=== PATIENT | female | born 1985 | race American Indian/Alaskan Native ===

== ENCOUNTER 2016-08-25 15:35 | Emergency (ER) | payer MEDICARE ==
[2016-08-25 16:01] VITALS: BP 107/72
[2016-08-25] MEDS ORDERED: D5NS 0.2% 1,000 ML IV ONE (16:07)
--- NOTE | 2016-08-25 16:12 | Emergency Department Report ---
Chief Complaint: Sickle Cell Crisis Stated Complaint: SICKLE CELL CRISIS/PAIN/NAUSEA - HPI History of Present Illness: Patient c/o sickle cell crisis x 4-5 days. States having pain all over her body, vomiting, and low grade fever. States port-a-cath in left chest. LMP end of 07/2016. - Exam Vital Signs: Vital Signs 08/25/16 15:59 Temperature 98.8 F Pulse Rate 66 Respiratory 12 Rate Blood Pressure 107/72 [Right] Physical Exam: General: NAD. MSE screening note: Focused history and physical exam performed. Due to findings the following was ordered: ED Disposition for MSE Condition: Stable
--- NOTE | 2016-08-26 12:14 | ED Elopement Review ---
ED Pt Elopement review - Call Back decision Pt Call Back Decision: No action required
== END 2016-08-25 21:00 | disposition left against medical advice (07) ==
LOC: ED 15:35
DX: D57.00 Hb-SS disease with crisis, unspecified (principal); R11.2 Nausea with vomiting, unspecified; R50.9 Fever, unspecified; Z53.21 Procedure and treatment not carried out due to patient leaving prior to being seen by health care provider

== ENCOUNTER 2016-10-26 10:32 | Emergency (ER) | payer MEDICARE ==
[2016-10-26] MEDS ORDERED: D5NS 0.2% 1,000 ML IV SCH (11:00)
[2016-10-26] MEDS ORDERED: REGLAN IV ONE (14:00)
[2016-10-26] MEDS ORDERED: DILAUDID IV ONE ×2 (14:00→15:36)
[2016-10-26] MEDS ORDERED: BENADRYL IV ONE ×2 (14:00→15:36)
[2016-10-26 14:28] LABS: Basophils % (Auto) 0.6 % (0.0-1.8); Eosinophils % (Auto) 1.9 % (0.0-4.3); Hematocrit 27.6 % (30.3-42.9); Hemoglobin 8.9 gm/dl (10.1-14.3); Mean Corpuscular HGB Conc 32 % (30-34); Platelet Count 163 K/mm3 (140-440); Red Blood Count 4.81 M/mm3 (3.65-5.03); White Blood Count 13.3 K/mm3 (4.5-11.0)
[2016-10-26 14:30] LABS: Mean Corpuscular Hemoglobin 19 pg (28-32); Mean Corpuscular Volume 57 fl (79-97); Red Cell Distribution Width 24.9 % (13.2-15.2)
--- NOTE | 2016-10-26 14:42 | Emergency Department Report ---
HPI - General Chief Complaint: Sickle Cell Crisis Time Seen by Provider: 10/26/16 13:37 - HPI HPI: Chief complaint: Sickle cell crisis HPI: Patient is a 31-year-old female with a history of SC disease who states she has not been able to see her refuse laborer in a while. Patient is out of her hydroxyurea and folic acid. Patient states she's been having a sickle crisis for the last week and taking otat-duy-fianwlk pain medicines. Patient states over the last 2-3 days it's gotten worse. Patient has a slight cough with yellow sputum. Patient is a smoker. Patient states she has slight anterior chest wall discomfort with coughing only. No shortness of breath. Patient is status post tubal ligation. Patient also has a history of fibromyalgia Mode of arrival: private car Source: Patient Began: One week Duration: one week Context: see above Quality: typical sickle cell pain, Severity: out of 10 Improved with: nothing Worsened with: nothing Associated signs and symptoms: One episode of nausea and vomiting which patient states is not unusual when she has a crisis. ED Past Medical Hx - Past Medical History Previous Medical History?: Yes Hx Sickle Cell Disease: Yes (SC disease) Hx Asthma: Yes Additional medical history: fibromyalgia - Surgical History Past Surgical History?: Yes Hx Cholecystectomy: Yes Additional Surgical History: ports x 2 / tubal ligation/ t&a - Social History Smoking Status: Current Every Day Smoker Substance Use Type: Alcohol, Prescribed - Medications Home Medications: Home Medications Medication Instructions Recorded Confirmed Last Taken Type Folic Acid [Folic Acid] 1 mg PO DAILY 09/25/15 11/27/15 Unknown History Hydroxyurea [Hydroxyurea] 2,000 mg PO DAILY 09/25/15 11/27/15 Unknown History Diphenhydramine HCl [Benadryl 25 mg PO Q8HR PRN #15 tablet 11/27/15 Unknown Rx Allergy TAB] Ketorolac [Toradol] 10 mg PO Q6H PRN #20 tablet 05/25/16 Unknown Rx Metoclopramide [Reglan] 10 mg PO QID PRN #30 tablet 05/25/16 Unknown Rx oxyCODONE [Roxicodone] 5 mg PO Q6HR PRN #15 tablet 05/25/16 Unknown Rx Azithromycin [Zithromax TAB] 500 mg PO QDAY #3 tablet 10/26/16 Unknown Rx Folic Acid [Folvite] 1 mg PO QDAY #30 tablet 10/26/16 Unknown Rx Hydroxyurea [Hydrea] 2,000 mg PO QDAY #120 capsule 10/26/16 Unknown Rx Oxycodone HCl/Acetaminophen 1 each PO Q6HR PRN #14 tablet 10/26/16 Unknown Rx [Percocet 7.5/325 mg] Pregabalin [Lyrica] 75 mg PO QDAY #30 cap 10/26/16 Unknown Rx Promethazine [Phenergan TAB] 25 mg PO Q6HR PRN #10 tablet 10/26/16 Unknown Rx ED Review of Systems ROS: Stated complaint: SICKLE CELL/PAIN /VOMITTING Other details as noted in HPI ROS Constitutional: No fever ENT: No uri symptoms Cardiovascular: No chest pain Respiratory: No sob GI: No diarrhea : No dysuria frequency or urgency, Skin: No rash Neuro: No focal weakness or numbness Psych: No depression Ted/lymph: No edema Physical Exam - Physical Exam Vital Signs: Vital Signs 10/26/16 10:38 Temperature 99.2 F Pulse Rate 101 H Respiratory 20 Rate Blood Pressure 115/76 O2 Sat by Pulse 100 Oximetry Physical Exam: GENERAL: The patient is well-developed well-nourished . HEENT: Normocephalic. Atraumatic. Extraocular motions are intact. Patient has moist mucous membranes. NECK: Supple. No meningitic signs are noted. There is no adenopathy noted. CHEST/LUNGS: Clear to auscultation. There is no respiratory distress noted. Patient has a port in her left chest. HEART/CARDIOVASCULAR: Regular. There is no tachycardia. There is no gallop rub or murmur. ABDOMEN: Abdomen is soft, nontender. Patient has normal bowel sounds. There is no abdominal distention. SKIN: There is no rash. There is no edema. There is no diaphoresis. NEURO: The patient is awake, alert, and oriented. The patient is cooperative. The patient has no focal neurologic deficits. The patient has normal speech. MUSCULOSKELETAL: There is no tenderness or deformity. There is no limitation range of motion. There is no evidence of acute injury. ED Course Vital Signs 10/26/16 10:38 Temperature 99.2 F Pulse Rate 101 H Respiratory 20 Rate Blood Pressure 115/76 O2 Sat by Pulse 100 Oximetry - Reevaluation(s) Reevaluation #1: 03/14/17 14:48 Patient's port was accessed and she was given IV fluids, Dilaudid, Reglan and Benadryl 10/26/16 15:37 Patient given a second dose of Dilaudid, Benadryl and Toradol was added. ED Medical Decision Making - Lab Data Result diagrams: 10/26/16 10:41 Laboratory Tests 11/10/14 10/26/16 04:25 10:41 Percent Retic 2.33 1.30 Critical care attestation.: If time is entered above; I have spent that time in minutes in the direct care of this critically ill patient, excluding procedure time. ED Disposition Clinical Impression: Sickle cell crisis, Bronchitis Disposition: DISCHARGED TO HOME OR SELFCARE Is pt being admited?: No Does the pt Need Aspirin: No Condition: Stable Instructions: Acute Bronchitis (ED), Sickle Cell Crisis (ED) Prescriptions: Azithromycin [Zithromax TAB] 500 mg PO QDAY #3 tablet Folic Acid [Folvite] 1 mg PO QDAY #30 tablet Hydroxyurea [Hydrea] 2,000 mg PO QDAY #120 capsule Oxycodone HCl/Acetaminophen [Percocet 7.5/325 mg] 1 each PO Q6HR PRN #14 tablet PRN Reason: Pain Pregabalin [Lyrica] 75 mg PO QDAY #30 cap Promethazine [Phenergan TAB] 25 mg PO Q6HR PRN #10 tablet PRN Reason: Nausea Referrals: АЛЕКСАНДР WAGNER MD [Staff Physician] - as needed (Dr. Wagner is a refuse laborer with him he can follow-up if need be) KATY COPELAND DO [Staff Physician] - as needed [facility] [Outside] - as needed (Called [facility] and see if you can follow-up with the [facility]) Time of Disposition: 15:35
[2016-10-26 15:03] LABS: Anion Gap 20 mmol/L; Blood Urea Nitrogen 9 mg/dL (7-17); Calcium 8.1 mg/dL (8.4-10.2); Carbon Dioxide 20 mmol/L (22-30); Chloride 107.1 mmol/L (98-107); Glucose 114 mg/dL (65-100); Potassium 3.5 mmol/L (3.6-5.0); Sodium 144 mmol/L (137-145)
[2016-10-26] MEDS ORDERED: TORADOL IV ONE (15:36)
[2016-10-26] MEDS ORDERED: FLUSH HEPARIN IV ONE (16:27)
[2016-10-26 16:44] VITALS: BP 112/69
== END 2016-10-26 16:46 | disposition home or self-care (01) ==
LOC: ED 10:32
DX: D57.00 Hb-SS disease with crisis, unspecified (principal); J40 Bronchitis, not specified as acute or chronic; R11.2 Nausea with vomiting, unspecified; J45.909 Unspecified asthma, uncomplicated; F17.200 Nicotine dependence, unspecified, uncomplicated
CPT/HCPCS: 36415; 80048; 85025; 85045; 96361; 96374; 96375; 96376; 99283; J1170; J1200; J1642; J1885; J2765

== ENCOUNTER 2016-10-29 20:43 | Inpatient (IN) | payer MEDICARE ==
[2016-10-30] MEDS ORDERED: BENADRYL ONE (09:31)
[2016-10-30] MEDS ORDERED: ZOFRAN ONE (09:31)
[2016-10-30] MEDS ORDERED: DILAUDID ONE (09:31)
--- NOTE | 2016-10-30 09:31 | XRay Report ---
Chest 2 views: Compared to 05/25/16. History: Chest pain. Findings: Normal cardiomediastinal silhouette. Trachea is midline. No consolidation, pneumothorax or pleural effusion. Impression: No acute cardiopulmonary findings.
[2016-10-30] MEDS ORDERED: NACL 0.9% 1000 ML 1,000 ML ONE (09:32)
[2016-10-30] MEDS ORDERED: BENADRYL IV ONE (09:35)
[2016-10-30] MEDS ORDERED: ZOFRAN IV ONE (09:35)
[2016-10-30] MEDS ORDERED: DILAUDID IV ONE ×2 (09:35→10:56)
[2016-10-30] MEDS ORDERED: NACL 0.9% 1000 ML 1,000 ML IV ONE (09:35)
--- NOTE | 2016-10-30 09:59 | Emergency Department Report ---
HPI - General Chief Complaint: Sickle Cell Crisis Time Seen by Provider: 10/30/16 09:05 - HPI HPI: This is a 31-year-old Afro-[place] female who presents to the emergency department from home with complaint of nausea, vomiting, chest pain and generalized body aches that she believes is a sickle cell pain crisis. Patient was here a few days ago for the same and was given fluids, meds and a prescription for home. She was feeling better at that time but the symptoms returned. She denies any history of NM, CVA, PE/DVT. She does not have a primary care or b2b sales representative. No recent travel or sick contacts at home. ED Past Medical Hx - Past Medical History Hx Hypertension: No Hx Heart Attack/AMI: No Hx Congestive Heart Failure: No Hx Diabetes: No Hx Deep Vein Thrombosis: No Hx Pulmonary Embolism: No Hx Liver Disease: No Hx Renal Disease: No Hx Sickle Cell Disease: Yes (SC disease) Hx Arthritis: No Hx Seizures: No Hx Kidney Stones: No Hx Asthma: Yes Hx COPD: No Hx Tuberculosis: No Hx Dementia: No Hx HIV: No Additional medical history: fibromyalgia - Surgical History Hx Coronary Stent: No Hx Open Heart Surgery: No Hx Pacemaker: No Hx Internal Defibrillator: No Hx Cholecystectomy: Yes Hx Appendectomy: No Hx Breast Surgery: No Additional Surgical History: ports x 2 / tubal ligation/ t&a - Social History Smoking Status: Current Every Day Smoker Substance Use Type: Alcohol, Prescribed - Medications Home Medications: Home Medications Medication Instructions Recorded Confirmed Last Taken Type Folic Acid [Folic Acid] 1 mg PO DAILY 09/25/15 11/27/15 Unknown History Hydroxyurea [Hydroxyurea] 2,000 mg PO DAILY 09/25/15 11/27/15 Unknown History Diphenhydramine HCl [Benadryl 25 mg PO Q8HR PRN #15 tablet 11/27/15 Unknown Rx Allergy TAB] Ketorolac [Toradol] 10 mg PO Q6H PRN #20 tablet 05/25/16 Unknown Rx Metoclopramide [Reglan] 10 mg PO QID PRN #30 tablet 05/25/16 Unknown Rx oxyCODONE [Roxicodone] 5 mg PO Q6HR PRN #15 tablet 05/25/16 Unknown Rx Azithromycin [Zithromax TAB] 500 mg PO QDAY #3 tablet 10/26/16 Unknown Rx Folic Acid [Folvite] 1 mg PO QDAY #30 tablet 10/26/16 Unknown Rx Hydroxyurea [Hydrea] 2,000 mg PO QDAY #120 capsule 10/26/16 Unknown Rx Oxycodone HCl/Acetaminophen 1 each PO Q6HR PRN #14 tablet 10/26/16 Unknown Rx [Percocet 7.5/325 mg] Pregabalin [Lyrica] 75 mg PO QDAY #30 cap 10/26/16 Unknown Rx Promethazine [Phenergan TAB] 25 mg PO Q6HR PRN #10 tablet 10/26/16 Unknown Rx ED Review of Systems ROS: Stated complaint: SICKLE CELL CRISIS Other details as noted in HPI Comment: All other systems reviewed and negative Constitutional: denies: chills, fever Eyes: denies: eye pain, eye discharge, vision change ENT: denies: ear pain, throat pain Respiratory: shortness of breath. denies: cough Cardiovascular: chest pain. denies: palpitations, edema Gastrointestinal: denies: abdominal pain, nausea, diarrhea Genitourinary: denies: urgency, dysuria, discharge Musculoskeletal: back pain, myalgia. denies: joint swelling Skin: denies: rash, lesions Neurological: denies: headache, weakness, paresthesias Physical Exam - Physical Exam Vital Signs: Vital Signs 10/29/16 21:59 Temperature 98.9 F Pulse Rate 105 H Respiratory 22 Rate Blood Pressure 120/71 O2 Sat by Pulse 100 Oximetry Physical Exam: GENERAL: The patient is well-developed well-nourished. HEENT: Normocephalic. Atraumatic. Extraocular motions are intact. Patient has moist mucous membranes. Pupils equal reactive to light bilaterally. NECK: Supple. Trachea is midline. CHEST/LUNGS: Clear to auscultation. There is no respiratory distress noted. HEART/CARDIOVASCULAR: Regular. There is mild tachycardia. There is no gallop rub or murmur. ABDOMEN: Abdomen is soft, nontender. Patient has normal bowel sounds. There is no abdominal distention. SKIN: There is no rash. There is no edema. There is no diaphoresis. NEURO: The patient is awake, alert, and oriented. The patient is cooperative. The patient has no focal neurologic deficits. The patient has normal speech. MUSCULOSKELETAL: There is no tenderness or deformity. There is no limitation range of motion. There is no evidence of acute injury. ED Course Vital Signs 10/29/16 21:59 Temperature 98.9 F Pulse Rate 105 H Respiratory 22 Rate Blood Pressure 120/71 O2 Sat by Pulse 100 Oximetry ED Medical Decision Making - Lab Data Result diagrams: 10/30/16 09:55 10/30/16 09:55 - EKG Data -: EKG Interpreted by Me EKG shows normal: sinus rhythm, axis, intervals, QRS complexes (Q waves to the septal leads), ST-T waves Rate: normal - EKG Data When compared to previous EKG there are: previous EKG unavailable Interpretation: other (q waves to the septal leads) - Radiology Data Radiology results: image reviewed interpreted by me: Chest x-ray did not show any acute process. Heart is normal shape and size. No effusions. No pneumothorax. No signs of pneumonia seen. - Medical Decision Making 31-year-old female with sickle cell presents with nausea, vomiting, chest pain and generalized body aches. Her chest x-ray does not show any acute process. EKG shows some Q waves to the septal leads but otherwise no signs of ST elevation NM or dysrhythmia. Patient's labs show a anemia with a hemoglobin of 8.7, reticulocyte count of about 1 and so far a negative troponin. Patient's d- dimer is negative as well. Patient appears low suspicion for chest crisis. However the patient received IV fluid resuscitation and 2 different doses of high strength narcotic pain medications and still complains of significant discomfort. For this reason the patient will be admitted to hospital for further evaluation and has been accepted for admission by the hospitalist, Dr. Hernandez. - Differential Diagnosis sickle cell pain crisis, chest crisis, NM, PE, costochondritis Critical Care Time: No Critical care attestation.: If time is entered above; I have spent that time in minutes in the direct care of this critically ill patient, excluding procedure time. ED Disposition Clinical Impression: Sickle cell pain crisis Anemia Qualifiers: Anemia type: unspecified type Qualified Code(s): D64.9 - Anemia, unspecified Chest pain Qualifiers: Chest pain type: unspecified Qualified Code(s): R07.9 - Chest pain, unspecified Disposition: OP ADMITTED IP TO THIS HOSP Is pt being admited?: Yes Does the pt Need Aspirin: Yes Condition: Stable Instructions: Chest Pain (ED) Referrals: PRIMARY CARE, [Primary Care Provider] - 3-5 Days Time of Disposition: 13:58
[2016-10-30] MEDS ORDERED: REGLAN ONE (10:00)
[2016-10-30] MEDS ORDERED: REGLAN IV ONE (10:25)
[2016-10-30 10:27] LABS: Basophils % (Auto) 0.5 % (0.0-1.8); Eosinophils % (Auto) 2.4 % (0.0-4.3); Hematocrit 26.7 % (30.3-42.9); Hemoglobin 8.7 gm/dl (10.1-14.3); Mean Corpuscular HGB Conc 33 % (30-34); Mean Corpuscular Hemoglobin 19 pg (28-32); Mean Corpuscular Volume 58 fl (79-97); Platelet Count 157 K/mm3 (140-440); Red Blood Count 4.61 M/mm3 (3.65-5.03); Red Cell Distribution Width 24.1 % (13.2-15.2); Reticulocyte % 1.26 % (0.78-2.58); White Blood Count 10.4 K/mm3 (4.5-11.0)
[2016-10-30 11:17] LABS: Anion Gap 14 mmol/L; Blood Urea Nitrogen 7 mg/dL (7-17); Calcium 8.3 mg/dL (8.4-10.2); Carbon Dioxide 26 mmol/L (22-30); Glucose 98 mg/dL (65-100); Potassium 3.9 mmol/L (3.6-5.0); Sodium 141 mmol/L (137-145)
[2016-10-30] MEDS ORDERED: TORADOL PO PRN (13:15)
[2016-10-30] MEDS ORDERED: DILAUDID IV PRN ×4 (13:17→16:20)
[2016-10-30] MEDS ORDERED: NORCO 10/325 PO PRN (13:17)
[2016-10-30] MEDS ORDERED: ATIVAN PO PRN (13:17)
[2016-10-30] MEDS ORDERED: MILK OF MAGNESIA PO PRN (13:17)
[2016-10-30] MEDS ORDERED: DULCOLAX PR PRN (13:17)
[2016-10-30] MEDS ORDERED: SODIUM CHLORIDE FLUSH SYRINGE 10 ML IV PRN (13:17)
--- NOTE | 2016-10-30 13:26 | History and Physical Report ---
History of Present Illness Date of admission: 10/30/2016 Chief complaint: Back pain flank pain History of present illness: He should 31-year-old female that presents with typical sickle cell crisis with back pain and thigh pain flank pain. Overall for approximately 3-4 days. Patient denies any fever chills nausea vomiting. Denies any triggering episodes. Patient states pain medications at home was not working and presented to the ED. Patient was given multiple regimes of pain control here in the ED and which did not control her pain and therefore was admitted. At present patient states her pain is not controlled. Past History Past Medical History: denies: acute ID, atrial fib, arthritis, CAD, cancer, DVT , ESRD, hypertension, hypothyroidism, migraines, seizures Past Surgical History: No surgical history, appendectomy, tonsillectomy, Other ( laminectomy) Social history: single. denies: alcohol abuse, prescription drug abuse, IV drug use Family history: other (sickle cell disease) Medications and Allergies Allergies Allergy/AdvReac Type Severity Reaction Status Date / Time cefotetan disodium Allergy Hives Verified 05/25/16 17:25 [From Cefotan] morphine Allergy Vomiting Verified 07/13/16 20:40 Home Medications Medication Instructions Recorded Confirmed Last Taken Type Folic Acid [Folic Acid] 1 mg PO DAILY 09/25/15 11/27/15 Unknown History Hydroxyurea [Hydroxyurea] 2,000 mg PO DAILY 09/25/15 11/27/15 Unknown History Diphenhydramine HCl [Benadryl 25 mg PO Q8HR PRN #15 tablet 11/27/15 Unknown Rx Allergy TAB] Ketorolac [Toradol] 10 mg PO Q6H PRN #20 tablet 05/25/16 Unknown Rx Metoclopramide [Reglan] 10 mg PO QID PRN #30 tablet 05/25/16 Unknown Rx oxyCODONE [Roxicodone] 5 mg PO Q6HR PRN #15 tablet 05/25/16 Unknown Rx Azithromycin [Zithromax TAB] 500 mg PO QDAY #3 tablet 10/26/16 Unknown Rx Folic Acid [Folvite] 1 mg PO QDAY #30 tablet 10/26/16 Unknown Rx Hydroxyurea [Hydrea] 2,000 mg PO QDAY #120 capsule 10/26/16 Unknown Rx Oxycodone HCl/Acetaminophen 1 each PO Q6HR PRN #14 tablet 10/26/16 Unknown Rx [Percocet 7.5/325 mg] Pregabalin [Lyrica] 75 mg PO QDAY #30 cap 10/26/16 Unknown Rx Promethazine [Phenergan TAB] 25 mg PO Q6HR PRN #10 tablet 10/26/16 Unknown Rx Review of Systems Constitutional: chronic pain, no weight loss, no sweats, no anorexia, no fatigue , no weakness, no malaise, no poor appetite, no daytime sleepiness Ears, nose, mouth and throat: no deferred, no ear discharge, no nasal congestion , no dental pain, no dysphagia, no sore throat, no swelling in mouth, no post- nasal drip, no headache, no pain front of neck Cardiovascular: chest pain, shortness of breath, dyspnea on exertion, no orthopnea, no palpitations, no rapid/irregular heart beat, no edema, no syncope , no lightheadedness, no paroxysmal nocturnal dyspnea, no claudication, no phlebitis, no high blood pressure Respiratory: cough, no cough with sputum, no excessive sputum, no hemoptysis, no shortness of breath, no congestion, no wheezing, no pleurisy, no sleep apnea , no respiratory infections Gastrointestinal: no abdominal pain, no vomiting, no change in bowel habits, no melena, no hematochezia, no loss of appetite, no early satiety, no excessive gas , no jaundice, no early satiety Genitourinary Female: pelvic pain, no dyspareunia, no dysuria, no urinary frequency, no urgency, no post void dribbling, no urge incontinence, no nocturia , no vaginal discharge, no vaginal odor, no abnormal vaginal bleeding, no vaginal dryness, no hot flashes, no Rectal: no incontinence Musculoskeletal: low back pain, shooting leg pain, muscle weakness, muscle cramps, no neck stiffness, no neck pain, no shooting arm pain, no leg numbness/ tingling, no redness of joints, no hot joints, no morning stiffness, no myalgias , no limitation of motion, no gait dysfunction, no frequent falls, no loss of height, no prior amputations Integumentary: no rash, no redness, no wounds, no jaundice, no bullae, no lesions, no depigmentation, no acne Neurological: no transient paralysis, no paralysis, no parathesias, no tingling , no tremors, no convulsions, no change in speech, no confusion, no sensory deficit, no loss of vision, no hearing difficulties Psychiatric: no memory loss, no sleep disturbances, no change in appetite, no suicidal ideation, no anhedonia, no sadness/tearfullness Endocrine: no heat intolerance, no nocturia, no excessive sweating, no thyroid mass, no palpatations, no low blood sugars Hematologic/Lymphatic: no lymphadenopathy, no lymphedema, no thrombophilia, no other Allergic/Immunologic: no allergic rhinitis Exam - Constitutional Vitals: Temp Pulse Resp BP Pulse Ox 98.9 F 105 H 18 120/71 100 10/29/16 21:59 10/29/16 21:59 10/30/16 11:10 10/29/16 21:59 10/29/16 21:59 General appearance: Present: no acute distress, well-nourished, other (moderate distress) - Neck Neck: Present: other - Respiratory Respiratory effort: normal Respiratory: bilateral: CTA - Cardiovascular Heart rate: 105 - Extremities Extremities: pulses symmetrical, No edema - Abdominal General gastrointestinal: Present: soft, non-tender, non-distended, normal bowel sounds - Integumentary Integumentary: Present: clear, warm, dry - Musculoskeletal Musculoskeletal: generalized weakness - Psychiatric Psychiatric: appropriate mood/affect, intact judgment & insight - Neurologic Neurologic: CNII-XII intact, moves all extremities Results - Labs CBC & Chem 7: 10/30/16 09:55 10/30/16 09:55 Labs: Laboratory Last Values WBC 10.4 K/mm3 (4.5-11.0) 10/30/16 09:55 RBC 4.61 M/mm3 (3.65-5.03) 10/30/16 09:55 Hgb 8.7 gm/dl (10.1-14.3) L 10/30/16 09:55 Hct 26.7 % (30.3-42.9) L 10/30/16 09:55 MCV 58 fl (79-97) L 10/30/16 09:55 MCH 19 pg (28-32) L 10/30/16 09:55 MCHC 33 % (30-34) 10/30/16 09:55 RDW 24.1 % (13.2-15.2) H 10/30/16 09:55 Plt Count 157 K/mm3 (140-440) 10/30/16 09:55 Lymph % (Auto) 32.4 % (13.4-35.0) 10/30/16 09:55 Love % (Auto) 7.2 % (0.0-7.3) 10/30/16 09:55 Eos % (Auto) 2.4 % (0.0-4.3) 10/30/16 09:55 Baso % (Auto) 0.5 % (0.0-1.8) 10/30/16 09:55 Lymph # 3.4 K/mm3 (1.2-5.4) 10/30/16 09:55 Love # 0.7 K/mm3 (0.0-0.8) 10/30/16 09:55 Eos # 0.2 K/mm3 (0.0-0.4) 10/30/16 09:55 Baso # 0.1 K/mm3 (0.0-0.1) 10/30/16 09:55 Seg Neutrophils % 57.5 % (40.0-70.0) 10/30/16 09:55 Seg Neutrophils # 6.0 K/mm3 (1.8-7.7) 10/30/16 09:55 Percent Retic 1.26 % (0.78-2.58) 10/30/16 09:55 D-Dimer 215.72 ng/mlDDU (0-234) 10/30/16 09:55 Sodium 141 mmol/L (137-145) 10/30/16 09:55 Potassium 3.9 mmol/L (3.6-5.0) 10/30/16 09:55 Chloride 105.0 mmol/L (98-107) 10/30/16 09:55 Carbon Dioxide 26 mmol/L (22-30) 10/30/16 09:55 Anion Gap 14 mmol/L 10/30/16 09:55 BUN 7 mg/dL (7-17) 10/30/16 09:55 Creatinine 0.4 mg/dL (0.7-1.2) L 10/30/16 09:55 Estimated GFR > 60 ml/min 10/30/16 09:55 BUN/Creatinine Ratio 17.50 % 10/30/16 09:55 Glucose 98 mg/dL (65-100) 10/30/16 09:55 Calcium 8.3 mg/dL (8.4-10.2) L 10/30/16 09:55 Total Creatine Kinase 49 units/L (30-135) 10/30/16 09:55 Troponin T < 0.010 ng/mL (0.00-0.029) 10/30/16 09:55 HCG, Qual Negative (Negative) 10/30/16 09:55 - Imaging and Cardiology Chest x-ray: image reviewed Assessment and Plan Advance Directives: Yes VTE prophylaxis?: Chemical Plan of care discussed with patient/family: Yes - Patient Problems (1) Chest pain Current Visit: Yes Status: Acute Qualifiers: Chest pain type: unspecified Qualified Code(s): R07.9 - Chest pain, unspecified Plan to address problem: Patient's chest pain is resolved. (2) Sickle cell pain crisis Current Visit: Yes Status: Acute Plan to address problem: Since with typical sickle cell pain crisis. Patient develop tolerance usually takes 4 mg Dilaudid. We'll start patient back increased at 3 every 3 since she' s not control with current pain regime aggressive IV volume replacement. No evidence of infection no fever no acute chest pain crisis.
[2016-10-30] MEDS ORDERED: D5/0.45NS 1,000 ML IV SCH (14:00)
[2016-10-30] MEDS: BENADRYL PO PRN ×2 (14:43→22:15)
[2016-10-30] MEDS: DILAUDID IV PRN ×2 (18:23→22:16)
[2016-10-30] MEDS: THERAGRAN Tab PO SCH (18:23)
[2016-10-30] MEDS: REGLAN PO PRN (18:24)
[2016-10-30] MEDS: PHENERGAN PO PRN (22:15)
[2016-10-30] MEDS: SENOKOT PO SCH (22:15)
[2016-10-31] MEDS: REGLAN PO PRN (01:55)
[2016-10-31] MEDS: DILAUDID IV PRN ×7 (01:56→22:25)
[2016-10-31] MEDS: PHENERGAN PO PRN ×3 (05:46→18:42)
[2016-10-31] MEDS: ZOFRAN IV PRN ×2 (08:24→22:33)
[2016-10-31] MEDS: FOLVITE PO SCH (09:44)
[2016-10-31] MEDS: LOVENOX SUB-Q SCH (09:44)
[2016-10-31] MEDS: THERAGRAN Tab PO SCH (09:45)
[2016-10-31] MEDS: LYRICA PO SCH (09:45)
[2016-10-31] MEDS: HYDREA PO SCH (09:45)
[2016-10-31] MEDS ORDERED: FLUARIX QUAD 2016-2017(36 MOS+) IM ONE (12:00)
[2016-10-31] MEDS: BENADRYL PO PRN ×2 (12:30→18:41)
--- NOTE | 2016-10-31 18:46 | Progress Note ---
Assessment and Plan Assessment and plan: --Sickle cell disease with painful crisis Patient's reticulocyte count is within normal limits Mild anemia with hemoglobin of 8.5 Continue current management, oxygen, IV fluids, pain medications --DVT prophylaxis with Lovenox --Ongoing tobacco use Okaying cessation counseling done patient strongly advised to quit tobacco use Advised nicotine patch as needed Past closely monitor the patient Possible discharge home tomorrow if stable Plan of care discussed with the patient as well as the nurse History Interval history: Patient seen and evaluated in in her room this morning medical records reviewed No new events reported by the nursing staff, patient was admitted with the sickle cell crisis Complaints of persisting pain, denies nausea vomiting, denies shortness of breath or chest pain Alert awake oriented 3 not in acute distress Vital signs reviewed stable Hospitalist Physical - Constitutional Vitals: Temp Pulse Resp BP Pulse Ox 97.8 F 86 18 100/60 97 10/31/16 15:36 10/31/16 15:36 10/31/16 18:42 10/31/16 15:36 10/31/16 08:00 General appearance: Present: no acute distress, well-nourished - EENT Eyes: Present: PERRL, EOM intact - Neck Neck: Present: supple, normal ROM - Respiratory Respiratory effort: normal Respiratory: negative: rales, rhonchi, wheezing - Cardiovascular Rhythm: regular Heart Sounds: Present: S1 & S2 - Extremities Extremities: no ischemia, pulses intact, pulses symmetrical, No edema Peripheral Pulses: within normal limits - Abdominal General gastrointestinal: soft, non-tender, non-distended, normal bowel sounds - Integumentary Integumentary: Present: clear, warm - Psychiatric Psychiatric: appropriate mood/affect, cooperative - Neurologic Neurologic: CNII-XII intact, moves all extremities Results - Labs CBC & Chem 7: 10/30/16 09:55 10/30/16 09:55 Labs: Laboratory Last Values WBC 10.4 K/mm3 (4.5-11.0) 10/30/16 09:55 RBC 4.61 M/mm3 (3.65-5.03) 10/30/16 09:55 Hgb 8.7 gm/dl (10.1-14.3) L 10/30/16 09:55 Hct 26.7 % (30.3-42.9) L 10/30/16 09:55 MCV 58 fl (79-97) L 10/30/16 09:55 MCH 19 pg (28-32) L 10/30/16 09:55 MCHC 33 % (30-34) 10/30/16 09:55 RDW 24.1 % (13.2-15.2) H 10/30/16 09:55 Plt Count 157 K/mm3 (140-440) 10/30/16 09:55 Lymph % (Auto) 32.4 % (13.4-35.0) 10/30/16 09:55 [place] % (Auto) 7.2 % (0.0-7.3) 10/30/16 09:55 Eos % (Auto) 2.4 % (0.0-4.3) 10/30/16 09:55 Baso % (Auto) 0.5 % (0.0-1.8) 10/30/16 09:55 Lymph # 3.4 K/mm3 (1.2-5.4) 10/30/16 09:55 [place] # 0.7 K/mm3 (0.0-0.8) 10/30/16 09:55 Eos # 0.2 K/mm3 (0.0-0.4) 10/30/16 09:55 Baso # 0.1 K/mm3 (0.0-0.1) 10/30/16 09:55 Seg Neutrophils % 57.5 % (40.0-70.0) 10/30/16 09:55 Seg Neutrophils # 6.0 K/mm3 (1.8-7.7) 10/30/16 09:55 Percent Retic 1.26 % (0.78-2.58) 10/30/16 09:55 D-Dimer 215.72 ng/mlDDU (0-234) 10/30/16 09:55 Sodium 141 mmol/L (137-145) 10/30/16 09:55 Potassium 3.9 mmol/L (3.6-5.0) 10/30/16 09:55 Chloride 105.0 mmol/L (98-107) 10/30/16 09:55 Carbon Dioxide 26 mmol/L (22-30) 10/30/16 09:55 Anion Gap 14 mmol/L 10/30/16 09:55 BUN 7 mg/dL (7-17) 10/30/16 09:55 Creatinine 0.4 mg/dL (0.7-1.2) L 10/30/16 09:55 Estimated GFR > 60 ml/min 10/30/16 09:55 BUN/Creatinine Ratio 17.50 % 10/30/16 09:55 Glucose 98 mg/dL (65-100) 10/30/16 09:55 Calcium 8.3 mg/dL (8.4-10.2) L 10/30/16 09:55 Total Creatine Kinase 49 units/L (30-135) 10/30/16 09:55 Troponin T < 0.010 ng/mL (0.00-0.029) 10/30/16 09:55 HCG, Qual Negative (Negative) 10/30/16 09:55
[2016-10-31] MEDS: SENOKOT PO SCH (22:23)
[2016-11-01] MEDS: PHENERGAN PO PRN ×2 (04:04→11:23)
[2016-11-01] MEDS: DILAUDID IV PRN ×5 (04:04→21:51)
--- NOTE | 2016-11-01 07:30 | Admit Criteria Form ---
Admission Criteria Documentation: SICKLE CELL DISEASE Clinical Indications for Admission to Inpatient Care (Place 'X' for any and all applicable criteria): Admission is indicated for ANY ONE of the following(1)(2)(3)(4)(5): [X]I. Inpatient admission required rather than observation care because of ANY ONE of the following: [ ]a) Altered mental status [ ]b) High fever or infection requiring inpatient admission as indicated by ANY ONE of the following: [ ]A. Appropriate outpatient observation care antimicrobial treatment unavailable, not effective, or not appropriate for infection [ ]B. Documented bacteremia [ ]C. Temp >104.9F (40.5C) (oral) [ ]D. Temp >103.1F (oral) or <96.8F(rectal) that does not respond to all emergency treatment measures [ ]c) Supplemental O2 or respiratory therapy for over 24 h that are performable only in acute inpatient setting [X]d) Continuous parenteral narcoticsother major pain intervention for >24 h performable only in acute inpatient setting. [ ]e) Exchange transfusion [ ]f) Other condition, treatment or monitoring requiring inpatient admission [ ]II. Acute chest syndrome indicated by ALL of the following (10): [ ]a) New alveolar infiltrate involving at least one lung segment [ ]b) Associated pulmonary symptoms or findings as indicated by ANY ONE of the following: [ ]i) Chest pain [ ]ii) Hypoxemia [ ]iii) Tachypnea/dyspnea [ ]iv) Wheezing [ ]v) Cough [ ]vi) Sputum production [ ]III. Significant hypoxemia or acidosis (more severe than baseline) [ ]IV. Emergent surgery needed (eg, acute cholecystitis) [ ]V. -related complication(11) [ ]. Splenic or hepatic sequestration(12) [ ]VII. Aplastic crisis [ ]VIII. Priapism or other vascular complication(13) [ ]IX. Traumatic hyphema [A](14) [ ]X. Underlying condition requiring hospitalization (eg, osteomyelitis) [ ]XI. Signs or symptoms of central nervous system injury indicated by ANY ONE of the following: [ ]a) Stroke(9) [ ]b) Seizure [ ]c) Other significant central nervous system symptom or event [ ]XII. Acute renal failure Extended stay beyond goal length of stay may be needed for: [ ]a) Inadequate pain control [ ]b) Acute chest syndrome [ ]c) Sequestration or aplastic crisis (12) [ ]d) Pneumonia and asthma exacerbation [ ]e) Neurologic or vascular complications (25) [ ]f) Infection (eg, osteomyelitis) that requires ongoing treatment) The original [facility] [employer] content created by [facility] has been revised. The portions of the content which have been revised are identified through the use of italic text or in bold, and [facility] has neither reviewed nor approved the modified material. All other unmodified content is copyright [facility]. Please see references footnoted in the original [facility] edition 2016 Admission Criteria Met: Yes
[2016-11-01] MEDS: ZOFRAN IV PRN (08:12)
[2016-11-01] MEDS: REGLAN PO PRN (08:13)
[2016-11-01] MEDS ORDERED: ZOFRAN IV PRN (10:41)
[2016-11-01] MEDS: FOLVITE PO SCH (10:48)
[2016-11-01] MEDS: HYDREA PO SCH (10:48)
[2016-11-01] MEDS ORDERED: NACL 0.9% 1000 ML 1,000 ML IV SCH (11:00)
[2016-11-01] MEDS: LYRICA PO SCH (11:23)
[2016-11-01] MEDS: LOVENOX SUB-Q SCH (11:23)
--- NOTE | 2016-11-01 13:16 | Progress Note ---
Assessment and Plan Assessment and plan: --Intractable nausea vomiting Mild improvement, continue antiemetics IV fluids and pain medications Consider CT abdomen and pelvis if no improvement --Sickle cell disease with painful crisis Patient's reticulocyte count is within normal limits Mild anemia with hemoglobin of 8.5 Continue current management, oxygen, IV fluids, pain medications --DVT prophylaxis with Lovenox --Ongoing tobacco use Smoking cessation counseling done patient strongly advised to quit tobacco use Advised nicotine patch as needed Closely monitor the patient had just the management as needed Possible discharge home tomorrow if stable Plan of care discussed with the patient as well as the nurse History Interval history: Patient seen and evaluated medical records reviewed Complaints of nausea vomiting, denies any headache dizziness Complains of generalized body pains and requests more pain medications, Alert awake oriented 3, vital signs reviewed Hospitalist Physical - Constitutional Vitals: Temp Pulse Resp BP Pulse Ox 99.4 F 105 H 20 120/59 98 11/01/16 08:23 11/01/16 08:23 11/01/16 08:23 11/01/16 08:23 11/01/16 08:23 General appearance: Present: no acute distress, well-nourished - EENT Eyes: Present: PERRL, EOM intact - Neck Neck: Present: supple, normal ROM - Respiratory Respiratory effort: normal Respiratory: negative: rales, rhonchi, wheezing - Cardiovascular Rhythm: regular Heart Sounds: Present: S1 & S2 - Extremities Extremities: no ischemia, pulses intact, pulses symmetrical Peripheral Pulses: within normal limits - Abdominal General gastrointestinal: soft, non-tender, non-distended, normal bowel sounds - Integumentary Integumentary: Present: clear, warm - Psychiatric Psychiatric: appropriate mood/affect, cooperative - Neurologic Neurologic: CNII-XII intact, moves all extremities Results - Labs CBC & Chem 7: 10/30/16 09:55 10/30/16 09:55 Labs: Laboratory Last Values WBC 10.4 K/mm3 (4.5-11.0) 10/30/16 09:55 RBC 4.61 M/mm3 (3.65-5.03) 10/30/16 09:55 Hgb 8.7 gm/dl (10.1-14.3) L 10/30/16 09:55 Hct 26.7 % (30.3-42.9) L 10/30/16 09:55 MCV 58 fl (79-97) L 10/30/16 09:55 MCH 19 pg (28-32) L 10/30/16 09:55 MCHC 33 % (30-34) 10/30/16 09:55 RDW 24.1 % (13.2-15.2) H 10/30/16 09:55 Plt Count 157 K/mm3 (140-440) 10/30/16 09:55 Lymph % (Auto) 32.4 % (13.4-35.0) 10/30/16 09:55 [place] % (Auto) 7.2 % (0.0-7.3) 10/30/16 09:55 Eos % (Auto) 2.4 % (0.0-4.3) 10/30/16 09:55 Baso % (Auto) 0.5 % (0.0-1.8) 10/30/16 09:55 Lymph # 3.4 K/mm3 (1.2-5.4) 10/30/16 09:55 [place] # 0.7 K/mm3 (0.0-0.8) 10/30/16 09:55 Eos # 0.2 K/mm3 (0.0-0.4) 10/30/16 09:55 Baso # 0.1 K/mm3 (0.0-0.1) 10/30/16 09:55 Seg Neutrophils % 57.5 % (40.0-70.0) 10/30/16 09:55 Seg Neutrophils # 6.0 K/mm3 (1.8-7.7) 10/30/16 09:55 Percent Retic 1.26 % (0.78-2.58) 10/30/16 09:55 D-Dimer 215.72 ng/mlDDU (0-234) 10/30/16 09:55 Sodium 141 mmol/L (137-145) 10/30/16 09:55 Potassium 3.9 mmol/L (3.6-5.0) 10/30/16 09:55 Chloride 105.0 mmol/L (98-107) 10/30/16 09:55 Carbon Dioxide 26 mmol/L (22-30) 10/30/16 09:55 Anion Gap 14 mmol/L 10/30/16 09:55 BUN 7 mg/dL (7-17) 10/30/16 09:55 Creatinine 0.4 mg/dL (0.7-1.2) L 10/30/16 09:55 Estimated GFR > 60 ml/min 10/30/16 09:55 BUN/Creatinine Ratio 17.50 % 10/30/16 09:55 Glucose 98 mg/dL (65-100) 10/30/16 09:55 Calcium 8.3 mg/dL (8.4-10.2) L 10/30/16 09:55 Total Creatine Kinase 49 units/L (30-135) 10/30/16 09:55 Troponin T < 0.010 ng/mL (0.00-0.029) 10/30/16 09:55 HCG, Qual Negative (Negative) 10/30/16 09:55
[2016-11-01] MEDS ORDERED: REGLAN PO PRN (15:16)
[2016-11-01 15:36] LABS: Amylase 531 units/L (27-131); Lipase 15 units/L (13-60)
[2016-11-01] MEDS ORDERED: NACL ONE (16:49)
--- NOTE | 2016-11-01 18:02 | Cat Scan Report ---
FINAL REPORT EXAM: CT ABDOMEN PELVIS W CON HISTORY: intractable nausea vomiting TECHNIQUE: CT abdomen and pelvis with intravenous contrast PRIORS: None. FINDINGS: No acute abnormality identified in the lung bases. There is some mild scarring noted within both lower lobes No focal abnormality identified within the liver parenchyma. The spleen demonstrates normal size and attenuation. No pancreatic abnormalities seen. The kidneys demonstrate symmetric contrast enhancement. No evidence of hydronephrosis. The adrenal glands are unremarkable Abdominal aorta is normal in caliber. No pathologically enlarged lymph nodes are identified. No signs of free fluid or free air No evidence of small bowel dilatation. Colon is nondistended. No pericolonic inflammatory change. Urinary bladder is unremarkable. IMPRESSION: Negative. No acute abnormalities seen
[2016-11-01] MEDS ORDERED: FLUSH HEPARIN IV ONE (20:13)
[2016-11-02] MEDS: DILAUDID IV PRN (03:32)
--- NOTE | 2016-11-02 08:28 | Discharge Summary ---
Providers - Providers Date of Admission: 10/30/16 14:54 Date of discharge: 11/02/16 Attending physician: ALEM HUDSON Primary care physician: NAN BRANTLEY MD Hospitalization Condition: Stable Exam - Constitutional Vitals: Temp Pulse Resp BP Pulse Ox 98.5 F 102 H 18 118/58 98 11/01/16 23:00 11/01/16 23:00 11/01/16 23:00 11/01/16 23:00 11/01/16 23:00 Plan Follow up with: PRIMARY CAREMD [Primary Care Provider] - 3-5 Days Prescriptions: Ondansetron [Zofran TAB] 4 mg PO Q8HR PRN #15 tablet PRN Reason: Nausea Oxycodone HCl/Acetaminophen [Percocet 7.5/325 mg] 1 each PO Q6HR PRN #14 tablet PRN Reason: Pain
[2016-11-02] MEDS: HYDREA PO SCH (09:46)
[2016-11-02] MEDS ORDERED: TRIPLE ANTIBIOTIC TP ONE (09:48)
[2016-11-02] MEDS ORDERED: FLUSH HEPARIN IV ONE (09:48)
[2016-11-02] MEDS ORDERED: PROTONIX IV SCH (10:00)
[2016-11-02 10:09] VITALS: BP 122/70
== END 2016-11-02 10:30 | disposition home or self-care (01) | DRG 812 ==
LOC: ED 20:43 → 3A 10-30 14:54 → OBSVTOIN 11-02 09:45
PROVIDERS: ADMIT Internal Medicine; ATTEND Internal Medicine
DX: D57.01 Hb-SS disease with acute chest syndrome (principal); R11.2 Nausea with vomiting, unspecified; M79.7 Fibromyalgia; D64.9 Anemia, unspecified; F17.210 Nicotine dependence, cigarettes, uncomplicated; J45.909 Unspecified asthma, uncomplicated; Z88.5 Allergy status to narcotic agent; Z88.8 Allergy status to other drugs, medicaments and biological substances; Z90.49 Acquired absence of other specified parts of digestive tract; Z98.51 Tubal ligation status; Z79.899 Other long term (current) drug therapy
CPT/HCPCS: 36415; 71020; 74177; 80048; 82150; 82550; 83690; 84484; 84703; 85025; 85045; 85379; 90686; 93005; 93010; 96361; 96374; 96375; 96376; A6250; C9113; G0378; J1170; J1200; J1642; J1650; J2405; J2765; J7030; Q0169; Q9967

== ENCOUNTER 2016-12-21 04:52 | Emergency (ER) | payer MEDICARE ==
[2016-12-21] MEDS ORDERED: D5NS 0.2% 1,000 ML IV SCH (06:00)
[2016-12-21 10:33] LABS: Basophils % (Auto) 0.7 % (0.0-1.8); Hematocrit 25.4 % (30.3-42.9); Hemoglobin 8.2 gm/dl (10.1-14.3); Mean Corpuscular HGB Conc 32 % (30-34); Mean Corpuscular Hemoglobin 18 pg (28-32); Mean Corpuscular Volume 57 fl (79-97); Platelet Count 191 K/mm3 (140-440); Red Blood Count 4.47 M/mm3 (3.65-5.03); Red Cell Distribution Width 23.6 % (13.2-15.2); Reticulocyte % 2.01 % (0.78-2.58); White Blood Count 12.6 K/mm3 (4.5-11.0)
[2016-12-21] MEDS ORDERED: DILAUDID IV ONE ×3 (11:00→13:12)
[2016-12-21] MEDS ORDERED: ZOFRAN IV ONE (11:00)
[2016-12-21] MEDS ORDERED: TORADOL IV ONE (11:01)
--- NOTE | 2016-12-21 11:06 | Emergency Department Report ---
HPI - General Chief Complaint: Sickle Cell Crisis Time Seen by Provider: 12/21/16 10:40 - HPI HPI: Room 19 The patient is a 31-year-old female presenting with a chief complaint of sickle cell pain crisis. The patient states her symptoms began 2-3 weeks ago with pain "all over." The patient states it feels like a crisis. 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 The patient currently gives her pain a score of 10/10 Location: "All over" Duration: 2-3 weeks Quality: Pain crisis Severity: 10/10 Modifying factors: [see above] Context: [see above] Mode of transportation: [not driving] ED Past Medical Hx - Past Medical History Previous Medical History?: Yes Hx Sickle Cell Disease: Yes Hx Seizures: Yes (10 + years ago) Hx Asthma: Yes Additional medical history: fibromyalgia - Surgical History Past Surgical History?: Yes Hx Cholecystectomy: Yes Additional Surgical History: ports x 2 / tubal ligation/ t&a , splenectomy - Family History Family history: no significant - Social History Smoking Status: Current Every Day Smoker Substance Use Type: None (denies illicit drug use), Alcohol (occasional) - Medications Home Medications: Home Medications Medication Instructions Recorded Confirmed Last Taken Type oxyCODONE /ACETAMINOPHEN [Percocet 1 - 2 tab PO Q6HR PRN #14 tablet 12/21/16 Unknown Rx 5/325] ED Review of Systems ROS: Stated complaint: SICKLE CELL PAIN/NAUSEA/VOMITING Other details as noted in HPI Comment: All other systems reviewed and negative Constitutional: denies: chills, fever Eyes: denies: eye pain, eye discharge, vision change ENT: denies: ear pain, throat pain Respiratory: denies: cough, shortness of breath, wheezing Cardiovascular: denies: chest pain, palpitations Endocrine: no symptoms reported Gastrointestinal: nausea, vomiting. denies: abdominal pain, diarrhea Genitourinary: denies: urgency, dysuria, discharge Musculoskeletal: myalgia Skin: denies: rash, lesions Neurological: denies: headache, weakness, paresthesias Psychiatric: denies: anxiety, depression Hematological/Lymphatic: other (sickle cell pain crisis) Physical Exam - Physical Exam Vital Signs: Vital Signs 12/21/16 05:03 Temperature 99.2 F Pulse Rate 94 H Respiratory 20 Rate Blood Pressure 112/74 O2 Sat by Pulse 98 Oximetry Physical Exam: GENERAL: The patient is well-developed well-nourished female lying on stretcher not appear to be in acute distress. [] HEENT: Normocephalic. Atraumatic. Extraocular motions are intact. Patient has moist mucous membranes. NECK: Supple. Trachea midline CHEST/LUNGS: Clear to auscultation. There is no respiratory distress noted. HEART/CARDIOVASCULAR: Regular. There is no tachycardia. There is no gallop rub or murmur. ABDOMEN: Abdomen is soft, nontender. Patient has normal bowel sounds. There is no abdominal distention. SKIN: There is no rash. There is no edema. There is no diaphoresis. NEURO: The patient is awake, alert, and oriented. The patient is cooperative. The patient has normal speech MUSCULOSKELETAL: There is no evidence of acute injury. ED Course Vital Signs 12/21/16 05:03 Temperature 99.2 F Pulse Rate 94 H Respiratory 20 Rate Blood Pressure 112/74 O2 Sat by Pulse 98 Oximetry - Reevaluation(s) Reevaluation #1: 12/21/16 13:13 Patient improved ED Medical Decision Making - Lab Data Result diagrams: 12/21/16 10:15 Laboratory Tests 12/21/16 10:15 WBC 12.6 H RBC 4.47 Hgb 8.2 L Hct 25.4 L MCV 57 L MCH 18 L MCHC 32 RDW 23.6 H Plt Count 191 Lymph % (Auto) 24.7 [place] % (Auto) 7.3 Eos % (Auto) 2.0 Baso % (Auto) 0.7 Lymph # 3.1 [place] # 0.9 H Eos # 0.2 Baso # 0.1 Seg Neutrophils % 65.3 Seg Neutrophils # 8.2 H Percent Retic 2.01 - Differential Diagnosis sickle cell pain crisis Critical care attestation.: If time is entered above; I have spent that time in minutes in the direct care of this critically ill patient, excluding procedure time. ED Disposition Clinical Impression: Sickle cell pain crisis Disposition: DISCHARGED TO HOME OR SELFCARE Is pt being admited?: No Does the pt Need Aspirin: No Condition: Stable Instructions: Sickle Cell Crisis (ED) Additional Instructions: Return to the emergency department immediately should you develop worsening symptoms, fever, inability to tolerate food or liquid or any other concerns. Prescriptions: oxyCODONE /ACETAMINOPHEN [Percocet 5/325] 1 - 2 tab PO Q6HR PRN #14 tablet PRN Reason: Pain Referrals: PRIMARY CARE, [Primary Care Provider] - 3-5 Days АЛЕКСАНДР WAGNER MD [Staff Physician] - 3-5 Days (Dr Wagner is a warehouse inventory clerk. Please follow up with him for further evaluation) Time of Disposition: 13:15
[2016-12-21] MEDS ORDERED: BENADRYL IV ONE (11:25)
[2016-12-21] MEDS ORDERED: REGLAN IV ONE (11:25)
[2016-12-21] MEDS ORDERED: ATARAX PO ONE (13:12)
[2016-12-21 13:15] LABS: Bilirubin,Urine NEG (Negative); Blood,Urine NEG (Negative); Ketones,Urine NEG (Negative); Leukocyte Esterase,Urine TR (Negative); Mucus,Urine FEW /HPF; Nitrite,Urine NEG (Negative); Protein,Urine <15 mg/dL mg/dL (Negative); Urobilinogen,Urine < 2.0 mg/dL (<2.0)
[2016-12-21] MEDS ORDERED: FLUSH HEPARIN IV ONE ×2 (13:34→13:47)
[2016-12-21 14:04] VITALS: BP 117/49
== END 2016-12-21 14:03 | disposition home or self-care (01) ==
LOC: ED 04:52
DX: D57.00 Hb-SS disease with crisis, unspecified (principal); J45.909 Unspecified asthma, uncomplicated; M79.7 Fibromyalgia; R56.9 Unspecified convulsions; F17.200 Nicotine dependence, unspecified, uncomplicated
CPT/HCPCS: 36415; 81001; 85025; 85045; 96361; 96374; 96375; 96376; 99283; J1170; J1200; J1642; J1885; J2765; J2405

== ENCOUNTER 2017-04-12 17:50 | Emergency (ER) | payer MEDICARE ==
[2017-04-12 18:05] VITALS: BP 145/65
[2017-04-12] MEDS ORDERED: DUONEB *Not for PRN Use IH ONE (21:24)
[2017-04-12 21:48] LABS: Hematocrit 28.6 % (30.3-42.9); Hemoglobin 8.9 gm/dl (10.1-14.3); Mean Corpuscular HGB Conc 31 % (30-34); Reticulocyte % 2.24 % (0.78-2.58); White Blood Count 11.6 K/mm3 (4.5-11.0)
[2017-04-12 21:51] LABS: Mean Corpuscular Hemoglobin 17 pg (28-32); Mean Corpuscular Volume 54 fl (79-97); Platelet Count 219 K/mm3 (140-440); Red Cell Distribution Width 24.5 % (13.2-15.2)
[2017-04-12 22:06] LABS: Anion Gap 21 mmol/L; Blood Urea Nitrogen 7 mg/dL (7-17); Calcium 8.5 mg/dL (8.4-10.2); Carbon Dioxide 20 mmol/L (22-30); Chloride 101.6 mmol/L (98-107); Glucose 88 mg/dL (65-100); Potassium 3.6 mmol/L (3.6-5.0); Sodium 139 mmol/L (137-145)
[2017-04-12 22:27] LABS: Basophils % (Manual) 0 % (0.0-1.8); Blastocytes % (Manual) 0 %; Large Platelets Few; Platelet Estimate Consistent w Auto
[2017-04-12 22:29] LABS: Anisocytosis 1+; Microcytosis 2+
[2017-04-12 22:30] LABS: Hypochromasia 2+; Target Cells 2+
[2017-04-12 22:31] LABS: Diff Status Complete; Sickle Cells Few
--- NOTE | 2017-04-13 07:35 | XRay Report ---
CHEST 2 VIEWS INDICATION: Chest pain. History of sickle cell. COMPARISON: 10/29/2016 FINDINGS: PA and lateral chest radiographs demonstrate normal cardiomediastinal silhouette. Clear lungs. Stable left chest port tip about the cavoatrial junction. Unremarkable bones. Stable cholecystectomy clips. CONCLUSION: No acute disease, stable. Thank you for the opportunity to participate in this patient's care.
== END 2017-04-12 23:55 | disposition left against medical advice (07) ==
LOC: ED 17:50
DX: R07.9 Chest pain, unspecified (principal); D57.00 Hb-SS disease with crisis, unspecified; Z53.21 Procedure and treatment not carried out due to patient leaving prior to being seen by health care provider
CPT/HCPCS: 36415; 71020; 80048; 84484; 85007; 85025; 85045; 93005; 93010

== ENCOUNTER 2017-07-27 10:45 | Emergency (ER) | payer MEDICARE ==
[2017-07-27] MEDS ORDERED: TORADOL IV ONE (13:06)
[2017-07-27] MEDS ORDERED: BENADRYL IV ONE (13:06)
[2017-07-27] MEDS ORDERED: DILAUDID IV ONE ×2 (13:06→14:30)
[2017-07-27] MEDS ORDERED: REGLAN IV ONE (13:07)
--- NOTE | 2017-07-27 13:09 | Emergency Department Report ---
Chief Complaint: Pain General Stated Complaint: SICKEL CELL/ NAUSEA Time Seen by Provider: 07/27/17 13:01 - HPI History of Present Illness: Patient is a 32-year-old [place] female with history of sickle cell SC who is presenting with an acute sickle cell crisis. Patient states she thinks the weather dropping and temperature is a factor in her crisis this time. Patient states she is hurting all over 78 out of 10 pain aching. Patient denies nausea vomiting fevers chills abdominal pain cough at this time. Patient will be seen in fast track area will be given fluids will check reticulocyte count and CBC to ensure she is not more anemic than her baseline. - ROS Review of Systems: ROS negative except for those elements seen in HPI - Exam Vital Signs: Vital Signs 07/27/17 10:54 Temperature 98 F Pulse Rate 91 H Respiratory 16 Rate Blood Pressure 111/66 O2 Sat by Pulse 97 Oximetry Physical Exam: General patient is in mild distress secondary to pain however her heart lung abdomen extremity exam are all within normal limits MSE screening note: Focused history and physical exam performed. Due to findings the following was ordered: ED Disposition for MSE Condition: Stable Referrals: PRIMARY CARE [Primary Care Provider] - 3-5 Days
[2017-07-27] MEDS ORDERED: D5NS 0.2% 1,000 ML IV SCH (14:00)
--- NOTE | 2017-07-27 15:30 | Emergency Department Report ---
HPI - General Chief Complaint: Pain General Time Seen by Provider: 07/27/17 13:01 - HPI HPI: 32-year-old female with a history of sickle cell presented with pain. Patient was seen by Dr. Pandey and myself the providers continuing the care of the patient. Refer to MSE note for the remainder of HPI. ED Past Medical Hx - Past Medical History Hx Hypertension: No Hx Heart Attack/AMI: No Hx Congestive Heart Failure: No Hx Diabetes: No Hx Deep Vein Thrombosis: No Hx Pulmonary Embolism: No Hx Liver Disease: No Hx Renal Disease: No Hx Sickle Cell Disease: Yes Hx Arthritis: No Hx Seizures: Yes (10 + years ago) Hx Kidney Stones: No Hx Asthma: Yes Hx COPD: No Hx Tuberculosis: No Hx Dementia: No Hx HIV: No Additional medical history: fibromyalgia - Surgical History Hx Coronary Stent: No Hx Open Heart Surgery: No Hx Pacemaker: No Hx Internal Defibrillator: No Hx Cholecystectomy: Yes Hx Appendectomy: No Hx Breast Surgery: No Additional Surgical History: ports x 2 / tubal ligation/ t&a , splenectomy - Social History Smoking Status: Never Smoker Substance Use Type: None - Medications Home Medications: Home Medications Medication Instructions Recorded Confirmed Last Taken Type oxyCODONE /ACETAMINOPHEN [Percocet 1 - 2 tab PO Q6HR PRN #14 tablet 07/27/17 Unknown Rx 5/325 mg] ED Review of Systems ROS: Stated complaint: SICKEL CELL/ NAUSEA Other details as noted in HPI Constitutional: denies: chills, fever Eyes: denies: eye pain, eye discharge, vision change ENT: denies: ear pain, throat pain Respiratory: denies: cough, shortness of breath, wheezing Cardiovascular: denies: chest pain, palpitations Endocrine: no symptoms reported Gastrointestinal: denies: abdominal pain, nausea, diarrhea Genitourinary: denies: urgency, dysuria, discharge Musculoskeletal: myalgia. denies: back pain, joint swelling, arthralgia Skin: denies: rash, lesions Neurological: denies: headache, weakness, numbness, paresthesias, confusion Psychiatric: denies: anxiety, depression Hematological/Lymphatic: denies: easy bleeding, easy bruising Physical Exam - Physical Exam Vital Signs: Vital Signs 07/27/17 10:54 Temperature 98 F Pulse Rate 91 H Respiratory 16 Rate Blood Pressure 111/66 O2 Sat by Pulse 97 Oximetry Physical Exam: GENERAL: Alert and oriented x3, no apparent distress, Normal Gait, atraumatic. HEAD: Head is normocephalic and a-traumatic. EYES: Extra ocular muscles are intact. Pupils are equal, round, and reactive to light and accommodation. NECK: Supple. Non edematous, No lymphadenopathy or thyromegaly. No C-spine tenderness LUNGS: Symetrical with respiration, No wheezing, no rales or crackles, CTAB. HEART: S1, S2 present, regular rate and rhythm without murmur, no rubs, no gallops. Non tender to palpation ABDOMEN: No organomegaly was noted,Positive bowel sounds, soft, and non- distended. Nontender to palpation on all Quadrants, NO CVA tenderness. BACK: Full range of motion, no spinal tenderness, nontender to palpation.. SKIN: Warm and dry, No lesions, No ulceration or induration present. ED Course Vital Signs 07/27/17 10:54 Temperature 98 F Pulse Rate 91 H Respiratory 16 Rate Blood Pressure 111/66 O2 Sat by Pulse 97 Oximetry ED Medical Decision Making - Medical Decision Making 32-year-old female presents with Sickle cell pain ED course: Labs drawn, patient received 1 L of fluid, 3 mg of Dilaudid for pain and Reglan Patient reports feeling much better prior to discharge Vital signs are normal, patient is in no acute distress I discussed the patient that will be going home on pain medication and to follow -up with her primary care physician. Critical care attestation.: If time is entered above; I have spent that time in minutes in the direct care of this critically ill patient, excluding procedure time. ED Disposition Clinical Impression: Sickle cell anemia Qualifiers: Sickle-cell associated disorders: without crisis Qualified Code(s): D57.1 - Sickle-cell disease without crisis Disposition: DC-01 TO HOME OR SELFCARE Is pt being admited?: No Does the pt Need Aspirin: No Condition: Stable Instructions: Sickle Cell Crisis (ED) Additional Instructions: Make sure to follow up with the primary care physician as discussed. Take all your medications as you've been prescribed. If you have any worsening symptoms or develop new symptoms please return to ED immediately. Prescriptions: oxyCODONE /ACETAMINOPHEN [Percocet 5/325 mg] 1 - 2 tab PO Q6HR PRN #14 tablet PRN Reason: Pain Referrals: PRIMARY CARE,MD [Primary Care Provider] - 3-5 Days [facility] [Outside] - 3-5 Days [facility] [Outside] - 3-5 Days Forms: Accompanied Note, Work/School Release Form(ED) Time of Disposition: 15:33
[2017-07-27 15:46] LABS: Hematocrit 27.2 % (30.3-42.9); Hemoglobin 8.8 gm/dl (10.1-14.3); Mean Corpuscular HGB Conc 33 % (30-34); Platelet Count 290 K/mm3 (140-440); Red Blood Count 4.71 M/mm3 (3.65-5.03); White Blood Count 15.2 K/mm3 (4.5-11.0)
[2017-07-27] MEDS ORDERED: FLUSH HEPARIN IV ONE ×2 (15:47→15:57)
[2017-07-27 15:55] LABS: Mean Corpuscular Hemoglobin 19 pg (28-32); Mean Corpuscular Volume 58 fl (79-97); Red Cell Distribution Width 25.2 % (13.2-15.2)
[2017-07-27 15:57] VITALS: BP 106/65
[2017-07-27 17:09] LABS: Anisocytosis 2+; Basophils % (Manual) 0 % (0.0-1.8); Blastocytes % (Manual) 0 %; Hypochromasia 2+; Microcytosis 2+
[2017-07-27 17:10] LABS: Schistocytes Few; Target Cells 2+
[2017-07-27 17:11] LABS: Diff Status Complete
== END 2017-07-27 15:59 | disposition home or self-care (01) ==
LOC: ED 10:45
DX: D57.1 Sickle-cell disease without crisis (principal); J45.909 Unspecified asthma, uncomplicated
CPT/HCPCS: 36415; 85007; 85025; 85045; 96361; 96374; 96375; 96376; 99283; J1170; J1200; J1642; J1885; J2765

== ENCOUNTER 2017-08-03 20:01 | Emergency (ER) | payer MEDICARE ==
[2017-08-03] MEDS ORDERED: DUONEB *Not for PRN Use IH ONE ×2 (20:40→20:47)
[2017-08-03] MEDS ORDERED: D5NS 0.2% 1,000 ML IV SCH (22:00)
[2017-08-03] MEDS ORDERED: PROVENTIL IH ONE ×2 (23:41→23:45)
[2017-08-03] MEDS ORDERED: ATROVENT IH ONE ×2 (23:41→23:45)
[2017-08-04 05:31] VITALS: BP 111/72
--- NOTE | 2017-08-04 05:37 | XRay Report ---
FINAL REPORT EXAM: XR CHEST ROUTINE 2V HISTORY: sob, cp, wheezing TECHNIQUE: PA and lateral views of the chest were submitted. FINDINGS: Heart size and mediastinum appear normal. The lungs are clear. Pleural fluid is not seen. There is a Port-A-Cath catheter placed with the tip in the superior vena cava. The skeletal structures appear well maintained. IMPRESSION: No active chest disease.
[2017-08-04] MEDS ORDERED: DILAUDID IV ONE ×2 (06:53→08:33)
[2017-08-04] MEDS ORDERED: ZOFRAN IV ONE (06:53)
--- NOTE | 2017-08-04 06:58 | Emergency Department Report ---
HPI - General Chief Complaint: Sickle Cell Crisis Time Seen by Provider: 08/04/17 06:45 - HPI HPI: Room 7 The patient is a 32-year-old female presenting with chief complaint of pain all over. The patient states she has pain "all over" consistent with her sickle cell pain crises. Patient states even her fingers are throbbing. The patient states she's had a constant left parietal headache for the past 2 weeks. Patient denies any preceding trauma or fever. Patient is to nausea but denies vomiting. Patient states she did not see her primary physician over the past 2 weeks because she could not "get in." The patient was reportedly wheezing upon arrival was given nebulizers to treat her asthma. The patient currently only complains of pain Location: Head, all over Duration: 2 weeks Quality: Pain/throbbing Severity: 8/10 Modifying factors: [see above] Context: [see above] Mode of transportation: [not driving] ED Past Medical Hx - Past Medical History Previous Medical History?: Yes Hx Sickle Cell Disease: Yes (SS SC) Hx Seizures: Yes (10 + years ago) Hx Asthma: Yes Additional medical history: fibromyalgia - Surgical History Past Surgical History?: Yes Hx Cholecystectomy: Yes Additional Surgical History: ports x 2 / tubal ligation/ t&a , splenectomy - Family History Family history: no significant - Social History Smoking Status: Current Some Day Smoker Substance Use Type: None (denies illicit drug use), Alcohol (occasional) - Medications Home Medications: Home Medications Medication Instructions Recorded Confirmed Last Taken Type oxyCODONE /ACETAMINOPHEN [Percocet 1 - 2 tab PO Q6HR PRN #14 tablet 07/27/17 Unknown Rx 5/325 mg] ALBUTEROL Inhaler [Proair] 2 puff IH QID PRN #1 inhalation 08/04/17 Unknown Rx HYDROcodone/APAP 5-325 [[place] 1 - 2 each PO Q6HR PRN #14 tablet 08/04/17 Unknown Rx 5/325] predniSONE [Deltasone] 40 mg PO QDAY #6 tab 08/04/17 Unknown Rx ED Review of Systems ROS: Stated complaint: SICKLE CELL CRISIS Other details as noted in HPI Constitutional: denies: fever Respiratory: wheezing Gastrointestinal: nausea. denies: vomiting Musculoskeletal: myalgia Hematological/Lymphatic: other (sickle cell pain crisis) Physical Exam - Physical Exam Vital Signs: Vital Signs 08/03/17 08/03/17 08/04/17 20:59 23:45 00:12 Temperature 98.7 F Pulse Rate 68 Pulse Rate [ 75 81 Posterior Bilateral Throughout] Respiratory 24 Rate Respiratory 20 20 Rate [Posterior Bilateral Throughout] Blood Pressure 115/77 O2 Sat by Pulse 99 Oximetry 08/04/17 08/04/17 08/04/17 04:01 04:05 04:15 Temperature 99.0 F Pulse Rate Pulse Rate [ Posterior Bilateral Throughout] Respiratory Rate Respiratory Rate [Posterior Bilateral Throughout] Blood Pressure 111/72 O2 Sat by Pulse 100 99 Oximetry Physical Exam: GENERAL: The patient is well-developed well-nourished female lying on stretcher not appearing to be in acute distress. [] HEENT: Normocephalic. Atraumatic. Extraocular motions are intact. Patient has moist mucous membranes. NECK: Supple. No meningitic signs are noted. Trachea midline CHEST/LUNGS: Clear to auscultation. There is no respiratory distress noted. HEART/CARDIOVASCULAR: Regular. There is no tachycardia. There is no gallop rub or murmur. ABDOMEN: Abdomen is soft, nontender. Patient has normal bowel sounds. There is no abdominal distention. SKIN: There is no rash. There is no edema. There is no diaphoresis. NEURO: The patient is awake, alert, and oriented. The patient is cooperative. The patient has no focal neurologic deficits. The patient has normal speech. Cranial nerves II through XII grossly intact, no drift MUSCULOSKELETAL: There is no evidence of acute injury. ED Course Vital Signs 08/03/17 08/03/17 08/04/17 20:59 23:45 00:12 Temperature 98.7 F Pulse Rate 68 Pulse Rate [ 75 81 Posterior Bilateral Throughout] Respiratory 24 Rate Respiratory 20 20 Rate [Posterior Bilateral Throughout] Blood Pressure 115/77 O2 Sat by Pulse 99 Oximetry 08/04/17 08/04/17 08/04/17 04:01 04:05 04:15 Temperature 99.0 F Pulse Rate Pulse Rate [ Posterior Bilateral Throughout] Respiratory Rate Respiratory Rate [Posterior Bilateral Throughout] Blood Pressure 111/72 O2 Sat by Pulse 100 99 Oximetry ED Medical Decision Making - Lab Data Result diagrams: 08/04/17 07:04 08/04/17 07:04 Laboratory Tests 08/04/17 08/04/17 08/04/17 07:04 07:04 07:04 WBC 13.2 H RBC 5.08 H Hgb 9.0 L Hct 28.5 L MCV 56 L MCH 18 L MCHC 32 RDW 25.4 H Plt Count 166 Add Manual Diff Complete Total Counted 100 Seg Neuts % (Manual) 76.0 H Band Neutrophils % 0 Lymphocytes % (Manual) 19.0 Reactive Lymphs % (Man) 0 Monocytes % (Manual) 4.0 Eosinophils % (Manual) 1.0 Basophils % (Manual) 0 Metamyelocytes % 0 Myelocytes % 0 Promyelocytes % 0 Blast Cells % 0 Nucleated RBC % Not Reportable Seg Neutrophils # Man 10.0 H Band Neutrophils # 0.0 Lymphocytes # (Manual) 2.5 Abs React Lymphs (Man) 0.0 Monocytes # (Manual) 0.5 Eosinophils # (Manual) 0.1 Basophils # (Manual) 0.0 Metamyelocytes # 0.0 Myelocytes # 0.0 Promyelocytes # 0.0 Blast Cells # 0.0 WBC Morphology Not Reportable Hypersegmented Neuts Not Reportable Hyposegmented Neuts Not Reportable Hypogranular Neuts Not Reportable Smudge Cells Not Reportable Toxic Granulation Not Reportable Toxic Vacuolation Not Reportable Dohle Bodies Not Reportable Pelger-Huet Anomaly Not Reportable Delmi Rods Not Reportable Platelet Estimate Appears normal Clumped Platelets Not Reportable Plt Clumps, EDTA Not Reportable Large Platelets Not Reportable Giant Platelets Not Reportable Platelet Satelliting Not Reportable Plt Morphology Comment Not Reportable RBC Morphology Not Reportable Dimorphic RBCs Not Reportable Polychromasia Not Reportable Hypochromasia 3+ Poikilocytosis 2+ Anisocytosis 2+ Microcytosis 2+ Macrocytosis Not Reportable Spherocytes Not Reportable Pappenheimer Bodies Not Reportable Sickle Cells Not Reportable Target Cells 2+ Tear Drop Cells Few Ovalocytes 1+ Helmet Cells Not Reportable Bernard-Ona Bodies Not Reportable [place] Rings Not Reportable [place] Cells Not Reportable Bite Cells Not Reportable Crenated Cell Not Reportable Elliptocytes Rare Acanthocytes (Spur) Not Reportable Rouleaux Not Reportable Hemoglobin C Crystals Not Reportable Schistocytes Rare Malaria parasites Not Reportable Percent Retic 2.21 Jaziel Bodies Not Reportable Hem Pathologist Commnt No Sodium 141 Potassium 3.7 Chloride 105.0 Carbon Dioxide 23 Anion Gap 17 BUN 8 Creatinine 0.4 L Estimated GFR > 60 BUN/Creatinine Ratio 20 Glucose 91 Calcium 8.6 HCG, Qual Negative - EKG Data -: EKG Interpreted by Me EKG shows normal: sinus rhythm Rate: normal - EKG Data When compared to previous EKG there are: no significant change Interpretation: unchanged when compared t (04/12/2017) - Radiology Data Radiology results: report reviewed (chest x-ray), image reviewed (chest x-ray, CT head) interpreted by me: Chest x-ray-no focal infiltrates, no pneumothorax FINAL REPORT EXAM: XR CHEST ROUTINE 2V HISTORY: sob, cp, wheezing TECHNIQUE: PA and lateral views of the chest were submitted. FINDINGS: Heart size and mediastinum appear normal. The lungs are clear. Pleural fluid is not seen. There is a Port-A-Cath catheter placed with the tip in the superior vena cava. The skeletal structures appear well maintained. IMPRESSION: No active chest disease. Transcribed By: RB Dictated By: JABARI SAWYER MD Electronically Authenticated By: JABARI SAWYER MD Signed Date/Time: 08/04/17132 DD/ 2 TD/TT: 08/04/17132 CT HEAD WITHOUT CONTRAST: HISTORY: Headache. TECHNIQUE: Sequential CT images without contrast. FINDINGS: No comparison exam at this facility. The brain parenchyma attenuation and is luther-white interface are within normal limits. There is no evidence for hemorrhage, mass, large area of acute ischemia or chronic infarct. Ventricular size is within normal limits. The posterior fossa and contents are unremarkable. 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 This is best demonstrated on image 26, series 2. There is no mass effect or abnormal density of the surrounding brain parenchyma. The calvarium, visualized paranasal sinuses and mastoid air cells are unremarkable. IMPRESSION: No acute intracranial process. 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 Transcribed By: TTR Dictated By: RAJEEV GRAF JR, MD Electronically Authenticated By: RAJEEV GRAF JR, MD Signed Date/Time: 08/04/17800 DD/ 075 TD/TT: 08/04/17800 - Differential Diagnosis sickle cell pain crisis, asthma exacerbation, malingering Critical care attestation.: If time is entered above; I have spent that time in minutes in the direct care of this critically ill patient, excluding procedure time. ED Disposition Clinical Impression: Sickle cell pain crisis, Asthma exacerbation, Headache Disposition: TO HOME OR SELFCARE Is pt being admited?: No Does the pt Need Aspirin: No Condition: Stable Instructions: Asthma (ED) Additional Instructions: Return to the emergency department immediately should you develop worsening symptoms, fever, inability to tolerate food or liquid or any other concerns. Prescriptions: ALBUTEROL Inhaler [Proair] 2 puff IH QID PRN #1 inhalation PRN Reason: Shortness Of Breath HYDROcodone/APAP 5-325 [[place]izella 5/325] 1 - 2 each PO Q6HR PRN #14 tablet PRN Reason: Pain predniSONE [Deltasone] 40 mg PO QDAY #6 tab Referrals: CLAY DE MD [Primary Care Provider] - 3-5 Days JAELYN RAMIREZ MD [Staff Physician] - 3-5 Days (Dr. Ramirez is a electric locomotive crane operator ) LEIDY RUBY MD [Staff Physician] - 3-5 Days (Dr. Ruby is a neurologist. Please follow up with him for further evaluation) Time of Disposition: 08:30
[2017-08-04 07:20] LABS: Hematocrit 28.5 % (30.3-42.9); Mean Corpuscular HGB Conc 32 % (30-34); Platelet Count 166 K/mm3 (140-440); Red Blood Count 5.08 M/mm3 (3.65-5.03); Reticulocyte % 2.21 % (0.78-2.58); White Blood Count 13.2 K/mm3 (4.5-11.0)
[2017-08-04 07:22] LABS: Mean Corpuscular Hemoglobin 18 pg (28-32); Mean Corpuscular Volume 56 fl (79-97); Red Cell Distribution Width 25.4 % (13.2-15.2)
[2017-08-04 07:40] LABS: Anion Gap 17 mmol/L; BUN/Creatinine Ratio 20; Blood Urea Nitrogen 8 mg/dL (7-17); Calcium 8.6 mg/dL (8.4-10.2); Carbon Dioxide 23 mmol/L (22-30); Glucose 91 mg/dL (65-100); Potassium 3.7 mmol/L (3.6-5.0); Sodium 141 mmol/L (137-145)
[2017-08-04 07:57] LABS: Anisocytosis 2+; Basophils % (Manual) 0 % (0.0-1.8); Blastocytes % (Manual) 0 %; Elliptocytes Rare; Microcytosis 2+; Ovalocytes 1+; Poikilocytosis 2+; Schistocytes Rare; Target Cells 2+; Tear Drop Cells Few
[2017-08-04 07:58] LABS: Diff Status Complete; Hypochromasia 3+
--- NOTE | 2017-08-04 08:06 | Cat Scan Report ---
CT HEAD WITHOUT CONTRAST: HISTORY: Headache. TECHNIQUE: Sequential CT images without contrast. FINDINGS: No comparison exam at this facility. The brain parenchyma attenuation and is luther-white interface are within normal limits. There is no evidence for hemorrhage, mass, large area of acute ischemia or chronic infarct. Ventricular size is within normal limits. The posterior fossa and contents are unremarkable. 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 This is best demonstrated on image 26, series 2. There is no mass effect or abnormal density of the surrounding brain parenchyma. The calvarium, visualized paranasal sinuses and mastoid air cells are unremarkable. IMPRESSION: No acute intracranial process. 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
[2017-08-04] MEDS ORDERED: BENADRYL IV ONE (08:33)
[2017-08-04] MEDS ORDERED: FLUSH HEPARIN IV ONE ×2 (08:56→09:19)
== END 2017-08-04 09:32 | disposition home or self-care (01) ==
LOC: ED 20:01
DX: D57.00 Hb-SS disease with crisis, unspecified (principal); J45.901 Unspecified asthma with (acute) exacerbation; R51 Headache
CPT/HCPCS: 36415; 70450; 71020; 80048; 84703; 85007; 85025; 85045; 93005; 93010; 94640; 96374; 96375; 96376; 99285; J1170; J1200; J1642; J2405

== ENCOUNTER 2017-08-31 17:00 | Emergency (ER) | payer MEDICARE | END 2017-08-31 19:00 | disposition left against medical advice (07) | LOC: ED 17:00 | DX: R07.9 Chest pain, unspecified (principal); Z53.21 Procedure and treatment not carried out due to patient leaving prior to being seen by health care provider ==

== ENCOUNTER 2017-09-01 12:29 | Emergency (ER) | payer MEDICARE | END 2017-09-01 16:05 | disposition left against medical advice (07) | LOC: ED 12:29 | DX: Z53.21 Procedure and treatment not carried out due to patient leaving prior to being seen by health care provider (principal) ==

== ENCOUNTER 2017-09-22 04:58 | Emergency (ER) | payer MEDICARE ==
[2017-09-22 05:31] VITALS: BP 108/61
== END 2017-09-22 11:15 | disposition left against medical advice (07) ==
LOC: ED 04:58
DX: D57.1 Sickle-cell disease without crisis (principal); Z53.21 Procedure and treatment not carried out due to patient leaving prior to being seen by health care provider

== ENCOUNTER 2017-09-24 09:00 | Observation (INO) | payer MEDICARE ==
[2017-09-24] MEDS ORDERED: D5NS 0.2% 1,000 ML IV SCH (10:00)
--- NOTE | 2017-09-24 17:52 | Emergency Department Report ---
ED General Adult HPI - General Chief complaint: Sickle Cell Crisis Stated complaint: SICKLE CELL CRISIS Time Seen by Provider: 09/24/17 17:33 Source: patient Mode of arrival: Ambulatory Limitations: No Limitations - History of Present Illness Initial comments: Sickle cell patient who says that she is having a flare up and has vomiting for 24hrs, severe headaches, Was hospitalized in July. Admits to shortness of breath, no chest pain, but has pain generalized all over and "even into finger tips." She has had a cough over the past few days. Her 11 year old child diagnosed with flu type B. She was not given any prophylaxis. Location: head, back, abdomen, left, right, upper extremity, lower extremity Radiation: back Severity scale (0 -10): 10 Quality: constant Consistency: constant Improves with: none Worsens with: none Associated Symptoms: cough (productive), fever/chills, shortness of breath, weakness Treatments Prior to Arrival: none - Related Data Previous Rx's Medication Instructions Recorded Last Taken Type oxyCODONE /ACETAMINOPHEN [Percocet 1 - 2 tab PO Q6HR PRN #14 tablet 07/27/17 Unknown Rx 5/325 mg] ALBUTEROL Inhaler [Proair] 2 puff IH QID PRN #1 inhalation 08/04/17 Unknown Rx HYDROcodone/APAP 5-325 [[place] 1 - 2 each PO Q6HR PRN #14 tablet 08/04/17 Unknown Rx 5/325] predniSONE [Deltasone] 40 mg PO QDAY #6 tab 08/04/17 Unknown Rx Allergies Allergy/AdvReac Type Severity Reaction Status Date / Time cefotetan disodium Allergy Hives Verified 05/25/16 17:25 [From Cefotan] morphine Allergy Vomiting Verified 07/13/16 20:40 ED Review of Systems ROS: Stated complaint: SICKLE CELL CRISIS Other details as noted in HPI Comment: All other systems reviewed and negative Constitutional: see HPI Eyes: as per HPI ENT: as per HPI Respiratory: see HPI Cardiovascular: as per HPI Endocrine: see HPI Gastrointestinal: as per HPI Genitourinary: as per HPI Musculoskeletal: as per HPI Skin: as per HPI Neurological: as per HPI Psychiatric: as per HPI Hematological/Lymphatic: as per HPI ED Past Medical Hx - Past Medical History Previous Medical History?: Yes Hx Hypertension: No Hx Heart Attack/AMI: No Hx Congestive Heart Failure: No Hx Diabetes: No Hx Deep Vein Thrombosis: No Hx Pulmonary Embolism: No Hx Liver Disease: No Hx Renal Disease: No Hx Sickle Cell Disease: Yes (SS SC) Hx Arthritis: No Hx Seizures: Yes (10 + years ago) Hx Kidney Stones: No Hx Asthma: Yes Hx COPD: No Hx Tuberculosis: No Hx Dementia: No Hx HIV: No Additional medical history: fibromyalgia - Surgical History Past Surgical History?: Yes Hx Coronary Stent: No Hx Open Heart Surgery: No Hx Pacemaker: No Hx Internal Defibrillator: No Hx Cholecystectomy: Yes Hx Appendectomy: No Hx Breast Surgery: No Additional Surgical History: ports x 2 / tubal ligation/ t&a , splenectomy - Social History Smoking Status: Current Every Day Smoker Substance Use Type: Alcohol - Medications Home Medications: Home Medications Medication Instructions Recorded Confirmed Last Taken Type oxyCODONE /ACETAMINOPHEN [Percocet 1 - 2 tab PO Q6HR PRN #14 tablet 07/27/17 Unknown Rx 5/325 mg] ALBUTEROL Inhaler [Proair] 2 puff IH QID PRN #1 inhalation 08/04/17 Unknown Rx HYDROcodone/APAP 5-325 [[place] 1 - 2 each PO Q6HR PRN #14 tablet 08/04/17 Unknown Rx 5/325] predniSONE [Deltasone] 40 mg PO QDAY #6 tab 08/04/17 Unknown Rx ED Physical Exam - General Limitations: No Limitations General appearance: alert, anxious, in distress - Head Head exam: Present: atraumatic, normocephalic - Eye Eye exam: Present: normal appearance, PERRL - ENT ENT exam: Present: normal exam, normal orophraynx - Neck Neck exam: Present: normal inspection - Respiratory Respiratory exam: Present: normal lung sounds bilaterally. Absent: respiratory distress, wheezes, rales, rhonchi - Cardiovascular Cardiovascular Exam: Present: normal rhythm, tachycardia, normal heart sounds - GI/Abdominal GI/Abdominal exam: Present: soft, normal bowel sounds. Absent: distended, tenderness, guarding, rebound, rigid - Rectal Rectal exam: Present: deferred - Extremities Exam Extremities exam: Present: normal inspection, full ROM, tenderness (throughout) - Back Exam Back exam: Present: normal inspection, tenderness (generalized) - Neurological Exam Neurological exam: Present: alert, oriented X3 - Psychiatric Psychiatric exam: Present: normal affect, normal mood - Skin Skin exam: Present: warm, dry, intact, normal color ED Course Vital Signs 09/24/17 09/24/17 09/24/17 09:07 18:48 19:15 Temperature 97.7 F 98.1 F Pulse Rate 95 H 78 81 Respiratory 18 18 19 Rate Blood Pressure 106/68 Blood Pressure 102/71 116/56 [Left] O2 Sat by Pulse 99 99 97 Oximetry - Reevaluation(s) Reevaluation #1: Sickle cell crisis, will get labs, give fluids, pain management, likely will need to admit. Check for flu as well. 09/24/17 21:44 Discussed with hospitalist, we will admit for sickle cell pain crisis. ED Medical Decision Making - Lab Data Result diagrams: 09/24/17 18:09 09/24/17 18:09 Critical care attestation.: If time is entered above; I have spent that time in minutes in the direct care of this critically ill patient, excluding procedure time. ED Disposition Clinical Impression: Sickle cell crisis Disposition: - OP ADMIT IP TO THIS HOSP Is pt being admited?: Yes Does the pt Need Aspirin: No Condition: Stable Referrals: PRIMARY CARE, [Primary Care Provider] - 3-5 Days
[2017-09-24] MEDS ORDERED: NACL 0.9% 1000 ML 1,000 ML IV ONE ×2 (18:00→20:18)
[2017-09-24] MEDS ORDERED: DILAUDID IV ONE ×2 (18:00→20:13)
[2017-09-24] MEDS ORDERED: TORADOL IV ONE (18:00)
[2017-09-24] MEDS ORDERED: REGLAN IV ONE (18:00)
[2017-09-24] MEDS ORDERED: BENADRYL ONE (18:20)
[2017-09-24 18:30] LABS: Basophils % (Auto) 0.4 % (0.0-1.8); Eosinophils # (Auto) 0.2 K/mm3 (0.0-0.4); Eosinophils % (Auto) 1.6 % (0.0-4.3); Hematocrit 26.5 % (30.3-42.9); Hemoglobin 8.5 gm/dl (10.1-14.3); Lymphocytes # (Auto) 2.4 K/mm3 (1.2-5.4); Lymphocytes % (Auto) 20.4 % (13.4-35.0); Mean Corpuscular HGB Conc 32 % (30-34); Monocytes # (Auto) 1.1 K/mm3 (0.0-0.8); Platelet Count 275 K/mm3 (140-440); Red Blood Count 4.71 M/mm3 (3.65-5.03)
[2017-09-24] MEDS ORDERED: BENADRYL IV ONE (18:41)
[2017-09-24 18:52] LABS: Alanine Aminotransferase 8 units/L (7-56); Albumin 3.7 g/dL (3.9-5); BUN/Creatinine Ratio 28; Blood Urea Nitrogen 11 mg/dL (7-17); Hemolysis Index 0; Lipase 29 units/L (13-60)
[2017-09-24 19:02] LABS: Mean Corpuscular Hemoglobin 18 pg (28-32); Mean Corpuscular Volume 56 fl (79-97); Red Cell Distribution Width 23.1 % (13.2-15.2)
[2017-09-24] MEDS ORDERED: ZOFRAN IV ONE (19:21)
[2017-09-24] MEDS ORDERED: THORAZINE 25 MG in NACL 0.9% 50 ML IV ONE (21:00)
[2017-09-24] MEDS ORDERED: D50W (25GM) Syringe IV ONE (21:29)
--- NOTE | 2017-09-24 21:57 | XRay Report ---
FINAL REPORT PROCEDURE: Abdomen. TECHNIQUE: Supine and upright views. HISTORY: Abdominal pain. COMPARISON: No prior studies are available for comparison. FINDINGS: The bowel gas pattern is normal. There are no signs of obstruction. There is no evidence of pneumoperitoneum. Cholecystectomy clips are present. The soft tissues are unremarkable. The regional skeleton appears intact. IMPRESSION: No evidence of acute abdominal disease.
[2017-09-24] MEDS ORDERED: REGLAN IV PRN (22:14)
[2017-09-24] MEDS ORDERED: DULCOLAX PR PRN (22:14)
[2017-09-24] MEDS ORDERED: MILK OF MAGNESIA PO PRN (22:14)
--- NOTE | 2017-09-24 22:20 | History and Physical Report ---
History of Present Illness Date of examination: 09/24/17 History of present illness: 32-year-old woman with a history of sickle cell, asthma, fibromyalgia comes to the emergency room with complaints of pain all over her body for 2 weeks. She stated feels very sore., She stated her symptoms feel like her sickle cell symptoms but exacerbated. She stated that her 2 kids had the flu Review Of Systems: Constitutional: no weight loss Ears, eyes, nose, mouth and throat: no nasal congestion, no nasal discharge, no sinus pressure, blurry vision, diplopia Neck: No neck pain or rigidity. Cardiovascular: No chest pain, palpitations Respiratory: No shortness of breath, cough Gastrointestinal: No abdominal pain, hematochezia Genitourinary : no dysuria, frequency , hematuria Musculoskeletal: no muscle ache Integumentary: no rash, no pruritis Neurological: no parathesias, focal weakness Endocrine: no cold or heat intolerance, no polyuria or polydipsia Hematologic/Lymphatic: no easy bruising, no easy bleeding, no gland swelling Allergic/Immunologic: no urticaria, no angioedema. PAST MEDICAL HISTORY:sickle cell, asthma, fibromyalgia PAST SURGICAL HISTORY: Cholecystectomy, port placement, tubal ligation, splenectomy FAMILY HISTORY: Sickle cell SOCIAL HISTORY: Admits to alcohol and tobacco use, no drugs Medications and Allergies Allergies Allergy/AdvReac Type Severity Reaction Status Date / Time cefotetan disodium Allergy Hives Verified 05/25/16 17:25 [From Cefotan] morphine Allergy Vomiting Verified 07/13/16 20:40 Home Medications Medication Instructions Recorded Confirmed Last Taken Type No Known Home Medications [No 09/24/17 09/24/17 Unknown History Reported Home Medications] Exam - Physical Exam Narrative exam: Gen. appearance: Patient lying in bed in no acute distress HEENT: Normocephalic/atraumatic, pupils equal round reactive to light, extra occular movement intact, no scleral icterus, no JVD or thyromegaly or nodule, neck is supple, mucous membrane moist, no erythema or exudate Heart: S1-S2, regular rate and rhythm Lungs: Clear to auscultation bilateral breathing comfortable Abdomen: Positive bowel sounds, nontender, nondistended, no organomegaly Extremities: No edema, cyanosis, clubbing Neuro:: Oriented 3 , cranial nerves II-12 intact, speech, motor intact Skin: No rash, nodules, warm dry - Constitutional Vitals: Temp Pulse Resp BP Pulse Ox 98.1 F 81 19 116/56 97 09/24/17 19:15 09/24/17 19:15 09/24/17 19:15 09/24/17 19:15 09/24/17 19:15 Results - Labs CBC & Chem 7: 09/24/17 18:09 09/24/17 18:09 Labs: Abnormal lab results 09/24/17 09/24/17 Range/Units 18:09 18:09 WBC 11.8 H (4.5-11.0) K/mm3 Hgb 8.5 L (10.1-14.3) gm/dl Hct 26.5 L (30.3-42.9) % MCV 56 L (79-97) fl MCH 18 L (28-32) pg RDW 23.1 H (13.2-15.2) % [place] % (Auto) 9.0 H (0.0-7.3) % [place] # 1.1 H (0.0-0.8) K/mm3 Seg Neutrophils # 8.1 H (1.8-7.7) K/mm3 Creatinine 0.4 L (0.7-1.2) mg/dL Calcium 8.0 L (8.4-10.2) mg/dL Albumin 3.7 L (3.9-5) g/dL - Imaging and Cardiology Abdominal x-ray: report reviewed Assessment and Plan Assessment Sickle cell crisis Fibromyalgia Asthma, stable Plan Admit to medicine Start IV fluids, IV narcotocs, benadryl Start emperic tamiflu pending cultures DVT prophalaxis
[2017-09-24 22:41] LABS: Bilirubin,Urine NEG (Negative); Blood,Urine NEG (Negative); Color,Urine Yellow (Yellow); Mucus,Urine FEW /HPF; Nitrite,Urine NEG (Negative); Protein,Urine <15 mg/dL mg/dL (Negative); Urobilinogen,Urine < 2.0 mg/dL (<2.0)
[2017-09-24] MEDS ORDERED: D5/0.45NS 1,000 ML IV SCH (23:00)
[2017-09-24] MEDS ORDERED: D5/0.45NS 1,000 ML IV ONE (23:08)
[2017-09-24] MEDS ORDERED: DILAUDID ONE (23:37)
[2017-09-24] MEDS: DILAUDID IV PRN (23:43)
[2017-09-25] MEDS: DILAUDID IV PRN ×7 (02:03→21:09)
[2017-09-25] MEDS: BENADRYL IV PRN ×4 (02:04→23:14)
[2017-09-25] MEDS: TAMIFLU PO SCH ×3 (02:04→21:54)
[2017-09-25] MEDS: OxyCONTIN PO SCH ×3 (06:39→23:13)
[2017-09-25] MEDS: THERAGRAN Tab PO SCH (10:34)
[2017-09-25] MEDS: FOLVITE PO SCH (10:34)
[2017-09-25] MEDS: LOVENOX SUB-Q SCH (10:34)
--- NOTE | 2017-09-25 14:35 | Progress Note ---
Assessment and Plan Assessment and plan: Assessment and Plan Assessment Sickle cell Pain crisis--- -will increase Dilaudid to 4mg IV Q4h as patient states now getting 2mg IV Q2H and not helping Fibromyalgia Asthma, stable DVT prophalaxis History Interval history: Pain not controlled and states having to ask for the Dilaudid 2mg every 2 hours. Hospitalist Physical - Constitutional Vitals: Temp Pulse Resp BP Pulse Ox 99.1 F 82 2 L 115/78 99 09/25/17 08:26 09/25/17 08:26 09/25/17 13:38 09/25/17 08:26 09/25/17 08:26 General appearance: Present: mild distress - EENT Eyes: Present: PERRL - Neck Neck: Present: supple, normal ROM - Respiratory Respiratory effort: normal Respiratory: bilateral: CTA - Cardiovascular Heart Sounds: Present: S1 & S2 - Extremities Extremities: no ischemia, pulses intact Peripheral Pulses: within normal limits - Abdominal General gastrointestinal: soft, non-tender Results - Labs CBC & Chem 7: 09/24/17 18:09 09/24/17 18:09 Labs: Laboratory Last Values WBC 11.8 K/mm3 (4.5-11.0) H 09/24/17 18:09 RBC 4.71 M/mm3 (3.65-5.03) 09/24/17 18:09 Hgb 8.5 gm/dl (10.1-14.3) L 09/24/17 18:09 Hct 26.5 % (30.3-42.9) L 09/24/17 18:09 MCV 56 fl (79-97) L 09/24/17 18:09 MCH 18 pg (28-32) L 09/24/17 18:09 MCHC 32 % (30-34) 09/24/17 18:09 RDW 23.1 % (13.2-15.2) H 09/24/17 18:09 Plt Count 275 K/mm3 (140-440) 09/24/17 18:09 Lymph % (Auto) 20.4 % (13.4-35.0) 09/24/17 18:09 [place] % (Auto) 9.0 % (0.0-7.3) H 09/24/17 18:09 Eos % (Auto) 1.6 % (0.0-4.3) 09/24/17 18:09 Baso % (Auto) 0.4 % (0.0-1.8) 09/24/17 18:09 Lymph # 2.4 K/mm3 (1.2-5.4) 09/24/17 18:09 [place] # 1.1 K/mm3 (0.0-0.8) H 09/24/17 18:09 Eos # 0.2 K/mm3 (0.0-0.4) 09/24/17 18:09 Baso # 0.0 K/mm3 (0.0-0.1) 09/24/17 18:09 Seg Neutrophils % 68.6 % (40.0-70.0) 09/24/17 18:09 Seg Neutrophils # 8.1 K/mm3 (1.8-7.7) H 09/24/17 18:09 Percent Retic 2.23 % (0.78-2.58) 09/24/17 18:09 Sodium 140 mmol/L (137-145) 09/24/17 18:09 Potassium 4.0 mmol/L (3.6-5.0) 09/24/17 18:09 Chloride 104.5 mmol/L (98-107) 09/24/17 18:09 Carbon Dioxide 23 mmol/L (22-30) 09/24/17 18:09 Anion Gap 17 mmol/L 09/24/17 18:09 BUN 11 mg/dL (7-17) 09/24/17 18:09 Creatinine 0.4 mg/dL (0.7-1.2) L 09/24/17 18: Estimated GFR > 60 ml/min 09/24/17 18: BUN/Creatinine Ratio 28 % 09/24/17 18: Glucose 91 mg/dL (65-100) 09/24/17 18: Calcium 8.0 mg/dL (8.4-10.2) L 09/24/17 18:09 Total Bilirubin 0.30 mg/dL (0.1-1.2) 09/24/17 18:09 AST 24 units/L (5-40) 09/24/17 18:09 ALT 8 units/L (7-56) 09/24/17 18:09 Alkaline Phosphatase 60 units/L (35-129) 09/24/17 18:09 Total Protein 6.7 g/dL (6.3-8.2) 09/24/17 18: Albumin 3.7 g/dL (3.9-5) L 09/24/17 18: Albumin/Globulin Ratio 1.2 % 09/24/17 18: Amylase 99 units/L (27-131) 09/24/17 18: Lipase 29 units/L (13-60) 09/24/17 18: HCG, Qual Negative (Negative) 09/24/17 18: HCG, Quant < 2 mIU/mL (0-4) 09/24/17 18: Urine Color Yellow (Yellow) 09/24/17 22: Urine Turbidity Clear (Clear) 09/24/17: Urine pH 6.0 (5.0-7.0) 09/24/17 22: Ur Specific [place] 1.017 (1.003-1.030) 09/24/17 22: Urine Protein <15 mg/dl mg/dL (Negative) 09/24/17: Urine Glucose (UA) Neg mg/dL (Negative) 09/24/17 22: Urine Ketones Neg mg/dL (Negative) 09/24/17 22: Urine Blood Neg (Negative) 09/24/17 22: Urine Nitrite Neg (Negative) 09/24/17 22: Urine Bilirubin Neg (Negative) 09/24/17 22: Urine Urobilinogen < 2.0 mg/dL (<2.0) 09/24/17 22: Ur Leukocyte Esterase Neg (Negative) 09/24/17 22: Urine WBC (Auto) 1.0 /HPF (0.0-6.0) 09/24/17 22: Urine RBC (Auto) 2.0 /HPF (0.0-6.0) 09/24/17 22: U Epithel Cells (Auto) < 1.0 /HPF (0-13.0) 09/24/17 22: Urine Mucus Few /HPF 09/24/17 22:
[2017-09-25] MEDS ORDERED: DILAUDID IV PRN (14:37)
[2017-09-25] MEDS: ZOFRAN IV PRN (17:24)
[2017-09-25] MEDS ORDERED: REGLAN PO PRN (21:19)
[2017-09-25] MEDS: SENOKOT PO SCH (21:55)
[2017-09-26] MEDS: DILAUDID IV PRN ×5 (01:54→20:29)
[2017-09-26] MEDS: ZOFRAN IV PRN ×4 (01:55→20:29)
[2017-09-26] MEDS: OxyCONTIN PO SCH ×3 (06:03→22:19)
[2017-09-26] MEDS: BENADRYL IV PRN ×2 (07:04→16:10)
[2017-09-26] MEDS ORDERED: DILAUDID IV PRN (09:07)
[2017-09-26] MEDS: LOVENOX SUB-Q SCH (09:32)
[2017-09-26] MEDS: FOLVITE PO SCH (09:32)
[2017-09-26] MEDS: THERAGRAN Tab PO SCH (09:32)
[2017-09-26] MEDS: TAMIFLU PO SCH ×2 (09:32→22:19)
[2017-09-26] MEDS: PHENERGAN PO PRN ×2 (13:29→22:24)
--- NOTE | 2017-09-26 15:15 | Progress Note ---
<KIANA HILL - Last Filed: 09/26/17 15:17> Assessment and Plan Assessment and plan: 32-year-old woman with a history of sickle cell, asthma, fibromyalgia comes to the emergency room with complaints of pain all over her body for 2 weeks. She stated feels very sore. She stated her symptoms feel like her sickle cell symptoms has exacerbated. Sickle cell crisis Start IV fluids, IV narcotics Consult placed to Heavy Duty Mechanic Farm Equipment Fibromyalgia supportive care Nausea and vomiting Initiated on Phenergan Asthma, stable Nicotine dependence Patient counseled on cessation DVT prophalaxis Lovenox History Interval history: Patient seen and examined. Patient continues to complain of severe pain along with nausea and vomiting. She denies chest pain, shortness of breath. Labs and nursing notes reviewed. Hospitalist Physical - Constitutional Vitals: Temp Pulse Resp BP Pulse Ox 97.7 F 65 18 123/63 96 09/26/17 08:26 09/26/17 08:26 09/26/17 10:00 09/26/17 08:26 09/26/17 08:26 General appearance: Present: mild distress, well-nourished - EENT Eyes: Present: PERRL, EOM intact ENT: hearing intact, clear oral mucosa - Neck Neck: Present: supple, normal ROM - Respiratory Respiratory effort: normal Respiratory: bilateral: CTA - Cardiovascular Rhythm: regular Heart Sounds: Present: S1 & S2 - Extremities Extremities: no ischemia, No edema - Abdominal General gastrointestinal: soft, non-tender, non-distended - Integumentary Integumentary: Present: clear, warm, dry - Psychiatric Psychiatric: appropriate mood/affect, cooperative - Neurologic Neurologic: CNII-XII intact, moves all extremities - Allied Health Allied health notes reviewed: nursing Results - Labs CBC & Chem 7: 09/24/17 18:09 09/24/17 18:09 Labs: Laboratory Last Values WBC 11.8 K/mm3 (4.5-11.0) H 09/24/17 18:09 RBC 4.71 M/mm3 (3.65-5.03) 09/24/17 18:09 Hgb 8.5 gm/dl (10.1-14.3) L 09/24/17 18:09 Hct 26.5 % (30.3-42.9) L 09/24/17 18:09 MCV 56 fl (79-97) L 09/24/17 18:09 MCH 18 pg (28-32) L 09/24/17 18: MCHC 32 % (30-34) 09/24/17 18: RDW 23.1 % (13.2-15.2) H 09/24/17 18:09 Plt Count 275 K/mm3 (140-440) 09/24/17 18: Lymph % (Auto) 20.4 % (13.4-35.0) 09/24/17 18:09 [place] % (Auto) 9.0 % (0.0-7.3) H 09/24/17 18:09 Eos % (Auto) 1.6 % (0.0-4.3) 09/24/17 18: Baso % (Auto) 0.4 % (0.0-1.8) 09/24/17 18: Lymph # 2.4 K/mm3 (1.2-5.4) 09/24/17 18: [place] # 1.1 K/mm3 (0.0-0.8) H 09/24/17 18:09 Eos # 0.2 K/mm3 (0.0-0.4) 09/24/17 18: Baso # 0.0 K/mm3 (0.0-0.1) 09/24/17 18: Seg Neutrophils % 68.6 % (40.0-70.0) 09/24/17 18: Seg Neutrophils # 8.1 K/mm3 (1.8-7.7) H 09/24/17 18: Percent Retic 2.23 % (0.78-2.58) 09/24/17 18:09 Sodium 140 mmol/L (137-145) 09/24/17 18:09 Potassium 4.0 mmol/L (3.6-5.0) 09/24/17 18: Chloride 104.5 mmol/L (98-107) 09/24/17 18: Carbon Dioxide 23 mmol/L (22-30) 09/24/17 18:09 Anion Gap 17 mmol/L 09/24/17 18:09 BUN 11 mg/dL (7-17) 09/24/17 18:09 Creatinine 0.4 mg/dL (0.7-1.2) L 09/24/17 18:09 Estimated GFR > 60 ml/min 09/24/17 18: BUN/Creatinine Ratio 28 % 09/24/17 18: Glucose 91 mg/dL (65-100) 09/24/17 18: Calcium 8.0 mg/dL (8.4-10.2) L 09/24/17 18: Total Bilirubin 0.30 mg/dL (0.1-1.2) 09/24/17 18: AST 24 units/L (5-40) 09/24/17 18: ALT 8 units/L (7-56) 09/24/17 18: Alkaline Phosphatase 60 units/L (35-129) 09/24/17 18: Total Protein 6.7 g/dL (6.3-8.2) 09/24/17 18: Albumin 3.7 g/dL (3.9-5) L 09/24/17 18: Albumin/Globulin Ratio 1.2 % 09/24/17 18: Amylase 99 units/L (27-131) 09/24/17 18: Lipase 29 units/L (13-60) 09/24/17 18: HCG, Qual Negative (Negative) 09/24/17 18: HCG, Quant < 2 mIU/mL (0-4) 09/24/17 18: Urine Color Yellow (Yellow) 09/24/17 22: Urine Turbidity Clear (Clear) 09/24/17 22: Urine pH 6.0 (5.0-7.0) 09/24/17 22: Ur Specific [place] 1.017 (1.003-1.030) 09/24/17 22: Urine Protein <15 mg/dl mg/dL (Negative) 09/24/17 22: Urine Glucose (UA) Neg mg/dL (Negative) 09/24/17 22: Urine Ketones Neg mg/dL (Negative) 09/24/17 22: Urine Blood Neg (Negative) 09/24/17 22: Urine Nitrite Neg (Negative) 09/24/17 22: Urine Bilirubin Neg (Negative) 09/24/17 22: Urine Urobilinogen < 2.0 mg/dL (<2.0) 09/24/17 22:07 Ur Leukocyte Esterase Neg (Negative) 09/24/17 22:07 Urine WBC (Auto) 1.0 /HPF (0.0-6.0) 09/24/17 22:07 Urine RBC (Auto) 2.0 /HPF (0.0-6.0) 09/24/17 22:07 U Epithel Cells (Auto) < 1.0 /HPF (0-13.0) 09/24/17 22:07 Urine Mucus Few /HPF 09/24/17 22:07 <WILD CARLSON - Last Filed: 09/26/17 17:57> Assessment and Plan Assessment and plan: I saw and evaluated the patient. I agree with the findings and the plan of care as documented in the physician assistant tennis coach ~note, with the following corrections and additions. Extensive discussion with the patient's reviewed patient's LABOR RELATIONS REPRESENTATIVE aware of the [employer] dashboard advised the patient not to use the ER for seeking pain medication but to ensure appropriate follow-up with hematology oncologist outpatient. We'll monitor her overnight and discharge her in a.m. I believe that she needs close follow-up with her field marketing specialist I do not see any activated reticulocyte count. I advised her that the appearance of multiple physicians right tympanic medications for her is not helpful and beneficial for her. She verbalized understanding. Presumed Influenza Infection Continue Tamiflu Hospitalist Physical - Constitutional Vitals: Temp Pulse Resp BP Pulse Ox 99.5 F 97 H 20 124/76 100 09/26/17 15:45 09/26/17 15:45 09/26/17 15:45 09/26/17 15:45 09/26/17 15:45 Results - Labs CBC & Chem 7: 09/24/17 18:09 09/24/17 18:09 Labs: Laboratory Last Values WBC 11.8 K/mm3 (4.5-11.0) H 09/24/17 18:09 RBC 4.71 M/mm3 (3.65-5.03) 09/24/17 18:09 Hgb 8.5 gm/dl (10.1-14.3) L 09/24/17 18:09 Hct 26.5 % (30.3-42.9) L 09/24/17 18:09 MCV 56 fl (79-97) L 09/24/17 18:09 MCH 18 pg (28-32) L 09/24/17 18:09 MCHC 32 % (30-34) 09/24/17 18: RDW 23.1 % (13.2-15.2) H 09/24/17 18:09 Plt Count 275 K/mm3 (140-440) 09/24/17 18:09 Lymph % (Auto) 20.4 % (13.4-35.0) 09/24/17 18:09 [place] % (Auto) 9.0 % (0.0-7.3) H 09/24/17 18:09 Eos % (Auto) 1.6 % (0.0-4.3) 09/24/17 18: Baso % (Auto) 0.4 % (0.0-1.8) 09/24/17 18: Lymph # 2.4 K/mm3 (1.2-5.4) 09/24/17 18: [place] # 1.1 K/mm3 (0.0-0.8) H 09/24/17 18: Eos # 0.2 K/mm3 (0.0-0.4) 09/24/17 18: Baso # 0.0 K/mm3 (0.0-0.1) 09/24/17 18: Seg Neutrophils % 68.6 % (40.0-70.0) 09/24/17 18: Seg Neutrophils # 8.1 K/mm3 (1.8-7.7) H 09/24/17 18: Percent Retic 2.23 % (0.78-2.58) 09/24/17 18: Sodium 140 mmol/L (137-145) 09/24/17 18: Potassium 4.0 mmol/L (3.6-5.0) 09/24/17 18: Chloride 104.5 mmol/L (98-107) 09/24/17 18: Carbon Dioxide 23 mmol/L (22-30) 09/24/17 18: Anion Gap 17 mmol/L 09/24/17 18: BUN 11 mg/dL (7-17) 09/24/17 18: Creatinine 0.4 mg/dL (0.7-1.2) L 09/24/17 18: Estimated GFR > 60 ml/min 09/24/17 18: BUN/Creatinine Ratio 28 % 09/24/17 18: Glucose 91 mg/dL (65-100) 09/24/17 18: Calcium 8.0 mg/dL (8.4-10.2) L 09/24/17 18: Total Bilirubin 0.30 mg/dL (0.1-1.2) 09/24/17 18: AST 24 units/L (5-40) 09/24/17 18: ALT 8 units/L (7-56) 09/24/17 18: Alkaline Phosphatase 60 units/L (35-129) 09/24/17 18: Total Protein 6.7 g/dL (6.3-8.2) 09/24/17: Albumin 3.7 g/dL (3.9-5) L 09/24/17 18: Albumin/Globulin Ratio 1.2 % 09/24/17 18: Amylase 99 units/L (27-131) 09/24/17 18: Lipase 29 units/L (13-60) 09/24/17 18: HCG, Qual Negative (Negative) 09/24/17 18: HCG, Quant < 2 mIU/mL (0-4) 09/24/17 18: Urine Color Yellow (Yellow) 09/24/17 22: Urine Turbidity Clear (Clear) 09/24/17 22: Urine pH 6.0 (5.0-7.0) 09/24/17 22: Ur Specific [place] 1.017 (1.003-1.030) 09/24/17 22: Urine Protein <15 mg/dl mg/dL (Negative) 09/24/17 22: Urine Glucose (UA) Neg mg/dL (Negative) 09/24/17 22: Urine Ketones Neg mg/dL (Negative) 09/24/17 22: Urine Blood Neg (Negative) 09/24/17 22: Urine Nitrite Neg (Negative) 09/24/17 22: Urine Bilirubin Neg (Negative) 09/24/17 22: Urine Urobilinogen < 2.0 mg/dL (<2.0) 09/24/17 22: Ur Leukocyte Esterase Neg (Negative) 09/24/17 22:07 Urine WBC (Auto) 1.0 /HPF (0.0-6.0) 09/24/17 22:07 Urine RBC (Auto) 2.0 /HPF (0.0-6.0) 09/24/17 22:07 U Epithel Cells (Auto) < 1.0 /HPF (0-13.0) 09/24/17 22:07 Urine Mucus Few /HPF 09/24/17 22:07
--- NOTE | 2017-09-26 20:45 | Consultation ---
History of Present Illness - Reason for Consult Consult date: 09/26/17 SCD/PAIN CRISIS. Requesting physician: WILD CARLSON - History of Present Illness pATIENT SEEN/EXAMINED, RECORD REVIEWED, CASE D/W PATIENT, WHO HAD PRESENTED WITH fLU SXS, ANS PAIN CRISIS, ADMITTED FOR SXS control/management. She has not been complaint with the tamiflu as per her nurse.She is currently on pain meds/ hydration, and zofran.labs/notes reviewed, . Past History Social history: single Medications and Allergies Allergies Allergy/AdvReac Type Severity Reaction Status Date / Time cefotetan disodium Allergy Hives Verified 05/25/16 17:25 [From Cefotan] morphine Allergy Vomiting Verified 07/13/16 20:40 Home Medications Medication Instructions Recorded Confirmed Last Taken Type No Known Home Medications [No 09/24/17 09/24/17 Unknown History Reported Home Medications] Active Meds: Active Medications Bisacodyl (Dulcolax) [address] QDAY PRN PRN Reason: Constipation unrelieved by MOM Diphenhydramine HCl (Benadryl) 25 mg IV Q6H PRN PRN Reason: Itching Last Admin: 09/26/17 16:10 Dose: 25 mg Enoxaparin Sodium (Lovenox) 40 mg SUB-Q QDAY [facility] Last Admin: 09/26/17 09:32 Dose: 40 mg Folic Acid (Folvite) 1 mg PO QDAY [facility] Last Admin: 09/26/17 09:32 Dose: Not Given Hydromorphone HCl (Dilaudid) 3 mg IV Q4H PRN PRN Reason: Pain , Severe (7-10) Last Admin: 09/26/17 20:29 Dose: 3 mg Magnesium Hydroxide (Milk Of Magnesia) 30 ml PO Q4H PRN PRN Reason: Constipation Metoclopramide HCl (Reglan) 10 mg PO Q6H PRN PRN Reason: Nausea And Vomiting Last Admin: 09/25/17 21:55 Dose: 10 mg Multivitamins (Theragran Tab) 1 each PO QDAY [facility] Last Admin: 09/26/17 09:32 Dose: Not Given Ondansetron HCl (Zofran) 4 mg IV Q4H PRN PRN Reason: Nausea And Vomiting Last Admin: 09/26/17 20:29 Dose: 4 mg Oseltamivir Phosphate (Tamiflu) 75 mg PO BID [facility] Stop: 09/29/17 10:01 Last Admin: 09/26/17 09:32 Dose: Not Given Oxycodone HCl (Oxycontin) 20 mg PO Q8HR [facility] Last Admin: 09/26/17 13:36 Dose: 20 mg Promethazine HCl (Phenergan) 25 mg PO Q6H PRN PRN Reason: Nausea And Vomiting Last Admin: 09/26/17 13:29 Dose: 25 mg Senna (Senokot) 17.2 mg PO QHS [facility] Last Admin: 09/25/17 21:55 Dose: 17.2 mg Review of Systems Constitutional: chronic pain Breasts: deferred Cardiovascular: chest pain Respiratory: cough Gastrointestinal: abdominal pain, nausea, vomiting Exam - Constitutional Vitals: Temp Pulse Resp BP Pulse Ox 98.7 F 83 17 137/85 99 09/26/17 19:47 09/26/17 19:47 09/26/17 20:29 09/26/17 19:47 09/26/17 19:47 General appearance: Present: mild distress, well-nourished - EENT Eyes: Present: PERRL ENT: hearing intact, clear oral mucosa - Neck Neck: Present: supple, normal ROM - Respiratory Respiratory: bilateral: diminished - Cardiovascular Heart Sounds: Present: S1 & S2. Absent: rub, click - Extremities Extremities: pulses symmetrical, No edema Peripheral Pulses: within normal limits - Abdominal General gastrointestinal: Present: soft, non-tender, non-distended, normal bowel sounds Female genitourinary: Present: deferred - Rectal Rectal Exam: deferred - Integumentary Integumentary: Present: clear, warm, dry - Musculoskeletal Musculoskeletal: gait normal, strength equal bilaterally - Psychiatric Psychiatric: appropriate mood/affect, intact judgment & insight - Neurologic Neurologic: CNII-XII intact, moves all extremities Results - Labs CBC & Chem 7: 09/24/17 18:09 09/24/17 18:09 Assessment and Plan - Patient Problems (1) Sickle cell crisis Current Visit: Yes Status: Acute Plan to address problem: continue with current management. (2) Anemia requiring transfusions Current Visit: No Status: Acute Plan to address problem: supportive care (3) Chest pain Current Visit: No Status: Acute Qualifiers: Chest pain type: unspecified Qualified Code(s): R07.9 - Chest pain, unspecified Plan to address problem: follow cardiology.
[2017-09-26] MEDS: SENOKOT PO SCH (22:19)
[2017-09-27] MEDS: DILAUDID IV PRN ×2 (01:13→05:17)
[2017-09-27] MEDS: BENADRYL IV PRN ×2 (01:15→12:13)
[2017-09-27] MEDS: ZOFRAN IV PRN ×2 (01:26→05:18)
[2017-09-27 06:18] LABS: Basophils % (Auto) 0.4 % (0.0-1.8); Eosinophils # (Auto) 0.3 K/mm3 (0.0-0.4); Eosinophils % (Auto) 2.5 % (0.0-4.3); Hematocrit 25.3 % (30.3-42.9); Hemoglobin 8.2 gm/dl (10.1-14.3); Lymphocytes # (Auto) 2.7 K/mm3 (1.2-5.4); Lymphocytes % (Auto) 24.5 % (13.4-35.0); Mean Corpuscular HGB Conc 32 % (30-34); Monocytes # (Auto) 1.2 K/mm3 (0.0-0.8); Monocytes % (Auto) 10.6 % (0.0-7.3); Platelet Count 246 K/mm3 (140-440); Red Blood Count 4.59 M/mm3 (3.65-5.03)
[2017-09-27 06:30] LABS: Mean Corpuscular Hemoglobin 18 pg (28-32); Mean Corpuscular Volume 55 fl (79-97); Red Cell Distribution Width 23.1 % (13.2-15.2)
[2017-09-27] MEDS: OxyCONTIN PO SCH ×2 (06:44→14:16)
[2017-09-27] MEDS: PHENERGAN PO PRN ×2 (06:49→14:16)
[2017-09-27] MEDS ORDERED: DILAUDID IV PRN (08:36)
--- NOTE | 2017-09-27 09:02 | Progress Note ---
Assessment and Plan Assessment and plan: 32-year-old woman with a history of sickle cell, asthma, fibromyalgia comes to the emergency room with complaints of pain all over her body for 2 weeks. She stated feels very sore. She stated her symptoms feel like her sickle cell symptoms has exacerbated. Sickle cell crisis Start IV fluids, IV narcotics Consult placed to Primer Inspector Fibromyalgia supportive care Nausea and vomiting Initiated on Phenergan Asthma, stable Nicotine dependence Patient counseled on cessation DVT prophalaxis Lovenox Hospitalist Physical - Constitutional Vitals: Temp Pulse Resp BP Pulse Ox 98.7 F 83 18 137/85 99 09/26/17 19:47 09/26/17 19:47 09/27/17 06:44 09/26/17 19:47 09/26/17 19:47 General appearance: Present: mild distress, well-nourished Results - Labs CBC & Chem 7: 09/27/17 05:49 09/24/17 18:09 Labs: Laboratory Last Values WBC 11.2 K/mm3 (4.5-11.0) H 09/27/17 05:49 RBC 4.59 M/mm3 (3.65-5.03) 09/27/17 05:49 Hgb 8.2 gm/dl (10.1-14.3) L 09/27/17 05:49 Hct 25.3 % (30.3-42.9) L 09/27/17 05:49 MCV 55 fl (79-97) L 09/27/17 05:49 MCH 18 pg (28-32) L 09/27/17 05:49 MCHC 32 % (30-34) 09/27/17 05:49 RDW 23.1 % (13.2-15.2) H 09/27/17 05:49 Plt Count 246 K/mm3 (140-440) 09/27/17 05:49 Lymph % (Auto) 24.5 % (13.4-35.0) 09/27/17 05:49 [place] % (Auto) 10.6 % (0.0-7.3) H 09/27/17 05:49 Eos % (Auto) 2.5 % (0.0-4.3) 09/27/17 05:49 Baso % (Auto) 0.4 % (0.0-1.8) 09/27/17 05:49 Lymph # 2.7 K/mm3 (1.2-5.4) 09/27/17 05:49 [place] # 1.2 K/mm3 (0.0-0.8) H 09/27/17 05:49 Eos # 0.3 K/mm3 (0.0-0.4) 09/27/17 05:49 Baso # 0.0 K/mm3 (0.0-0.1) 09/27/17 05:49 Seg Neutrophils % 62.0 % (40.0-70.0) 09/27/17 05:49 Seg Neutrophils # 6.9 K/mm3 (1.8-7.7) 09/27/17 05:49 Percent Retic 1.97 % (0.78-2.58) 09/26/17 21:52 Sodium 140 mmol/L (137-145) 09/24/17 18:09 Potassium 4.0 mmol/L (3.6-5.0) 09/24/17 18:09 Chloride 104.5 mmol/L (98-107) 09/24/17 18:09 Carbon Dioxide 23 mmol/L (22-30) 09/24/17 18:09 Anion Gap 17 mmol/L 09/24/17 18:09 BUN 11 mg/dL (7-17) 09/24/17 18:09 Creatinine 0.4 mg/dL (0.7-1.2) L 09/24/17 18:09 Estimated GFR > 60 ml/min 09/24/17 18:09 BUN/Creatinine Ratio 28 % 09/24/17 18:09 Glucose 91 mg/dL (65-100) 09/24/17 18:09 Calcium 8.0 mg/dL (8.4-10.2) L 09/24/17 18:09 Total Bilirubin 0.30 mg/dL (0.1-1.2) 09/24/17 18:09 AST 24 units/L (5-40) 09/24/17 18:09 ALT 8 units/L (7-56) 09/24/17 18:09 Alkaline Phosphatase 60 units/L (35-129) 09/24/17 18:09 Total Protein 6.7 g/dL (6.3-8.2) 09/24/17 18:09 Albumin 3.7 g/dL (3.9-5) L 09/24/17 18: Albumin/Globulin Ratio 1.2 % 09/24/17 18:09 Amylase 99 units/L (27-131) 09/24/17 18:09 Lipase 29 units/L (13-60) 09/24/17 18:09 HCG, Qual Negative (Negative) 09/24/17 18: HCG, Quant < 2 mIU/mL (0-4) 09/24/17 18: Urine Color Yellow (Yellow) 09/24/17 22:07 Urine Turbidity Clear (Clear) 09/24/17 22: Urine pH 6.0 (5.0-7.0) 09/24/17 22: Ur Specific [place] 1.017 (1.003-1.030) 09/24/17 22: Urine Protein <15 mg/dl mg/dL (Negative) 09/24/17 22:07 Urine Glucose (UA) Neg mg/dL (Negative) 09/24/17 22: Urine Ketones Neg mg/dL (Negative) 09/24/17 22:07 Urine Blood Neg (Negative) 09/24/17 22: Urine Nitrite Neg (Negative) 09/24/17 22: Urine Bilirubin Neg (Negative) 09/24/17 22: Urine Urobilinogen < 2.0 mg/dL (<2.0) 09/24/17 22:07 Ur Leukocyte Esterase Neg (Negative) 09/24/17 22:07 Urine WBC (Auto) 1.0 /HPF (0.0-6.0) 09/24/17 22:07 Urine RBC (Auto) 2.0 /HPF (0.0-6.0) 09/24/17 22: U Epithel Cells (Auto) < 1.0 /HPF (0-13.0) 09/24/17 22:07 Urine Mucus Few /HPF 09/24/17 22:
[2017-09-27] MEDS: LOVENOX SUB-Q SCH (09:32)
[2017-09-27] MEDS: TAMIFLU PO SCH (09:32)
[2017-09-27] MEDS: THERAGRAN Tab PO SCH (09:32)
[2017-09-27] MEDS: FOLVITE PO SCH (09:32)
[2017-09-27 09:56] VITALS: BP 137/52
--- NOTE | 2017-09-27 09:58 | Discharge Summary ---
<KIANA HILL - Last Filed: 09/30/17 15:33> Providers - Providers Date of Admission: 09/24/17 22:14 Date of discharge: 09/27/17 Attending physician: WILD CARLSON MD 09/26/17 09:10 Consult to Physician [CONS] Routine Consulting Provider: KATY CORDOVA Reason For Exam: sickle cell crisis Place consult to:: dr. cordova Notified:: office Phone number called:: Was contact made?: Yes If yes, spoke with:: dutch Time called:: 09:41 Primary care physician: MANAGER CARE Hospitalization Condition: Stable Hospital course: 32-year-old woman with a history of sickle cell, asthma, fibromyalgia comes to the emergency room with complaints of pain all over her body for 2 weeks. She stated feels very sore. She stated her symptoms feel like her sickle cell symptoms has exacerbated. -Patient was treated with analgesics for sickle cell crisis and antinausea medications. - No transfusions were necessary as H&H were stable. -Patient was discharged home and advised to follow up with outdoor power equipment mechanic Dr. Cordova. Discharge diagnoses Sickle cell crisis Fibromyalgia Nausea vomiting Asthma Nicotine dependence DVT prophylaxis Disposition: DC-01 TO HOME OR SELFCARE Time spent for discharge: 32 minutes Core Measure Documentation - Palliative Care Palliative Care/ Comfort Measures: Not Applicable - Core Measures Any of the following diagnoses?: none Exam - Constitutional Vitals: Temp Pulse Resp BP Pulse Ox 98.7 F 83 18 137/85 99 09/26/17 19:47 09/26/17 19:47 09/27/17 06:44 09/26/17 19:47 09/26/17 19:47 General appearance: Present: no acute distress, well-nourished - EENT Eyes: Present: PERRL ENT: hearing intact, clear oral mucosa - Neck Neck: Present: supple, normal ROM - Respiratory Respiratory effort: normal Respiratory: bilateral: CTA - Cardiovascular Heart Sounds: Present: S1 & S2. Absent: rub, click - Extremities Extremities: pulses symmetrical, No edema Peripheral Pulses: within normal limits - Abdominal General gastrointestinal: Present: soft, non-tender, non-distended, normal bowel sounds Female genitourinary: Present: normal - Integumentary Integumentary: Present: clear, warm, dry - Musculoskeletal Musculoskeletal: gait normal, strength equal bilaterally - Psychiatric Psychiatric: appropriate mood/affect, intact judgment & insight - Neurologic Neurologic: CNII-XII intact, moves all extremities - Allied Health Allied health notes reviewed: nursing Plan Activity: no restrictions, advance as tolerated Diet: low fat, low cholesterol Follow up with: KATY CORDOVA DO [Staff Physician] - 7 Days PRIMARY CARE, [Primary Care Provider] - 3-5 Days Prescriptions: Zolpidem Tartrate [Ambien] 5 mg PO QHS PRN #10 tablet PRN Reason: Insomnia Metoclopramide [Reglan TAB] 10 mg PO Q6H PRN #30 tablet PRN Reason: Nausea And Vomiting Oseltamivir [Tamiflu] 75 mg PO BID #5 capsule oxyCODONE ER [OxyCONTIN ER TAB] 20 mg PO Q8HR #10 tablet <WILD CARLSON - Last Filed: 10/01/17 17:22> Providers - Providers Date of Admission: 09/24/17 22:14 Attending physician: WILD CARLSON MD 09/26/17 09:10 Consult to Physician [CONS] Routine Consulting Provider: KATY CORDOVA Reason For Exam: sickle cell crisis Place consult to:: dr. cordova Notified:: office Phone number called:: Was contact made?: Yes If yes, spoke with:: dutch Time called:: 09:41 09/27/17 10:35 Consult to Mental Health [CONS] Routine Reason For Exam: Outpatient mental health resources Place consult to:: Mental Health Notified:: Yes Phone number called:: [phone] Was contact made?: Yes If yes, spoke with:: Noemi Time called:: 10:40 Primary care physician: MANAGER CARE Hospitalization Reason for admission: sickel cell crisit Hospital course: I saw and evaluated the patient. I agree with the findings and the plan of care as documented in the PA's~note, with the following corrections and additions. Extensively counseling about compliance with the patient, she now understands the improtance and states it was due to lack of insurance and not due to not willing. Exam - Constitutional Vitals: Temp Pulse Resp BP Pulse Ox 97.9 F 77 20 137/52 100 09/27/17 09:17 09/27/17 09:17 02/13/18 09:17 09/27/17 09:17 09/27/17 09:17
[2017-09-27] MEDS ORDERED: TRIPLE ANTIBIOTIC TP ONE (11:18)
[2017-09-27] MEDS ORDERED: FLUSH HEPARIN IV ONE (11:35)
== END 2017-09-27 15:08 | disposition home or self-care (01) ==
LOC: ED 09:00 → 3A 22:14
PROVIDERS: ADMIT Internal Medicine; ATTEND Internal Medicine
DX: D57.00 Hb-SS disease with crisis, unspecified (principal); J45.909 Unspecified asthma, uncomplicated; M79.7 Fibromyalgia
CPT/HCPCS: 36415; 74019; 80053; 81001; 82150; 83690; 84702; 84703; 85025; 85045; 87040; 96361; 96365; 96372; 96375; 96376; G0378; J1170; J1200; J1642; J1650; J1885; J2405; J2765; J3230; J7030; A6250; Q0169

== ENCOUNTER 2017-10-31 05:59 | Inpatient (IN) | payer MEDICARE ==
[2017-10-31] MEDS ORDERED: D5NS 0.2% 1,000 ML IV SCH (07:00)
[2017-10-31] MEDS ORDERED: DILAUDID IV ONE ×2 (08:36→09:56)
[2017-10-31] MEDS ORDERED: ZOFRAN IV ONE (08:36)
--- NOTE | 2017-10-31 09:04 | Emergency Department Report ---
HPI - General Chief Complaint: Sickle Cell Crisis Time Seen by Provider: 10/31/17 08:31 - HPI HPI: 32-year-old female presents to the emergency department with complaint of a 4-5 day history of some pain in the left hip, a burning sensation down the thighs and some low back pain that she thinks is a sickle cell pain crisis. She says that this is usually where she develops this discomfort during a sickle cell pain crisis. She denies any problems with bowel or bladder, numbness or paresthesias or any neurological deficits. She does complain of a low-grade fever. She denies any chest pain, cough but does have some nausea and vomiting. She also has a past medical history asthma, seizures, fibromyalgia. No recent travel or sick contacts at home. Her PCP/ public speaking coach is a Dr. Osman. She's been taking her oxycodone, folic acid and hydroxyurea at home for her symptoms without any relief. ED Past Medical Hx - Past Medical History Hx Hypertension: No Hx Heart Attack/AMI: No Hx Congestive Heart Failure: No Hx Diabetes: No Hx Deep Vein Thrombosis: No Hx Pulmonary Embolism: No Hx Liver Disease: No Hx Renal Disease: No Hx Sickle Cell Disease: Yes (SS [place]) Hx Arthritis: No Hx Seizures: Yes (10 + years ago) Hx Kidney Stones: No Hx Asthma: Yes Hx COPD: No Hx Tuberculosis: No Hx Dementia: No Hx HIV: No Additional medical history: fibromyalgia - Surgical History Hx Coronary Stent: No Hx Open Heart Surgery: No Hx Pacemaker: No Hx Internal Defibrillator: No Hx Cholecystectomy: Yes Hx Appendectomy: No Hx Breast Surgery: No Additional Surgical History: ports x 2 / tubal ligation/ t&a , splenectomy - Social History Smoking Status: Never Smoker Substance Use Type: None - Medications Home Medications: Home Medications Medication Instructions Recorded Confirmed Last Taken Type Zolpidem Tartrate [Ambien] 5 mg PO QHS PRN #10 tablet 09/27/17 10/31/17 Rx Folic Acid [Folvite] 1 mg PO QDAY 10/31/17 10/31/17 10/30/17 History Hydroxyurea [Hydrea] 500 mg PO BID 10/31/17 10/31/17 10/30/17 History Oxycodone HCl/Acetaminophen 1 each PO Q6HR PRN 10/31/17 10/31/1718 History [Percocet 10/325 mg] ED Review of Systems ROS: Stated complaint: SICKLE CELL Other details as noted in HPI Comment: All other systems reviewed and negative Constitutional: fever. denies: weakness Eyes: denies: eye pain, eye discharge, vision change ENT: denies: ear pain, throat pain Respiratory: denies: cough, wheezing Cardiovascular: denies: chest pain, palpitations Gastrointestinal: denies: abdominal pain, nausea, diarrhea Genitourinary: denies: urgency, dysuria, discharge Musculoskeletal: back pain, arthralgia, myalgia. denies: joint swelling Skin: denies: rash, lesions Neurological: denies: headache, weakness, paresthesias Physical Exam - Physical Exam Vital Signs: Vital Signs 10/31/17 05:59 Temperature 99.9 F H Pulse Rate 86 Respiratory 18 Rate Blood Pressure 118/62 O2 Sat by Pulse 99 Oximetry Physical Exam: GENERAL: The patient is well-developed well-nourished. HENT: Normocephalic. Atraumatic. Patient has moist mucous membranes. EYES: Extraocular motions are intact. Pupils equal reactive to light bilaterally. NECK: Supple. Trachea is midline. CHEST/LUNGS: Clear to auscultation. There is no respiratory distress noted. HEART/CARDIOVASCULAR: Regular. There is no tachycardia. There is no murmur. ABDOMEN: Abdomen is soft, nontender. Patient has normal bowel sounds. There is no abdominal distention. SKIN: Skin is warm and dry. NEURO: The patient is awake, alert, and oriented. The patient is cooperative. The patient has no focal neurologic deficits. The patient has normal speech. MUSCULOSKELETAL: There is some reproducible tenderness palpation to the left hip and no obvious deformity.. There is no limitation range of motion. There is no evidence of acute injury. Muscle strength 5 out of 5 in upper and lower extremities bilaterally. BACK: There is some reproducible midline and bilateral paraspinal lumbar tenderness to palpation. No step-off or deformity. ED Course Vital Signs 10/31/17 05:59 Temperature 99.9 F H Pulse Rate 86 Respiratory 18 Rate Blood Pressure 118/62 O2 Sat by Pulse 99 Oximetry ED Medical Decision Making - Lab Data Result diagrams: 10/31/17 09:16 10/31/17 09:16 - Radiology Data Radiology results: report reviewed, image reviewed interpreted by me: Chest x-ray does not show any acute process. There are no pleural effusions, obvious pneumonia and there is no pneumothorax. X-ray of the left hip does not show any fracture, dislocated or any acute process. - Medical Decision Making 32-year-old female presents with what appears to be a sickle cell pain crisis. Despite her complaint of a low-grade fever she does not appear to have any chest crisis. Chest x-ray does not show any signs of pneumonia, pleural effusions or any other acute process. She had a temperature of 99.9 upon arrival that went down without any antipyretics. Labs are mostly unremarkable. However the patient continues to have pain despite multiple rounds of IV narcotic pain medication. I am unable to give her much more at this time as she has a systolic blood pressure in the low 90s. She will be admitted to the hospital for an acute exacerbation of sickle cell pain crisis. She was accepted for admission by the hospitalist, Dr Hill. - Differential Diagnosis Sickle cell pain crisis, chest crisis, fibromyalgia Critical Care Time: No Critical care attestation.: If time is entered above; I have spent that time in minutes in the direct care of this critically ill patient, excluding procedure time. ED Disposition Clinical Impression: Sickle cell crisis, Sickle cell pain crisis Anemia Qualifiers: Anemia type: unspecified type Qualified Code(s): D64.9 - Anemia, unspecified Disposition: 09 OP ADMIT IP TO THIS HOSP Is pt being admited?: Yes Condition: Stable Time of Disposition: 14:31
[2017-10-31] MEDS ORDERED: BENADRYL IV ONE (09:18)
[2017-10-31] MEDS ORDERED: BENADRYL ONE (09:19)
[2017-10-31 09:48] LABS: BUN/Creatinine Ratio 25; Blood Urea Nitrogen 10 mg/dL (7-17); Calcium 8.2 mg/dL (8.4-10.2); Hemolysis Index 4
[2017-10-31] MEDS ORDERED: TORADOL IV ONE (09:56)
[2017-10-31 10:05] LABS: Basophils # (Auto) 0.1 K/mm3 (0.0-0.1); Basophils % (Auto) 0.5 % (0.0-1.8); Eosinophils # (Auto) 0.2 K/mm3 (0.0-0.4); Eosinophils % (Auto) 1.9 % (0.0-4.3); Hematocrit 26.5 % (30.3-42.9); Lymphocytes # (Auto) 3.5 K/mm3 (1.2-5.4); Lymphocytes % (Auto) 31.3 % (13.4-35.0); Mean Corpuscular HGB Conc 30 % (30-34); Monocytes # (Auto) 0.9 K/mm3 (0.0-0.8); Monocytes % (Auto) 7.8 % (0.0-7.3); Platelet Count 183 K/mm3 (140-440); Red Blood Count 4.85 M/mm3 (3.65-5.03)
[2017-10-31 10:07] LABS: Mean Corpuscular Hemoglobin 17 pg (28-32); Mean Corpuscular Volume 55 fl (79-97); Red Cell Distribution Width 24.1 % (13.2-15.2)
--- NOTE | 2017-10-31 10:50 | XRay Report ---
ROUTINE CHEST, TWO VIEWS: HISTORY: Cough. The trachea, heart, mediastinal contour, lung real and bony thorax are unremarkable. Left [id number] terminates near the cavoatrial junction. IMPRESSION: Unremarkable chest x-ray. No change since 08/04/17.
[2017-10-31] MEDS ORDERED: NACL 0.9% 1000 ML 1,000 ML IV ONE (11:04)
--- NOTE | 2017-10-31 11:38 | XRay Report ---
LEFT HIP, 2 views: History: Left hip pain. The bony architecture is intact without evidence of fracture or dislocation. No significant soft tissue abnormality is seen. IMPRESSION: Normal left hip.
--- NOTE | 2017-10-31 11:42 | History and Physical Report ---
History of Present Illness Date of examination: 10/31/17 Chief complaint: Generalized body pain History of present illness: 32-year-old -[place] female with past medical history significant for sickle cell anemia, asthma, fibromyalgia presented to the emergency department complaining pain all over her body. Pain is 10 out of 10 in intensity, throbbing in quality except in the legs which is burning, associated with nausea and vomiting. Aggravating or alleviating factors identified. Patient is also complaining chest pain, pleuritic, dry cough, low grade fever. In the emergency department hemoglobin is 8, chest x-ray was negative. REVIEW OF SYSTEMS: GENERAL: no weight change HEAD: no head ache EYES: no blurry vision, no acute visual loss EARS: no hearing loss, no discharge, no earache NOSE: no stuffiness, no sneezing, no discharge MOUTH, THROAT AND NECK: no bleeding gums, no sore throat, no swollen neck CARDIAC: no palpitations, no dyspnea on exertion, no orthopnea, no PND, no edema RESPIRATORY: no shortness of breath, no wheeze, no cough, no sputum, no hemoptysis GI: no decreased appetite, no dysphagia, no diarrhea, no constipation, no abdominal pain URINARY: no change in frequency, no urgency, no polyuria, no hematuria, no incontinence MUSCULOSKELETAL: no muscle weakness, no pain, no joint stiffness NEUROLOGIC: no loss of sensation/numbness, no tingling, no tremors, no weakness/ paralysis HEMATOLOGIC: no easy bruising SKIN: no rashes ENDOCRINE: no heat/cold intolerance, no polyuria, no polydipsia, no thyroid problems, no diabetes PSYCHIATRIC: no anxiety, no depression, no suicidal ideations Past History Past Medical History: other (sickle cell, asthma, fibromyalgia) Past Surgical History: cholecystectomy, tonsillectomy, Other (splenectomy, tubal ligation) Social history: no significant social history Medications and Allergies Allergies Allergy/AdvReac Type Severity Reaction Status Date / Time cefotetan disodium Allergy Hives Verified 05/25/16 17:25 [From Cefotan] morphine Allergy Vomiting Verified 07/13/16 20:40 Home Medications Medication Instructions Recorded Confirmed Last Taken Type Zolpidem Tartrate [Ambien] 5 mg PO QHS PRN #10 tablet 09/27/17 10/31/17 Rx Folic Acid [Folvite] 1 mg PO QDAY 10/31/17 10/31/17 10/30/17 History Hydroxyurea [Hydrea] 500 mg PO BID 10/31/17 10/31/17 10/30/17 History Oxycodone HCl/Acetaminophen 1 each PO Q6HR PRN 10/31/17 10/31/17 10/30/17 History [Percocet 10/325 mg] Active Meds: Active Medications Heparin Sodium (Porcine) (Heparin) 5,000 unit SUB-Q Q8HR JUSTUS Sodium Chloride (Nacl 0.9% 1000 Ml) 1,000 mls @ 999 mls/hr IV BOLUS ONE Stop: 10/31/17 12:04 Last Admin: 10/31/17 11:10 Dose: 999 mls/hr Exam - Physical Exam Narrative exam: Not in cardiopulmonary distress. The patient appeared well nourished and normally developed. Vital signs as documented. Head exam is unremarkable. No scleral icterus . Neck is without jugular venous distension, thyromegaly, or carotid bruits. Lungs are clear to auscultation. Cardiac exam reveals regular rate and Rhythm. First and second heart sounds normal. No murmurs, rubs or gallops. Abdominal exam reveals normal bowel sounds, no masses, no organomegaly and no aortic enlargement. Extremities are nonedematous and both femoral and pedal pulses are normal. MANAGER WINTER: Alert and oriented 3. No focal weakness. - Constitutional Vitals: Temp Pulse Resp BP Pulse Ox 98 F 67 16 97/37 97 10/31/17 10:28 10/31/17 10:28 10/31/17 10:28 10/31/17 10:28 10/31/17 10:28 Results - Labs CBC & Chem 7: 10/31/17 09:16 10/31/17 09:16 Labs: Laboratory Last Values WBC 11.1 K/mm3 (4.5-11.0) H 10/31/17 09:16 RBC 4.85 M/mm3 (3.65-5.03) 10/31/17 09:16 Hgb 8.0 gm/dl (10.1-14.3) L 10/31/17 09:16 Hct 26.5 % (30.3-42.9) L 10/31/17 09:16 MCV 55 fl (79-97) L 10/31/17 09:16 MCH 17 pg (28-32) L 10/31/17 09:16 MCHC 30 % (30-34) 10/31/17 09:16 RDW 24.1 % (13.2-15.2) H 10/31/17 09:16 Plt Count 183 K/mm3 (140-440) 10/31/17 09:16 Lymph % (Auto) 31.3 % (13.4-35.0) 10/31/17 09:16 [place] % (Auto) 7.8 % (0.0-7.3) H 10/31/17 09:16 Eos % (Auto) 1.9 % (0.0-4.3) 10/31/17 09:16 Baso % (Auto) 0.5 % (0.0-1.8) 10/31/17 09:16 Lymph # 3.5 K/mm3 (1.2-5.4) 10/31/17 09:16 [place] # 0.9 K/mm3 (0.0-0.8) H 10/31/17 09:16 Eos # 0.2 K/mm3 (0.0-0.4) 10/31/17 09:16 Baso # 0.1 K/mm3 (0.0-0.1) 10/31/17 09:16 Seg Neutrophils % 58.5 % (40.0-70.0) 10/31/17 09:16 Seg Neutrophils # 6.5 K/mm3 (1.8-7.7) 10/31/17 09:16 Percent Retic 2.12 % (0.78-2.58) 10/31/17 09:16 Sodium 141 mmol/L (137-145) 10/31/17 09:16 Potassium 3.9 mmol/L (3.6-5.0) 10/31/17 09:16 Chloride 105.2 mmol/L (98-107) 10/31/17 09:16 Carbon Dioxide 25 mmol/L (22-30) 10/31/17 09:16 Anion Gap 15 mmol/L 10/31/17 09:16 BUN 10 mg/dL (7-17) 10/31/17 09:16 Creatinine 0.4 mg/dL (0.7-1.2) L 10/31/17 09:16 Estimated GFR > 60 ml/min 10/31/17 09:16 BUN/Creatinine Ratio 25 % 10/31/17 09:16 Glucose 100 mg/dL (65-100) 10/31/17 09:16 Calcium 8.2 mg/dL (8.4-10.2) L 10/31/17 09:16 Troponin T < 0.010 ng/mL (0.00-0.029) 10/31/17 09:16 HCG, Qual Negative (Negative) 10/31/17 09:16 - Imaging and Cardiology Chest x-ray: report reviewed Assessment and Plan Assessment and plan: Sickle cell pain crisis - Pain control - Continue medications - Hematology oncology consult SIRS - Empiric antibiotic coverage Sickle cell anemia - Transfuse as needed DVT prophylaxis - Lovenox Disposition - Admit to [facility] Advance Directives: Yes VTE prophylaxis?: Chemical Plan of care discussed with patient/family: Yes
[2017-10-31] MEDS ORDERED: DILAUDID IV PRN (11:49)
[2017-10-31] MEDS ORDERED: MILK OF MAGNESIA PO PRN (11:49)
[2017-10-31] MEDS ORDERED: DULCOLAX PR PRN (11:49)
[2017-10-31] MEDS ORDERED: AMBIEN PO PRN (11:53)
[2017-10-31] MEDS: LEVAQUIN 750MG/150ML 750 MG/150 ML BAG IV SCH (12:57)
[2017-10-31] MEDS: DILAUDID IV PRN ×3 (12:57→19:54)
[2017-10-31] MEDS: HEPARIN SUB-Q SCH ×2 (13:03→21:26)
[2017-10-31] MEDS: FOLVITE PO SCH (13:03)
[2017-10-31] MEDS: OxyCONTIN PO SCH ×2 (13:04→21:24)
[2017-10-31] MEDS: THERAGRAN Tab PO SCH (13:04)
[2017-10-31] MEDS: HYDREA PO SCH ×2 (16:11→21:25)
[2017-10-31] MEDS: BENADRYL IV PRN (16:12)
[2017-10-31] MEDS: REGLAN IV PRN (19:54)
[2017-10-31] MEDS: SENOKOT PO SCH (21:24)
[2017-11-01] MEDS: BENADRYL IV PRN ×4 (00:08→21:47)
[2017-11-01] MEDS: DILAUDID IV PRN ×7 (00:08→21:48)
[2017-11-01] MEDS: REGLAN IV PRN ×3 (03:41→18:28)
[2017-11-01 05:32] LABS: Basophils % (Auto) 0.4 % (0.0-1.8); Eosinophils # (Auto) 0.3 K/mm3 (0.0-0.4); Eosinophils % (Auto) 2.8 % (0.0-4.3); Hematocrit 25.4 % (30.3-42.9); Hemoglobin 7.9 gm/dl (10.1-14.3); Lymphocytes # (Auto) 2.9 K/mm3 (1.2-5.4); Mean Corpuscular HGB Conc 31 % (30-34); Monocytes # (Auto) 0.9 K/mm3 (0.0-0.8); Monocytes % (Auto) 8.3 % (0.0-7.3); Platelet Count 157 K/mm3 (140-440); Red Blood Count 4.73 M/mm3 (3.65-5.03)
[2017-11-01 05:34] LABS: Mean Corpuscular Hemoglobin 17 pg (28-32); Mean Corpuscular Volume 54 fl (79-97); Red Cell Distribution Width 23.9 % (13.2-15.2)
[2017-11-01] MEDS: HEPARIN SUB-Q SCH ×3 (05:40→21:49)
[2017-11-01] MEDS: OxyCONTIN PO SCH ×3 (05:40→21:48)
[2017-11-01 05:54] LABS: BUN/Creatinine Ratio 15; Blood Urea Nitrogen 9 mg/dL (7-17); Calcium 8.5 mg/dL (8.4-10.2); Hemolysis Index 2
[2017-11-01] MEDS: LEVAQUIN 750MG/150ML 750 MG/150 ML BAG IV SCH (09:55)
[2017-11-01] MEDS: HYDREA PO SCH ×2 (09:55→21:48)
[2017-11-01] MEDS: FOLVITE PO SCH (09:55)
[2017-11-01] MEDS: THERAGRAN Tab PO SCH (09:55)
[2017-11-01] MEDS ORDERED: DILAUDID IV PRN (13:08)
--- NOTE | 2017-11-01 16:24 | Progress Note ---
Assessment and Plan Assessment and plan: 32-year-old -[place] female with past medical history significant for sickle cell anemia, asthma, fibromyalgia presented to the emergency department complaining pain all over her body. Pain is 10 out of 10 in intensity, throbbing in quality except in the legs which is burning, associated with nausea and vomiting. Aggravating or alleviating factors identified. Patient is also complaining chest pain, pleuritic, dry cough, low grade fever. Sickle cell pain crisis - Pain control - Continue medications - Hematology oncology consult SIRS - Empiric antibiotic coverage Sickle cell anemia - Transfuse as needed Chronic pain syndrome -Continue pain management. During previous admission I did advise the patient to follow up with pain clinic for her pain control issues unable to obtain this from her hematology oncologist. DVT prophylaxis - Lovenox Disposition -Anticipate discharge in a.m. History Interval history: Patient seen and examined, in no acute distress although reports generalized body pain. she states that Dr mcmillan was in today to see her and wants to continue her pain medication at current dose. She has a left sided port. Hospitalist Physical - Physical exam Narrative exam: VITAL SIGNS: Reviewed. GENERAL: The patient appeared well nourished and normally developed. Vital signs as documented. HEAD: No signs of head trauma. EYES: Pupils are equal. Extraocular motions intact. EARS: Hearing grossly intact. MOUTH: Oropharynx is normal. NECK: No adenopathy, no JVD. CHEST: Chest with clear breath sounds bilaterally. No wheezes, rales, or rhonchi. Left chest wall port no induration noted. CARDIAC: Regular rate and rhythm. S1 and S2, without murmurs, gallops, or rubs. VASCULAR: No Edema. Peripheral pulses normal and equal in all extremities. ABDOMEN: Soft, without detectable tenderness. No sign of distention. No rebound or guarding, and no masses palpated. Bowel Sounds normal. MUSCULOSKELETAL: Good range of motion of all major joints. Extremities without clubbing, cyanosis or edema. NEUROLOGIC EXAM: Alert and oriented x 3. No focal sensory or strength deficits. Speech normal. Follows commands. PSYCHIATRIC: Mood normal. SKIN: No rash or lesions. - Constitutional Vitals: Temp Pulse Resp BP Pulse Ox 98.6 F 89 20 114/73 97 11/01/17 07:34 11/01/17 07:34 11/01/17 15:00 11/01/17 07:34 11/01/17 07:34 Results - Labs CBC & Chem 7: 11/01/17 05:18 11/01/17 05:18 Labs: Laboratory Last Values WBC 11.4 K/mm3 (4.5-11.0) H 11/01/17 05:18 RBC 4.73 M/mm3 (3.65-5.03) 11/01/17 05:18 Hgb 7.9 gm/dl (10.1-14.3) L 11/01/17 05:18 Hct 25.4 % (30.3-42.9) L 11/01/17 05:18 MCV 54 fl (79-97) L 11/01/17 05:18 MCH 17 pg (28-32) L 11/01/17 05:18 MCHC 31 % (30-34) 11/01/17 05:18 RDW 23.9 % (13.2-15.2) H 11/01/17 05:18 Plt Count 157 K/mm3 (140-440) 11/01/17 05:18 Lymph % (Auto) 25.0 % (13.4-35.0) 11/01/17 05:18 [place] % (Auto) 8.3 % (0.0-7.3) H 11/01/17 05:18 Eos % (Auto) 2.8 % (0.0-4.3) 11/01/17 05:18 Baso % (Auto) 0.4 % (0.0-1.8) 11/01/17 05:18 Lymph # 2.9 K/mm3 (1.2-5.4) 11/01/17 05:18 [place] # 0.9 K/mm3 (0.0-0.8) H 11/01/17 05:18 Eos # 0.3 K/mm3 (0.0-0.4) 11/01/17 05:18 Baso # 0.0 K/mm3 (0.0-0.1) 11/01/17 05:18 Seg Neutrophils % 63.5 % (40.0-70.0) 11/01/17 05:18 Seg Neutrophils # 7.2 K/mm3 (1.8-7.7) 11/01/17 05:18 Percent Retic 2.12 % (0.78-2.58) 10/31/17 09:16 Sodium 141 mmol/L (137-145) 11/01/17 05:18 Potassium 4.0 mmol/L (3.6-5.0) 11/01/17 05:18 Chloride 102.9 mmol/L (98-107) 11/01/17 05:18 Carbon Dioxide 27 mmol/L (22-30) 11/01/17 05:18 Anion Gap 15 mmol/L 11/01/17 05:18 BUN 9 mg/dL (7-17) 11/01/17 05:18 Creatinine 0.6 mg/dL (0.7-1.2) L 11/01/17 05:18 Estimated GFR > 60 ml/min 11/01/17 05:18 BUN/Creatinine Ratio 15 % 11/01/17 05:18 Glucose 99 mg/dL (65-100) 11/01/17 05:18 Calcium 8.5 mg/dL (8.4-10.2) 11/01/17 05:18 Troponin T < 0.010 ng/mL (0.00-0.029) 10/31/17 09:16 HCG, Qual Negative (Negative) 10/31/17 09:16 - Imaging and Cardiology Chest x-ray: image reviewed (unremarkable) Imaging and Cardiology: Left hip x-ray unremarkable
--- NOTE | 2017-11-01 16:25 | Progress Note ---
Hospitalist Physical - Constitutional Vitals: Temp Pulse Resp BP Pulse Ox 98.6 F 89 20 114/73 97 11/01/17 07:34 11/01/17 07:34 11/01/17 15:00 11/01/17 07:34 11/01/17 07:34 Results - Labs CBC & Chem 7: 11/01/17 05:18 11/01/17 05:18 Labs: Laboratory Last Values WBC 11.4 K/mm3 (4.5-11.0) H 11/01/17 05:18 RBC 4.73 M/mm3 (3.65-5.03) 11/01/17 05:18 Hgb 7.9 gm/dl (10.1-14.3) L 11/01/17 05:18 Hct 25.4 % (30.3-42.9) L 11/01/17 05:18 MCV 54 fl (79-97) L 11/01/17 05:18 MCH 17 pg (28-32) L 11/01/17 05:18 MCHC 31 % (30-34) 11/01/17 05:18 RDW 23.9 % (13.2-15.2) H 11/01/17 05:18 Plt Count 157 K/mm3 (140-440) 11/01/17 05:18 Lymph % (Auto) 25.0 % (13.4-35.0) 11/01/17 05:18 [place] % (Auto) 8.3 % (0.0-7.3) H 11/01/17 05:18 Eos % (Auto) 2.8 % (0.0-4.3) 11/01/17 05:18 Baso % (Auto) 0.4 % (0.0-1.8) 11/01/17 05:18 Lymph # 2.9 K/mm3 (1.2-5.4) 11/01/17 05:18 [place] # 0.9 K/mm3 (0.0-0.8) H 11/01/17 05:18 Eos # 0.3 K/mm3 (0.0-0.4) 11/01/17 05:18 Baso # 0.0 K/mm3 (0.0-0.1) 11/01/17 05:18 Seg Neutrophils % 63.5 % (40.0-70.0) 11/01/17 05:18 Seg Neutrophils # 7.2 K/mm3 (1.8-7.7) 11/01/17 05:18 Percent Retic 2.12 % (0.78-2.58) 10/31/17 09:16 Sodium 141 mmol/L (137-145) 11/01/17 05:18 Potassium 4.0 mmol/L (3.6-5.0) 11/01/17 05:18 Chloride 102.9 mmol/L (98-107) 11/01/17 05:18 Carbon Dioxide 27 mmol/L (22-30) 11/01/17 05:18 Anion Gap 15 mmol/L 11/01/17 05:18 BUN 9 mg/dL (7-17) 11/01/17 05:18 Creatinine 0.6 mg/dL (0.7-1.2) L 11/01/17 05:18 Estimated GFR > 60 ml/min 11/01/17 05:18 BUN/Creatinine Ratio 15 % 11/01/17 05:18 Glucose 99 mg/dL (65-100) 11/01/17 05:18 Calcium 8.5 mg/dL (8.4-10.2) 11/01/17 05:18 Troponin T < 0.010 ng/mL (0.00-0.029) 10/31/17 09:16 HCG, Qual Negative (Negative) 10/31/17 09:16
[2017-11-01] MEDS: SENOKOT PO SCH (21:47)
[2017-11-02] MEDS: DILAUDID IV PRN ×5 (00:51→14:15)
[2017-11-02] MEDS: REGLAN IV PRN ×2 (00:51→10:56)
[2017-11-02] MEDS: BENADRYL IV PRN ×2 (03:56→10:56)
[2017-11-02] MEDS: HEPARIN SUB-Q SCH ×2 (05:43→15:00)
[2017-11-02] MEDS: OxyCONTIN PO SCH ×2 (05:43→15:01)
[2017-11-02] MEDS ORDERED: LEVAQUIN PO SCH (10:00)
[2017-11-02] MEDS: HYDREA PO SCH (10:57)
[2017-11-02] MEDS: THERAGRAN Tab PO SCH (10:58)
[2017-11-02] MEDS: FOLVITE PO SCH (10:58)
--- NOTE | 2017-11-02 11:35 | Discharge Summary ---
Providers - Providers Date of Admission: 10/31/17 11:11 Attending physician: WILD CARLSON MD 10/31/17 11:29 Consult to Physician [CONS] Routine Comment: Consulting Provider: KIM SUTHERLAND Physician Instructions: Reason For Exam: sickle cell pain crisis Primary care physician: [employer] Hospitalization Condition: Stable Disposition: DC-01 TO HOME OR SELFCARE Time spent for discharge: 35 mins Exam - Constitutional Vitals: Temp Pulse Resp BP Pulse Ox 98.7 F 71 20 111/69 100 11/02/17 07:33 11/02/17 07:33 11/02/17 07:33 11/02/17 07:33 11/02/17 07:33 Plan Activity: advance as tolerated, fall precautions Diet: low fat Special Instructions: record daily weights, record daily BP diary Follow up with: NAN RBANTLEY MD [Primary Care Provider] - 3-5 Days KIM SUTHERLAND MD [Staff Physician] - 7 Days
[2017-11-02] MEDS ORDERED: NACL 0.9% 500 ML 500 ML IV ONE (14:00)
[2017-11-02 16:26] VITALS: BP 118/60
[2017-11-02] MEDS ORDERED: TRIPLE ANTIBIOTIC TP ONE (17:49)
[2017-11-02] MEDS ORDERED: FLUSH HEPARIN IV ONE (17:50)
== END 2017-11-02 18:53 | disposition home or self-care (01) | DRG 812 ==
LOC: ED 05:59 → 3A 11:11
PROVIDERS: ADMIT Internal Medicine; ATTEND Internal Medicine
PROC: 30233N1 Transfusion of Nonautologous Red Blood Cells into Peripheral Vein, Percutaneous Approach (ICD-10-PCS; principal; 2017-11-02)
DX: D57.00 Hb-SS disease with crisis, unspecified (principal); R65.10 Systemic inflammatory response syndrome (SIRS) of non-infectious origin without acute organ dysfunction; M79.7 Fibromyalgia; G89.4 Chronic pain syndrome; J45.909 Unspecified asthma, uncomplicated; Z90.81 Acquired absence of spleen; Z98.51 Tubal ligation status; Z88.5 Allergy status to narcotic agent; Z88.8 Allergy status to other drugs, medicaments and biological substances; Z90.89 Acquired absence of other organs; Z90.49 Acquired absence of other specified parts of digestive tract; Z79.899 Other long term (current) drug therapy
CPT/HCPCS: 36415; 71046; 80048; 84484; 84703; 85025; 85045; 86850; 86900; 86901; 86920; 96361; 96374; 96375; 96376; 99406; A6250; J1170; J1200; J1642; J1644; J1885; J1956; J2405; J2765; J7030; J7040; P9016

== ENCOUNTER 2017-11-22 22:47 | Emergency (ER) | payer MEDICARE ==
[2017-11-22] MEDS ORDERED: D5NS 0.2% 1,000 ML IV SCH (23:00)
[2017-11-23] MEDS ORDERED: SUBLIMAZE IV ONE (01:17)
[2017-11-23] MEDS ORDERED: ATIVAN IV ONE (01:17)
[2017-11-23] MEDS ORDERED: BENADRYL IV ONE (01:17)
[2017-11-23] MEDS ORDERED: NACL 0.9% 500 ML 500 ML IV ONE (01:18)
[2017-11-23 01:46] LABS: Hematocrit 30.5 % (30.3-42.9); Hemoglobin 9.4 gm/dl (10.1-14.3); Mean Corpuscular HGB Conc 31 % (30-34); Platelet Count 190 K/mm3 (140-440); Red Blood Count 5.29 M/mm3 (3.65-5.03)
[2017-11-23 01:48] LABS: Mean Corpuscular Volume 58 fl (79-97)
[2017-11-23 01:49] LABS: Mean Corpuscular Hemoglobin 18 pg (28-32); Red Cell Distribution Width 28.4 % (13.2-15.2)
[2017-11-23] MEDS ORDERED: DILAUDID ONE (02:27)
[2017-11-23] MEDS ORDERED: DILAUDID IV ONE (02:30)
[2017-11-23 02:36] LABS: Basophils % (Manual) 0 % (0.0-1.8); Eosinophils % (Manual) 0 % (0.0-4.3); Total Cells Counted 100
--- NOTE | 2017-11-23 02:36 | Emergency Department Report ---
HPI - General Chief Complaint: Sickle Cell Crisis Time Seen by Provider: 11/23/17 00:52 - HPI HPI: The patient is a 32-year-old female well-known to this emergency department, who presents for evaluation of back pain and generalized myalgias. The patient has history of sickle cell anemia. The patient states that her car systems are consistent with previous episodes of sickle cell pain attacks. The patient complains of constant bilateral back and leg pain for the past 2 days, crampy in quality, exacerbated with movement. The patient denies blunt trauma to the back, fall, fever, chills, night sweats, saddle anesthesia, paresthesias, numbness or tingling in the legs, leg weakness, urine or bowel incontinence or retention, difficulty ambulating, or other focal neurological deficits. The patient also denies redness or swelling to the back, IV drug use, history of cancer. ED Past Medical Hx - Past Medical History Previous Medical History?: Yes Hx Hypertension: No Hx Heart Attack/AMI: No Hx Congestive Heart Failure: No Hx Diabetes: No Hx Deep Vein Thrombosis: No Hx Pulmonary Embolism: No Hx Liver Disease: No Hx Renal Disease: No Hx Sickle Cell Disease: Yes (SS SC) Hx Arthritis: No Hx Seizures: Yes (10 + years ago) Hx Kidney Stones: No Hx Asthma: Yes Hx COPD: No Hx Tuberculosis: No Hx Dementia: No Hx HIV: No Additional medical history: fibromyalgia - Surgical History Past Surgical History?: Yes Hx Coronary Stent: No Hx Open Heart Surgery: No Hx Pacemaker: No Hx Internal Defibrillator: No Hx Cholecystectomy: Yes Hx Appendectomy: No Hx Breast Surgery: No Additional Surgical History: ports x 2 / tubal ligation/ t&a , splenectomy ? - Social History Smoking Status: Current Every Day Smoker Substance Use Type: Alcohol - Medications Home Medications: Home Medications Medication Instructions Recorded Confirmed Last Taken Type Zolpidem Tartrate [Ambien] 5 mg PO QHS PRN #10 tablet 09/27/17 10/31/17 Rx Folic Acid [Folvite] 1 mg PO QDAY 10/31/17 10/31/17 10/30/17 History Hydroxyurea [Hydrea] 500 mg PO BID 10/31/17 10/31/17 10/30/17 History Oxycodone HCl/Acetaminophen 1 each PO Q6HR PRN 10/31/17 10/31/17 10/30/17 History [Percocet 10/325 mg] ED Review of Systems ROS: Stated complaint: SICKLE CELL PAIN Other details as noted in HPI Constitutional: denies: fever ENT: denies: throat or neck pain Respiratory: denies: cough, shortness of breath Cardiovascular: denies: chest pain Endocrine: denies unexplained weight loss or gain Gastrointestinal: denies: abdominal pain, nausea Genitourinary: denies: dysuria Musculoskeletal: reports back pain denies: leg swelling Skin: denies: rash Neurological: denies: headache Hematological/Lymphatic: denies: easy bleeding or easy bruising Psych: denies sadness or hopelessness Physical Exam - Physical Exam Vital Signs: Vital Signs 11/22/17 11/23/17 11/23/17 22:54 00:30 00:35 Temperature 98.8 F 98.9 F Pulse Rate 98 H 81 Respiratory 18 15 12 Rate Blood Pressure 125/82 Blood Pressure 113/71 [Left] O2 Sat by Pulse 100 100 100 Oximetry 11/23/17 11/23/17 11/23/17 00:46 01:00 01:16 Temperature Pulse Rate 73 74 76 Respiratory 22 17 18 Rate Blood Pressure 113/71 113/71 110/68 Blood Pressure [Left] O2 Sat by Pulse 97 100 100 Oximetry 11/23/17 11/23/17 11/23/17 01:30 01:46 01:47 Temperature Pulse Rate 71 86 Respiratory 18 16 14 Rate Blood Pressure 106/65 106/65 Blood Pressure [Left] O2 Sat by Pulse 100 99 Oximetry 11/23/17 11/23/17 02:00 02:17 Temperature Pulse Rate 80 Respiratory 15 12 Rate Blood Pressure 104/60 Blood Pressure [Left] O2 Sat by Pulse 98 Oximetry Physical Exam: General: well-nourished, well-developed, no acute distress Head: Normocephalic, atraumatic Eyes: normal sclera ENT: Mucous membranes are pale and dry Neck: trachea midline, neck supple, No neck stiffness, no cervical adenopathy Respiratory: Breath sounds equal bilaterally, no wheezing, rales, or rhonchi Cardio: S1 and S2 present, no murmurs, rubs, gallops, capillary refill is delayed Abdomen: Normoactive bowel sounds, soft abdomen, no rigidity, no guarding or rebound tenderness Chest WALL/Back: No tenderness to palpation of the chest wall, no CVA tenderness with percussion Musc: Tenderness to palpation present to bilateral lumbar paraspinal musculature , and anterior quadriceps bilaterally, pain is elicited with flexion at the hip , no tenderness to palpation at the hip joints, normal active range of motion at the hip intact, no spinous step-off or obvious deformity, ipsi-lateral and contralateral straight leg raise tests are negative. On extremity testing, compartments are soft and pliable, no obvious gross motor strength deficit, 5+ motor strength, including extension of the great toe bilaterally, no muscular atrophy, spasticity, fasciculations, or clonus, no obvious gross sensation deficit including web space between 1st and 2nd toes, reflexes 2+ & symmetric on DTR testing at the knee and ankle joints, distal pulses intact. Skin: No rash Neuro: no facial drooping, normal speech Psych: Normal affect ED Course Vital Signs 11/22/17 11/23/17 11/23/17 22:54 00:30 00:35 Temperature 98.8 F 98.9 F Pulse Rate 98 H 81 Respiratory 18 15 12 Rate Blood Pressure 125/82 Blood Pressure 113/71 [Left] O2 Sat by Pulse 100 100 100 Oximetry 11/23/17 11/23/17 11/23/17 00:46 01:00 01:16 Temperature Pulse Rate 73 74 76 Respiratory 22 17 18 Rate Blood Pressure 113/71 113/71 110/68 Blood Pressure [Left] O2 Sat by Pulse 97 100 100 Oximetry 11/23/17 11/23/17 11/23/17 01:30 01:46 01:47 Temperature Pulse Rate 71 86 Respiratory 18 16 14 Rate Blood Pressure 106/65 106/65 Blood Pressure [Left] O2 Sat by Pulse 100 99 Oximetry 11/23/17 11/23/17 02:00 02:17 Temperature Pulse Rate 80 Respiratory 15 12 Rate Blood Pressure 104/60 Blood Pressure [Left] O2 Sat by Pulse 98 Oximetry ED Medical Decision Making - Lab Data Result diagrams: 11/23/17 01:31 - Medical Decision Making The patient was seen and examined by myself. The patient is placed on a panel monitor and continuous pulse ox. On initial evaluation, the patient was found to be in no distress. No findings on exam concerning for cauda equina syndrome, spinal stenosis, epidural abscess, or other emergent etiology of back pain. As the patient has no midline tenderness on exam, no neuro deficits, and no findings concerning for emergent etiology of their back pain, imaging will not be obtained at this time. IV access is established and the patient is given fluid resuscitation, Zofran, and multiple doses of IV analgesic for their pain. Lab results reveal elevated reticulocyte count, and a stable hemoglobin level at patient baseline. Lab results otherwise are not concerning. The patient was reevaluated and reported that their pain was significantly improved. The patient is stable for discharge with outpatient follow-up. The patient is given follow-up and return instructions. The patient expressed understanding and agreed with the plan. The patient is discharged in stable condition. Critical care attestation.: If time is entered above; I have spent that time in minutes in the direct care of this critically ill patient, excluding procedure time. ED Disposition Clinical Impression: Sickle cell anemia with pain, Acute bilateral low back pain without sciatica, Myalgia, Dehydration Disposition: - TO HOME OR SELFCARE Is pt being admited?: No Does the pt Need Aspirin: No Condition: Stable Instructions: Sickle Cell Crisis (ED), Dehydration (ED) Referrals: CLAY DE MD [Primary Care Provider] - 3-5 Days Time of Disposition: 04:01
[2017-11-23 02:37] LABS: Anisocytosis 3+; Hypochromasia 3+
[2017-11-23 02:38] LABS: Platelet Estimate Consistent w Auto; Target Cells 3+
[2017-11-23 04:05] VITALS: BP 104/56
[2017-11-23] MEDS ORDERED: FLUSH HEPARIN IV ONE (04:12)
== END 2017-11-23 04:25 | disposition home or self-care (01) ==
LOC: ED 22:47
DX: D57.1 Sickle-cell disease without crisis (principal); M54.5 Low back pain; E86.0 Dehydration; F17.200 Nicotine dependence, unspecified, uncomplicated
CPT/HCPCS: 36415; 84703; 85007; 85025; 85045; 96374; 96375; 99285; J1170; J1200; J1642; J2060; J3010; J7040

== ENCOUNTER 2018-02-07 18:31 | Inpatient (IN) | payer MEDICARE ==
[2018-02-08] MEDS: D5NS 0.2% 1,000 ML IV SCH ×2 (08:16→21:32)
[2018-02-08] MEDS ORDERED: ZOFRAN IV ONE ×2 (08:37→19:44)
[2018-02-08] MEDS ORDERED: SUBLIMAZE IV ONE (08:37)
[2018-02-08] MEDS ORDERED: DILAUDID IV ONE ×3 (09:47→11:37)
[2018-02-08] MEDS ORDERED: BENADRYL IV ONE (09:47)
--- NOTE | 2018-02-08 09:55 | Emergency Department Report ---
HPI - General Chief Complaint: Sickle Cell Crisis Time Seen by Provider: 02/08/18 09:41 - HPI HPI: Room 4 The patient is a 32-year-old female presented with a chief complaint of sickle cell pain crisis. The patient states for the past 2 weeks she's been hurting "all over" in a manner consistent with her sickle cell pain crises. The patient states for 1 week she has also had intermittent chest tightness. The patient admits to nausea and vomiting for 2 days. The patient gives her pain score of 9/10. Location: All over, see above Duration: [See above] Quality: Consistent with sickle cell pain crisis Severity: 9/10 Modifying factors: [see above] Context: [see above] Mode of transportation: Unknown ED Past Medical Hx - Past Medical History Hx Sickle Cell Disease: Yes (SS SC) Hx Seizures: Yes (10 + years ago) Hx Asthma: Yes Additional medical history: fibromyalgia - Surgical History Hx Cholecystectomy: Yes Additional Surgical History: ports x 2 / tubal ligation/ t&a , splenectomy ? - Family History Family history: no significant - Social History Smoking Status: Current Some Day Smoker ("[employer]") Substance Use Type: None (denies illicit drug use), Alcohol (occasional) - Medications Home Medications: Home Medications Medication Instructions Recorded Confirmed Last Taken Type Zolpidem Tartrate [Ambien] 5 mg PO QHS PRN #10 tablet 09/27/17 10/31/17 Rx Folic Acid [Folvite] 1 mg PO QDAY 10/31/17 10/31/17 10/30/17 History Hydroxyurea [Hydrea] 500 mg PO BID 10/31/17 10/31/17 10/30/17 History Oxycodone HCl/Acetaminophen 1 each PO Q6HR PRN 10/31/17 10/31/17 10/30/17 History [Percocet 10/325 mg] ED Review of Systems ROS: Stated complaint: SICKLE CELL CRISIS/NAUSEA Other details as noted in HPI Constitutional: no symptoms reported Cardiovascular: chest pain Hematological/Lymphatic: other (pain all over from sickle cell pain crisis) Physical Exam - Physical Exam Vital Signs: Vital Signs 02/07/18 02/08/18 02/08/18 18:39 03:53 04:00 Temperature 98.7 F 99.2 F Pulse Rate 89 79 Respiratory 16 Rate Blood Pressure 100/70 115/59 103/61 Blood Pressure 115/59 [Left] O2 Sat by Pulse 99 99 99 Oximetry 02/08/18 02/08/18 02/08/18 04:15 04:30 04:45 Temperature Pulse Rate Respiratory Rate Blood Pressure 115/59 118/73 118/73 Blood Pressure [Left] O2 Sat by Pulse 100 98 98 Oximetry 02/08/18 02/08/18 02/08/18 05:00 05:15 05:30 Temperature Pulse Rate Respiratory Rate Blood Pressure 98/50 98/50 108/77 Blood Pressure [Left] O2 Sat by Pulse 98 98 100 Oximetry 02/08/18 02/08/18 02/08/18 05:45 06:00 06:15 Temperature Pulse Rate Respiratory Rate Blood Pressure 108/77 110/69 110/69 Blood Pressure [Left] O2 Sat by Pulse 100 100 99 Oximetry 02/08/18 02/08/18 02/08/18 06:30 06:45 07:00 Temperature 99.2 F Pulse Rate 80 Respiratory 18 Rate Blood Pressure 109/66 109/66 115/65 Blood Pressure 115/65 [Left] O2 Sat by Pulse 96 98 100 Oximetry 02/08/18 02/08/18 02/08/18 07:15 07:30 08:50 Temperature Pulse Rate Respiratory 17 Rate Blood Pressure 115/65 111/65 Blood Pressure [Left] O2 Sat by Pulse 99 97 Oximetry Physical Exam: GENERAL: The patient is well-developed well-nourished female sitting on stretcher appearing to be in mild discomfort. [] HEENT: Normocephalic. Atraumatic. Extraocular motions are intact. Patient has moist mucous membranes. NECK: Supple. Trachea midline CHEST/LUNGS: Clear to auscultation. There is no respiratory distress noted. HEART/CARDIOVASCULAR: Regular. There is no tachycardia. There is no gallop rub or murmur. ABDOMEN: Abdomen is soft, nontender. Patient has normal bowel sounds. There is no abdominal distention. SKIN: There is no rash. There is no edema. There is no diaphoresis. NEURO: The patient is awake, alert, and oriented. The patient is cooperative. The patient has normal speech MUSCULOSKELETAL: There is no evidence of acute injury. ED Course Vital Signs 02/07/18 02/08/18 02/08/18 18:39 03:53 04:00 Temperature 98.7 F 99.2 F Pulse Rate 89 79 Respiratory 16 Rate Blood Pressure 100/70 115/59 103/61 Blood Pressure 115/59 [Left] O2 Sat by Pulse 99 99 99 Oximetry 02/08/18 02/08/18 02/08/18 04:15 04:30 04:45 Temperature Pulse Rate Respiratory Rate Blood Pressure 115/59 118/73 118/73 Blood Pressure [Left] O2 Sat by Pulse 100 98 98 Oximetry 02/08/18 02/08/18 02/08/18 05:00 05:15 05:30 Temperature Pulse Rate Respiratory Rate Blood Pressure 98/50 98/50 108/77 Blood Pressure [Left] O2 Sat by Pulse 98 98 100 Oximetry 02/08/18 02/08/18 02/08/18 05:45 06:00 06:15 Temperature Pulse Rate Respiratory Rate Blood Pressure 108/77 110/69 110/69 Blood Pressure [Left] O2 Sat by Pulse 100 100 99 Oximetry 02/08/18 02/08/18 02/08/18 06:30 06:45 07:00 Temperature 99.2 F Pulse Rate 80 Respiratory 18 Rate Blood Pressure 109/66 109/66 115/65 Blood Pressure 115/65 [Left] O2 Sat by Pulse 96 98 100 Oximetry 02/08/18 02/08/18 02/08/18 07:15 07:30 08:50 Temperature Pulse Rate Respiratory 17 Rate Blood Pressure 115/65 111/65 Blood Pressure [Left] O2 Sat by Pulse 99 97 Oximetry - Reevaluation(s) Reevaluation #1: 02/08/18 14:26 Patient still states she has significant pain despite multiple rounds of pain medication rate her pain at 8/10. Will admit the patient to the hospital ED Medical Decision Making - Lab Data Result diagrams: 02/08/18 10:19 02/08/18 10:18 Laboratory Tests 02/08/18 02/08/18 10:18 10:19 WBC 15.4 H RBC 4.83 Hgb 9.1 L Hct 27.9 L MCV 58 L MCH 19 L MCHC 33 RDW 24.5 H Plt Count 156 Lymph # Grades 6 Through 8 Teacher Add Manual Diff Complete Total Counted 100 Seg Neuts % (Manual) 61.0 Band Neutrophils % 0 Lymphocytes % (Manual) 31.0 Reactive Lymphs % (Man) 0 Monocytes % (Manual) 6.0 Eosinophils % (Manual) 2.0 Basophils % (Manual) 0 Metamyelocytes % 0 Myelocytes % 0 Promyelocytes % 0 Blast Cells % 0 Nucleated RBC % Not Reportable Seg Neutrophils # Man 9.4 H Band Neutrophils # 0.0 Lymphocytes # (Manual) 4.8 Abs React Lymphs (Man) 0.0 Monocytes # (Manual) 0.9 H Eosinophils # (Manual) 0.3 Basophils # (Manual) 0.0 Metamyelocytes # 0.0 Myelocytes # 0.0 Promyelocytes # 0.0 Blast Cells # 0.0 WBC Morphology Not Reportable Hypersegmented Neuts Not Reportable Hyposegmented Neuts Not Reportable Hypogranular Neuts Not Reportable Smudge Cells Not Reportable Toxic Granulation Not Reportable Toxic Vacuolation Not Reportable Dohle Bodies Not Reportable Pelger-Huet Anomaly Not Reportable Delmi Rods Not Reportable Platelet Estimate Consistent w auto Clumped Platelets Not Reportable Plt Clumps, EDTA Not Reportable Large Platelets Not Reportable Giant Platelets Not Reportable Platelet Satelliting Not Reportable Plt Morphology Comment Not Reportable RBC Morphology Not Reportable Dimorphic RBCs Not Reportable Polychromasia Not Reportable Hypochromasia 2+ Poikilocytosis Not Reportable Anisocytosis 2+ Microcytosis 2+ Macrocytosis Not Reportable Spherocytes Not Reportable Pappenheimer Bodies Not Reportable Sickle Cells Not Reportable Target Cells 2+ Tear Drop Cells Not Reportable Ovalocytes Not Reportable Helmet Cells Not Reportable Bernard-[place] Bodies Not Reportable Ozone Rings Not Reportable Jackson Cells Not Reportable Bite Cells Not Reportable Crenated Cell Not Reportable Elliptocytes Not Reportable Acanthocytes (Spur) Not Reportable Rouleaux Not Reportable Hemoglobin C Crystals Not Reportable Schistocytes Not Reportable Malaria parasites Not Reportable Percent Retic 1.84 Jaziel Bodies Not Reportable Hem Pathologist Commnt No Sodium 136 L Potassium 3.5 L Chloride 102.9 Carbon Dioxide 24 Anion Gap 13 BUN 9 Creatinine 0.4 L Estimated GFR > 60 BUN/Creatinine Ratio 23 Glucose 120 H Calcium 8.7 Total Creatine Kinase 30 CK-MB (CK-2) < 1.0 CK-MB (CK-2) Rel Index 3.3 Troponin T < 0.010 - EKG Data -: EKG Interpreted by Al EKG shows normal: sinus rhythm Rate: normal - EKG Data When compared to previous EKG there are: changes noted Interpretation: nonspecific ST-T wave irina (New T-wave inversion in lead V2 when compared to previous EKG dated 08/03/2017.) - Radiology Data Radiology results: report reviewed (VQ scan), image reviewed (chest x-ray, VQ scan) interpreted by me: Chest x-ray-no focal infiltrates, no pneumothorax [facility] [address] [place] [address] Nuclear Medicine Report Signed Patient: LYNN COLEMAN MR#: [id number] : 1985 Acct:[id number] Age/Sex: 32 / F ADM Date: 02/07/18 Loc: ED Attending Dr: Ordering Physician: TOLU CARLSON MD Date of Service: 02/08/18 Procedure(s): NM lung scan perf/vent Accession Number(s): [id number] cc: TOLU CARLSON MD LUNG SCAN, VENTILATION AND PERFUSION: History: Chest tightness. Technique: 5mci of Tc99m MAA was infused for the perfusion images. 15mci XE 133 gas was inhaled for the ventilatory images. Correlation is made with a chest x-ray dated 02/08/18. Findings: Inhalation of Xenon gas demonstrates a normal distribution of the activity throughout both lungs. The wash out phases show no focal retention of activity. After injection of Technetium 99m macroaggregated albumin gamma camera imaging of the lungs in multiple projections demonstrates normal pulmonary contours with a homogeneous distribution of activity. No focal areas of perfusion deficiency are identified. IMPRESSION: Low probability for pulmonary embolus. Transcribed By: TTR Dictated By: RAJEEV GRAF JR, MD Electronically Authenticated By: RAJEEV GRAF JR, MD Signed Date/Time: 02/08/18 135 DD/ 135 TD/TT: 02/08/18 135 - Differential Diagnosis sickle cell pain crisis, acute chest syndrome, ACS, GERD, pericarditis Critical care attestation.: If time is entered above; I have spent that time in minutes in the direct care of this critically ill patient, excluding procedure time. ED Disposition Clinical Impression: Sickle cell pain crisis, Chest pain Disposition: DC-[id number] OP ADMIT IP TO THIS HOSP Is pt being admited?: Yes Does the pt Need Aspirin: Yes Condition: Fair Instructions: Chest Pain (ED) Referrals: PRIMARY CARE,MD [Primary Care Provider] - 3-5 Days Time of Disposition: 14:27 (hospitalist notified (Dr Morrison))
--- NOTE | 2018-02-08 10:19 | XRay Report ---
AP CHEST: HISTORY: Chest tightness AP view of the chest demonstrates a normal mediastinal and cardiac contour with clear lungs and normal bony and soft tissue structures. Left Apreih-g-Emgx is unchanged since 10/31/17. IMPRESSION: Unremarkable AP chest.
[2018-02-08 11:08] LABS: Hematocrit 27.9 % (30.3-42.9); Hemoglobin 9.1 gm/dl (10.1-14.3); Mean Corpuscular HGB Conc 33 % (30-34); Red Blood Count 4.83 M/mm3 (3.65-5.03)
[2018-02-08 11:10] LABS: BUN/Creatinine Ratio 23; Blood Urea Nitrogen 9 mg/dL (7-17); Calcium 8.7 mg/dL (8.4-10.2); Creatine Kinase MB < 1.0 ng/mL (0.0-4.0); Hemolysis Index 1
[2018-02-08 11:12] LABS: Mean Corpuscular Hemoglobin 19 pg (28-32); Mean Corpuscular Volume 58 fl (79-97); Platelet Count 156 K/mm3 (140-440); Red Cell Distribution Width 24.5 % (13.2-15.2)
[2018-02-08] MEDS ORDERED: DILAUDID ONE (11:51)
[2018-02-08 12:47] LABS: Anisocytosis 2+; Basophils % (Manual) 0 % (0.0-1.8); Hypochromasia 2+; Target Cells 2+; Total Cells Counted 100
[2018-02-08 12:48] LABS: Platelet Estimate Consistent w Auto
[2018-02-08] MEDS ORDERED: XYLOCAINE IV ONE (13:38)
[2018-02-08] MEDS ORDERED: DRIP IV ONE (13:38)
[2018-02-08] MEDS ORDERED: D5W IV ONE (13:38)
--- NOTE | 2018-02-08 14:08 | Nuclear Medicine Report ---
LUNG SCAN, VENTILATION AND PERFUSION: History: Chest tightness. Technique: 5mci of Tc99m MAA was infused for the perfusion images. 15mci XE 133 gas was inhaled for the ventilatory images. Correlation is made with a chest x-ray dated 02/08/18. Findings: Inhalation of Xenon gas demonstrates a normal distribution of the activity throughout both lungs. The wash out phases show no focal retention of activity. After injection of Technetium 99m macroaggregated albumin gamma camera imaging of the lungs in multiple projections demonstrates normal pulmonary contours with a homogeneous distribution of activity. No focal areas of perfusion deficiency are identified. IMPRESSION: Low probability for pulmonary embolus.
[2018-02-08] MEDS ORDERED: NON-FORMULARY (Oxycodone Hcl/Acetaminophen [Percocet 10/325 Mg] 1 EACH) PO PRN (14:44)
--- NOTE | 2018-02-08 14:44 | History and Physical Report ---
History of Present Illness Chief complaint: I have pain all over my body History of present illness: 32 YO Female with SCD, Obesity, FM, Asthma presents to ED for evaluation. Pt states that she has experienced pain all over her body for the past 3 days with worsening symptoms over the same time frame. Pt states that she ran out of her pain medication. Pain is currently 10 out of 10 in intensity, generalized, throbbing. Pt seen and evaluated in ED. Pt denies fever, chills, CP, Palpitations, Syncope, NVD, Productive cough, BRBPR, unilateral leg swelling, calf pain, indivdual/family history of DVT/PE. PT found to have SCD Crisis as well as SIRS. Pt admitted to medical floor. Past History Past Medical History: seizures, other (Fibromyalgia, SCD, Asthma) Past Surgical History: cholecystectomy, tonsillectomy, Other (splenectomy, Prot placement .) Social history: single. denies: smoking, alcohol abuse, prescription drug abuse Family history: no significant family history Medications and Allergies Allergies Allergy/AdvReac Type Severity Reaction Status Date / Time cefotetan disodium Allergy Hives Verified 05/25/16 17:25 [From Cefotan] morphine Allergy Vomiting Verified 07/13/16 20:40 Home Medications Medication Instructions Recorded Confirmed Last Taken Type Zolpidem Tartrate [Ambien] 5 mg PO QHS PRN #10 tablet 09/27/17 02/08/18 Rx Folic Acid [Folvite] 1 mg PO QDAY 10/31/17 02/08/18 02/07/18 History Hydroxyurea [Hydrea] 500 mg PO BID 10/31/17 02/08/18 02/07/18 History Oxycodone HCl/Acetaminophen 1 each PO Q6HR PRN 10/31/17 02/08/18 10/30/17 History [Percocet 10/325 mg] Pregabalin [Lyrica] 75 mg PO QDAY 02/08/18 02/08/18 Unknown History Promethazine [Phenergan TAB] 25 mg PO Q6HR PRN 02/08/18 02/08/18 Unknown History Active Meds: Active Medications Dextrose/Sodium Chloride (D5ns 0.2%) 1,000 mls @ 250 mls/hr IV DIRECT JUSTUS Last Admin: 02/08/18 08:16 Dose: 250 mls/hr Review of Systems Constitutional: chronic pain, no weight loss, no weight gain, no fever, no chills Ears, nose, mouth and throat: no ear pain, no ear discharge, no tinnitis, no decreased hearing, no nose pain Breasts: no change in shape, no swelling, no mass Cardiovascular: no chest pain, no orthopnea, no palpitations, no rapid/ irregular heart beat, no edema Respiratory: no cough with sputum, no excessive sputum, no hemoptysis Gastrointestinal: no vomiting, no diarrhea, no constipation Genitourinary Female: no pelvic pain, no flank pain, no menorrhagia, no dysuria , no urinary frequency, no urgency Rectal: no incontinence, no bleeding Musculoskeletal: no neck stiffness, no neck pain, no low back pain Integumentary: no rash, no pruritis, no redness, no sores, no wounds Neurological: no transient paralysis, no paralysis, no weakness, no parathesias , no numbness, no tingling, no seizures, no syncope Psychiatric: no anxiety, no memory loss, no change in sleep habits, no sleep disturbances, no insomnia, no hypersomnia, no change in appetite Endocrine: no cold intolerance, no heat intolerance, no polyphagia, no excessive thirst, no polydipsia, no polyuria Hematologic/Lymphatic: no easy bruising, no easy bleeding, no lymphadenopathy, no lymphedema Allergic/Immunologic: no urticaria, no allergic rhinitis, no wheezing Exam - Constitutional Vitals: Temp Pulse Resp BP Pulse Ox 99.2 F 80 16 112/66 78 L 02/08/18 07:00 02/08/18 07:00 02/08/18 11:57 02/08/18 14:00 02/08/18 14:00 General appearance: Present: mild distress - EENT Eyes: Present: PERRL ENT: hearing intact, clear oral mucosa - Neck Neck: Present: supple, normal ROM - Respiratory Respiratory effort: normal Respiratory: bilateral: CTA - Cardiovascular Heart Sounds: Present: S1 & S2. Absent: rub, click - Extremities Extremities: pulses symmetrical, No edema Peripheral Pulses: within normal limits - Abdominal General gastrointestinal: Present: soft, non-tender, non-distended, normal bowel sounds Female genitourinary: Present: normal - Integumentary Integumentary: Present: clear, warm, dry - Musculoskeletal Musculoskeletal: gait normal, strength equal bilaterally - Psychiatric Psychiatric: appropriate mood/affect, intact judgment & insight - Neurologic Neurologic: CNII-XII intact, moves all extremities Results - Labs CBC & Chem 7: 02/08/18 10:19 02/08/18 10:18 Labs: Abnormal lab results 02/08/18 02/08/18 Range/Units 10:18 10:19 WBC 15.4 H (4.5-11.0) K/mm3 Hgb 9.1 L (10.1-14.3) gm/dl Hct 27.9 L (30.3-42.9) % MCV 58 L (79-97) fl MCH 19 L (28-32) pg RDW 24.5 H (13.2-15.2) % Seg Neutrophils # Man 9.4 H (1.8-7.7) K/mm3 Monocytes # (Manual) 0.9 H (0.0-0.8) K/mm3 Sodium 136 L (137-145) mmol/L Potassium 3.5 L (3.6-5.0) mmol/L Creatinine 0.4 L (0.7-1.2) mg/dL Glucose 120 H (65-100) mg/dL Assessment and Plan - Patient Problems (1) Sickle cell pain crisis Current Visit: Yes Status: Acute Plan to address problem: IVF resuscitation, monitor uop q shift, pain control, hydroxyurea, folic acid, (2) Systemic inflammatory response syndrome Current Visit: No Status: Acute Plan to address problem: Empiric Antibiotic therapy, CBC, Chest x ray, urinalysis, (3) Fibromyalgia Current Visit: No Status: Chronic Plan to address problem: pain control, supportive care. resume prehospital medication. (4) DVT prophylaxis Current Visit: No Status: Acute Plan to address problem: scd to ble while in bed.
[2018-02-08] MEDS ORDERED: TYLENOL PO PRN (14:45)
[2018-02-08] MEDS ORDERED: PROVENTIL IH PRN (14:45)
[2018-02-08] MEDS ORDERED: ZOFRAN IV PRN (14:45)
[2018-02-08] MEDS ORDERED: SODIUM CHLORIDE FLUSH SYRINGE 10 ML IV PRN (14:45)
[2018-02-08] MEDS ORDERED: NACL 0.45% 2,000 ML IV SCH (15:00)
[2018-02-08] MEDS ORDERED: NACL 0.45% 1000 ML 2,000 ML IV SCH (15:00)
[2018-02-08] MEDS: LEVAQUIN 500MG/100ML 500 MG/100 ML BAG IV SCH (15:29)
[2018-02-08] MEDS: PERCOCET 5/325 PO PRN ×2 (17:05→21:31)
[2018-02-08] MEDS ORDERED: NACL 0.9% 1000 ML 1,000 ML ONE (18:08)
[2018-02-08] MEDS: HYDREA PO SCH (21:31)
[2018-02-08] MEDS: AMBIEN PO PRN (21:31)
[2018-02-09] MEDS: D5NS 0.2% 1,000 ML IV SCH ×6 (02:10→21:51)
[2018-02-09] MEDS: SODIUM CHLORIDE FLUSH SYRINGE 10 ML IV SCH ×3 (02:54→23:42)
[2018-02-09] MEDS: PERCOCET 5/325 PO PRN ×2 (05:00→10:49)
[2018-02-09] MEDS: HYDREA PO SCH ×2 (10:50→21:51)
[2018-02-09] MEDS: LEVAQUIN 500MG/100ML 500 MG/100 ML BAG IV SCH (10:50)
[2018-02-09] MEDS: FOLVITE PO SCH (10:51)
[2018-02-09 11:07] LABS: Bilirubin,Urine NEG (Negative); Blood,Urine NEG (Negative); Color,Urine Straw (Yellow); Protein,Urine <15 mg/dL mg/dL (Negative); Urobilinogen,Urine < 2.0 mg/dL (<2.0)
--- NOTE | 2018-02-09 11:54 | Progress Note ---
Assessment and Plan Assessment and plan: Ms. Luna is a 32 yo man with a history of ss anemia, asthma who presents with generalized pains (1) Sickle cell pain crisis Current Visit: Yes Status: Acute Plan to address problem: IVF resuscitation, monitor uop q shift, pain control, hydroxyurea, folic acid, consulted heme/onc (2) Systemic inflammatory response syndrome Current Visit: No Status: Acute Plan to address problem: Empiric Antibiotic therapy, CBC, Chest x ray, urinalysis, (3) Fibromyalgia Current Visit: No Status: Chronic Plan to address problem: pain control, supportive care. resume prehospital medication. (4) DVT prophylaxis Current Visit: No Status: Acute Plan to address problem: scd to ble while in bed. History Interval history: Patient was seen and examined. Follow-up on current diagnosis. Overnight uneventful. Patient denies any chest pain, shortness breath, nausea/vomiting or severe headaches. Imaging, nursing note, chart, labs and old chart reviewed. Discussed with patient. Hospitalist Physical - Physical exam Narrative exam: GEN: WDWN, NAD, Awake, Alert, Orientated x 3 HEENT: NCAT, EOMI, PERRL, OP Clear NECK: supple, no adenopathy, no thyromegaly, no JVD CVS/HEART: RRR, normal S1S2, pulses present bilaterally CHEST/LUNGS: CTA B, Symmetrical chest expansion, good air entry bilaterally GI/Abdomen: soft, NTND, good bowel sounds, no guarding or rebound /Bladder: no suprapubic tenderness, no CVA or paraspinal tenderness EXT/Skin: no c/c/e, no obvious rash MSK: FROM x 4 Neuro: CN 2-12 grossly intact, no new focal deficits Psych: calm - Constitutional Vitals: Temp Pulse Resp BP Pulse Ox 98.4 F 73 16 106/70 99 02/09/18 06:56 02/09/18 06:56 02/09/18 06:56 02/09/18 06:56 02/09/18 06:56 General appearance: Absent: mild distress Results - Labs CBC & Chem 7: 02/08/18 10:19 02/08/18 10:18 Labs: Laboratory Last Values WBC 15.4 K/mm3 (4.5-11.0) H 02/08/18 10:19 RBC 4.83 M/mm3 (3.65-5.03) 02/08/18 10:19 Hgb 9.1 gm/dl (10.1-14.3) L 02/08/18 10:19 Hct 27.9 % (30.3-42.9) L 02/08/18 10:19 MCV 58 fl (79-97) L 02/08/18 10:19 MCH 19 pg (28-32) L 02/08/18 10:19 MCHC 33 % (30-34) 02/08/18 10:19 RDW 24.5 % (13.2-15.2) H 02/08/18 10:19 Plt Count 156 K/mm3 (140-440) 02/08/18 10:19 Lymph # Barber Stylist 02/08/18 10:19 Add Manual Diff Complete 02/08/18 10:19 Total Counted 100 02/08/18 10:19 Seg Neuts % (Manual) 61.0 % (40.0-70.0) 02/08/18 10:19 Band Neutrophils % 0 % 02/08/18 10:19 Lymphocytes % (Manual) 31.0 % (13.4-35.0) 02/08/18 10:19 Reactive Lymphs % (Man) 0 % 02/08/18 10:19 Monocytes % (Manual) 6.0 % (0.0-7.3) 02/08/18 10:19 Eosinophils % (Manual) 2.0 % (0.0-4.3) 02/08/18 10:19 Basophils % (Manual) 0 % (0.0-1.8) 02/08/18 10:19 Metamyelocytes % 0 % 02/08/18 10:19 Myelocytes % 0 % 02/08/18 10:19 Promyelocytes % 0 % 02/08/18 10:19 Blast Cells % 0 % 02/08/18 10:19 Nucleated RBC % Not Reportable 02/08/18 10:19 Seg Neutrophils # Man 9.4 K/mm3 (1.8-7.7) H 02/08/18 10:19 Band Neutrophils # 0.0 K/mm3 02/08/18 10:19 Lymphocytes # (Manual) 4.8 K/mm3 (1.2-5.4) 02/08/18 10:19 Abs React Lymphs (Man) 0.0 K/mm3 02/08/18 10:19 Monocytes # (Manual) 0.9 K/mm3 (0.0-0.8) H 02/08/18 10:19 Eosinophils # (Manual) 0.3 K/mm3 (0.0-0.4) 02/08/18 10:19 Basophils # (Manual) 0.0 K/mm3 (0.0-0.1) 02/08/18 10:19 Metamyelocytes # 0.0 K/mm3 02/08/18 10:19 Myelocytes # 0.0 K/mm3 02/08/18 10:19 Promyelocytes # 0.0 K/mm3 02/08/18 10:19 Blast Cells # 0.0 K/mm3 02/08/18 10:19 WBC Morphology Not Reportable 02/08/18 10:19 Hypersegmented Neuts Not Reportable 02/08/18 10:19 Hyposegmented Neuts Not Reportable 02/08/18 10:19 Hypogranular Neuts Not Reportable 02/08/18 10:19 Smudge Cells Not Reportable 02/08/18 10:19 Toxic Granulation Not Reportable 02/08/18 10:19 Toxic Vacuolation Not Reportable 02/08/18 10:19 Dohle Bodies Not Reportable 02/08/18 10:19 Pelger-Huet Anomaly Not Reportable 02/08/18 10:19 Delmi Rods Not Reportable 02/08/18 10:19 Platelet Estimate Consistent w auto 02/08/18 10:19 Clumped Platelets Not Reportable 02/08/18 10:19 Plt Clumps, EDTA Not Reportable 02/08/18 10:19 Large Platelets Not Reportable 02/08/18 10:19 Giant Platelets Not Reportable 02/08/18 10:19 Platelet Satelliting Not Reportable 02/08/18 10:19 Plt Morphology Comment Not Reportable 02/08/18 10:19 RBC Morphology Not Reportable 02/08/18 10:19 Dimorphic RBCs Not Reportable 02/08/18 10:19 Polychromasia Not Reportable 02/08/18 10:19 Hypochromasia 2+ 02/08/18 10:19 Poikilocytosis Not Reportable 02/08/18 10:19 Anisocytosis 2+ 02/08/18 10:19 Microcytosis 2+ 02/08/18 10:19 Macrocytosis Not Reportable 02/08/18 10:19 Spherocytes Not Reportable 02/08/18 10:19 Pappenheimer Bodies Not Reportable 02/08/18 10:19 Sickle Cells Not Reportable 02/08/18 10:19 Target Cells 2+ 02/08/18 10:19 Tear Drop Cells Not Reportable 02/08/18 10:19 Ovalocytes Not Reportable 02/08/18 10:19 Helmet Cells Not Reportable 02/08/18 10:19 [place] Bodies Not Reportable 02/08/18 10:19 [place] Rings Not Reportable 02/08/18 10:19 [place] Cells Not Reportable 02/08/18 10:19 Bite Cells Not Reportable 02/08/18 10:19 Crenated Cell Not Reportable 02/08/18 10:19 Elliptocytes Not Reportable 02/08/18 10:19 Acanthocytes (Spur) Not Reportable 02/08/18 10:19 Rouleaux Not Reportable 02/08/18 10:19 Hemoglobin C Crystals Not Reportable 02/08/18 10:19 Schistocytes Not Reportable 02/08/18 10:19 Malaria parasites Not Reportable 02/08/18 10:19 Percent Retic 1.84 % (0.78-2.58) 02/08/18 10:19 Jaziel Bodies Not Reportable 02/08/18 10:19 Hem Pathologist Commnt No 02/08/18 10:19 Sodium 136 mmol/L (137-145) L 02/08/18 10:18 Potassium 3.5 mmol/L (3.6-5.0) L 02/08/18 10:18 Chloride 102.9 mmol/L (98-107) 02/08/18 10:18 Carbon Dioxide 24 mmol/L (22-30) 02/08/18 10:18 Anion Gap 13 mmol/L 02/08/18 10:18 BUN 9 mg/dL (7-17) 02/08/18 10:18 Creatinine 0.4 mg/dL (0.7-1.2) L 02/08/18 10:18 Estimated GFR > 60 ml/min 02/08/18 10:18 BUN/Creatinine Ratio 23 % 02/08/18 10:18 Glucose 120 mg/dL (65-100) H 02/08/18 10:18 Calcium 8.7 mg/dL (8.4-10.2) 02/08/18 10:18 Total Creatine Kinase 30 units/L (30-135) 02/08/18 10:18 CK-MB (CK-2) < 1.0 ng/mL (0.0-4.0) 02/08/18 10:18 CK-MB (CK-2) Rel Index 3.3 (0-4) 02/08/18 10:18 Troponin T < 0.010 ng/mL (0.00-0.029) 02/08/18 10:18 Urine Color Straw (Yellow) 02/09/18 Unknown Urine Turbidity Clear (Clear) 02/09/18 Unknown Urine pH 6.0 (5.0-7.0) 02/09/18 Unknown Ur Specific [place] 1.004 (1.003-1.030) 02/09/18 Unknown Urine Protein <15 mg/dl mg/dL (Negative) 02/09/18 Unknown Urine Glucose (UA) Neg mg/dL (Negative) 02/09/18 Unknown Urine Ketones Neg mg/dL (Negative) 02/09/18 Unknown Urine Blood Neg (Negative) 02/09/18 Unknown Urine Nitrite Neg (Negative) 02/09/18 Unknown Urine Bilirubin Neg (Negative) 02/09/18 Unknown Urine Urobilinogen < 2.0 mg/dL (<2.0) 02/09/18 Unknown Ur Leukocyte Esterase Mod (Negative) 02/09/18 Unknown Urine WBC (Auto) 7.0 /HPF (0.0-6.0) H 02/09/18 Unknown Urine RBC (Auto) 3.0 /HPF (0.0-6.0) 02/09/18 Unknown U Epithel Cells (Auto) 3.0 /HPF (0-13.0) 02/09/18 Unknown
--- NOTE | 2018-02-09 12:24 | Hem/Onc Progress Note ---
Assessment and Plan cbc and retic stable cont current pain regimen agree with hydrea/folic acid and hydration Subjective Date of service: 02/09/18 Interval history: pt known to dr mcmillan- raj sc ds admitted with pain all over c/o abd pain Objective - Constitutional Vitals: Last Vital Signs Temp 98.4 F 02/09/18 06:56 Pulse 73 02/09/18 06:56 Resp 16 02/09/18 06:56 BP 106/70 02/09/18 06:56 Pulse Ox 99 02/09/18 06:56 General appearance: mild distress Performance status: 2- selfcare, ambulatory - Neck Neck: supple - Respiratory Respiratory effort: Positive: normal Respiratory: bilateral: diminished - Cardiovascular Rhythm: regular Extremities: No edema - Gastrointestinal General gastrointestinal: Present: soft - Labs Lab Results: Laboratory Results - last 24 hr 02/08/18 02/09/18 10:19 Unknown Add Manual Diff Complete Total Counted 100 Seg Neuts % (Manual) 61.0 Band Neutrophils % 0 Lymphocytes % (Manual) 31.0 Reactive Lymphs % (Man) 0 Monocytes % (Manual) 6.0 Eosinophils % (Manual) 2.0 Basophils % (Manual) 0 Metamyelocytes % 0 Myelocytes % 0 Promyelocytes % 0 Blast Cells % 0 Nucleated RBC % Not Reportable Seg Neutrophils # Man 9.4 H Band Neutrophils # 0.0 Lymphocytes # (Manual) 4.8 Abs React Lymphs (Man) 0.0 Monocytes # (Manual) 0.9 H Eosinophils # (Manual) 0.3 Basophils # (Manual) 0.0 Metamyelocytes # 0.0 Myelocytes # 0.0 Promyelocytes # 0.0 Blast Cells # 0.0 WBC Morphology Not Reportable Hypersegmented Neuts Not Reportable Hyposegmented Neuts Not Reportable Hypogranular Neuts Not Reportable Smudge Cells Not Reportable Toxic Granulation Not Reportable Toxic Vacuolation Not Reportable Dohle Bodies Not Reportable Pelger-Huet Anomaly Not Reportable Delmi Rods Not Reportable Platelet Estimate Consistent w auto Clumped Platelets Not Reportable Plt Clumps, EDTA Not Reportable Large Platelets Not Reportable Giant Platelets Not Reportable Platelet Satelliting Not Reportable Plt Morphology Comment Not Reportable RBC Morphology Not Reportable Dimorphic RBCs Not Reportable Polychromasia Not Reportable Hypochromasia 2+ Poikilocytosis Not Reportable Anisocytosis 2+ Microcytosis 2+ Macrocytosis Not Reportable Spherocytes Not Reportable Pappenheimer Bodies Not Reportable Sickle Cells Not Reportable Target Cells 2+ Tear Drop Cells Not Reportable Ovalocytes Not Reportable Helmet Cells Not Reportable [place] Bodies Not Reportable [place] Rings Not Reportable [place] Cells Not Reportable Bite Cells Not Reportable Crenated Cell Not Reportable Elliptocytes Not Reportable Acanthocytes (Spur) Not Reportable Rouleaux Not Reportable Hemoglobin C Crystals Not Reportable Schistocytes Not Reportable Malaria parasites Not Reportable Jaziel Bodies Not Reportable Hem Pathologist Commnt No Urine Color Straw Urine Turbidity Clear Urine pH 6.0 Ur Specific [place] 1.004 Urine Protein <15 mg/dl Urine Glucose (UA) Neg Urine Ketones Neg Urine Blood Neg Urine Nitrite Neg Urine Bilirubin Neg Urine Urobilinogen < 2.0 Ur Leukocyte Esterase Mod Urine WBC (Auto) 7.0 H Urine RBC (Auto) 3.0 U Epithel Cells (Auto) 3.0
[2018-02-09] MEDS: DILAUDID IV PRN ×3 (12:56→23:41)
[2018-02-09] MEDS: REGLAN IV PRN ×2 (17:39→23:41)
[2018-02-10] MEDS: D5NS 0.2% 1,000 ML IV SCH ×4 (01:58→18:48)
[2018-02-10] MEDS: REGLAN IV PRN ×2 (08:13→22:11)
[2018-02-10] MEDS: DILAUDID IV PRN ×2 (08:13→22:11)
[2018-02-10] MEDS ORDERED: ZOFRAN IV PRN (08:44)
--- NOTE | 2018-02-10 08:51 | Progress Note ---
Assessment and Plan Assessment and plan: Ms. Luna is a 32 yo man with a history of ss anemia, asthma who presents with generalized pains -Sickle cell pain crisis: IVF resuscitation, monitor uop q shift, pain control, hydroxyurea, folic acid, consulted heme/onc -Systemic inflammatory response syndrome: Empiric Antibiotic therapy, CBC, Chest x ray, urinalysis, -Fibromyalgia: pain control, supportive care. resume prehospital medication. -Abdominal pains with n/v: consulted GI, downgrade diet to NPO and get abd u/s to rule out pigment gallstones -DVT prophylaxis: scd to ble while in bed. GI consult Abd ultrasound rule out pigment gallstones in sickle cell patient NPO until sees GI History Interval history: Patient was seen and examined. Follow-up on current diagnosis of body pains. Overnight uneventful. Patient denies any chest pain, shortness breath, or severe headaches. Imaging, nursing note, chart, labs and old chart reviewed. Discussed with patient. She complains of n/v and diffuse lower bilateral abd pains. Hospitalist Physical - Physical exam Narrative exam: GEN: WDWN, NAD, Awake, Alert, Orientated x 3 HEENT: NCAT, EOMI, PERRL, OP Clear NECK: supple, no adenopathy, no thyromegaly, no JVD CVS/HEART: RRR, normal S1S2, pulses present bilaterally CHEST/LUNGS: CTA B, Symmetrical chest expansion, good air entry bilaterally GI/Abdomen: soft, nd, diffuse tenderness bilateral lower quadrants, good bowel sounds, no guarding or rebound /Bladder: no suprapubic tenderness, no CVA or paraspinal tenderness EXT/Skin: no c/c/e, no obvious rash MSK: FROM x 4 Neuro: CN 2-12 grossly intact, no new focal deficits Psych: calm - Constitutional Vitals: Temp Pulse Resp BP Pulse Ox 98.9 F 77 20 113/65 100 02/10/18 05:08 02/10/18 05:08 02/10/18 05:08 02/10/18 05:08 02/10/18 05:08 General appearance: Absent: mild distress Results - Labs CBC & Chem 7: 02/08/18 10:19 02/08/18 10:18 Labs: Laboratory Last Values WBC 15.4 K/mm3 (4.5-11.0) H 02/08/18 10:19 RBC 4.83 M/mm3 (3.65-5.03) 02/08/18 10:19 Hgb 9.1 gm/dl (10.1-14.3) L 02/08/18 10:19 Hct 27.9 % (30.3-42.9) L 02/08/18 10:19 MCV 58 fl (79-97) L 02/08/18 10:19 MCH 19 pg (28-32) L 02/08/18 10:19 MCHC 33 % (30-34) 02/08/18 10:19 RDW 24.5 % (13.2-15.2) H 02/08/18 10:19 Plt Count 156 K/mm3 (140-440) 02/08/18 10:19 Lymph # External Relations Manager 02/08/18 10:19 Add Manual Diff Complete 02/08/18 10:19 Total Counted 100 02/08/18 10:19 Seg Neuts % (Manual) 61.0 % (40.0-70.0) 02/08/18 10:19 Band Neutrophils % 0 % 02/08/18 10:19 Lymphocytes % (Manual) 31.0 % (13.4-35.0) 02/08/18 10:19 Reactive Lymphs % (Man) 0 % 02/08/18 10:19 Monocytes % (Manual) 6.0 % (0.0-7.3) 02/08/18 10:19 Eosinophils % (Manual) 2.0 % (0.0-4.3) 02/08/18 10:19 Basophils % (Manual) 0 % (0.0-1.8) 02/08/18 10:19 Metamyelocytes % 0 % 02/08/18 10:19 Myelocytes % 0 % 02/08/18 10:19 Promyelocytes % 0 % 02/08/18 10:19 Blast Cells % 0 % 02/08/18 10:19 Nucleated RBC % Not Reportable 02/08/18 10:19 Seg Neutrophils # Man 9.4 K/mm3 (1.8-7.7) H 02/08/18 10:19 Band Neutrophils # 0.0 K/mm3 02/08/18 10:19 Lymphocytes # (Manual) 4.8 K/mm3 (1.2-5.4) 02/08/18 10:19 Abs React Lymphs (Man) 0.0 K/mm3 02/08/18 10:19 Monocytes # (Manual) 0.9 K/mm3 (0.0-0.8) H 02/08/18 10:19 Eosinophils # (Manual) 0.3 K/mm3 (0.0-0.4) 02/08/18 10:19 Basophils # (Manual) 0.0 K/mm3 (0.0-0.1) 02/08/18 10:19 Metamyelocytes # 0.0 K/mm3 02/08/18 10:19 Myelocytes # 0.0 K/mm3 02/08/18 10:19 Promyelocytes # 0.0 K/mm3 02/08/18 10:19 Blast Cells # 0.0 K/mm3 02/08/18 10:19 WBC Morphology Not Reportable 02/08/18 10:19 Hypersegmented Neuts Not Reportable 02/08/18 10:19 Hyposegmented Neuts Not Reportable 02/08/18 10:19 Hypogranular Neuts Not Reportable 02/08/18 10:19 Smudge Cells Not Reportable 02/08/18 10:19 Toxic Granulation Not Reportable 02/08/18 10:19 Toxic Vacuolation Not Reportable 02/08/18 10:19 Dohle Bodies Not Reportable 02/08/18 10:19 Pelger-Huet Anomaly Not Reportable 02/08/18 10:19 Delmi Rods Not Reportable 02/08/18 10:19 Platelet Estimate Consistent w auto 02/08/18 10:19 Clumped Platelets Not Reportable 02/08/18 10:19 Plt Clumps, EDTA Not Reportable 02/08/18 10:19 Large Platelets Not Reportable 02/08/18 10:19 Giant Platelets Not Reportable 02/08/18 10:19 Platelet Satelliting Not Reportable 02/08/18 10:19 Plt Morphology Comment Not Reportable 02/08/18 10:19 RBC Morphology Not Reportable 02/08/18 10:19 Dimorphic RBCs Not Reportable 02/08/18 10:19 Polychromasia Not Reportable 02/08/18 10:19 Hypochromasia 2+ 02/08/18 10:19 Poikilocytosis Not Reportable 02/08/18 10:19 Anisocytosis 2+ 02/08/18 10:19 Microcytosis 2+ 02/08/18 10:19 Macrocytosis Not Reportable 02/08/18 10:19 Spherocytes Not Reportable 02/08/18 10:19 Pappenheimer Bodies Not Reportable 02/08/18 10:19 Sickle Cells Not Reportable 02/08/18 10:19 Target Cells 2+ 02/08/18 10:19 Tear Drop Cells Not Reportable 02/08/18 10:19 Ovalocytes Not Reportable 02/08/18 10:19 Helmet Cells Not Reportable 02/08/18 10:19 [place] Bodies Not Reportable 02/08/18 10:19 [place] Rings Not Reportable 02/08/18 10:19 [place] Cells Not Reportable 02/08/18 10:19 Bite Cells Not Reportable 02/08/18 10:19 Crenated Cell Not Reportable 02/08/18 10:19 Elliptocytes Not Reportable 02/08/18 10:19 Acanthocytes (Spur) Not Reportable 02/08/18 10:19 Rouleaux Not Reportable 02/08/18 10:19 Hemoglobin C Crystals Not Reportable 02/08/18 10:19 Schistocytes Not Reportable 02/08/18 10:19 Malaria parasites Not Reportable 02/08/18 10:19 Percent Retic 1.84 % (0.78-2.58) 02/08/18 10:19 Jaziel Bodies Not Reportable 02/08/18 10:19 Hem Pathologist Commnt No 02/08/18 10:19 Sodium 136 mmol/L (137-145) L 02/08/18 10:18 Potassium 3.5 mmol/L (3.6-5.0) L 02/08/18 10:18 Chloride 102.9 mmol/L (98-107) 02/08/18 10:18 Carbon Dioxide 24 mmol/L (22-30) 02/08/18 10:18 Anion Gap 13 mmol/L 02/08/18 10:18 BUN 9 mg/dL (7-17) 02/08/18 10:18 Creatinine 0.4 mg/dL (0.7-1.2) L 02/08/18 10:18 Estimated GFR > 60 ml/min 02/08/18 10:18 BUN/Creatinine Ratio 23 % 02/08/18 10:18 Glucose 120 mg/dL (65-100) H 02/08/18 10:18 Calcium 8.7 mg/dL (8.4-10.2) 02/08/18 10:18 Total Creatine Kinase 30 units/L (30-135) 02/08/18 10:18 CK-MB (CK-2) < 1.0 ng/mL (0.0-4.0) 02/08/18 10:18 CK-MB (CK-2) Rel Index 3.3 (0-4) 02/08/18 10:18 Troponin T < 0.010 ng/mL (0.00-0.029) 02/08/18 10:18 Urine Color Straw (Yellow) 02/09/18 Unknown Urine Turbidity Clear (Clear) 02/09/18 Unknown Urine pH 6.0 (5.0-7.0) 02/09/18 Unknown Ur Specific [place] 1.004 (1.003-1.030) 02/09/18 Unknown Urine Protein <15 mg/dl mg/dL (Negative) 02/09/18 Unknown Urine Glucose (UA) Neg mg/dL (Negative) 02/09/18 Unknown Urine Ketones Neg mg/dL (Negative) 02/09/18 Unknown Urine Blood Neg (Negative) 02/09/18 Unknown Urine Nitrite Neg (Negative) 02/09/18 Unknown Urine Bilirubin Neg (Negative) 02/09/18 Unknown Urine Urobilinogen < 2.0 mg/dL (<2.0) 02/09/18 Unknown Ur Leukocyte Esterase Mod (Negative) 02/09/18 Unknown Urine WBC (Auto) 7.0 /HPF (0.0-6.0) H 02/09/18 Unknown Urine RBC (Auto) 3.0 /HPF (0.0-6.0) 02/09/18 Unknown U Epithel Cells (Auto) 3.0 /HPF (0-13.0) 02/09/18 Unknown
[2018-02-10 09:02] LABS: BUN/Creatinine Ratio 5; Blood Urea Nitrogen 2 mg/dL (7-17); Calcium 8.6 mg/dL (8.4-10.2); Hemolysis Index 11
--- NOTE | 2018-02-10 09:09 | Hem/Onc Progress Note ---
Assessment and Plan cbc and retic stable cont current pain regimen agree with hydrea/folic acid and hydration Subjective Date of service: 02/10/18 Interval history: pt known to dr mcmillan- raj sc ds admitted with pain all over c/o abd pain c/o nausea. zofran not working Objective - Constitutional Vitals: Last Vital Signs Temp 98.9 F 02/10/18 05:08 Pulse 77 02/10/18 05:08 Resp 20 02/10/18 05:08 BP 113/65 02/10/18 05:08 Pulse Ox 100 02/10/18 05:08 General appearance: mild distress Performance status: 2- selfcare, ambulatory - Neck Neck: supple - Respiratory Respiratory effort: Positive: normal - Cardiovascular Rhythm: regular - Gastrointestinal General gastrointestinal: Present: soft - Labs Lab Results: Laboratory Results - last 24 hr 02/09/18 02/10/18 Unknown 08:16 Sodium 137 Potassium 3.6 Chloride 102.4 Carbon Dioxide 21 L Anion Gap 17 BUN 2 L Creatinine 0.4 L Estimated GFR > 60 BUN/Creatinine Ratio 5 Glucose 111 H Calcium 8.6 Urine Color Straw Urine Turbidity Clear Urine pH 6.0 Ur Specific [place] 1.004 Urine Protein <15 mg/dl Urine Glucose (UA) Neg Urine Ketones Neg Urine Blood Neg Urine Nitrite Neg Urine Bilirubin Neg Urine Urobilinogen < 2.0 Ur Leukocyte Esterase Mod Urine WBC (Auto) 7.0 H Urine RBC (Auto) 3.0 U Epithel Cells (Auto) 3.0
--- NOTE | 2018-02-10 10:09 | Gastroenterology Consultation ---
<EDUARDO JOHNSON - Last Filed: 02/10/18 10:28> History of Present Illness - Reason for Consult Consult date: 02/10/18 abd pain, N/V Requesting physician: VICKY HARE - History of Present Illness Patient is a 32 y/o female with PMH of SCD, obesity, fibromyalgia, and asthma who presented to ED with c/o pain all over her body x 3 days after running out of her pain medication at home and was admitted for sickle cell pain crisis. Heme following. GI has been consulted for abd pain and N/V. This morning patient was resting in bed in mild distress from overall pain. She reports generalized abd pain that is intermittent described as intense cramping with pain mainly across lower abdomen. She also c/o N/V for the past several days with the inability to tolerate PO intake. Still has nausea this am but no episodes of vomiting as of yet. Admits to having similar symptoms with prior sickle cell crisis but states her symptoms this time seem to be worse. She also has chronic postprandial diarrhea with BMs x 2 per day that started years ago s/ p cholecystectomy. Takes NSAIDs BID at home. Denies fever, wt loss, signs of bleeding, or constipation. No hx of PUD. Last EGD several years ago. Past History Past Medical History: seizures, other (Fibromyalgia, SCD, Asthma) Past Surgical History: cholecystectomy, tonsillectomy, Other (splenectomy, Prot placement .) Social history: single. denies: smoking, alcohol abuse, prescription drug abuse Family history: no significant family history Medications and Allergies Allergies Allergy/AdvReac Type Severity Reaction Status Date / Time cefotetan disodium Allergy Hives Verified 05/25/16 17:25 [From Cefotan] morphine Allergy Vomiting Verified 07/13/16 20:40 Home Medications Medication Instructions Recorded Confirmed Last Taken Type Zolpidem Tartrate [Ambien] 5 mg PO QHS PRN #10 tablet 09/27/17 02/08/18 Rx Folic Acid [Folvite] 1 mg PO QDAY 10/31/17 02/08/18 02/07/18 History Hydroxyurea [Hydrea] 500 mg PO BID 10/31/17 02/08/18 02/07/18 History Oxycodone HCl/Acetaminophen 1 each PO Q6HR PRN 10/31/17 02/08/18 10/30/17 History [Percocet 10/325 mg] Pregabalin [Lyrica] 75 mg PO QDAY 02/08/18 02/08/18 Unknown History Promethazine [Phenergan TAB] 25 mg PO Q6HR PRN 02/08/18 02/08/18 Unknown History Active Meds: Active Medications Acetaminophen (Tylenol) 650 mg PO Q4H PRN PRN Reason: Pain MILD(1-3)/Fever >100.5/TALAMANTES Albuterol (Proventil) 2.5 mg IH Q4HRT PRN PRN Reason: Shortness Of Breath Folic Acid (Folvite) 1 mg PO QDAY [facility] Last Admin: 02/09/18 10:51 Dose: 1 mg Hydromorphone HCl (Dilaudid) 0.5 mg IV Q4H PRN PRN Reason: Pain , Severe (7-10) Last Admin: 02/10/18 08:13 Dose: 0.5 mg Hydroxyurea (Hydrea) 500 mg PO BID [facility] Last Admin: 02/09/18 21:51 Dose: 500 mg Dextrose/Sodium Chloride (D5ns 0.2%) 1,000 mls @ 250 mls/hr IV DIRECT [facility] Last Admin: 02/10/18 06:45 Dose: 250 mls/hr Sodium Chloride (Nacl 0.45% 1000 Ml) 2,000 mls @ 500 mls/hr IV DIRECT [facility] Levofloxacin (Levaquin) 500 mg PO Q24HR [facility] Metoclopramide HCl (Reglan) 10 mg IV Q6H PRN PRN Reason: Nausea And Vomiting Last Admin: 02/10/18 08:13 Dose: 10 mg Ondansetron HCl (Zofran) 4 mg IV Q4H PRN PRN Reason: Nausea And Vomiting Oxycodone/Acetaminophen (Percocet 5/325) 2 tab PO Q6H PRN PRN Reason: Pain, Moderate (4-6) Last Admin: 02/09/18 10:49 Dose: 2 tab Sodium Chloride (Sodium Chloride Flush Syringe 10 Ml) 10 ml IV BID [facility] Last Admin: 02/09/18 23:42 Dose: 10 ml Sodium Chloride (Sodium Chloride Flush Syringe 10 Ml) 10 ml IV PRN PRN PRN Reason: LINE FLUSH Zolpidem Tartrate (Ambien) 5 mg PO QHS PRN PRN Reason: Insomnia Last Admin: 02/08/18 21:31 Dose: 5 mg Review of Systems - Review of Systems All systems: negative Constitutional: other (genneralized body pain) Gastrointestinal: abdominal pain, nausea, vomiting Exam - Constitutional Vital Signs: Temp Pulse Resp BP Pulse Ox 98.9 F 77 20 113/65 100 02/10/18 05:08 02/10/18 05:08 02/10/18 05:08 02/10/18 05:08 02/10/18 05:08 General appearance: mild distress - EENT Eyes: PERRL, EOM intact ENT: hearing intact - Respiratory Respiratory: bilateral: CTA - Cardiovascular Rhythm: regular Heart Sounds: Present: S1 & S2 - Gastrointestinal General gastrointestinal: Present: soft, tender (mild generalized TTP), non- distended, normal bowel sounds - Neurologic Neurological: alert and oriented x3 - Labs CBC & Chem 7: 02/08/18 10:19 02/10/18 08:16 Lab Results: Laboratory Results - last 24 hr 02/09/18 02/10/18 Unknown 08:16 Sodium 137 Potassium 3.6 Chloride 102.4 Carbon Dioxide 21 L Anion Gap 17 BUN 2 L Creatinine 0.4 L Estimated GFR > 60 BUN/Creatinine Ratio 5 Glucose 111 H Calcium 8.6 Urine Color Straw Urine Turbidity Clear Urine pH 6.0 Ur Specific [place] 1.004 Urine Protein <15 mg/dl Urine Glucose (UA) Neg Urine Ketones Neg Urine Blood Neg Urine Nitrite Neg Urine Bilirubin Neg Urine Urobilinogen < 2.0 Ur Leukocyte Esterase Mod Urine WBC (Auto) 7.0 H Urine RBC (Auto) 3.0 U Epithel Cells (Auto) 3.0 Assessment and Plan 1.abd pain 2.N/V 3.chronic diarrhea 4.sickle cell pain crisis 5.fibromyalgia -afebrile -WBC-15.4 -abd U/S results pending -abd pain-etiology unclear-likely due to sickle cell crisis vs other. Consider CT to r/o acute process based on progress -N/V-etiology unclear-possibly due to sickle cell crisis vs PUD vs other. Start on PPI. Consider EGD based on progress. -chronic diarrhea- postprandial for past several years- most likely 2/2 s/p cholecystectomy. Start on trial of Questran. -okay for clear liquids as tolerated -continue supportive care -will follow <EDE MAST R - Last Filed: 02/10/18 13:00> Medications and Allergies Active Meds: Active Medications Acetaminophen (Tylenol) 650 mg PO Q4H PRN PRN Reason: Pain MILD(1-3)/Fever >100.5/TALAMANTES Albuterol (Proventil) 2.5 mg IH Q4HRT PRN PRN Reason: Shortness Of Breath Cholestyramine Resin (Questran) 4 gm PO QDAY [facility] Folic Acid (Folvite) 1 mg PO QDAY [facility] Last Admin: 02/09/18 10:51 Dose: 1 mg Hydromorphone HCl (Dilaudid) 0.5 mg IV Q4H PRN PRN Reason: Pain , Severe (7-10) Last Admin: 02/10/18 08:13 Dose: 0.5 mg Hydroxyurea (Hydrea) 500 mg PO BID [facility] Last Admin: 02/09/18 21:51 Dose: 500 mg Dextrose/Sodium Chloride (D5ns 0.2%) 1,000 mls @ 250 mls/hr IV [facility] Last Admin: 02/10/18 06:45 Dose: 250 mls/hr Sodium Chloride (Nacl 0.45% 1000 Ml) 2,000 mls @ 500 mls/hr IV DIRECT [facility] Levofloxacin (Levaquin) 500 mg PO Q24HR [facility] Metoclopramide HCl (Reglan) 10 mg IV Q6H PRN PRN Reason: Nausea And Vomiting Last Admin: 02/10/18 08:13 Dose: 10 mg Ondansetron HCl (Zofran) 4 mg IV Q4H PRN PRN Reason: Nausea And Vomiting Oxycodone/Acetaminophen (Percocet 5/325) 2 tab PO Q6H PRN PRN Reason: Pain, Moderate (4-6) Last Admin: 02/09/18 10:49 Dose: 2 tab Pantoprazole Sodium (Protonix) 40 mg IV BID [facility] Sodium Chloride (Sodium Chloride Flush Syringe 10 Ml) 10 ml IV BID [facility] Last Admin: 02/09/18 23:42 Dose: 10 ml Sodium Chloride (Sodium Chloride Flush Syringe 10 Ml) 10 ml IV PRN PRN PRN Reason: LINE FLUSH Zolpidem Tartrate (Ambien) 5 mg PO QHS PRN PRN Reason: Insomnia Last Admin: 02/08/18 21:31 Dose: 5 mg Exam - Constitutional Vital Signs: Temp Pulse Resp BP Pulse Ox 98.8 F 82 18 124/74 98 02/10/18 11:26 02/10/18 11:26 02/10/18 11:26 02/10/18 11:26 02/10/18 11:26 - Labs CBC & Chem 7: 02/10/18 11:06 02/10/18 08:16 Lab Results: Laboratory Results - last 24 hr 02/10/18 02/10/18 08:16 11:06 WBC 13.4 H RBC 4.77 Hgb 8.9 L Hct 27.2 L MCV 57 L MCH 19 L MCHC 33 RDW 25.0 H Plt Count 183 Sodium 137 Potassium 3.6 Chloride 102.4 Carbon Dioxide 21 L Anion Gap 17 BUN 2 L Creatinine 0.4 L Estimated GFR > 60 BUN/Creatinine Ratio 5 Glucose 111 H Calcium 8.6 Assessment and Plan Pt has had upper and lower abd pain x approx 3 wks. She states this is worse than her usual pain with crises, but she has also been off narcotics. On exam, upper abd pain is actually costochondritis. Otherwise, c/w sickle crisis. Abd exam rel benign. Check LFTs, lipase PPI If persists, check CT.
[2018-02-10] MEDS: PROTONIX IV SCH ×2 (11:15→22:11)
[2018-02-10 11:31] LABS: Hematocrit 27.2 % (30.3-42.9); Hemoglobin 8.9 gm/dl (10.1-14.3); Mean Corpuscular HGB Conc 33 % (30-34); Mean Corpuscular Hemoglobin 19 pg (28-32); Mean Corpuscular Volume 57 fl (79-97); Platelet Count 183 K/mm3 (140-440); Red Blood Count 4.77 M/mm3 (3.65-5.03)
[2018-02-10] MEDS: HYDREA PO SCH ×2 (13:14→22:11)
[2018-02-10] MEDS: LEVAQUIN PO SCH (13:15)
[2018-02-10] MEDS: FOLVITE PO SCH (13:15)
[2018-02-10] MEDS: SODIUM CHLORIDE FLUSH SYRINGE 10 ML IV SCH ×2 (13:16→22:10)
--- NOTE | 2018-02-10 13:23 | Ultrasound Report ---
Complete abdominal ultrasound: Abdominal pain. Cholecystectomy. Imaging of the liver, and pancreas are echogenically normal. The spleen is echogenically normal but is at the upper limits of size measuring 12.9 cm in length. The CBD diameter is 3.8 mm. The right kidney has a length of 11 cm and the left kidney is 12.2 cm. Both kidneys are echogenically unremarkable. The abdominal aorta has a proximal diameter of 1.8 cm. The IVC is visualized in normal position. Impressions: Borderline size spleen. No acute finding identified.
[2018-02-10 13:42] LABS: Anisocytosis 2+; Basophils % (Manual) 0 % (0.0-1.8); Hypochromasia 1+; Total Cells Counted 100
[2018-02-10 13:43] LABS: Platelet Estimate Consistent w Auto; Target Cells 1+
[2018-02-10 14:37] LABS: Albumin 3.5 g/dL (3.9-5); Lipase 15 units/L (13-60)
[2018-02-10 14:43] LABS: Alanine Aminotransferase < 5 units/L (7-56); Bilirubin,Direct < 0.2 mg/dL (0-0.2)
[2018-02-10] MEDS: AMBIEN PO PRN (22:16)
[2018-02-11] MEDS: REGLAN IV PRN ×2 (04:45→10:39)
[2018-02-11] MEDS: DILAUDID IV PRN (04:45)
[2018-02-11] MEDS: D5NS 0.2% 1,000 ML IV SCH (09:55)
[2018-02-11] MEDS ORDERED: QUESTRAN PO SCH (10:00)
--- NOTE | 2018-02-11 10:15 | Gastroenterology Progress Note ---
Assessment and Plan - Patient Problems (1) Generalized abdominal pain of unknown etiology Current Visit: Yes Status: Acute Plan to address problem: - US unremarkable, but labs and VS stable and not markedly abnormal. - Agree with CT scan today to r/o splenic infarct, mesenteric clot, etc. - If CT negative, will get EGD to make sure no PUD causing obstruction. (2) Sickle cell crisis Current Visit: No Status: Acute Subjective Date of service: 02/11/18 Principal diagnosis: Abdominal Pain Interval history: The patient's ultrasound is reviewed with her (splenomegaly but otherwise negative). She continues to be intolerant of PO, but has no severe vomiting when NPO. She has had no melena. Her abdominal pain (all over body pain) is unchanged. Objective - Constitutional Vitals: Temp Pulse Resp BP Pulse Ox 98.5 F 75 24 114/77 100 02/11/18 05:16 02/11/18 05:16 02/11/18 05:16 02/11/18 05:16 02/11/18 05:16 General appearance: mild distress - EENT Eyes: PERRL ENT: clear oral mucosa, no thrush - Respiratory Respiratory effort: normal Respiratory: bilateral: CTA - Cardiovascular Rhythm: regular Heart Sounds: Present: S1 & S2 - Gastrointestinal General gastrointestinal: Present: soft, tender (Diffuse, no guard or peritoneal signs), non-distended - Labs CBC & Chem 7: 02/10/18 11:06 02/10/18 08:16 Labs: Laboratory Results - last 24 hr 02/10/18 02/10/18 08:16 11:06 WBC 13.4 H RBC 4.77 Hgb 8.9 L Hct 27.2 L MCV 57 L MCH 19 L MCHC 33 RDW 25.0 H Plt Count 183 Add Manual Diff Complete Total Counted 100 Seg Neuts % (Manual) 79.0 H Band Neutrophils % 0 Lymphocytes % (Manual) 13.0 L Reactive Lymphs % (Man) 0 Monocytes % (Manual) 5.0 Eosinophils % (Manual) 3.0 Basophils % (Manual) 0 Metamyelocytes % 0 Myelocytes % 0 Promyelocytes % 0 Blast Cells % 0 Nucleated RBC % Not Reportable Seg Neutrophils # Man 10.6 H Band Neutrophils # 0.0 Lymphocytes # (Manual) 1.7 Abs React Lymphs (Man) 0.0 Monocytes # (Manual) 0.7 Eosinophils # (Manual) 0.4 Basophils # (Manual) 0.0 Metamyelocytes # 0.0 Myelocytes # 0.0 Promyelocytes # 0.0 Blast Cells # 0.0 WBC Morphology Not Reportable Hypersegmented Neuts Not Reportable Hyposegmented Neuts Not Reportable Hypogranular Neuts Not Reportable Smudge Cells Not Reportable Toxic Granulation Not Reportable Toxic Vacuolation Not Reportable Dohle Bodies Not Reportable Pelger-Huet Anomaly Not Reportable Delmi Rods Not Reportable Platelet Estimate Consistent w auto Clumped Platelets Not Reportable Plt Clumps, EDTA Not Reportable Large Platelets Not Reportable Giant Platelets Not Reportable Platelet Satelliting Not Reportable Plt Morphology Comment Not Reportable RBC Morphology Not Reportable Dimorphic RBCs Not Reportable Polychromasia Not Reportable Hypochromasia 1+ Poikilocytosis Not Reportable Anisocytosis 2+ Microcytosis 2+ Macrocytosis Not Reportable Spherocytes Not Reportable Pappenheimer Bodies Not Reportable Sickle Cells Not Reportable Target Cells 1+ Tear Drop Cells Not Reportable Ovalocytes Not Reportable Helmet Cells Not Reportable Bernard-[place] Bodies Not Reportable [place] Rings Not Reportable [place] Cells Not Reportable Bite Cells Not Reportable Crenated Cell Not Reportable Elliptocytes Not Reportable Acanthocytes (Spur) Not Reportable Rouleaux Not Reportable Hemoglobin C Crystals Not Reportable Schistocytes Not Reportable Malaria parasites Not Reportable Jaziel Bodies Not Reportable Hem Pathologist Commnt No Total Bilirubin 0.40 Direct Bilirubin < 0.2 Indirect Bilirubin 0.2 AST 12 ALT < 5 L Alkaline Phosphatase 73 Total Protein 6.9 Albumin 3.5 L Albumin/Globulin Ratio 1.0 Lipase 15
[2018-02-11] MEDS: SODIUM CHLORIDE FLUSH SYRINGE 10 ML IV SCH (10:40)
--- NOTE | 2018-02-11 10:44 | Cat Scan Report ---
CT ABDOMEN AND PELVIS WITH CONTRAST: 02/11/18 CLINICAL: Abdominal pain. COMPARISON: 11/01/16 TECHNIQUE: Volumetric acquisition and 1.25 millimeter scan reconstructions after the uneventful intravenous injection of 100 cc Omnipaque 300. Consent was obtained prior to the administration of contrast. Oral contrast was not given. FINDINGS: Abdomen: Clear lung bases.A few tiny hepatic cysts and otherwise normal liver. Normal bile duct status post cholecystectomy. Normal stomach, duodenum and pancreas. The spleen is enlarged and measures 15.0 cm in length. No splenic mass or cyst. The splenic vein and portal veins are relatively large with no evidence of thrombus. No portosystemic collaterals or varices identified. Normal adrenal glands and kidneys. The renal collecting systems and ureters are nondilated. Normal aorta and inferior vena cava. Small bowel is normal. The terminal ileum and appendix are normal. Moderate wall thickening of the entire colon. The right colon wall is edematous and thicker than the rest. No diverticulosis or signs of diverticulitis. No lymphadenopathy. No ascites. .No pneumoperitoneum. Pelvis: Normal urinary bladder.The uterus is normal with mild fluid in the uterine cavity. The ovaries are normal with a dominant 2.7 cm follicle the right ovary. Mild free fluid in the pelvis. The rectum is normal. Mild wall thickening of the sigmoid colon. Normal rectum and sigmoid colon.. Bone windows demonstrate no bone lesion. IMPRESSION:1. Galo colitis. 2. Splenomegaly. 3. The relative large size of the splenic and portal veins suggest possible portal hypertension. However, no signs of liver disease. 4. Status post cholecystectomy. 5. Normal pelvis with a dominant 2.7 cm follicle the right ovary and physiologic free fluid in the pelvis.
[2018-02-11 11:40] VITALS: BP 121/77
--- NOTE | 2018-02-11 11:58 | Hem/Onc Progress Note ---
Assessment and Plan cbc and retic stable cont current pain regimen agree with hydrea/folic acid and hydration If discharged, she can follow-up with Dr. Mcmillan in his office. Okay to go home heme heredia Subjective Date of service: 02/11/18 Interval history: pt known to dr mcmillan- sickle sc ds admitted with pain all over c/o abd pain c/o nausea. zofran not working wants to go home Objective - Constitutional Vitals: Last Vital Signs Temp 98.2 F 02/11/18 11:33 Pulse 80 02/11/18 11:33 Resp 20 02/11/18 11:33 BP 121/77 02/11/18 11:33 Pulse Ox 100 02/11/18 11:33 - Neck Neck: supple - Respiratory Respiratory: bilateral: CTA - Cardiovascular Rhythm: regular - Gastrointestinal General gastrointestinal: Present: soft (mildly tender) - Labs Lab Results: Laboratory Results - last 24 hr 02/10/18 02/10/18 08:16 11:06 Add Manual Diff Complete Total Counted 100 Seg Neuts % (Manual) 79.0 H Band Neutrophils % 0 Lymphocytes % (Manual) 13.0 L Reactive Lymphs % (Man) 0 Monocytes % (Manual) 5.0 Eosinophils % (Manual) 3.0 Basophils % (Manual) 0 Metamyelocytes % 0 Myelocytes % 0 Promyelocytes % 0 Blast Cells % 0 Nucleated RBC % Not Reportable Seg Neutrophils # Man 10.6 H Band Neutrophils # 0.0 Lymphocytes # (Manual) 1.7 Abs React Lymphs (Man) 0.0 Monocytes # (Manual) 0.7 Eosinophils # (Manual) 0.4 Basophils # (Manual) 0.0 Metamyelocytes # 0.0 Myelocytes # 0.0 Promyelocytes # 0.0 Blast Cells # 0.0 WBC Morphology Not Reportable Hypersegmented Neuts Not Reportable Hyposegmented Neuts Not Reportable Hypogranular Neuts Not Reportable Smudge Cells Not Reportable Toxic Granulation Not Reportable Toxic Vacuolation Not Reportable Dohle Bodies Not Reportable Pelger-Huet Anomaly Not Reportable Delmi Rods Not Reportable Platelet Estimate Consistent w auto Clumped Platelets Not Reportable Plt Clumps, EDTA Not Reportable Large Platelets Not Reportable Giant Platelets Not Reportable Platelet Satelliting Not Reportable Plt Morphology Comment Not Reportable RBC Morphology Not Reportable Dimorphic RBCs Not Reportable Polychromasia Not Reportable Hypochromasia 1+ Poikilocytosis Not Reportable Anisocytosis 2+ Microcytosis 2+ Macrocytosis Not Reportable Spherocytes Not Reportable Pappenheimer Bodies Not Reportable Sickle Cells Not Reportable Target Cells 1+ Tear Drop Cells Not Reportable Ovalocytes Not Reportable Helmet Cells Not Reportable Bernard-[place] Bodies Not Reportable [place] Rings Not Reportable [place] Cells Not Reportable Bite Cells Not Reportable Crenated Cell Not Reportable Elliptocytes Not Reportable Acanthocytes (Spur) Not Reportable Rouleaux Not Reportable Hemoglobin C Crystals Not Reportable Schistocytes Not Reportable Malaria parasites Not Reportable Jaziel Bodies Not Reportable Hem Pathologist Commnt No Total Bilirubin 0.40 Direct Bilirubin < 0.2 Indirect Bilirubin 0.2 AST 12 ALT < 5 L Alkaline Phosphatase 73 Total Protein 6.9 Albumin 3.5 L Albumin/Globulin Ratio 1.0 Lipase 15
[2018-02-11] MEDS: FOLVITE PO SCH (12:13)
[2018-02-11] MEDS: HYDREA PO SCH (12:14)
[2018-02-11] MEDS: PROTONIX IV SCH (12:14)
[2018-02-11] MEDS: LEVAQUIN PO SCH (12:14)
[2018-02-11] MEDS: PERCOCET 5/325 PO PRN (13:34)
--- NOTE | 2018-02-11 13:34 | Discharge Summary ---
Providers - Providers Date of Admission: 02/08/18 14:45 Date of discharge: 02/11/18 Attending physician: BRIANDA POOLE 02/09/18 11:49 Consult to Physician [CONS] Routine Comment: Consulting Provider: KIM SUTHERLAND Physician Instructions: Reason For Exam: sickle cell pain crisis, pt of Dr. Sutherland 02/10/18 08:45 Consult to Physician [CONS] Routine Comment: COMPLETED BY BOBBI Consulting Provider: EDE MAST Physician Instructions: Reason For Exam: abd with n/v Primary care physician: GRILL CHEF Hospitalization Condition: Fair Hospital course: Ms. Luna is a 32 yo female with a history of ss anemia, asthma who presents with generalized pains -Sickle cell pain crisis: IVF resuscitation, monitor uop q shift, pain control, hydroxyurea, folic acid, consulted heme/onc -Systemic inflammatory response syndrome: Empiric Antibiotic therapy, CBC, Chest x ray, urinalysis, -Fibromyalgia: pain control, supportive care. resume prehospital medication. -Abdominal pains with n/v: consulted GI, downgrade diet to NPO and get abd u/s to rule out pigment gallstones -DVT prophylaxis: scd to ble while in bed. GI consult Abd ultrasound rule out pigment gallstones in sickle cell patient NPO until sees GI Hospitalist Physical GEN: WDWN, NAD, Awake, Alert, Orientated x 3 HEENT: NCAT, EOMI, PERRL, OP Clear NECK: supple, no adenopathy, no thyromegaly, no JVD CVS/HEART: RRR, normal S1S2, pulses present bilaterally CHEST/LUNGS: CTA B, Symmetrical chest expansion, good air entry bilaterally GI/Abdomen: soft, nd, diffuse tenderness bilateral lower quadrants, good bowel sounds, no guarding or rebound /Bladder: no suprapubic tenderness, no CVA or paraspinal tenderness EXT/Skin: no c/c/e, no obvious rash MSK: FROM x 4 Neuro: CN 2-12 grossly intact, no new focal deficits Psych: calm Disposition: DC-01 TO HOME OR SELFCARE Time spent for discharge: 32 minutes Core Measure Documentation - Palliative Care Palliative Care/ Comfort Measures: Not Applicable - Core Measures Any of the following diagnoses?: none Exam - Constitutional Vitals: Temp Pulse Resp BP Pulse Ox 98.2 F 80 20 121/77 100 02/11/18 11:33 02/11/18 11:33 02/11/18 11:33 02/11/18 11:33 02/11/18 11:33 Plan Activity: advance as tolerated Weight Bearing Status: Weight Bear as Tolerated Diet: advance as tolerated Follow up with: PRIMARY CARE, [Primary Care Provider] - 3-5 Days Prescriptions: Levofloxacin [Levaquin] 750 mg PO QDAY #7 tablet metroNIDAZOLE [Flagyl] 500 mg PO Q8HR #21 tablet oxyCODONE /ACETAMINOPHEN [Percocet 5/325] 1 tab PO Q6HR PRN #10 tablet PRN Reason: Pain
[2018-02-11] MEDS ORDERED: FLAGYL 500 MG/100 ML 500 MG/100 ML BAG IV SCH (14:00)
[2018-02-11 14:30] LABS: Basophils % (Auto) 0.2 % (0.0-1.8); Eosinophils # (Auto) 0.2 K/mm3 (0.0-0.4); Eosinophils % (Auto) 1.9 % (0.0-4.3); Hematocrit 27.4 % (30.3-42.9); Lymphocytes # (Auto) 2.4 K/mm3 (1.2-5.4); Lymphocytes % (Auto) 18.6 % (13.4-35.0); Mean Corpuscular HGB Conc 33 % (30-34); Monocytes # (Auto) 1.1 K/mm3 (0.0-0.8); Monocytes % (Auto) 8.1 % (0.0-7.3); Red Blood Count 4.79 M/mm3 (3.65-5.03)
[2018-02-11 14:32] LABS: Mean Corpuscular Hemoglobin 19 pg (28-32); Mean Corpuscular Volume 57 fl (79-97); Red Cell Distribution Width 24.8 % (13.2-15.2)
[2018-02-11 14:33] LABS: Platelet Count 167 K/mm3 (140-440)
[2018-02-11] MEDS ORDERED: FLUSH HEPARIN IV ONE (14:33)
[2018-02-11] MEDS ORDERED: TRIPLE ANTIBIOTIC TP ONE (14:48)
[2018-02-12] MEDS ORDERED: PROTONIX IV SCH (10:00)
== END 2018-02-11 18:15 | disposition home or self-care (01) | DRG 812 ==
LOC: ED 18:31 → 3A 02-08 14:45
PROVIDERS: ADMIT Internal Medicine; ATTEND Internal Medicine
DX: D57.00 Hb-SS disease with crisis, unspecified (principal); R65.10 Systemic inflammatory response syndrome (SIRS) of non-infectious origin without acute organ dysfunction; M79.7 Fibromyalgia; Z88.6 Allergy status to analgesic agent; Z88.8 Allergy status to other drugs, medicaments and biological substances; J45.909 Unspecified asthma, uncomplicated; R56.9 Unspecified convulsions; Z90.49 Acquired absence of other specified parts of digestive tract; Z98.51 Tubal ligation status; F17.200 Nicotine dependence, unspecified, uncomplicated; E66.9 Obesity, unspecified; Z68.32 Body mass index [BMI] 32.0-32.9, adult; K52.9 Noninfective gastroenteritis and colitis, unspecified
CPT/HCPCS: 36415; 71045; 74177; 76700; 78582; 80048; 80074; 81001; 82550; 82553; 83690; 84484; 85007; 85025; 85045; 93005; 93010; 96365; 96375; 96376; A6250; A9540; A9558; C9113; J1170; J1642; J1956; J2001; J2405; J2765; J7030; Q9967

== ENCOUNTER 2018-09-08 04:43 | Inpatient (IN) | payer MEDICARE ==
[2018-09-08] MEDS ORDERED: DILAUDID IV ONE ×2 (05:36→06:40)
[2018-09-08] MEDS ORDERED: NACL 0.9% 1000 ML 1,000 ML IV ONE ×2 (05:36→06:17)
[2018-09-08] MEDS ORDERED: TORADOL IV ONE (05:37)
[2018-09-08 05:39] LABS: Hematocrit 27.3 % (30.3-42.9); Hemoglobin 8.8 gm/dl (10.1-14.3); Mean Corpuscular HGB Conc 32 % (30-34); Platelet Count 262 K/mm3 (140-440); Red Blood Count 4.68 M/mm3 (3.65-5.03)
[2018-09-08 05:40] LABS: Mean Corpuscular Volume 58 fl (79-97); Red Cell Distribution Width 25.3 % (13.2-15.2)
[2018-09-08] MEDS ORDERED: ZOFRAN IV ONE (06:17)
--- NOTE | 2018-09-08 06:17 | Emergency Department Report ---
HPI - General Chief Complaint: Sickle Cell Crisis Time Seen by Provider: 09/08/18 05:55 - HPI HPI: 33-year-old [place] female presents to the emergency department with complaint of a few weeks of sickle cell pain that is worsened over the past few days. She complains of general body aches, nausea with occasional vomiting and some chest tightness. She denies any shortness of breath, fever. The patient was here last month for similar symptoms. Her building services engineer is Dr. Osman. She is a tobacco smoker but denies any illicit drug use. No recent travel or sick contacts at home. ED Past Medical Hx - Past Medical History Hx Hypertension: No Hx Heart Attack/AMI: No Hx Congestive Heart Failure: No Hx Diabetes: No Hx Deep Vein Thrombosis: No Hx Pulmonary Embolism: No Hx Liver Disease: No Hx Renal Disease: No Hx Sickle Cell Disease: Yes Hx Arthritis: No Hx Seizures: Yes (10 + years ago) Hx Kidney Stones: No Hx Asthma: Yes Hx COPD: No Hx Tuberculosis: No Hx Dementia: No Hx HIV: No Additional medical history: fibromyalgia - Surgical History Hx Coronary Stent: No Hx Open Heart Surgery: No Hx Pacemaker: No Hx Internal Defibrillator: No Hx Cholecystectomy: Yes Hx Appendectomy: No Hx Breast Surgery: No Additional Surgical History: ports x 2 / tubal ligation/ t&a , splenectomy ? - Social History Smoking Status: Current Every Day Smoker Substance Use Type: None - Medications Home Medications: Home Medications Medication Instructions Recorded Confirmed Last Taken Type Zolpidem Tartrate [Ambien] 5 mg PO QHS PRN #10 tablet 09/27/17 09/08/18 10/30/17 Rx Folic Acid [Folvite] 1 mg PO QDAY 10/31/17 09/08/18 02/07/18 History Hydroxyurea [Hydrea] 500 mg PO BID 10/31/17 09/08/18 02/07/18 History Pregabalin [Lyrica] 75 mg PO QDAY 02/08/18 09/08/18 Unknown History Promethazine [Phenergan TAB] 25 mg PO Q6HR PRN #10 tablet 02/11/18 09/08/18 Unknown Rx Nicotine [Habitrol] 21 mg TD DAILY #30 patch 06/14/18 09/08/18 Unknown Rx oxyCODONE /ACETAMINOPHEN [Percocet 1 tab PO BID PRN #10 tablet 07/30/18 09/08/18 Unknown Rx 5/325 mg] ED Review of Systems ROS: Stated complaint: SICKLE CELL CRISIS NAUSEA Other details as noted in HPI Comment: All other systems reviewed and negative Constitutional: denies: chills, fever Eyes: denies: eye pain, vision change ENT: denies: ear pain, throat pain Respiratory: denies: cough, shortness of breath Cardiovascular: chest pain (tightness). denies: edema Gastrointestinal: nausea, vomiting Genitourinary: denies: dysuria, discharge Musculoskeletal: back pain, myalgia. denies: joint swelling Skin: denies: rash, lesions Neurological: denies: headache, weakness Physical Exam - Physical Exam Vital Signs: Vital Signs 09/08/18 09/08/18 09/08/18 04:48 05:26 05:30 Temperature 99.5 F Pulse Rate 91 H 85 85 Respiratory 18 16 20 Rate Blood Pressure 106/73 97/58 Blood Pressure 97/58 [Right] O2 Sat by Pulse 98 98 97 Oximetry 09/08/18 06:00 Temperature Pulse Rate 86 Respiratory 16 Rate Blood Pressure 98/56 Blood Pressure [Right] O2 Sat by Pulse 95 Oximetry Physical Exam: GENERAL: The patient is well-developed well-nourished. HEENT: Normocephalic. Atraumatic. Patient has moist mucous membranes. EYES: Extraocular motions are intact. Pupils are equal and reactive to light bilaterally. NECK: Supple. Trachea is midline. CHEST/LUNGS: Clear to auscultation. There is no respiratory distress noted. HEART/CARDIOVASCULAR: Regular. There is no tachycardia. There is no obvious murmur. ABDOMEN: Abdomen is soft, nontender. Patient has normal bowel sounds. There is no abdominal distention. SKIN: Skin is warm and dry. NEURO: The patient is awake, alert, and oriented. The patient is cooperative. The patient has no focal neurologic deficits. The patient has normal speech. MUSCULOSKELETAL: There is no tenderness or deformity. There is no limitation range of motion. There is no evidence of acute injury. ED Course Vital Signs 09/08/18 09/08/18 09/08/18 04:48 05:26 05:30 Temperature 99.5 F Pulse Rate 91 H 85 85 Respiratory 18 16 20 Rate Blood Pressure 106/73 97/58 Blood Pressure 97/58 [Right] O2 Sat by Pulse 98 98 97 Oximetry 09/08/18 06:00 Temperature Pulse Rate 86 Respiratory 16 Rate Blood Pressure 98/56 Blood Pressure [Right] O2 Sat by Pulse 95 Oximetry ED Medical Decision Making - Lab Data Result diagrams: 09/08/18 05:15 09/08/18 06:00 - EKG Data -: EKG Interpreted by Me EKG shows normal: sinus rhythm, axis, intervals, QRS complexes, ST-T waves Rate: normal - EKG Data When compared to previous EKG there are: previous EKG unavailable Interpretation: normal EKG - Radiology Data Radiology results: image reviewed interpreted by me: Chest x-ray does not show any pneumothorax, pleural effusion, pneumonia or obvious focal consolidation. - Medical Decision Making This patient presents with a complaint of generalized body pain along with some chest pain/tightness. She denies any shortness of breath. Chest x-ray does not show any pleural effusion, pneumonia, pneumothorax, focal consolidation or any other acute process. Labs thus far have been mostly unremarkable. She does have some anemia but has a history of sickle cell anemia. Reticulocyte count is about 1. There does not appear to be any signs of chest crisis at this time. However, after IV resuscitation and a few doses of IV pain medication, the patient still continues to complain of the chest pain. She has been admitted to this hospital in the past for this but does not appear to have had a full cardiac workup including any cardiology consultation or stress test. Therefore, the patient will be admitted to the hospital for further evaluation and treatment and was accepted for admission by the hospitalist, Dr. Morris. - Differential Diagnosis NM, costochondritis, GERD, fibromyalgia, chest crisis Critical Care Time: No Critical care attestation.: If time is entered above; I have spent that time in minutes in the direct care of this critically ill patient, excluding procedure time. ED Disposition Clinical Impression: Acute chest pain, Sickle cell pain crisis Anemia Qualifiers: Anemia type: unspecified type Qualified Code(s): D64.9 - Anemia, unspecified Disposition: OP ADMIT IP TO THIS HOSP Is pt being admited?: Yes Condition: Stable Instructions: Chest Pain (ED) Referrals: KATY COPELAND DO [Primary Care Provider] - 3-5 Days Time of Disposition: 10:06 Heart Score - HEART Score History: Slightly suspicious EKG: Normal Age: < 45 Risk factors: 1-2 risk factors Troponin: < normal limit HEART Score: 1 - Critical Actions Critical Actions: 0-3 pts:0.9-1.7%risk of adverse cardiac event.Candidate for discharge
[2018-09-08] MEDS ORDERED: BENADRYL IV ONE (06:24)
[2018-09-08 06:31] LABS: Monocytes % (Manual) 0 % (0.0-7.3); Total Cells Counted 100
[2018-09-08 06:33] LABS: Anisocytosis 2+; Band Neutrophils # (Manual) 0.1 K/mm3; Basophils % (Manual) 0 % (0.0-1.8)
[2018-09-08 06:34] LABS: Hypochromasia 2+; Large Platelets Few; Ovalocytes Few; Target Cells 1+
[2018-09-08 06:53] LABS: BUN/Creatinine Ratio 23; Blood Urea Nitrogen 9 mg/dL (7-17); Calcium 8.4 mg/dL (8.4-10.2); Hemolysis Index 17
--- NOTE | 2018-09-08 06:55 | XRay Report ---
FINAL REPORT EXAM: XR CHEST 1V AP HISTORY: CP TECHNIQUE: AP portable view(s) of the chest obtained. PRIORS: 06/11/2018 FINDINGS: No mediastinal shift. Cardiac silhouette is not enlarged for portable technique. Left chest port is i n satisfactory position. Hypoaeration of the lungs. No pneumothorax, effusion, or focal pulmonary opa city identified. No acute skeletal findings. IMPRESSION: Hypoaeration of the lungs without acute pulmonary finding identified.
[2018-09-08] MEDS ORDERED: SODIUM CHLORIDE FLUSH SYRINGE 10 ML IV PRN (08:25)
[2018-09-08] MEDS ORDERED: PROVENTIL IH PRN (08:25)
[2018-09-08] MEDS ORDERED: ZOFRAN IV PRN (08:25)
[2018-09-08] MEDS ORDERED: TYLENOL PO PRN (08:25)
[2018-09-08] MEDS ORDERED: NARCAN 0.4 MG/1 ML IV PRN (08:25)
[2018-09-08] MEDS ORDERED: DULCOLAX PR PRN (08:25)
[2018-09-08] MEDS ORDERED: MILK OF MAGNESIA PO PRN (08:25)
--- NOTE | 2018-09-08 08:33 | History and Physical Report ---
History of Present Illness Date of examination: 09/08/18 Date of admission: 09/08/18 Chief complaint: sickle cell crisis History of present illness: Patient is a 33 YO Female with SCD, Obesity, FM, Opioid Dependence, Seizure Disorder, Fibromyalgia, Asthma, Nicotine Dependence presents to ED for evaluation for generalized pain. Patient was recently in the hosptial for the same. She reports that since her discharge she has had conversation with her grounds maintenance manager about pain management. Today she reports that she was referred to cardiology due to chest tightness and swelling in the bilateral lower ext but was unable to go due to worsening generalized body pain. she unfortunately continues to smoke, she denies any use of illicit drug use. she denies any fever, nausea, vomiting or diarrhea. Past History Past Medical History: anemia, seizures, other (sickle cell) Past Surgical History: Other (port chest wall) Social history: lives with family, smoking, full code. denies: alcohol abuse, prescription drug abuse Family history: no significant family history Medications and Allergies Allergies Allergy/AdvReac Type Severity Reaction Status Date / Time cefotetan disodium Allergy Hives Verified 05/25/16 17:25 [From Cefotan] morphine Allergy Vomiting Verified 07/13/16 20:40 Home Medications Medication Instructions Recorded Confirmed Last Taken Type Zolpidem Tartrate [Ambien] 5 mg PO QHS PRN #10 tablet 09/27/17 09/08/18 10/30/17 Rx Folic Acid [Folvite] 1 mg PO QDAY 10/31/17 09/08/18 02/07/18 History Hydroxyurea [Hydrea] 500 mg PO BID 10/31/17 09/08/18 02/07/18 History Pregabalin [Lyrica] 75 mg PO QDAY 02/08/18 09/08/18 Unknown History Promethazine [Phenergan TAB] 25 mg PO Q6HR PRN #10 tablet 02/11/18 09/08/18 Unknown Rx Nicotine [Habitrol] 21 mg TD DAILY #30 patch 06/14/18 09/08/18 Unknown Rx oxyCODONE /ACETAMINOPHEN [Percocet 1 tab PO BID PRN #10 tablet 07/30/18 09/08/18 Unknown Rx 5/325 mg] Active Meds: Active Medications Acetaminophen (Tylenol) 650 mg PO Q4H PRN PRN Reason: Pain MILD(1-3)/Fever >100.5/[place]ANTES Albuterol (Proventil) 2.5 mg IH Q4HRT PRN PRN Reason: Shortness Of Breath Alprazolam (Xanax) 0.25 mg PO Q8H PRN PRN Reason: Anxiety Bisacodyl (Dulcolax) 10 mg PA QDAY PRN PRN Reason: Constipation unrelieved by MOM Diphenhydramine HCl (Benadryl) 25 mg IV Q6H PRN PRN Reason: Itching Folic Acid (Folvite) 1 mg PO QDAY JUSTUS Folic Acid (Folvite) 1 mg PO QDAY [facility] Hydromorphone HCl (Dilaudid) 1 mg IV Q3H PRN PRN Reason: Pain, Moderate (4-6) Hydroxyurea (Hydrea) 500 mg PO BID [facility] Dextrose/Sodium Chloride (D5ns 0.2%) 1,000 mls @ 250 mls/hr IV DIRECT [facility] Dextrose/Sodium Chloride (D5/0.45ns) 1,000 mls @ 150 mls/hr IV DIRECT [facility] Stop: 09/08/18 15:39 Ketorolac Tromethamine (Toradol) 30 mg IV Q6HR [facility] Stop: 09/13/18 11:59 Magnesium Hydroxide (Milk Of Magnesia) 30 ml PO Q4H PRN PRN Reason: Constipation Multivitamins (Theragran Tab) 1 each PO QDAY [facility] Naloxone HCl (Narcan 0.4 Mg/1 Ml) 0.1 mg IV Q2MIN PRN PRN Reason: Res Rate </= 8 or 02 SAT < 92% Nicotine (Habitrol) 21 mg TD DAILY [facility] Ondansetron HCl (Zofran) 4 mg IV Q8H PRN PRN Reason: Nausea And Vomiting Ondansetron HCl (Zofran) 4 mg IV Q8H PRN PRN Reason: Nausea And Vomiting Oxycodone/Acetaminophen (Percocet 5/325) 1 tab PO Q6H PRN PRN Reason: Pain, Moderate (4-6) Pregabalin (Lyrica) 75 mg PO QDAY [facility] Promethazine HCl (Phenergan) 25 mg PO Q6HR PRN PRN Reason: Nausea Senna (Senokot) 17.2 mg PO QHS [facility] Sodium Chloride (Sodium Chloride Flush Syringe 10 Ml) 10 ml IV BID JUSTUS Sodium Chloride (Sodium Chloride Flush Syringe 10 Ml) 10 ml IV PRN PRN PRN Reason: LINE FLUSH Review of Systems All systems: negative Constitutional: fatigue, weakness, malaise, no weight loss, no weight gain, no fever, no chills, no sweats, no night sweats Cardiovascular: chest pain Respiratory: shortness of breath Gastrointestinal: abdominal pain Musculoskeletal: muscle weakness, muscle cramps Integumentary: no rash, no pruritis, no redness, no sores, no wounds Psychiatric: anxiety Endocrine: no cold intolerance, no heat intolerance, no polyphagia, no excessive thirst Hematologic/Lymphatic: no easy bruising, no easy bleeding Allergic/Immunologic: no urticaria, no allergic rhinitis, no wheezing Exam - Physical Exam Narrative exam: VITAL SIGNS: Reviewed. GENERAL: The patient appeared well nourished and normally developed. Vital signs as documented. HEAD: No signs of head trauma. EYES: Pupils are equal. Extraocular motions intact. EARS: Hearing grossly intact. MOUTH: Oropharynx is normal. NECK: No adenopathy, no JVD. CHEST: Chest with clear breath sounds bilaterally. No wheezes, rales, or rhonchi. CARDIAC: Regular rate and rhythm. S1 and S2, without murmurs, gallops, or rubs. VASCULAR: No Edema. Peripheral pulses normal and equal in all extremities. ABDOMEN: Soft, without detectable tenderness. No sign of distention. No rebound or guarding, and no masses palpated. Bowel Sounds normal. MUSCULOSKELETAL: Chest wall port. Good range of motion of all major joints. Extremities without clubbing, cyanosis or edema. NEUROLOGIC EXAM: Alert and oriented x 3. No focal sensory or strength deficits. Speech normal. Follows commands. PSYCHIATRIC: Mood normal. SKIN: No rash or lesions. - Constitutional Vitals: Temp Pulse Resp BP Pulse Ox 99.5 F 82 15 99/53 96 09/08/18 04:48 09/08/18 07:39 09/08/18 07:39 09/08/18 07:39 09/08/18 07:39 Results - Labs CBC & Chem 7: 09/08/18 05:15 09/08/18 06:00 Labs: Laboratory Last Values WBC 12.5 K/mm3 (4.5-11.0) H 09/08/18 05:15 RBC 4.68 M/mm3 (3.65-5.03) 09/08/18 05:15 Hgb 8.8 gm/dl (10.1-14.3) L 09/08/18 05:15 Hct 27.3 % (30.3-42.9) L 09/08/18 05:15 MCV 58 fl (79-97) L 09/08/18 05:15 MCH 19 pg (28-32) L 09/08/18 05:15 MCHC 32 % (30-34) 09/08/18 05:15 RDW 25.3 % (13.2-15.2) H 09/08/18 05:15 Plt Count 262 K/mm3 (140-440) 09/08/18 05:15 Lymph # Type Rolling Machine Operator 09/08/18 05:15 Add Manual Diff Complete 09/08/18 05:15 Total Counted 100 09/08/18 05:15 Seg Neuts % (Manual) 75.0 % (40.0-70.0) H 09/08/18 05:15 Band Neutrophils % 1.0 % 09/08/18 05:15 Lymphocytes % (Manual) 23.0 % (13.4-35.0) 09/08/18 05:15 Reactive Lymphs % (Man) 0 % 09/08/18 05:15 Monocytes % (Manual) 0 % (0.0-7.3) 09/08/18 05:15 Eosinophils % (Manual) 1.0 % (0.0-4.3) 09/08/18 05:15 Basophils % (Manual) 0 % (0.0-1.8) 09/08/18 05:15 Metamyelocytes % 0 % 09/08/18 05:15 Myelocytes % 0 % 09/08/18 05:15 Promyelocytes % 0 % 09/08/18 05:15 Blast Cells % 0 % 09/08/18 05:15 Nucleated RBC % Not Reportable 09/08/18 05:15 Seg Neutrophils # Man 9.4 K/mm3 (1.8-7.7) H 09/08/18 05:15 Band Neutrophils # 0.1 K/mm3 09/08/18 05:15 Lymphocytes # (Manual) 2.9 K/mm3 (1.2-5.4) 09/08/18 05:15 Abs React Lymphs (Man) 0.0 K/mm3 09/08/18 05:15 Monocytes # (Manual) 0.0 K/mm3 (0.0-0.8) 09/08/18 05:15 Eosinophils # (Manual) 0.1 K/mm3 (0.0-0.4) 09/08/18 05:15 Basophils # (Manual) 0.0 K/mm3 (0.0-0.1) 09/08/18 05:15 Metamyelocytes # 0.0 K/mm3 09/08/18 05:15 Myelocytes # 0.0 K/mm3 09/08/18 05:15 Promyelocytes # 0.0 K/mm3 09/08/18 05:15 Blast Cells # 0.0 K/mm3 09/08/18 05:15 WBC Morphology Not Reportable 09/08/18 05:15 Hypersegmented Neuts Not Reportable 09/08/18 05:15 Hyposegmented Neuts Not Reportable 09/08/18 05:15 Hypogranular Neuts Not Reportable 09/08/18 05:15 Smudge Cells Not Reportable 09/08/18 05:15 Toxic Granulation Not Reportable 09/08/18 05:15 Toxic Vacuolation Not Reportable 09/08/18 05:15 Dohle Bodies Not Reportable 09/08/18 05:15 Pelger-Huet Anomaly Not Reportable 09/08/18 05:15 Delmi Rods Not Reportable 09/08/18 05:15 Platelet Estimate Appears normal 09/08/18 05:15 Clumped Platelets Not Reportable 09/08/18 05:15 Plt Clumps, EDTA Not Reportable 09/08/18 05:15 Large Platelets Few 09/08/18 05:15 Giant Platelets Not Reportable 09/08/18 05:15 Platelet Satelliting Not Reportable 09/08/18 05:15 Plt Morphology Comment Not Reportable 09/08/18 05:15 RBC Morphology Not Reportable 09/08/18 05:15 Dimorphic RBCs Not Reportable 09/08/18 05:15 Polychromasia Not Reportable 09/08/18 05:15 Hypochromasia 2+ 09/08/18 05:15 Poikilocytosis Not Reportable 09/08/18 05:15 Anisocytosis 2+ 09/08/18 05:15 Microcytosis 2+ 09/08/18 05:15 Macrocytosis Not Reportable 09/08/18 05:15 Spherocytes Not Reportable 09/08/18 05:15 Pappenheimer Bodies Not Reportable 09/08/18 05:15 Sickle Cells Not Reportable 09/08/18 05:15 Target Cells 1+ 09/08/18 05:15 Tear Drop Cells Not Reportable 09/08/18 05:15 Ovalocytes Few 09/08/18 05:15 Helmet Cells Not Reportable 09/08/18 05:15 Bernard-[place] Bodies Not Reportable 09/08/18 05:15 [place] Rings Not Reportable 09/08/18 05:15 [place] Cells Not Reportable 09/08/18 05:15 Bite Cells Not Reportable 09/08/18 05:15 Crenated Cell Not Reportable 09/08/18 05:15 Elliptocytes Not Reportable 09/08/18 05:15 Acanthocytes (Spur) Not Reportable 09/08/18 05:15 Rouleaux Not Reportable 09/08/18 05:15 Hemoglobin C Crystals Not Reportable 09/08/18 05:15 Schistocytes Not Reportable 09/08/18 05:15 Malaria parasites Not Reportable 09/08/18 05:15 Percent Retic 1.65 % (0.78-2.58) 09/08/18 05:15 Jaziel Bodies Not Reportable 09/08/18 05:15 Hem Pathologist Commnt No 09/08/18 05:15 Sodium 139 mmol/L (137-145) 09/08/18 06:00 Potassium 3.8 mmol/L (3.6-5.0) 09/08/18 06:00 Chloride 102.9 mmol/L (98-107) 09/08/18 06:00 Carbon Dioxide 25 mmol/L (22-30) 09/08/18 06:00 Anion Gap 15 mmol/L 09/08/18 06:00 BUN 9 mg/dL (7-17) 09/08/18 06:00 Creatinine 0.4 mg/dL (0.7-1.2) L 09/08/18 06:00 Estimated GFR > 60 ml/min 09/08/18 06:00 BUN/Creatinine Ratio 23 % 09/08/18 06:00 Glucose 81 mg/dL (65-100) 09/08/18 06:00 Calcium 8.4 mg/dL (8.4-10.2) 09/08/18 06:00 Troponin T < 0.010 ng/mL (0.00-0.029) 09/08/18 06:00 HCG, Qual Negative (Negative) 09/08/18 05:15 - Imaging and Cardiology Chest x-ray: image reviewed (NO ACUTE PATHOLOGY) Assessment and Plan Assessment and plan: Patient is a 33 YO Female with SCD, Obesity, FM, Opioid Dependence, Seizure Disorder, Fibromyalgia, Asthma, Nicotine Dependence presents to ED for evaluation for generalized pain. Patient was recently in the hosptial for the same. She reports that since her discharge she has had conversation with her grounds maintenance manager about pain management. Today she reports that she was referred to cardiology due to chest tightness and swelling in the bilateral lower ext but w as unable to go due to worsening generalized body pain. she unfortunately continues to smoke, she denies any use of illicit drug use. she denies any fever, nausea, vomiting or diarrhea. (1) Sickle cell crisis Current Visit: Yes Status: Acute Plan to address problem: IVF resuscitation, pain control, hydroxyurea, folic acid daily, CBC, supportive care. Stress echo Eval for drug abuse. (2) Systemic inflammatory response syndrome Current Visit: No Status: Acute Plan to address problem: Empiric antibiotic therapy, CBC, Urinalysis,CMP (3) Fibromyalgia Current Visit: No Status: Chronic Plan to address problem: Pain control, supportive care. (4) DVT prophylaxis Current Visit: Yes Status: Acute Plan to address problem: SCD to BLE while in bed. Advance Directives: Yes Plan of care discussed with patient/family: Yes
[2018-09-08] MEDS ORDERED: D5/0.45NS 1,000 ML IV SCH (09:00)
[2018-09-08] MEDS ORDERED: FOLVITE PO SCH (10:00)
[2018-09-08] MEDS: LYRICA PO SCH (10:30)
[2018-09-08] MEDS: FOLVITE PO SCH (10:30)
[2018-09-08] MEDS: DILAUDID IV PRN ×4 (11:08→20:34)
[2018-09-08] MEDS: HABITROL TD SCH (11:11)
[2018-09-08] MEDS: THERAGRAN Tab PO SCH (11:11)
[2018-09-08] MEDS: PERCOCET 5/325 PO PRN ×2 (12:49→22:17)
[2018-09-08] MEDS: ZOFRAN IV PRN (12:49)
[2018-09-08] MEDS: HYDREA PO SCH ×2 (12:50→22:09)
[2018-09-08] MEDS: TORADOL IV SCH ×2 (13:47→18:39)
[2018-09-08 14:14] LABS: Creatine Kinase MB < 1.0 ng/mL (0.0-4.0)
[2018-09-08] MEDS: BENADRYL IV PRN ×2 (14:39→20:35)
[2018-09-08] MEDS: SODIUM CHLORIDE FLUSH SYRINGE 10 ML IV SCH ×2 (14:47→22:11)
[2018-09-08 20:18] LABS: Creatine Kinase MB < 1.0 ng/mL (0.0-4.0)
[2018-09-08] MEDS: D5NS 0.2% 1,000 ML IV SCH (21:47)
[2018-09-08] MEDS: SENOKOT PO SCH (22:08)
[2018-09-09] MEDS: TORADOL IV SCH ×5 (01:11→23:21)
[2018-09-09] MEDS: BENADRYL IV PRN ×3 (02:32→21:26)
[2018-09-09] MEDS: DILAUDID IV PRN ×6 (02:32→21:26)
[2018-09-09] MEDS: D5NS 0.2% 1,000 ML IV SCH ×3 (02:39→17:59)
[2018-09-09 06:41] LABS: Hemoglobin 8.1 gm/dl (10.1-14.3); Mean Corpuscular HGB Conc 32 % (30-34); Platelet Count 237 K/mm3 (140-440); Red Blood Count 4.27 M/mm3 (3.65-5.03)
[2018-09-09 06:54] LABS: Mean Corpuscular Volume 58 fl (79-97); Red Cell Distribution Width 25.6 % (13.2-15.2)
[2018-09-09 07:02] LABS: BUN/Creatinine Ratio 13; Blood Urea Nitrogen 5 mg/dL (7-17); Calcium 8.1 mg/dL (8.4-10.2); Hemolysis Index 1
[2018-09-09] MEDS: SODIUM CHLORIDE FLUSH SYRINGE 10 ML IV SCH ×2 (09:11→21:26)
[2018-09-09] MEDS: LYRICA PO SCH (09:12)
[2018-09-09] MEDS: HABITROL TD SCH (09:12)
[2018-09-09] MEDS: FOLVITE PO SCH (09:12)
[2018-09-09] MEDS: THERAGRAN Tab PO SCH (09:27)
[2018-09-09] MEDS: ZOFRAN IV PRN (09:27)
[2018-09-09] MEDS: HYDREA PO SCH ×2 (09:27→21:37)
[2018-09-09 09:39] LABS: Eosinophils % (Manual) 0 % (0.0-4.3); Hypochromasia Few; Target Cells 2+; Total Cells Counted 100
[2018-09-09 09:40] LABS: Spherocytes Few
[2018-09-09 09:41] LABS: Platelet Estimate Consistent w Auto
--- NOTE | 2018-09-09 12:08 | Progress Note ---
Assessment and Plan Assessment and plan: Patient is a 33 YO Female with SCD, Obesity, FM, Opioid Dependence, Seizure Disorder, Fibromyalgia, Asthma, Nicotine Dependence presents to ED for evaluation for generalized pain. Patient was recently in the hosptial for the same. She reports that since her discharge she has had conversation with her hem atologist about pain management. Today she reports that she was referred to cardiology due to chest tightness and swelling in the bilateral lower ext but was unable to go due to worsening generalized body pain. she unfortunately continues to smoke, she denies any use of illicit drug use. she denies any fever, nausea, vomiting or diarrhea. Sickle cell crisis Current Visit: Yes Status: Acute Plan to address problem: IVF resuscitation, pain control, hydroxyurea, folic acid daily, CBC, supportive care. Eval for drug abuse. Abnormal Echo Echo concerning for possible RV thrombus, Consult Cardiology for possible PATRICK. Systemic inflammatory response syndrome Current Visit: No Status: Acute Plan to address problem: Empiric antibiotic therapy, CBC, Urinalysis,CMP Fibromyalgia Current Visit: No Status: Chronic Plan to address problem: Pain control, supportive care. Oral Pain ?Thrush. No recent abx. Give Magic mouth wash DVT prophylaxis Current Visit: Yes Status: Acute Plan to address problem: SCD to BLE while in bed. History Interval history: Patient seen and examined today, reports some tongue pain but no swelling and no thrush noted. Per nursing staff still requiring pain medication round the clock. Patient ambulating Hospitalist Physical - Physical exam Narrative exam: VITAL SIGNS: Reviewed. GENERAL: The patient appeared well nourished and normally developed. Vital signs as documented. HEAD: No signs of head trauma. EYES: Pupils are equal. Extraocular motions intact. EARS: Hearing grossly intact. MOUTH: Oropharynx is normal. NECK: No adenopathy, no JVD. CHEST: Chest with clear breath sounds bilaterally. No wheezes, rales, or rhonchi. CARDIAC: Regular rate and rhythm. S1 and S2, without murmurs, gallops, or rubs. VASCULAR: No Edema. Peripheral pulses normal and equal in all extremities. ABDOMEN: Soft, without detectable tenderness. No sign of distention. No re bound or guarding, and no masses palpated. Bowel Sounds normal. MUSCULOSKELETAL: Chest wall port. Good range of motion of all major joints. Extremities without clubbing, cyanosis or edema. NEUROLOGIC EXAM: Alert and oriented x 3. No focal sensory or strength deficits . Speech normal. Follows commands. PSYCHIATRIC: Mood normal. SKIN: No rash or lesions. - Constitutional Vitals: Temp Pulse Resp BP Pulse Ox 98.6 F 91 H 16 116/72 100 09/09/18 04:51 09/09/18 04:51 09/09/18 04:51 09/09/18 04:51 09/09/18 04:51 Results - Labs CBC & Chem 7: 09/09/18 06:00 09/09/18 06:00 Labs: Laboratory Last Values WBC 11.8 K/mm3 (4.5-11.0) H 09/09/18 06:00 RBC 4.27 M/mm3 (3.65-5.03) 09/09/18 06:00 Hgb 8.1 gm/dl (10.1-14.3) L 09/09/18 06:00 Hct 25.0 % (30.3-42.9) L 09/09/18 06:00 MCV 58 fl (79-97) L 09/09/18 06:00 MCH 19 pg (28-32) L 09/09/18 06:00 MCHC 32 % (30-34) 09/09/18 06:00 RDW 25.6 % (13.2-15.2) H 09/09/18 06:00 Plt Count 237 K/mm3 (140-440) 09/09/18 06:00 Lymph # Water Safety Teacher 09/09/18 06:00 Add Manual Diff Complete 09/09/18 06:00 Total Counted 100 09/09/18 06:00 Seg Neuts % (Manual) 71.0 % (40.0-70.0) H 09/09/18 06:00 Band Neutrophils % 0 % 09/09/18 06:00 Lymphocytes % (Manual) 22.0 % (13.4-35.0) 09/09/18 06:00 Reactive Lymphs % (Man) 1.0 % 09/09/18 06:00 Monocytes % (Manual) 5.0 % (0.0-7.3) 09/09/18 06:00 Eosinophils % (Manual) 0 % (0.0-4.3) 09/09/18 06:00 Basophils % (Manual) 1.0 % (0.0-1.8) 09/09/18 06:00 Metamyelocytes % 0 % 09/09/18 06:00 Myelocytes % 0 % 09/09/18 06:00 Promyelocytes % 0 % 09/09/18 06:00 Blast Cells % 0 % 09/09/18 06:00 Nucleated RBC % Not Reportable 09/09/18 06:00 Seg Neutrophils # Man 8.4 K/mm3 (1.8-7.7) H 09/09/18 06:00 Band Neutrophils # 0.0 K/mm3 09/09/18 06:00 Lymphocytes # (Manual) 2.6 K/mm3 (1.2-5.4) 09/09/18 06:00 Abs React Lymphs (Man) 0.1 K/mm3 09/09/18 06:00 Monocytes # (Manual) 0.6 K/mm3 (0.0-0.8) 09/09/18 06:00 Eosinophils # (Manual) 0.0 K/mm3 (0.0-0.4) 09/09/18 06:00 Basophils # (Manual) 0.1 K/mm3 (0.0-0.1) 09/09/18 06:00 Metamyelocytes # 0.0 K/mm3 09/09/18 06:00 Myelocytes # 0.0 K/mm3 09/09/18 06:00 Promyelocytes # 0.0 K/mm3 09/09/18 06:00 Blast Cells # 0.0 K/mm3 09/09/18 06:00 WBC Morphology Not Reportable 09/09/18 06:00 Hypersegmented Neuts Not Reportable 09/09/18 06:00 Hyposegmented Neuts Not Reportable 09/09/18 06:00 Hypogranular Neuts Not Reportable 09/09/18 06:00 Smudge Cells Not Reportable 09/09/18 06:00 Toxic Granulation Not Reportable 09/09/18 06:00 Toxic Vacuolation Not Reportable 09/09/18 06:00 Dohle Bodies Not Reportable 09/09/18 06:00 Pelger-Huet Anomaly Not Reportable 09/09/18 06:00 Delmi Rods Not Reportable 09/09/18 06:00 Platelet Estimate Consistent w auto 09/09/18 06:00 Clumped Platelets Not Reportable 09/09/18 06:00 Plt Clumps, EDTA Not Reportable 09/09/18 06:00 Large Platelets Not Reportable 09/09/18 06:00 Giant Platelets Not Reportable 09/09/18 06:00 Platelet Satelliting Not Reportable 09/09/18 06:00 Plt Morphology Comment Not Reportable 09/09/18 06:00 RBC Morphology Not Reportable 09/09/18 06:00 Dimorphic RBCs Not Reportable 09/09/18 06:00 Polychromasia Few 09/09/18 06:00 Hypochromasia Few 09/09/18 06:00 Poikilocytosis Not Reportable 09/09/18 06:00 Anisocytosis Not Reportable 09/09/18 06:00 Microcytosis Not Reportable 09/09/18 06:00 Macrocytosis Not Reportable 09/09/18 06:00 Spherocytes Few 09/09/18 06:00 Pappenheimer Bodies Not Reportable 09/09/18 06:00 Sickle Cells Not Reportable 09/09/18 06:00 Target Cells 2+ 09/09/18 06:00 Tear Drop Cells Not Reportable 09/09/18 06:00 Ovalocytes Not Reportable 09/09/18 06:00 Helmet Cells Not Reportable 09/09/18 06:00 Bernard[place] Bodies Not Reportable 09/09/18 06:00 [place] Rings Not Reportable 09/09/18 06:00 Tiffanie Cells Not Reportable 09/09/18 06:00 Bite Cells Not Reportable 09/09/18 06:00 Crenated Cell Not Reportable 09/09/18 06:00 Elliptocytes Not Reportable 09/09/18 06:00 Acanthocytes (Spur) Not Reportable 09/09/18 06:00 Rouleaux Not Reportable 09/09/18 06:00 Hemoglobin C Crystals Not Reportable 09/09/18 06:00 Schistocytes Not Reportable 09/09/18 06:00 Malaria parasites Not Reportable 09/09/18 06:00 Percent Retic 1.76 % (0.78-2.58) 09/09/18 06:00 Jaziel Bodies Not Reportable 09/09/18 06:00 Hem Pathologist Commnt No 09/09/18 06:00 Sodium 143 mmol/L (137-145) 09/09/18 06:00 Potassium 3.8 mmol/L (3.6-5.0) 09/09/18 06:00 Chloride 111.1 mmol/L (98-107) H 09/09/18 06:00 Carbon Dioxide 26 mmol/L (22-30) 09/09/18 06:00 Anion Gap 10 mmol/L 09/09/18 06:00 BUN 5 mg/dL (7-17) L 09/09/18 06:00 Creatinine 0.4 mg/dL (0.7-1.2) L 09/09/18 06:00 Estimated GFR > 60 ml/min 09/09/18 06:00 BUN/Creatinine Ratio 13 % 09/09/18 06:00 Glucose 100 mg/dL (65-100) 09/09/18 06:00 Calcium 8.1 mg/dL (8.4-10.2) L 09/09/18 06:00 Total Creatine Kinase 33 units/L (30-135) 09/08/18 18:45 CK-MB (CK-2) < 1.0 ng/mL (0.0-4.0) 09/08/18 18:45 CK-MB (CK-2) Rel Index 3.0 (0-4) 09/08/18 18:45 Troponin T < 0.010 ng/mL (0.00-0.029) 09/08/18 18:45 HCG, Qual Negative (Negative) 09/08/18 05:15
[2018-09-09] MEDS ORDERED: DILAUDID IV PRN (13:01)
[2018-09-09 13:10] LABS: Amphetamine Screen,Urine PRESUMPTIVE NEGATIVE; Benzodiazepines Screen,Urine PRESUMPTIVE NEGATIVE; Cannabinoid Screen,Urine PRESUMPTIVE NEGATIVE; Cocaine Screen,Urine PRESUMPTIVE NEGATIVE; Methadone Screen,Urine PRESUMPTIVE NEGATIVE; Opiate Screen,Urine PRESUMPTIVE NEGATIVE
[2018-09-09] MEDS: MAGIC MOUTHWASH PO SCH ×2 (16:24→21:25)
[2018-09-09] MEDS: PERCOCET 5/325 PO PRN (19:05)
[2018-09-09] MEDS: SENOKOT PO SCH (21:26)
[2018-09-10] MEDS: DILAUDID IV PRN ×5 (01:41→22:38)
[2018-09-10] MEDS: PHENERGAN PO PRN ×3 (03:08→17:54)
[2018-09-10] MEDS: NACL 38.5 MEQ in D5W 1,000 ML IV SCH ×3 (03:09→17:40)
[2018-09-10] MEDS: PERCOCET 5/325 PO PRN ×2 (03:25→17:54)
[2018-09-10] MEDS: BENADRYL IV PRN ×3 (06:27→22:25)
[2018-09-10 06:47] LABS: Hematocrit 23.8 % (30.3-42.9); Hemoglobin 7.8 gm/dl (10.1-14.3); Mean Corpuscular HGB Conc 33 % (30-34); Platelet Count 233 K/mm3 (140-440); Red Blood Count 4.07 M/mm3 (3.65-5.03)
[2018-09-10 06:48] LABS: Mean Corpuscular Volume 59 fl (79-97)
[2018-09-10 06:49] LABS: Red Cell Distribution Width 25.1 % (13.2-15.2)
[2018-09-10 07:01] LABS: BUN/Creatinine Ratio 5; Blood Urea Nitrogen 2 mg/dL (7-17); Calcium 8.2 mg/dL (8.4-10.2); Hemolysis Index 1
[2018-09-10] MEDS ORDERED: K-DUR PO NR (09:09)
[2018-09-10] MEDS: HABITROL TD SCH (10:24)
[2018-09-10] MEDS: MAGIC MOUTHWASH PO SCH ×3 (10:24→22:26)
[2018-09-10] MEDS: SODIUM CHLORIDE FLUSH SYRINGE 10 ML IV SCH ×2 (10:25→22:41)
[2018-09-10] MEDS: THERAGRAN Tab PO SCH (10:25)
[2018-09-10] MEDS: FOLVITE PO SCH (10:25)
[2018-09-10] MEDS: LYRICA PO SCH (10:25)
[2018-09-10] MEDS: HYDREA PO SCH ×2 (10:26→22:24)
--- NOTE | 2018-09-10 11:42 | Event Note ---
Date: 09/10/18 full consult dictated d/w Dr. Jacob thanks
[2018-09-10] MEDS: TORADOL IV SCH ×2 (12:29→18:00)
--- NOTE | 2018-09-10 12:42 | Progress Note ---
Assessment and Plan Assessment and plan: Patient is a 33 YO Female with SCD, Obesity, FM, Opioid Dependence, Seizure Disorder, Fibromyalgia, Asthma, Nicotine Dependence presents to ED for evaluation for generalized pain. Patient was recently in the hosptial for the same. She reports that since her discharge she has had conversation with her hem atologist about pain management. Today she reports that she was referred to cardiology due to chest tightness and swelling in the bilateral lower ext but was unable to go due to worsening generalized body pain. she unfortunately continues to smoke, she denies any use of illicit drug use. she denies any fever, nausea, vomiting or diarrhea. Sickle cell crisis Current Visit: Yes Status: Acute Plan to address problem: IVF resuscitation, pain control, hydroxyurea, folic acid daily, CBC, supportive care. Eval for drug abuse.- negative on UDS START TAPERING OPIODS Abnormal Echo Echo concerning for possible RV thrombus, Consult Cardiology for possible PATRICK. Systemic inflammatory response syndrome Current Visit: No Status: Acute Plan to address problem: Empiric antibiotic therapy, CBC, Urinalysis,CMP Fibromyalgia Current Visit: No Status: Chronic Plan to address problem: Pain control, supportive care. Oral Pain ?Thrush. No recent abx. Give Magic mouth wash DVT prophylaxis Current Visit: Yes Status: Acute Plan to address problem: SCD to BLE while in bed. History Interval history: Patient seen and examined today, feels nauseous. Per nursing staff still requiring pain medication round the clock. Hospitalist Physical - Physical exam Narrative exam: VITAL SIGNS: Reviewed. GENERAL: The patient appeared well nourished and normally developed. Vital signs as documented. HEAD: No signs of head trauma. EYES: Pupils are equal. Extraocular motions intact. EARS: Hearing grossly intact. MOUTH: Oropharynx is normal. NECK: No adenopathy, no JVD. CHEST: Chest with clear breath sounds bilaterally. No wheezes, rales, or rhonchi. CARDIAC: Regular rate and rhythm. S1 and S2, without murmurs, gallops, or rubs. VASCULAR: No Edema. Peripheral pulses normal and equal in all extremities. ABDOMEN: Soft, without detectable tenderness. No sign of distention. No rebound or guarding, and no masses palpated. Bowel Sounds normal. MUSCULOSKELETAL: Chest wall port. Good range of motion of all major joints. Extremities without clubbing, cyanosis or edema. NEUROLOGIC EXAM: Alert and oriented x 3. No focal sensory or strength deficits. Speech normal. Follows commands. PSYCHIATRIC: Mood normal. SKIN: No rash or lesions. - Constitutional Vitals: Temp Pulse Resp BP Pulse Ox 97.8 F 74 18 120/77 100 09/10/18 05:44 09/10/18 05:44 09/10/18 05:44 09/10/18 05:44 09/10/18 05:44 Results - Labs CBC & Chem 7: 09/10/18 06:10 09/10/18 06:10 Labs: Laboratory Last Values WBC 9.6 K/mm3 (4.5-11.0) 09/10/18 06:10 RBC 4.07 M/mm3 (3.65-5.03) 09/10/18 06:10 Hgb 7.8 gm/dl (10.1-14.3) L 09/10/18 06:10 Hct 23.8 % (30.3-42.9) L 09/10/18 06:10 MCV 59 fl (79-97) L 09/10/18 06:10 MCH 19 pg (28-32) L 09/10/18 06:10 MCHC 33 % (30-34) 09/10/18 06:10 RDW 25.1 % (13.2-15.2) H 09/10/18 06:10 Plt Count 233 K/mm3 (140-440) 09/10/18 06:10 Lymph # Range Mechanic 09/09/18 06:00 Add Manual Diff Complete 09/09/18 06:00 Total Counted 100 09/09/18 06:00 Seg Neuts % (Manual) 71.0 % (40.0-70.0) H 09/09/18 06:00 Band Neutrophils % 0 % 09/09/18 06:00 Lymphocytes % (Manual) 22.0 % (13.4-35.0) 09/09/18 06:00 Reactive Lymphs % (Man) 1.0 % 09/09/18 06:00 Monocytes % (Manual) 5.0 % (0.0-7.3) 09/09/18 06:00 Eosinophils % (Manual) 0 % (0.0-4.3) 09/09/18 06:00 Basophils % (Manual) 1.0 % (0.0-1.8) 09/09/18 06:00 Metamyelocytes % 0 % 09/09/18 06:00 Myelocytes % 0 % 09/09/18 06:00 Promyelocytes % 0 % 09/09/18 06:00 Blast Cells % 0 % 09/09/18 06:00 Nucleated RBC % Not Reportable 09/09/18 06:00 Seg Neutrophils # Man 8.4 K/mm3 (1.8-7.7) H 09/09/18 06:00 Band Neutrophils # 0.0 K/mm3 09/09/18 06:00 Lymphocytes # (Manual) 2.6 K/mm3 (1.2-5.4) 09/09/18 06:00 Abs React Lymphs (Man) 0.1 K/mm3 09/09/18 06:00 Monocytes # (Manual) 0.6 K/mm3 (0.0-0.8) 09/09/18 06:00 Eosinophils # (Manual) 0.0 K/mm3 (0.0-0.4) 09/09/18 06:00 Basophils # (Manual) 0.1 K/mm3 (0.0-0.1) 09/09/18 06:00 Metamyelocytes # 0.0 K/mm3 09/09/18 06:00 Myelocytes # 0.0 K/mm3 09/09/18 06:00 Promyelocytes # 0.0 K/mm3 09/09/18 06:00 Blast Cells # 0.0 K/mm3 09/09/18 06:00 WBC Morphology Not Reportable 09/09/18 06:00 Hypersegmented Neuts Not Reportable 09/09/18 06:00 Hyposegmented Neuts Not Reportable 09/09/18 06:00 Hypogranular Neuts Not Reportable 09/09/18 06:00 Smudge Cells Not Reportable 09/09/18 06:00 Toxic Granulation Not Reportable 09/09/18 06:00 Toxic Vacuolation Not Reportable 09/09/18 06:00 Dohle Bodies Not Reportable 09/09/18 06:00 Pelger-Huet Anomaly Not Reportable 09/09/18 06:00 Delmi Rods Not Reportable 09/09/18 06:00 Platelet Estimate Consistent w auto 09/09/18 06:00 Clumped Platelets Not Reportable 09/09/18 06:00 Plt Clumps, EDTA Not Reportable 09/09/18 06:00 Large Platelets Not Reportable 09/09/18 06:00 Giant Platelets Not Reportable 09/09/18 06:00 Platelet Satelliting Not Reportable 09/09/18 06:00 Plt Morphology Comment Not Reportable 09/09/18 06:00 RBC Morphology Not Reportable 09/09/18 06:00 Dimorphic RBCs Not Reportable 09/09/18 06:00 Polychromasia Few 09/09/18 06:00 Hypochromasia Few 09/09/18 06:00 Poikilocytosis Not Reportable 09/09/18 06:00 Anisocytosis Not Reportable 09/09/18 06:00 Microcytosis Not Reportable 09/09/18 06:00 Macrocytosis Not Reportable 09/09/18 06:00 Spherocytes Few 09/09/18 06:00 Pappenheimer Bodies Not Reportable 09/09/18 06:00 Sickle Cells Not Reportable 09/09/18 06:00 Target Cells 2+ 09/09/18 06:00 Tear Drop Cells Not Reportable 09/09/18 06:00 Ovalocytes Not Reportable 09/09/18 06:00 Helmet Cells Not Reportable 09/09/18 06:00 [place] Bodies Not Reportable 09/09/18 06:00 [place] Rings Not Reportable 09/09/18 06:00 Tiffanie Cells Not Reportable 09/09/18 06:00 Bite Cells Not Reportable 09/09/18 06:00 Crenated Cell Not Reportable 09/09/18 06:00 Elliptocytes Not Reportable 09/09/18 06:00 Acanthocytes (Spur) Not Reportable 09/09/18 06:00 Rouleaux Not Reportable 09/09/18 06:00 Hemoglobin C Crystals Not Reportable 09/09/18 06:00 Schistocytes Not Reportable 09/09/18 06:00 Malaria parasites Not Reportable 09/09/18 06:00 Percent Retic 2.01 % (0.78-2.58) 09/10/18 06:10 Jaziel Bodies Not Reportable 09/09/18 06:00 Hem Pathologist Commnt No 09/09/18 06:00 Sodium 138 mmol/L (137-145) 09/10/18 06:10 Potassium 3.3 mmol/L (3.6-5.0) L 09/10/18 06:10 Chloride 103.6 mmol/L (98-107) 09/10/18 06:10 Carbon Dioxide 26 mmol/L (22-30) 09/10/18 06:10 Anion Gap 12 mmol/L 09/10/18 06:10 BUN 2 mg/dL (7-17) L 09/10/18 06:10 Creatinine 0.4 mg/dL (0.7-1.2) L 09/10/18 06:10 Estimated GFR > 60 ml/min 09/10/18 06:10 BUN/Creatinine Ratio 5 % 09/10/18 06:10 Glucose 113 mg/dL (65-100) H 09/10/18 06:10 Calcium 8.2 mg/dL (8.4-10.2) L 09/10/18 06:10 Total Creatine Kinase 33 units/L (30-135) 09/08/18 18:45 CK-MB (CK-2) < 1.0 ng/mL (0.0-4.0) 09/08/18 18:45 CK-MB (CK-2) Rel Index 3.0 (0-4) 09/08/18 18:45 Troponin T < 0.010 ng/mL (0.00-0.029) 09/08/18 18:45 HCG, Qual Negative (Negative) 09/08/18 05:15 Urine Opiates Screen Presumptive negative 09/09/18 12:00 Urine Methadone Screen Presumptive negative 09/09/18 12:00 Ur Barbiturates Screen Presumptive negative 09/09/18 12:00 Ur Phencyclidine Scrn Presumptive negative 09/09/18 12:00 Ur Amphetamines Screen Presumptive negative 09/09/18 12:00 U Benzodiazepines Scrn Presumptive negative 09/09/18 12:00 Urine Cocaine Screen Presumptive negative 09/09/18 12:00 U Marijuana (THC) Screen Presumptive negative 09/09/18 12:00 Drugs of Abuse Note Disclamer 09/09/18 12:00
--- NOTE | 2018-09-10 22:12 | Consultation ---
CARDIOLOGY CONSULTATION REFERRING PHYSICIAN: Oli Jacob MD REASON FOR CONSULTATION: Opinion regarding abnormal echocardiogram. HISTORY OF PRESENT ILLNESS: The patient is a pleasant 33-year-old -[place] female with history of fibromyalgia, opioid dependence, seizure disorder, nicotine dependence, asthma, generalized pain, presents here with multiple episodes of pain. Denies any syncope or presyncope. No headache, nausea, or vomiting. She has no abdominal pain. Currently, seen on telemetry, feeling well. PAST MEDICAL HISTORY: Anemia, seizures, sickle cell trait. PAST SURGICAL HISTORY: Port, chest wall. SOCIAL HISTORY: Lives with family, smokes, nondrinker, nondrug user. ALLERGIES: CEFTIN AND MORPHINE. MEDICATIONS: Home medications and inpatient medications are reviewed. FAMILY HISTORY: No family history of premature heart disease or sudden cardiac . REVIEW OF SYSTEMS: As per HPI. No rashes or bleeding diathesis. PHYSICAL EXAMINATION: VITAL SIGNS: She is afebrile. Tele reveals sinus rhythm in the 70s-90s, blood pressure is 120/70, O2 sats are 100% on room air, respiratory rate 16. GENERAL: This is a young -[place] female in no apparent distress, oriented x 3. HEENT: Sclerae are anicteric. NECK: Supple. No mass or JVD. CHEST: Clear to auscultation bilaterally. Good air movement. CARDIOVASCULAR: Regular S1, S2. ABDOMEN: Soft, nontender, nondistended. Normoactive bowel sounds in 4 quadrants. No mass or bruits. EXTREMITIES: No cyanosis, clubbing, edema. Good peripheral pulses. SKIN: Intact. No rashes. LABORATORY DATA: Hemoglobin 7.8, hematocrit 23.8, platelet counts 253. WBC is 9.6, potassium 3.3, creatinine is normal. UDS is negative. Chest x-ray performed on 09/08/2017 reveals no acute pulmonary findings per Radiology. Echocardiogram performed on 09/08/2017 reveals normal LV function, echogenic nexus in the right ventricular apex may represent hypertrabeculation questionable of isolated RV noncompaction. No pericardial effusion. Technically difficult study. ASSESSMENT AND PLAN: In summary, the patient is a pleasant 33-year-old -[place] female. 1. Abnormal echocardiogram with questionable RV nexus which may be consistent with hypertrabeculation or isolated RV noncompaction. No overt evidence of thrombus. At this point, recommend PATRICK, likely will also need cardiac MRI with contrast study with PATRICK to assess for thrombus. I discussed this procedure along with risks and benefits, she would like to proceed. N.p.o. after midnight. May benefit from anesthesia as well. Other medical problems including sickle cell, generalized pain, fibromyalgia as per primary. Thank you for this consultation. I will be happy to follow along with you. JOB# [id number] VON/NTS
[2018-09-10] MEDS: SENOKOT PO SCH (22:24)
[2018-09-10] MEDS: AMBIEN PO PRN (22:25)
[2018-09-10] MEDS: XANAX PO PRN (22:25)
[2018-09-11] MEDS: TORADOL IV SCH ×4 (01:00→18:28)
[2018-09-11] MEDS: DILAUDID IV PRN ×4 (03:07→20:53)
[2018-09-11] MEDS: BENADRYL IV PRN ×4 (06:13→20:54)
[2018-09-11] MEDS: PERCOCET 5/325 PO PRN ×3 (06:13→22:55)
[2018-09-11] MEDS: PHENERGAN PO PRN ×2 (06:13→17:19)
[2018-09-11 07:20] LABS: Hematocrit 23.1 % (30.3-42.9); Hemoglobin 7.8 gm/dl (10.1-14.3); Mean Corpuscular HGB Conc 34 % (30-34); Platelet Count 245 K/mm3 (140-440); Red Blood Count 4.02 M/mm3 (3.65-5.03)
[2018-09-11 07:24] LABS: Mean Corpuscular Volume 58 fl (79-97); Red Cell Distribution Width 25.5 % (13.2-15.2)
[2018-09-11 07:30] LABS: BUN/Creatinine Ratio 12; Blood Urea Nitrogen 7 mg/dL (7-17); Calcium 8.1 mg/dL (8.4-10.2); Hemolysis Index 0
[2018-09-11] MEDS: MAGIC MOUTHWASH PO SCH ×3 (08:00→20:30)
[2018-09-11] MEDS: HYDREA PO SCH ×2 (10:00→22:41)
--- NOTE | 2018-09-11 10:32 | Progress Note ---
Addendum entered and electronically signed by SMITHA PLATA MD 09/11/18 12:27: PATRICK showed no RV mass or thrombus. Original Note: Assessment and Plan Proceed with PATRICK today for further visualization of ? RV mass. The patient has been seen in conjunction with Dr. Plata who agrees with the assessment and plan of care. - Patient Problems (1) Sickle cell crisis Current Visit: Yes Status: Acute (2) Fibromyalgia Current Visit: Yes Status: Chronic (3) Anemia Current Visit: Yes Status: Chronic Qualifiers: Anemia type: unspecified type Qualified Code(s): D64.9 - Anemia, unspecified (4) Abnormal echocardiogram Current Visit: Yes Status: Acute Subjective Date of service: 09/11/18 Principal diagnosis: sickle cell crisis; RV mass Interval history: pt resting in bed, c/o generalized pain, no current cardiac complaints. has been NPO since [place] for PATRICK today. Objective Last Vital Signs Temp 99.0 F 09/11/18 05:38 Pulse 93 H 09/11/18 05:38 Resp 20 09/11/18 05:38 BP 125/73 09/11/18 05:38 Pulse Ox 97 09/11/18 05:38 - Physical Examination General: No Apparent Distress HEENT: Positive: PERRL, Normocephaly, Mucus Membranes Moist Neck: Positive: neck supple, trachea midline Cardiac: Positive: Reg Rate and Rhythm, S1/S2 Lungs: Positive: clear to auscultation Neuro: Positive: Grossly Intact Abdomen: Positive: Soft. Negative: Tender Skin: Negative: Rash, Wound Musculoskeletal: No Pain Extremities: Absent: edema - Labs and Meds CBC 09/11/18 Range/Units 06:57 WBC 9.4 (4.5-11.0) K/mm3 RBC 4.02 (3.65-5.03) M/mm3 Hgb 7.8 L (10.1-14.3) gm/dl Hct 23.1 L (30.3-42.9) % Plt Count 245 (140-440) K/mm3 Comprehensive Metabolic Panel 09/11/18 Range/Units 06:57 Sodium 142 (137-145) mmol/L Potassium 3.8 (3.6-5.0) mmol/L Chloride 106.5 (98-107) mmol/L Carbon Dioxide 27 (22-30) mmol/L BUN 7 (7-17) mg/dL Creatinine 0.6 L (0.7-1.2) mg/dL Glucose 105 H (65-100) mg/dL Calcium 8.1 L (8.4-10.2) mg/dL - Imaging and Cardiology EKG: report reviewed, image reviewed Echo: report reviewed, image reviewed
[2018-09-11] MEDS: NACL 38.5 MEQ in D5W 1,000 ML IV SCH ×2 (10:39→22:40)
[2018-09-11] MEDS ORDERED: HURRICAINE ONE 20% TOPICAL SPRAY MM NR (11:00)
[2018-09-11] MEDS ORDERED: DIPRIVAN 10 MG/ML IV ONE ×2 (11:09)
[2018-09-11] MEDS ORDERED: NACL 0.9% 500 ML 500 ML ONE (11:21)
--- NOTE | 2018-09-11 12:09 | Anesthesia Consultation ---
Anesthesia Consult and Med Hx Date of service: 09/11/18 - Airway Anesthetic Teeth Evaluation: Good ROM Head & Neck: Adequate Mental/Hyoid Distance: Adequate Mallampati Class: Class II Intubation Access Assessment: Probably Good - Pre-Operative Health Status ASA Pre-Surgery Classification: ASA3 Proposed Anesthetic Plan: MAC - Pulmonary Hx Smoking: Yes Hx Asthma: Yes COPD: No Hx Pneumonia: No Hx Sleep Apnea: No - Cardiovascular System Hx Hypertension: No Hx Coronary Artery Disease: No Hx Heart Attack/AMI: No Hx Angina: No Hx Percutaneous Transluminal Coronary Angioplasty (PTCA): No Hx Pacemaker: No Hx Internal Defibrillator: No Hx Valvular Heart Disease: No Hx Heart Murmur: No Hx Peripheral Vascular Disease: No - Central Nervous System Hx Seizures: Yes (10 + years ago) CVA: No Hx Psychiatric Problems: No - Gastrointestinal Hx Ulcer: No - Endocrine Hx Renal Disease: No Hx End Stage Renal Disease: No Hx Cirrhosis: No Hx Liver Disease: No Hx Hypothyroidism: No Hx Hyperthyroidism: (yes, but never medicated for it) - Hematic Hx Anemia: Yes Hx Sickle Cell Disease: Yes - Other Systems Hx Alcohol Use: Yes Hx Substance Use: No Hx Cancer: No
--- NOTE | 2018-09-11 12:09 | Anesthesia Day of Surgery ---
Anesthesia Day of Surgery - Day of Surgery Patient Examined: Yes Patient H&P Reviewed: Yes Patient is NPO: Yes
--- NOTE | 2018-09-11 12:10 | Post Anesthesia Evaluation ---
- Post Anesthesia Evaluation Patient Participated: Yes (sleeping) Airway Patent: Yes Stable Respiratory Function: Yes Nausea/Vomiting: No Temp > 96.8F: Yes Pain Manageable: Yes Adequeate Hydration: Yes Anesthesia Complications: No Block Receding Appropriately: Not Applicable Patient on Ventilator: No
--- NOTE | 2018-09-11 14:24 | Progress Note ---
Assessment and Plan Assessment and plan: Patient is a 33 YO Female with SCD, Obesity, FM, Opioid Dependence, Seizure Disorder, Fibromyalgia, Asthma, Nicotine Dependence presents to ED for evaluation for generalized pain. Patient was recently in the hosptial for the same. She reports that since her discharge she has had conversation with her hem atologist about pain management. Today she reports that she was referred to cardiology due to chest tightness and swelling in the bilateral lower ext but was unable to go due to worsening generalized body pain. she unfortunately continues to smoke, she denies any use of illicit drug use. she denies any fever, nausea, vomiting or diarrhea. * Started on Pain protocol and IV fluid resuscitation * No clinical infectious pathology * PATRICK done due to concern for RV thrombus on TTE. No thrombus noted * Patient hid 2 propofol syringes on her body, informed me that she is depressed, but not mentally ill- she was just tired and the world felt like it was crashing in on her. Sickle cell crisis Current Visit: Yes Status: Acute Plan to address problem: IVF resuscitation, pain control, hydroxyurea, folic acid daily, CBC, supportive care. Eval for drug abuse.- negative on UDS START TAPERING OPIODS Systemic inflammatory response syndrome Without organ dysfunction Current Visit: No Status: Acute Plan to address problem: Empiric antibiotic therapy, CBC, Urinalysis,CMP Fibromyalgia Current Visit: No Status: Chronic Plan to address problem: Pain control, supportive care. Oral Pain ?Thrush. No recent abx. Give Magic mouth wash Depression Suicidal ideation- PLACED ON 1013 TILL MENTAL HEALTH EVALUATES HER. DVT prophylaxis Current Visit: Yes Status: Acute Plan to address problem: SCD to BLE while in bed. History Interval history: Patient seen and examined today, No nausea today, was concerned about reduction in pain meds, but following discussion, she is ok. She denies any worsening pain. She understands the discharge plan. She unfortunately took some propofol and hid in per person while in the echo lab Hospitalist Physical - Physical exam Narrative exam: VITAL SIGNS: Reviewed. GENERAL: The patient appeared well nourished and normally developed. Vital signs as documented. HEAD: No signs of head trauma. EYES: Pupils are equal. Extraocular motions intact. EARS: Hearing grossly intact. MOUTH: Oropharynx is normal. NECK: No adenopathy, no JVD. CHEST: Chest with clear breath sounds bilaterally. No wheezes, rales, or rhonchi. CARDIAC: Regular rate and rhythm. S1 and S2, without murmurs, gallops, or rubs. VASCULAR: No Edema. Peripheral pulses normal and equal in all extremities. ABDOMEN: Soft, without detectable tenderness. No sign of distention. No rebound or guarding, and no masses palpated. Bowel Sounds normal. MUSCULOSKELETAL: Chest wall port. Good range of motion of all major joints. Extremities without clubbing, cyanosis or edema. NEUROLOGIC EXAM: Alert and oriented x 3. No focal sensory or strength deficits. Speech normal. Follows commands. PSYCHIATRIC: Mood normal. SKIN: No rash or lesions. - Constitutional Vitals: Temp Pulse Resp BP Pulse Ox 98.4 F 94 H 18 123/83 98 09/11/18 13:31 09/11/18 13:31 09/11/18 13:31 09/11/18 13:31 09/11/18 13:31 Results - Labs CBC & Chem 7: 09/11/18 06:57 09/11/18 06:57 Labs: Laboratory Last Values WBC 9.4 K/mm3 (4.5-11.0) 09/11/18 06:57 RBC 4.02 M/mm3 (3.65-5.03) 09/11/18 06:57 Hgb 7.8 gm/dl (10.1-14.3) L 09/11/18 06:57 Hct 23.1 % (30.3-42.9) L 09/11/18 06:57 MCV 58 fl (79-97) L 09/11/18 06:57 MCH 19 pg (28-32) L 09/11/18 06:57 MCHC 34 % (30-34) 09/11/18 06:57 RDW 25.5 % (13.2-15.2) H 09/11/18 06:57 Plt Count 245 K/mm3 (140-440) 09/11/18 06:57 Lymph # Case Management Social Worker 09/09/18 06:00 Add Manual Diff Complete 09/09/18 06:00 Total Counted 100 09/09/18 06:00 Seg Neuts % (Manual) 71.0 % (40.0-70.0) H 09/09/18 06:00 Band Neutrophils % 0 % 09/09/18 06:00 Lymphocytes % (Manual) 22.0 % (13.4-35.0) 09/09/18 06:00 Reactive Lymphs % (Man) 1.0 % 09/09/18 06:00 Monocytes % (Manual) 5.0 % (0.0-7.3) 09/09/18 06:00 Eosinophils % (Manual) 0 % (0.0-4.3) 09/09/18 06:00 Basophils % (Manual) 1.0 % (0.0-1.8) 09/09/18 06:00 Metamyelocytes % 0 % 09/09/18 06:00 Myelocytes % 0 % 09/09/18 06:00 Promyelocytes % 0 % 09/09/18 06:00 Blast Cells % 0 % 09/09/18 06:00 Nucleated RBC % Not Reportable 09/09/18 06:00 Seg Neutrophils # Man 8.4 K/mm3 (1.8-7.7) H 09/09/18 06:00 Band Neutrophils # 0.0 K/mm3 09/09/18 06:00 Lymphocytes # (Manual) 2.6 K/mm3 (1.2-5.4) 09/09/18 06:00 Abs React Lymphs (Man) 0.1 K/mm3 09/09/18 06:00 Monocytes # (Manual) 0.6 K/mm3 (0.0-0.8) 09/09/18 06:00 Eosinophils # (Manual) 0.0 K/mm3 (0.0-0.4) 09/09/18 06:00 Basophils # (Manual) 0.1 K/mm3 (0.0-0.1) 09/09/18 06:00 Metamyelocytes # 0.0 K/mm3 09/09/18 06:00 Myelocytes # 0.0 K/mm3 09/09/18 06:00 Promyelocytes # 0.0 K/mm3 09/09/18 06:00 Blast Cells # 0.0 K/mm3 09/09/18 06:00 WBC Morphology Not Reportable 09/09/18 06:00 Hypersegmented Neuts Not Reportable 09/09/18 06:00 Hyposegmented Neuts Not Reportable 09/09/18 06:00 Hypogranular Neuts Not Reportable 09/09/18 06:00 Smudge Cells Not Reportable 09/09/18 06:00 Toxic Granulation Not Reportable 09/09/18 06:00 Toxic Vacuolation Not Reportable 09/09/18 06:00 Dohle Bodies Not Reportable 09/09/18 06:00 Pelger-Huet Anomaly Not Reportable 09/09/18 06:00 Delmi Rods Not Reportable 09/09/18 06:00 Platelet Estimate Consistent w auto 09/09/18 06:00 Clumped Platelets Not Reportable 09/09/18 06:00 Plt Clumps, EDTA Not Reportable 09/09/18 06:00 Large Platelets Not Reportable 09/09/18 06:00 Giant Platelets Not Reportable 09/09/18 06:00 Platelet Satelliting Not Reportable 09/09/18 06:00 Plt Morphology Comment Not Reportable 09/09/18 06:00 RBC Morphology Not Reportable 09/09/18 06:00 Dimorphic RBCs Not Reportable 09/09/18 06:00 Polychromasia Few 09/09/18 06:00 Hypochromasia Few 09/09/18 06:00 Poikilocytosis Not Reportable 09/09/18 06:00 Anisocytosis Not Reportable 09/09/18 06:00 Microcytosis Not Reportable 09/09/18 06:00 Macrocytosis Not Reportable 09/09/18 06:00 Spherocytes Few 09/09/18 06:00 Pappenheimer Bodies Not Reportable 09/09/18 06:00 Sickle Cells Not Reportable 09/09/18 06:00 Target Cells 2+ 09/09/18 06:00 Tear Drop Cells Not Reportable 09/09/18 06:00 Ovalocytes Not Reportable 09/09/18 06:00 Helmet Cells Not Reportable 09/09/18 06:00 [place] Bodies Not Reportable 09/09/18 06:00 [place] Rings Not Reportable 09/09/18 06:00 Tiffanie Cells Not Reportable 09/09/18 06:00 Bite Cells Not Reportable 09/09/18 06:00 Crenated Cell Not Reportable 09/09/18 06:00 Elliptocytes Not Reportable 09/09/18 06:00 Acanthocytes (Spur) Not Reportable 09/09/18 06:00 Rouleaux Not Reportable 09/09/18 06:00 Hemoglobin C Crystals Not Reportable 09/09/18 06:00 Schistocytes Not Reportable 09/09/18 06:00 Malaria parasites Not Reportable 09/09/18 06:00 Percent Retic 1.68 % (0.78-2.58) 09/11/18 06:57 Jaziel Bodies Not Reportable 09/09/18 06:00 Hem Pathologist Commnt No 09/09/18 06:00 Sodium 142 mmol/L (137-145) 09/11/18 06:57 Potassium 3.8 mmol/L (3.6-5.0) 09/11/18 06:57 Chloride 106.5 mmol/L (98-107) 09/11/18 06:57 Carbon Dioxide 27 mmol/L (22-30) 09/11/18 06:57 Anion Gap 12 mmol/L 09/11/18 06:57 BUN 7 mg/dL (7-17) 09/11/18 06:57 Creatinine 0.6 mg/dL (0.7-1.2) L 09/11/18 06:57 Estimated GFR > 60 ml/min 09/11/18 06:57 BUN/Creatinine Ratio 12 % 09/11/18 06:57 Glucose 105 mg/dL (65-100) H 09/11/18 06:57 Calcium 8.1 mg/dL (8.4-10.2) L 09/11/18 06:57 Total Creatine Kinase 33 units/L (30-135) 09/08/18 18:45 CK-MB (CK-2) < 1.0 ng/mL (0.0-4.0) 09/08/18 18:45 CK-MB (CK-2) Rel Index 3.0 (0-4) 09/08/18 18:45 Troponin T < 0.010 ng/mL (0.00-0.029) 09/08/18 18:45 HCG, Qual Negative (Negative) 09/08/18 05:15 Urine Opiates Screen Presumptive negative 09/09/18 12:00 Urine Methadone Screen Presumptive negative 09/09/18 12:00 Ur Barbiturates Screen Presumptive negative 09/09/18 12:00 Ur Phencyclidine Scrn Presumptive negative 09/09/18 12:00 Ur Amphetamines Screen Presumptive negative 09/09/18 12:00 U Benzodiazepines Scrn Presumptive negative 09/09/18 12:00 Urine Cocaine Screen Presumptive negative 09/09/18 12:00 U Marijuana (THC) Screen Presumptive negative 09/09/18 12:00 Drugs of Abuse Note Disclamer 09/09/18 12:00
[2018-09-11] MEDS: HABITROL TD SCH (14:27)
[2018-09-11] MEDS: SODIUM CHLORIDE FLUSH SYRINGE 10 ML IV SCH ×2 (14:45→22:35)
[2018-09-11] MEDS: THERAGRAN Tab PO SCH (17:18)
[2018-09-11] MEDS: LYRICA PO SCH (17:18)
[2018-09-11] MEDS: FOLVITE PO SCH (17:19)
[2018-09-11] MEDS: SENOKOT PO SCH (22:41)
[2018-09-11] MEDS: AMBIEN PO PRN (22:56)
[2018-09-12] MEDS: TORADOL IV SCH ×4 (00:15→19:30)
[2018-09-12] MEDS: XANAX PO PRN (01:35)
[2018-09-12] MEDS: DILAUDID IV PRN ×4 (03:28→23:16)
[2018-09-12] MEDS: BENADRYL IV PRN ×3 (03:28→19:01)
[2018-09-12] MEDS: MAGIC MOUTHWASH PO SCH ×3 (08:22→21:25)
[2018-09-12] MEDS: HYDREA PO SCH ×2 (09:52→21:24)
[2018-09-12] MEDS: FOLVITE PO SCH (09:52)
[2018-09-12] MEDS: THERAGRAN Tab PO SCH (09:52)
[2018-09-12] MEDS: LYRICA PO SCH (09:52)
[2018-09-12] MEDS: HABITROL TD SCH (09:56)
--- NOTE | 2018-09-12 10:41 | Progress Note ---
Assessment and Plan Pt with c/o generalized pain and chest pain. Can consider stress test once H/H improves. The patient has been seen in conjunction with Dr. Plata who agrees with the assessment and plan of care. - Patient Problems (1) Chest pain Current Visit: Yes Status: Acute Qualifiers: Chest pain type: unspecified Qualified Code(s): R07.9 - Chest pain, unspecified (2) Sickle cell crisis Current Visit: Yes Status: Acute (3) Fibromyalgia Current Visit: Yes Status: Chronic (4) Anemia Current Visit: Yes Status: Chronic Qualifiers: Anemia type: unspecified type Qualified Code(s): D64.9 - Anemia, unspecified Subjective Date of service: 09/12/18 Principal diagnosis: sickle cell crisis; RV mass Interval history: pt resting in bed, c/o generalized pain and chest pain. Objective Last Vital Signs Temp 97.7 F 09/11/18 16:53 Pulse 99 H 09/11/18 16:53 Resp 18 09/11/18 16:53 BP 118/79 09/11/18 16:53 Pulse Ox 97 09/11/18 16:53 - Physical Examination General: No Apparent Distress HEENT: Positive: PERRL, Normocephaly, Mucus Membranes Moist Neck: Positive: neck supple, trachea midline Cardiac: Positive: Reg Rate and Rhythm, S1/S2 Lungs: Positive: clear to auscultation Neuro: Positive: Grossly Intact Abdomen: Positive: Soft. Negative: Tender Skin: Negative: Rash, Wound Musculoskeletal: No Pain Extremities: Absent: edema - Imaging and Cardiology EKG: report reviewed, image reviewed Echo: report reviewed, image reviewed
[2018-09-12] MEDS: NACL 38.5 MEQ in D5W 1,000 ML IV SCH ×2 (11:08→23:04)
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
[2018-09-12] MEDS: SODIUM CHLORIDE FLUSH SYRINGE 10 ML IV SCH ×2 (13:52→21:25)
--- NOTE | 2018-09-12 15:00 | Progress Note ---
Assessment and Plan Assessment and plan: Patient is a 33 YO Female with SCD, Obesity, FM, Opioid Dependence, Seizure Disorder, Fibromyalgia, Asthma, Nicotine Dependence presents to ED for evaluation for generalized pain. Patient was recently in the hosptial for the same complaints. She reports that since her discharge she has had conversation with her rn oncology research about pain management. Today she reports that she was referred to cardiology due to chest tightness and swelling in the bilateral lower ext but was unable to go due to worsening generalized body pain. she unfortunately continues to smoke, she denies any use of illicit drug use. she denies any fever, nausea, vomiting or diarrhea. Started on Pain protocol and IV fluid resuscitation No clinical infectious pathology PATRICK done due to concern for RV thrombus on TTE. No thrombus noted Patient hide 1 propofol syringes on her body yesterday and she was really devastated and don't know what to do Sickle cell crisis Current Visit: Yes Status: Acute Plan to address problem: IVF resuscitation, pain control, hydroxyurea, folic acid daily, CBC, supportive care. Eval for drug abuse.- negative on UDS START TAPERING OPIODS Systemic inflammatory response syndrome Without organ dysfunction Current Visit: No Status: Acute Plan to address problem: Empiric antibiotic therapy, CBC, Urinalysis,CMP Fibromyalgia Current Visit: No Status: Chronic Plan to address problem: Pain control, supportive care. Oral Pain ?Thrush. No recent abx. Give Magic mouth wash Depression Suicidal ideation- PLACED ON 1013 Mental has evaluated and discussed about medications that she refused occasions and wants to talk with therapist. History Interval history: Patient was seen in the morning, patient is complaining generalized pain. Patient states she is stressed out a lot recently. Hospitalist Physical - Physical exam Narrative exam: Not in cardiopulmonary distress. The patient appeared well nourished and normally developed. Vital signs as documented. Head exam is unremarkable. No scleral icterus . Neck is without jugular venous distension, thyromegaly, or carotid bruits. Lungs are clear to auscultation. Cardiac exam reveals regular rate and Rhythm. Abdominal exam reveals normal bowel sounds. Extremities are nonedematous and both femoral and pedal pulses are normal. EDGE BASTER: Alert and oriented 3. No focal weakness. - Constitutional Vitals: Temp Pulse Resp BP Pulse Ox 98.7 F 89 20 104/62 95 09/12/18 12:20 09/12/18 12:20 09/12/18 12:20 09/12/18 12:20 09/12/18 12:20 Results - Labs CBC & Chem 7: 09/11/18 06:57 09/11/18 06:57 Labs: Laboratory Last Values WBC 9.4 K/mm3 (4.5-11.0) 09/11/18 06:57 RBC 4.02 M/mm3 (3.65-5.03) 09/11/18 06:57 Hgb 7.8 gm/dl (10.1-14.3) L 09/11/18 06:57 Hct 23.1 % (30.3-42.9) L 09/11/18 06:57 MCV 58 fl (79-97) L 09/11/18 06:57 MCH 19 pg (28-32) L 09/11/18 06:57 MCHC 34 % (30-34) 09/11/18 06:57 RDW 25.5 % (13.2-15.2) H 09/11/18 06:57 Plt Count 245 K/mm3 (140-440) 09/11/18 06:57 Lymph # Store Merchandiser 09/09/18 06:00 Add Manual Diff Complete 09/09/18 06:00 Total Counted 100 09/09/18 06:00 Seg Neuts % (Manual) 71.0 % (40.0-70.0) H 09/09/18 06:00 Band Neutrophils % 0 % 09/09/18 06:00 Lymphocytes % (Manual) 22.0 % (13.4-35.0) 09/09/18 06:00 Reactive Lymphs % (Man) 1.0 % 09/09/18 06:00 Monocytes % (Manual) 5.0 % (0.0-7.3) 09/09/18 06:00 Eosinophils % (Manual) 0 % (0.0-4.3) 09/09/18 06:00 Basophils % (Manual) 1.0 % (0.0-1.8) 09/09/18 06:00 Metamyelocytes % 0 % 09/09/18 06:00 Myelocytes % 0 % 09/09/18 06:00 Promyelocytes % 0 % 09/09/18 06:00 Blast Cells % 0 % 09/09/18 06:00 Nucleated RBC % Not Reportable 09/09/18 06:00 Seg Neutrophils # Man 8.4 K/mm3 (1.8-7.7) H 09/09/18 06:00 Band Neutrophils # 0.0 K/mm3 09/09/18 06:00 Lymphocytes # (Manual) 2.6 K/mm3 (1.2-5.4) 09/09/18 06:00 Abs React Lymphs (Man) 0.1 K/mm3 09/09/18 06:00 Monocytes # (Manual) 0.6 K/mm3 (0.0-0.8) 09/09/18 06:00 Eosinophils # (Manual) 0.0 K/mm3 (0.0-0.4) 09/09/18 06:00 Basophils # (Manual) 0.1 K/mm3 (0.0-0.1) 09/09/18 06:00 Metamyelocytes # 0.0 K/mm3 09/09/18 06:00 Myelocytes # 0.0 K/mm3 09/09/18 06:00 Promyelocytes # 0.0 K/mm3 09/09/18 06:00 Blast Cells # 0.0 K/mm3 09/09/18 06:00 WBC Morphology Not Reportable 09/09/18 06:00 Hypersegmented Neuts Not Reportable 09/09/18 06:00 Hyposegmented Neuts Not Reportable 09/09/18 06:00 Hypogranular Neuts Not Reportable 09/09/18 06:00 Smudge Cells Not Reportable 09/09/18 06:00 Toxic Granulation Not Reportable 09/09/18 06:00 Toxic Vacuolation Not Reportable 09/09/18 06:00 Dohle Bodies Not Reportable 09/09/18 06:00 Pelger-Huet Anomaly Not Reportable 09/09/18 06:00 Delmi Rods Not Reportable 09/09/18 06:00 Platelet Estimate Consistent w auto 09/09/18 06:00 Clumped Platelets Not Reportable 09/09/18 06:00 Plt Clumps, EDTA Not Reportable 09/09/18 06:00 Large Platelets Not Reportable 09/09/18 06:00 Giant Platelets Not Reportable 09/09/18 06:00 Platelet Satelliting Not Reportable 09/09/18 06:00 Plt Morphology Comment Not Reportable 09/09/18 06:00 RBC Morphology Not Reportable 09/09/18 06:00 Dimorphic RBCs Not Reportable 09/09/18 06:00 Polychromasia Few 09/09/18 06:00 Hypochromasia Few 09/09/18 06:00 Poikilocytosis Not Reportable 09/09/18 06:00 Anisocytosis Not Reportable 09/09/18 06:00 Microcytosis Not Reportable 09/09/18 06:00 Macrocytosis Not Reportable 09/09/18 06:00 Spherocytes Few 09/09/18 06:00 Pappenheimer Bodies Not Reportable 09/09/18 06:00 Sickle Cells Not Reportable 09/09/18 06:00 Target Cells 2+ 09/09/18 06:00 Tear Drop Cells Not Reportable 09/09/18 06:00 Ovalocytes Not Reportable 09/09/18 06:00 Helmet Cells Not Reportable 09/09/18 06:00 [place] Bodies Not Reportable 09/09/18 06:00 [place] Rings Not Reportable 09/09/18 06:00 Tiffanie Cells Not Reportable 09/09/18 06:00 Bite Cells Not Reportable 09/09/18 06:00 Crenated Cell Not Reportable 09/09/18 06:00 Elliptocytes Not Reportable 09/09/18 06:00 Acanthocytes (Spur) Not Reportable 09/09/18 06:00 Rouleaux Not Reportable 09/09/18 06:00 Hemoglobin C Crystals Not Reportable 09/09/18 06:00 Schistocytes Not Reportable 09/09/18 06:00 Malaria parasites Not Reportable 09/09/18 06:00 Percent Retic 1.68 % (0.78-2.58) 09/11/18 06:57 Jaziel Bodies Not Reportable 09/09/18 06:00 Hem Pathologist Commnt No 09/09/18 06:00 Sodium 142 mmol/L (137-145) 09/11/18 06:57 Potassium 3.8 mmol/L (3.6-5.0) 09/11/18 06:57 Chloride 106.5 mmol/L (98-107) 09/11/18 06:57 Carbon Dioxide 27 mmol/L (22-30) 09/11/18 06:57 Anion Gap 12 mmol/L 09/11/18 06:57 BUN 7 mg/dL (7-17) 09/11/18 06:57 Creatinine 0.6 mg/dL (0.7-1.2) L 09/11/18 06:57 Estimated GFR > 60 ml/min 09/11/18 06:57 BUN/Creatinine Ratio 12 % 09/11/18 06:57 Glucose 105 mg/dL (65-100) H 09/11/18 06:57 Calcium 8.1 mg/dL (8.4-10.2) L 09/11/18 06:57 Total Creatine Kinase 33 units/L (30-135) 09/08/18 18:45 CK-MB (CK-2) < 1.0 ng/mL (0.0-4.0) 09/08/18 18:45 CK-MB (CK-2) Rel Index 3.0 (0-4) 09/08/18 18:45 Troponin T < 0.010 ng/mL (0.00-0.029) 09/08/18 18:45 HCG, Qual Negative (Negative) 09/08/18 05:15 Urine Opiates Screen Presumptive negative 09/09/18 12:00 Urine Methadone Screen Presumptive negative 09/09/18 12:00 Ur Barbiturates Screen Presumptive negative 09/09/18 12:00 Ur Phencyclidine Scrn Presumptive negative 09/09/18 12:00 Ur Amphetamines Screen Presumptive negative 09/09/18 12:00 U Benzodiazepines Scrn Presumptive negative 09/09/18 12:00 Urine Cocaine Screen Presumptive negative 09/09/18 12:00 U Marijuana (THC) Screen Presumptive negative 09/09/18 12:00 Drugs of Abuse Note Disclamer 09/09/18 12:00
[2018-09-12] MEDS: PERCOCET 5/325 PO PRN (21:23)
[2018-09-12] MEDS: PHENERGAN PO PRN (21:23)
[2018-09-12] MEDS: SENOKOT PO SCH (21:24)
[2018-09-12] MEDS: AMBIEN PO PRN (23:16)
[2018-09-13] MEDS: DILAUDID IV PRN ×5 (02:14→20:53)
[2018-09-13] MEDS: BENADRYL IV PRN ×3 (02:17→16:08)
[2018-09-13] MEDS: XANAX PO PRN ×2 (06:36→17:16)
[2018-09-13] MEDS: TORADOL IV SCH ×2 (06:37)
[2018-09-13 06:49] LABS: Hematocrit 25.7 % (30.3-42.9); Hemoglobin 8.3 gm/dl (10.1-14.3); Mean Corpuscular HGB Conc 32 % (30-34); Mean Corpuscular Volume 57 fl (79-97); Platelet Count 264 K/mm3 (140-440); Red Blood Count 4.49 M/mm3 (3.65-5.03)
[2018-09-13 06:50] LABS: Red Cell Distribution Width 24.8 % (13.2-15.2)
[2018-09-13 08:53] LABS: Basophils % (Manual) 0 % (0.0-1.8); Total Cells Counted 100
[2018-09-13] MEDS: MAGIC MOUTHWASH PO SCH ×3 (08:54→21:06)
[2018-09-13] MEDS: NACL 38.5 MEQ in D5W 1,000 ML IV SCH (08:54)
[2018-09-13 08:57] LABS: Anisocytosis 2+; Hypochromasia 2+; Poikilocytosis 2+; Sickle Cells Few; Target Cells 2+
[2018-09-13 08:58] LABS: Platelet Estimate Consistent w Auto
[2018-09-13] MEDS: THERAGRAN Tab PO SCH (10:20)
[2018-09-13] MEDS: HABITROL TD SCH (10:20)
[2018-09-13] MEDS: LYRICA PO SCH (10:21)
[2018-09-13] MEDS: FOLVITE PO SCH (10:21)
[2018-09-13] MEDS: HYDREA PO SCH ×2 (10:22→21:06)
[2018-09-13] MEDS: SODIUM CHLORIDE FLUSH SYRINGE 10 ML IV SCH ×2 (10:22→21:05)
--- NOTE | 2018-09-13 10:59 | Progress Note ---
Assessment and Plan Currently stable cardiac status. Chest pain currently resolved. Pt may discharge home from cardiology standpoint. Recommend follow up in our office with Dr. Julienne Fofana within 1-2 weeks of hospital discharge ([phone]). The patient has been seen in conjunction with Dr. Plata who agrees with the assessment and plan of care. - Patient Problems (1) Chest pain Current Visit: Yes Status: Acute Qualifiers: Chest pain type: unspecified Qualified Code(s): R07.9 - Chest pain, unspecified (2) Sickle cell crisis Current Visit: Yes Status: Acute (3) Fibromyalgia Current Visit: Yes Status: Chronic (4) Anemia Current Visit: Yes Status: Chronic Qualifiers: Anemia type: unspecified type Qualified Code(s): D64.9 - Anemia, unspecified Subjective Date of service: 09/13/18 Principal diagnosis: sickle cell crisis; RV mass Interval history: pt resting in bed, no current complaints. Objective Last Vital Signs Temp 98.1 F 09/12/18 23:05 Pulse 102 H 09/12/18 23:05 Resp 16 09/12/18 23:05 BP 107/80 09/12/18 23:05 Pulse Ox 96 09/12/18 23:05 - Physical Examination General: No Apparent Distress HEENT: Positive: PERRL, Normocephaly, Mucus Membranes Moist Neck: Positive: neck supple, trachea midline Cardiac: Positive: Reg Rate and Rhythm, S1/S2 Lungs: Positive: clear to auscultation Neuro: Positive: Grossly Intact Abdomen: Positive: Soft. Negative: Tender Skin: Negative: Rash, Wound Musculoskeletal: No Pain Extremities: Absent: edema - Labs and Meds CBC 09/13/18 Range/Units 06:20 WBC 10.0 (4.5-11.0) K/mm3 RBC 4.49 (3.65-5.03) M/mm3 Hgb 8.3 L (10.1-14.3) gm/dl Hct 25.7 L (30.3-42.9) % Plt Count 264 (140-440) K/mm3 Lymph # Full Time Paramedic - Imaging and Cardiology EKG: report reviewed, image reviewed Echo: report reviewed, image reviewed
--- NOTE | 2018-09-13 15:09 | Progress Note ---
Assessment and Plan Assessment and plan: Patient is a 33 YO Female with SCD, Obesity, FM, Opioid Dependence, Seizure Disorder, Fibromyalgia, Asthma, Nicotine Dependence presents to ED for evaluation for generalized pain. Patient was recently in the hosptial for the same complaints. She reports that since her discharge she has had conversation with her nutrition services associate about pain management. Today she reports that she was referred to cardiology due to chest tightness and swelling in the bilateral lower ext but was unable to go due to worsening generalized body pain. she unfortunately continues to smoke, she denies any use of illicit drug use. she denies any fever, nausea, vomiting or diarrhea. Started on Pain protocol and IV fluid resuscitation No clinical infectious pathology PATRICK done due to concern for RV thrombus on TTE. No thrombus noted Patient hide 1 propofol syringes on her body yesterday and she was really devastated and don't know what to do Sickle cell crisis - Patient was treated with IV fluids and IV narcotics - Currently she is on by mouth percocet - Patient is not in crisis now Systemic inflammatory response syndrome Without organ dysfunction Current Visit: No Status: Acute Plan to address problem: Empiric antibiotic therapy, CBC, Urinalysis,CMP Fibromyalgia Current Visit: No Status: Chronic Plan to address problem: Pain control, supportive care. Oral Pain ?Thrush. No recent abx. Give Magic mouth wash Depression Suicidal ideation- PLACED ON 1013 Mental has evaluated and discussed about medications that she refused occasions and wants to talk with therapist. Patient is medically stable and can be discharged use by mouth pending Percocet, Psych recommendation. History Interval history: Patient was seen in the morning, patient is complaining generalized pain. Patient states she is stressed out a lot recently. Hospitalist Physical - Physical exam Narrative exam: Not in cardiopulmonary distress. The patient appeared well nourished and normally developed. Vital signs as documented. Head exam is unremarkable. No scleral icterus . Neck is without jugular venous distension, thyromegaly, or carotid bruits. Lungs are clear to auscultation. Cardiac exam reveals regular rate and Rhythm. Abdominal exam reveals normal bowel sounds. Extremities are nonedematous and both femoral and pedal pulses are normal. CARTON INSPECTOR: Alert and oriented 3. No focal weakness. - Constitutional Vitals: Temp Pulse Resp BP Pulse Ox 98.7 F 86 20 105/65 98 09/13/18 12:56 09/13/18 12:56 09/13/18 12:56 09/13/18 12:56 09/13/18 12:56 Results - Labs CBC & Chem 7: 09/13/18 06:20 09/11/18 06:57 Labs: Laboratory Last Values WBC 10.0 K/mm3 (4.5-11.0) 09/13/18 06:20 RBC 4.49 M/mm3 (3.65-5.03) 09/13/18 06:20 Hgb 8.3 gm/dl (10.1-14.3) L 09/13/18 06:20 Hct 25.7 % (30.3-42.9) L 09/13/18 06:20 MCV 57 fl (79-97) L 09/13/18 06:20 MCH 19 pg (28-32) L 09/13/18 06:20 MCHC 32 % (30-34) 09/13/18 06:20 RDW 24.8 % (13.2-15.2) H 09/13/18 06:20 Plt Count 264 K/mm3 (140-440) 09/13/18 06:20 Lymph # Card Scraper 09/13/18 06:20 Add Manual Diff Complete 09/13/18 06:20 Total Counted 100 09/13/18 06:20 Seg Neuts % (Manual) 71.0 % (40.0-70.0) H 09/13/18 06:20 Band Neutrophils % 0 % 09/13/18 06:20 Lymphocytes % (Manual) 21.0 % (13.4-35.0) 09/13/18 06:20 Reactive Lymphs % (Man) 0 % 09/13/18 06:20 Monocytes % (Manual) 4.0 % (0.0-7.3) 09/13/18 06:20 Eosinophils % (Manual) 4.0 % (0.0-4.3) 09/13/18 06:20 Basophils % (Manual) 0 % (0.0-1.8) 09/13/18 06:20 Metamyelocytes % 0 % 09/13/18 06:20 Myelocytes % 0 % 09/13/18 06:20 Promyelocytes % 0 % 09/13/18 06:20 Blast Cells % 0 % 09/13/18 06:20 Nucleated RBC % Not Reportable 09/13/18 06:20 Seg Neutrophils # Man 7.1 K/mm3 (1.8-7.7) 09/13/18 06:20 Band Neutrophils # 0.0 K/mm3 09/13/18 06:20 Lymphocytes # (Manual) 2.1 K/mm3 (1.2-5.4) 09/13/18 06:20 Abs React Lymphs (Man) 0.0 K/mm3 09/13/18 06:20 Monocytes # (Manual) 0.4 K/mm3 (0.0-0.8) 09/13/18 06:20 Eosinophils # (Manual) 0.4 K/mm3 (0.0-0.4) 09/13/18 06:20 Basophils # (Manual) 0.0 K/mm3 (0.0-0.1) 09/13/18 06:20 Metamyelocytes # 0.0 K/mm3 09/13/18 06:20 Myelocytes # 0.0 K/mm3 09/13/18 06:20 Promyelocytes # 0.0 K/mm3 09/13/18 06:20 Blast Cells # 0.0 K/mm3 09/13/18 06:20 WBC Morphology Not Reportable 09/13/18 06:20 Hypersegmented Neuts Not Reportable 09/13/18 06:20 Hyposegmented Neuts Not Reportable 09/13/18 06:20 Hypogranular Neuts Not Reportable 09/13/18 06:20 Smudge Cells Not Reportable 09/13/18 06:20 Toxic Granulation Not Reportable 09/13/18 06:20 Toxic Vacuolation Not Reportable 09/13/18 06:20 Dohle Bodies Not Reportable 09/13/18 06:20 Pelger-Huet Anomaly Not Reportable 09/13/18 06:20 Delmi Rods Not Reportable 09/13/18 06:20 Platelet Estimate Consistent w auto 09/13/18 06:20 Clumped Platelets Not Reportable 09/13/18 06:20 Plt Clumps, EDTA Not Reportable 09/13/18 06:20 Large Platelets Not Reportable 09/13/18 06:20 Giant Platelets Not Reportable 09/13/18 06:20 Platelet Satelliting Not Reportable 09/13/18 06:20 Plt Morphology Comment Not Reportable 09/13/18 06:20 RBC Morphology Not Reportable 09/13/18 06:20 Dimorphic RBCs Not Reportable 09/13/18 06:20 Polychromasia Not Reportable 09/13/18 06:20 Hypochromasia 2+ 09/13/18 06:20 Poikilocytosis 2+ 09/13/18 06:20 Anisocytosis 2+ 09/13/18 06:20 Microcytosis 2+ 09/13/18 06:20 Macrocytosis Not Reportable 09/13/18 06:20 Spherocytes Not Reportable 09/13/18 06:20 Pappenheimer Bodies Not Reportable 09/13/18 06:20 Sickle Cells Few 09/13/18 06:20 Target Cells 2+ 09/13/18 06:20 Tear Drop Cells Not Reportable 09/13/18 06:20 Ovalocytes Not Reportable 09/13/18 06:20 Helmet Cells Not Reportable 09/13/18 06:20 Bernard-[place] Bodies Not Reportable 09/13/18 06:20 Delta Rings Not Reportable 09/13/18 06:20 Tiffanie Cells Not Reportable 09/13/18 06:20 Bite Cells Not Reportable 09/13/18 06:20 Crenated Cell Not Reportable 09/13/18 06:20 Elliptocytes Not Reportable 09/13/18 06:20 Acanthocytes (Spur) Not Reportable 09/13/18 06:20 Rouleaux Not Reportable 09/13/18 06:20 Hemoglobin C Crystals Not Reportable 09/13/18 06:20 Schistocytes Not Reportable 09/13/18 06:20 Malaria parasites Not Reportable 09/13/18 06:20 Percent Retic 1.68 % (0.78-2.58) 09/11/18 06:57 Jaziel Bodies Not Reportable 09/13/18 06:20 Hem Pathologist Commnt No 09/13/18 06:20 Sodium 142 mmol/L (137-145) 09/11/18 06:57 Potassium 3.8 mmol/L (3.6-5.0) 09/11/18 06:57 Chloride 106.5 mmol/L (98-107) 09/11/18 06:57 Carbon Dioxide 27 mmol/L (22-30) 09/11/18 06:57 Anion Gap 12 mmol/L 09/11/18 06:57 BUN 7 mg/dL (7-17) 09/11/18 06:57 Creatinine 0.6 mg/dL (0.7-1.2) L 09/11/18 06:57 Estimated GFR > 60 ml/min 09/11/18 06:57 BUN/Creatinine Ratio 12 % 09/11/18 06:57 Glucose 105 mg/dL (65-100) H 09/11/18 06:57 Calcium 8.1 mg/dL (8.4-10.2) L 09/11/18 06:57 Total Creatine Kinase 33 units/L (30-135) 09/08/18 18:45 CK-MB (CK-2) < 1.0 ng/mL (0.0-4.0) 09/08/18 18:45 CK-MB (CK-2) Rel Index 3.0 (0-4) 09/08/18 18:45 Troponin T < 0.010 ng/mL (0.00-0.029) 09/08/18 18:45 HCG, Qual Negative (Negative) 09/08/18 05:15 Urine Opiates Screen Presumptive negative 09/09/18 12:00 Urine Methadone Screen Presumptive negative 09/09/18 12:00 Ur Barbiturates Screen Presumptive negative 09/09/18 12:00 Ur Phencyclidine Scrn Presumptive negative 09/09/18 12:00 Ur Amphetamines Screen Presumptive negative 09/09/18 12:00 U Benzodiazepines Scrn Presumptive negative 09/09/18 12:00 Urine Cocaine Screen Presumptive negative 09/09/18 12:00 U Marijuana (THC) Screen Presumptive negative 09/09/18 12:00 Drugs of Abuse Note Disclamer 09/09/18 12:00
[2018-09-13] MEDS: PERCOCET 5/325 PO PRN (18:02)
[2018-09-13] MEDS: PHENERGAN PO PRN (18:04)
--- NOTE | 2018-09-13 18:08 | Progress Note ---
Addendum entered and electronically signed by TIERRA HERRERA, GRIS 09/14/18 09:59: Clarification: Although patient was reluctant to start medication she believes the benefits outweigh the risks. Patient reports that she feels inadequate as a mother and has reached her breaking point, therefore she would like to try medication to help improve her mood. Start Zoloft 25mg po QAM depression/anxiety. Discussed side effects. Discussed risk/benefits of Zoloft with the patient reference possible interaction with his current medication regimen, he agreed to take the medication. Discussed possible suicidality/medication induced roberta with the patient reference Zoloft. Disposition: Continue to assess the patient daily and determine proper dispo sition once medically clear. Staffed with Dr. Dom Morrison. Original Note: Subjective - Reason for Consult Consult date: 09/13/18 Reason for consult: Psychiatric Follow-up Evaluation - Chief Complaint Chief complaint: "Still stressed " Patient is a 33-year-old [place] female presented to the ER for sickle cell crisis. Psychiatry was consulted to see patient because she hid 2 syringes of propofol while having a procedure. Today the patient is calm and cooperative during the assessment. She states " stress doesn't go away in 1 day. I've reached my breaking point. I've been suppressing my feelings for so long. " She continues to endorse depressed mood and anxiety. She reports poor sleep and appetite. She denies SI/HI's, A/VH's, and delusions. Patient is reluctant to start medication. Mental Status Exam - Vital signs Last Vital Signs Temp 98.7 F 09/13/18 12:56 Pulse 86 09/13/18 12:56 Resp 20 09/13/18 12:56 BP 105/65 09/13/18 12:56 Pulse Ox 98 09/13/18 12:56 - Exam Narrative exam: Mental Status Exam: Appearance: calm, cooperative Behavior: regular eye contact Speech: regular rate and tone Mood: "I'm stressed" Affect: congruent to mood Thought Process: logical Thought Content: denies HI's and AVH's Motor Activity: ambulatory Cognition: A/O x3 Insight: fair Judgment: variable Assessment and Plan Impression: MDD, recurent, severe without psychosis . The patient is calm and cooperative during the assessment. She denies SI/HI's, A/VH's, and delusions. Recommendation/Plan: 1. Continue 1013. 2. Start Zoloft 25mg po QAM depression/anxiety. Discussed side effects. Discussed risk/benefits of Celexa with the patient reference possible interaction with his current medication regimen, he agreed to take the medication. Discussed possible suicidality/medication induced roberta with the patient reference Celexa. Disposition: Continue to assess the patient daily and determine proper disposition once medically clear. Staffed with Dr. Dom Morrison.
[2018-09-13] MEDS: SENOKOT PO SCH (21:05)
[2018-09-13] MEDS: AMBIEN PO PRN (21:05)
[2018-09-14] MEDS: DILAUDID IV PRN ×5 (01:01→21:41)
[2018-09-14] MEDS: BENADRYL IV PRN ×3 (01:01→15:18)
[2018-09-14] MEDS: XANAX PO PRN (01:07)
[2018-09-14] MEDS: NACL 38.5 MEQ in D5W 1,000 ML IV SCH ×2 (05:11→13:51)
--- NOTE | 2018-09-14 07:52 | Event Note ---
Date: 09/14/18 Patient is medically cleared. Discharge is per mental health recommendations.
[2018-09-14] MEDS: MAGIC MOUTHWASH PO SCH ×3 (08:04→21:40)
[2018-09-14] MEDS: FOLVITE PO SCH (10:03)
[2018-09-14] MEDS: LYRICA PO SCH (10:03)
[2018-09-14] MEDS: THERAGRAN Tab PO SCH (10:03)
[2018-09-14] MEDS: ZOLOFT PO SCH (10:03)
[2018-09-14] MEDS: HYDREA PO SCH ×2 (10:04→21:40)
[2018-09-14] MEDS: HABITROL TD SCH (10:04)
[2018-09-14] MEDS: SODIUM CHLORIDE FLUSH SYRINGE 10 ML IV SCH ×2 (10:04→21:42)
--- NOTE | 2018-09-14 13:11 | Progress Note ---
Subjective - Reason for Consult Consult date: 09/14/18 Reason for consult: Psychiatry Follow-up - Chief Complaint Chief complaint: "I can see the light" 33-year-old [place] female presented to the ER for sickle cell crisis. Psychiatry was consulted to see patient because she hid 2 syringes of propofol while having a procedure. Today the patient is calm and cooperative during the assessment. She stated that she can see the "light" and want to get better "mentally." She stated that she look forward to seeing a professional counselor or therapist once discharged. She denies SI/HI's and AVH's. Mental Status Exam - Vital signs Last Vital Signs Temp 98.7 F 09/14/18 12:39 Pulse 79 09/14/18 12:39 Resp 20 09/14/18 12:39 BP 101/70 09/14/18 12:39 Pulse Ox 98 09/14/18 12:39 - Exam Narrative exam: MSE: Appearance: calm, cooperative Behavior: regular eye contact Speech: regular rate and tone Mood: "I feel better" Affect: congruent to mood Thought Process: logical Thought Content: denies Si/HI's and AVH's Motor Activity: ambulatory Cognition: A/O x3 Insight: fair Judgment: fair Assessment and Plan Impression: MDD. Unspecified Anxiety DO. The patient is calm and cooperative during the assessment. Recommendation/Plan: Reevaluate 1013 in 24 hours. Continue Zoloft 25 mg PO daily for depression and start Klonopin 0.5 mg PO BID for sleep/anxiety. Discussed possible suicidality/medication induced roberta with the patient reference Zoloft. Dispo: If the 1013 is rescinded, the patient can follow up with [facility] for outpatient psy servuces. Will staff with Dr Calix.
[2018-09-14] MEDS: PHENERGAN PO PRN ×2 (13:26→18:33)
[2018-09-14] MEDS: PERCOCET 5/325 PO PRN ×2 (13:26→18:33)
--- NOTE | 2018-09-14 14:54 | Progress Note ---
Assessment and Plan Assessment and plan: Patient is a 33 YO Female with SCD, Obesity, FM, Opioid Dependence, Seizure Disorder, Fibromyalgia, Asthma, Nicotine Dependence presents to ED for evaluation for generalized pain. Patient was recently in the hosptial for the same complaints. She reports that since her discharge she has had conversation with her barrel builder about pain management. Today she reports that she was referred to cardiology due to chest tightness and swelling in the bilateral lower ext but was unable to go due to worsening generalized body pain. she unfortunately continues to smoke, she denies any use of illicit drug use. she denies any fever, nausea, vomiting or diarrhea. Started on Pain protocol and IV fluid resuscitation No clinical infectious pathology PATRICK done due to concern for RV thrombus on TTE. No thrombus noted Patient hide 1 propofol syringes on her body yesterday and she was really devastated and don't know what to do Sickle cell crisis - Patient was treated with IV fluids and IV narcotics - Currently she is on by mouth percocet - Patient is not in crisis now Systemic inflammatory response syndrome Without organ dysfunction Current Visit: No Status: Acute Plan to address problem: Empiric antibiotic therapy, CBC, Urinalysis,CMP Fibromyalgia Current Visit: No Status: Chronic Plan to address problem: Pain control, supportive care. Oral Pain ?Thrush. No recent abx. Give Magic mouth wash Depression Suicidal ideation- PLACED ON 1013 Patient is medically cleared, and waiting psych clearance for discharge. History Interval history: Patient was seen in the morning, patient said the pain is getting better. Hospitalist Physical - Physical exam Narrative exam: Not in cardiopulmonary distress. The patient appeared well nourished and normally developed. Vital signs as documented. Head exam is unremarkable. No scleral icterus . Neck is without jugular venous distension, thyromegaly, or carotid bruits. Lungs are clear to auscultation. Cardiac exam reveals regular rate and Rhythm. Abdominal exam reveals normal bowel sounds. Extremities are nonedematous and both femoral and pedal pulses are normal. IRONING PLEATER: Alert and oriented 3. No focal weakness. - Constitutional Vitals: Temp Pulse Resp BP Pulse Ox 98.7 F 79 20 101/70 98 09/14/18 12:39 09/14/18 12:39 09/14/18 12:39 09/14/18 12:39 09/14/18 12:39 Results - Labs CBC & Chem 7: 09/13/18 06:20 09/11/18 06:57 Labs: Laboratory Last Values WBC 10.0 K/mm3 (4.5-11.0) 09/13/18 06:20 RBC 4.49 M/mm3 (3.65-5.03) 09/13/18 06:20 Hgb 8.3 gm/dl (10.1-14.3) L 09/13/18 06:20 Hct 25.7 % (30.3-42.9) L 09/13/18 06:20 MCV 57 fl (79-97) L 09/13/18 06:20 MCH 19 pg (28-32) L 09/13/18 06:20 MCHC 32 % (30-34) 09/13/18 06:20 RDW 24.8 % (13.2-15.2) H 09/13/18 06:20 Plt Count 264 K/mm3 (140-440) 09/13/18 06:20 Lymph # Steel Fitter 09/13/18 06:20 Add Manual Diff Complete 09/13/18 06:20 Total Counted 100 09/13/18 06:20 Seg Neuts % (Manual) 71.0 % (40.0-70.0) H 09/13/18 06:20 Band Neutrophils % 0 % 09/13/18 06:20 Lymphocytes % (Manual) 21.0 % (13.4-35.0) 09/13/18 06:20 Reactive Lymphs % (Man) 0 % 09/13/18 06:20 Monocytes % (Manual) 4.0 % (0.0-7.3) 09/13/18 06:20 Eosinophils % (Manual) 4.0 % (0.0-4.3) 09/13/18 06:20 Basophils % (Manual) 0 % (0.0-1.8) 09/13/18 06:20 Metamyelocytes % 0 % 09/13/18 06:20 Myelocytes % 0 % 09/13/18 06:20 Promyelocytes % 0 % 09/13/18 06:20 Blast Cells % 0 % 09/13/18 06:20 Nucleated RBC % Not Reportable 09/13/18 06:20 Seg Neutrophils # Man 7.1 K/mm3 (1.8-7.7) 09/13/18 06:20 Band Neutrophils # 0.0 K/mm3 09/13/18 06:20 Lymphocytes # (Manual) 2.1 K/mm3 (1.2-5.4) 09/13/18 06:20 Abs React Lymphs (Man) 0.0 K/mm3 09/13/18 06:20 Monocytes # (Manual) 0.4 K/mm3 (0.0-0.8) 09/13/18 06:20 Eosinophils # (Manual) 0.4 K/mm3 (0.0-0.4) 09/13/18 06:20 Basophils # (Manual) 0.0 K/mm3 (0.0-0.1) 09/13/18 06:20 Metamyelocytes # 0.0 K/mm3 09/13/18 06:20 Myelocytes # 0.0 K/mm3 09/13/18 06:20 Promyelocytes # 0.0 K/mm3 09/13/18 06:20 Blast Cells # 0.0 K/mm3 09/13/18 06:20 WBC Morphology Not Reportable 09/13/18 06:20 Hypersegmented Neuts Not Reportable 09/13/18 06:20 Hyposegmented Neuts Not Reportable 09/13/18 06:20 Hypogranular Neuts Not Reportable 09/13/18 06:20 Smudge Cells Not Reportable 09/13/18 06:20 Toxic Granulation Not Reportable 09/13/18 06:20 Toxic Vacuolation Not Reportable 09/13/18 06:20 Dohle Bodies Not Reportable 09/13/18 06:20 Pelger-Huet Anomaly Not Reportable 09/13/18 06:20 Delmi Rods Not Reportable 09/13/18 06:20 Platelet Estimate Consistent w auto 09/13/18 06:20 Clumped Platelets Not Reportable 09/13/18 06:20 Plt Clumps, EDTA Not Reportable 09/13/18 06:20 Large Platelets Not Reportable 09/13/18 06:20 Giant Platelets Not Reportable 09/13/18 06:20 Platelet Satelliting Not Reportable 09/13/18 06:20 Plt Morphology Comment Not Reportable 09/13/18 06:20 RBC Morphology Not Reportable 09/13/18 06:20 Dimorphic RBCs Not Reportable 09/13/18 06:20 Polychromasia Not Reportable 09/13/18 06:20 Hypochromasia 2+ 09/13/18 06:20 Poikilocytosis 2+ 09/13/18 06:20 Anisocytosis 2+ 09/13/18 06:20 Microcytosis 2+ 09/13/18 06:20 Macrocytosis Not Reportable 09/13/18 06:20 Spherocytes Not Reportable 09/13/18 06:20 Pappenheimer Bodies Not Reportable 09/13/18 06:20 Sickle Cells Few 09/13/18 06:20 Target Cells 2+ 09/13/18 06:20 Tear Drop Cells Not Reportable 09/13/18 06:20 Ovalocytes Not Reportable 09/13/18 06:20 Helmet Cells Not Reportable 09/13/18 06:20 Bernard-Kin[place] Bodies Not Reportable 09/13/18 06:20 Dale Rings Not Reportable 09/13/18 06:20 Tiffanie Cells Not Reportable 09/13/18 06:20 Bite Cells Not Reportable 09/13/18 06:20 Crenated Cell Not Reportable 09/13/18 06:20 Elliptocytes Not Reportable 09/13/18 06:20 Acanthocytes (Spur) Not Reportable 09/13/18 06:20 Rouleaux Not Reportable 09/13/18 06:20 Hemoglobin C Crystals Not Reportable 09/13/18 06:20 Schistocytes Not Reportable 09/13/18 06:20 Malaria parasites Not Reportable 09/13/18 06:20 Percent Retic 1.68 % (0.78-2.58) 09/11/18 06:57 Jaziel Bodies Not Reportable 09/13/18 06:20 Hem Pathologist Commnt No 09/13/18 06:20 Sodium 142 mmol/L (137-145) 09/11/18 06:57 Potassium 3.8 mmol/L (3.6-5.0) 09/11/18 06:57 Chloride 106.5 mmol/L (98-107) 09/11/18 06:57 Carbon Dioxide 27 mmol/L (22-30) 09/11/18 06:57 Anion Gap 12 mmol/L 09/11/18 06:57 BUN 7 mg/dL (7-17) 09/11/18 06:57 Creatinine 0.6 mg/dL (0.7-1.2) L 09/11/18 06:57 Estimated GFR > 60 ml/min 09/11/18 06:57 BUN/Creatinine Ratio 12 % 09/11/18 06:57 Glucose 105 mg/dL (65-100) H 09/11/18 06:57 Calcium 8.1 mg/dL (8.4-10.2) L 09/11/18 06:57 Total Creatine Kinase 33 units/L (30-135) 09/08/18 18:45 CK-MB (CK-2) < 1.0 ng/mL (0.0-4.0) 09/08/18 18:45 CK-MB (CK-2) Rel Index 3.0 (0-4) 09/08/18 18:45 Troponin T < 0.010 ng/mL (0.00-0.029) 09/08/18 18:45 HCG, Qual Negative (Negative) 09/08/18 05:15 Urine Opiates Screen Presumptive negative 09/09/18 12:00 Urine Methadone Screen Presumptive negative 09/09/18 12:00 Ur Barbiturates Screen Presumptive negative 09/09/18 12:00 Ur Phencyclidine Scrn Presumptive negative 09/09/18 12:00 Ur Amphetamines Screen Presumptive negative 09/09/18 12:00 U Benzodiazepines Scrn Presumptive negative 09/09/18 12:00 Urine Cocaine Screen Presumptive negative 09/09/18 12:00 U Marijuana (THC) Screen Presumptive negative 09/09/18 12:00 Drugs of Abuse Note Disclamer 09/09/18 12:00
[2018-09-14] MEDS: AMBIEN PO PRN (21:39)
[2018-09-14] MEDS: SENOKOT PO SCH (21:40)
[2018-09-14] MEDS: D5NS 0.2% 1,000 ML IV SCH (23:31)
[2018-09-15] MEDS: BENADRYL IV PRN ×2 (01:50→12:32)
[2018-09-15] MEDS: DILAUDID IV PRN ×3 (01:50→12:32)
[2018-09-15] MEDS: ZOFRAN IV PRN (06:49)
[2018-09-15] MEDS: MAGIC MOUTHWASH PO SCH ×2 (08:27→13:28)
[2018-09-15] MEDS: PERCOCET 5/325 PO PRN (08:56)
[2018-09-15] MEDS: PHENERGAN PO PRN (08:56)
[2018-09-15] MEDS: THERAGRAN Tab PO SCH (10:30)
[2018-09-15] MEDS: ZOLOFT PO SCH (10:30)
[2018-09-15] MEDS: HYDREA PO SCH (10:30)
[2018-09-15] MEDS: FOLVITE PO SCH (10:30)
[2018-09-15] MEDS: LYRICA PO SCH (10:30)
[2018-09-15] MEDS: SODIUM CHLORIDE FLUSH SYRINGE 10 ML IV SCH (10:31)
[2018-09-15] MEDS: HABITROL TD SCH (10:33)
[2018-09-15] MEDS: D5NS 0.2% 1,000 ML IV SCH (11:17)
--- NOTE | 2018-09-15 12:55 | Discharge Summary ---
Providers - Providers Date of Admission: 09/08/18 08:25 Attending physician: SHER KAUR MD 09/09/18 09:27 Consult to Physician [CONS] Routine Comment: Consulting Provider: MARVIN EDMONDSON Physician Instructions: Reason For Exam: PATRICK- ?RV THROMBUS 09/11/18 13:39 Consult to Mental Health [CONS] Routine Reason For Exam: SUICIDAL IDEATION Place consult to:: Notified:: Phone number called:: [phone] Was contact made?: Yes If yes, spoke with:: SANIYA Time called:: 13:44 09/11/18 15:25 Consult to Mental Health [CONS] Routine Reason For Exam: suicidal ideation Place consult to:: [facility] Notified:: Phone number called:: [phone] Was contact made?: Yes If yes, spoke with:: [employer]co Time called:: 17:53 09/11/18 16:51 Consult to Pastoral Care [CONS] Routine Comment: Reason For Exam: counselling. Depression Primary care physician: KATY COPELAND Hospitalization Reason for admission: Sickle cell pain crisis Condition: Stable Pertinent studies: TTE PATRICK; no thrombus Hospital course: Patient is a 33 YO Female with SCD, Obesity, FM, Opioid Dependence, Seizure Disorder, Fibromyalgia, Asthma, Nicotine Dependence presents to ED for evaluation for generalized pain. Patient was recently in the hosptial for the same complaints. She reports that since her discharge she has had conversation with her medical collector about pain management. Today she reports that she was referred to cardiology due to chest tightness and swelling in the bilateral lower ext but was unable to go due to worsening generalized body pain. she unfortunately continues to smoke, she denies any use of illicit drug use. she denies any fever, nausea, vomiting or diarrhea. Started on Pain protocol and IV fluid resuscitation. No clinical infectious pathology identified. PATRICK done due to concern for RV thrombus on TTE. No thrombus noted. Cardiology consult appreciated. Patient hide 1 propofol syringes while she was down for the test and psych was consulted , patient was placed on 1013 and was managed for MDD and patient said she was devastated because of life stressors. Patient was advised to gave follow up with [facility] clinic. Sickle cell crisis; treated appropriately and pain was controlled. She was given percocet until she see her medical collector. Systemic inflammatory response syndrome Without organ dysfunction; treated emperically with antibiotics and resolved. No source identified. Fibromyalgia; Pain control, supportive care. Patient was cleared by psych and discharged home in a stable condition. Disposition: DC-01 TO HOME OR SELFCARE Time spent for discharge: 31 minutes - Discharge Diagnoses (1) Depressed Status: Acute (2) Chest pain Status: Acute Qualifiers: Chest pain type: unspecified Qualified Code(s): R07.9 - Chest pain, unspecified (3) Sickle cell pain crisis Status: Acute (4) Fibromyalgia Status: Chronic Core Measure Documentation - Palliative Care Palliative Care/ Comfort Measures: Not Applicable - Core Measures Any of the following diagnoses?: none Exam - Physical Exam Narrative exam: Not in cardiopulmonary distress. The patient appeared well nourished and normally developed. Vital signs as documented. Head exam is unremarkable. No scleral icterus . Neck is without jugular venous distension, thyromegaly, or carotid bruits. Lungs are clear to auscultation. Cardiac exam reveals regular rate and Rhythm. Abdominal exam reveals normal bowel sounds. Extremities are nonedematous and both femoral and pedal pulses are normal. 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 No focal weakness. - Constitutional Vitals: Temp Pulse Resp BP Pulse Ox 97.9 F 86 20 95/55 98 09/15/18 11:33 09/15/18 11:33 09/15/18 11:33 09/15/18 11:33 09/15/18 11:33 Plan Activity: no restrictions Weight Bearing Status: Full Weight Bearing Diet: regular Additional Instructions: Need O/P [facility]. Follow up with: KATY COPELAND DO [Primary Care Provider] - 3 Days Prescriptions: Zolpidem Tartrate [Ambien] 5 mg PO QHS PRN #10 tablet PRN Reason: Insomnia Folic Acid [Folvite] 1 mg PO QDAY #30 tablet Hydroxyurea [Hydrea] 500 mg PO BID #30 capsule oxyCODONE /ACETAMINOPHEN [Percocet 5/325 mg] 1 tab PO BID PRN #10 tablet PRN Reason: Pain Pregabalin [Lyrica] 75 mg PO QDAY #20 capsule Promethazine [Phenergan TAB] 25 mg PO Q6HR PRN #10 tablet PRN Reason: Nausea Sertraline [Zoloft] 25 mg PO QDAY #30 tablet
--- NOTE | 2018-09-15 15:12 | Progress Note ---
Subjective - Reason for Consult Consult date: 09/15/18 Reason for consult: Psychiatry Follow-up - Chief Complaint Chief complaint: "I feel much better" 33-year-old Citizen [place] female presented to the ER for sickle cell crisis. Psychiatry was consulted to see patient because she hid 2 syringes of propofol while having a procedure. Today the patient is calm and cooperative during the assessment. She read me the provider her journal about her life and how she plan to cope with stressors in her life. She stated that she will follow up with outpatient psy services when discharged. She denies SI/HI's and AVH's. She denies any side effects of her medications. Mental Status Exam - Vital signs Last Vital Signs Temp 97.9 F 09/15/18 11:33 Pulse 86 09/15/18 11:33 Resp 20 09/15/18 11:33 BP 95/55 09/15/18 11:33 Pulse Ox 98 09/15/18 11:33 - Exam Narrative exam: MSE: Appearance: calm, cooperative Behavior: regular eye contact Speech: regular rate and tone Mood: "I feel better" Affect: congruent to mood Thought Process: logical Thought Content: denies Si/HI's and AVH's Motor Activity: ambulatory Cognition: A/O x3 Insight: appropriate Judgment: appropriate Assessment and Plan Impression: MDD. Unspecified Anxiety DO. The patient is calm and cooperative during the assessment. The patient is no threat to self. Suicide Risk Assessment I. This screening and assessment is based on information collected from the following sources: II. SUICIDE RISK SCREENING (within last 30 days): A.) Suicidal thoughts/behaviors: Yes SUICIDE RISK ASSESSMENT III. FACTORS THAT INCREASE RISK: A.) Demographic and Substance Use Factors: B.) Current/Recent Factors (within past 3 months): Psychosocial/Environmental Factors: Life Stressors Physical Illness: None Cognitive/Psychological Factors: None C.) Historical Factors: None D.) Diagnostic/Symptom/Treatment Factors: None E.) Acute Risk Factor Severity (DESC; MILD/MOD/SEVERE): Mild Other factors for this individual that increase risk: None IV. FACTORS THAT DECREASE RISK: Resilience/Protective Factors: Patient want to decrease her stress. Other factors for this individual that decrease risk: Patient denies a desire to harm self V. Clinician's Formulation of Risk and Determination of level of Care: This is a 33 y.o. AA female who attempted to conceal 2 syringes of propofol while having a PATRICK. She stated that she was in the "moment" per her actions. She stated that her actions were unsafe. She stated that she should have asked to speak with a mental health professional. She stated that she will follow-up with outpatient psy services once discharged. Since the incident, the patient has consistently denied the desire to harm herself. Additionally, she has become insightful about how to better address her current issues. The patient is not impaired by substance. She is able to take care of her ADLs and is not at imminent risk of harm to self or others. Consequently, it is the opinion of the treatment team that the patient is at low risk of suicide and does not meet criteria to continue an involuntary psychiatric hold. Estimation of Imminent Risk: Low due to the above explanation. Determination of Level of Care based on Suicide Risk: Outpatient follow-up. Narrative description of clinical reasoning. Given the fact that the patient is willing to engage in outpatient psy services, it is reasonable to expect that the patient will seek services. Furthermore, the patient appears future oriented and denies that her intention was to end her life. She is regretful of her prior decision o conceal the 2 syringes. At this current time, she is not impulsive and does not have any risk factors to increase the likelihood of her impulsive behavior. Therefore, it is reasonable to expect that the patient will engage in outpatient psy services which will reduce further unsafe behaviors. . Plan and Interventions based on Suicide Risk: This patient will likely be stepped down to an outpatient mental health center in the community upon discharge and follow-up within 7 days of her discharge from the hospital. VII. Discharge/After Hours Support Plan: Patient can return back to the ER, call 911 or crisis line if symptoms of depression, anxiety, suicidality return. Recommendation/Plan: Rescind 1013 and continue Zoloft 25 mg PO daily for depression and start Klonopin 0.5 mg PO BID for sleep/anxiety. Discussed possible suicidality/medication induced roberta with the patient reference Zoloft. Safety Contract completed with the patient. Dispo: The patient can follow up with [facility] for outpatient psy services. Will staff with Dr Calix.
[2018-09-15] MEDS ORDERED: TRIPLE ANTIBIOTIC TP SCH (15:36)
[2018-09-15] MEDS ORDERED: FLUSH HEPARIN IV ONE (15:37)
[2018-09-15] MEDS ORDERED: TRIPLE ANTIBIOTIC TP ONE (17:00)
[2018-09-17 11:58] VITALS: BP 95/55
== END 2018-09-15 17:10 | disposition home or self-care (01) | DRG 812 ==
LOC: ED 04:43 → 3A 08:25
PROVIDERS: ADMIT Internal Medicine; ATTEND Internal Medicine
DX: D57.00 Hb-SS disease with crisis, unspecified (principal); R65.10 Systemic inflammatory response syndrome (SIRS) of non-infectious origin without acute organ dysfunction; F11.20 Opioid dependence, uncomplicated; E66.9 Obesity, unspecified; G40.909 Epilepsy, unspecified, not intractable, without status epilepticus; F32.9 Major depressive disorder, single episode, unspecified; F41.9 Anxiety disorder, unspecified; M79.7 Fibromyalgia; J45.909 Unspecified asthma, uncomplicated; F17.210 Nicotine dependence, cigarettes, uncomplicated; Z68.34 Body mass index [BMI] 34.0-34.9, adult; Z88.5 Allergy status to narcotic agent; Z88.8 Allergy status to other drugs, medicaments and biological substances; Z79.899 Other long term (current) drug therapy; Z90.81 Acquired absence of spleen; Z98.51 Tubal ligation status; Z71.6 Tobacco abuse counseling
CPT/HCPCS: 36415; 71045; 80048; 80307; 82550; 82553; 84484; 84703; 85007; 85025; 85027; 85045; 93005; 93010; 93306; 93312; 93320; 93325; 94760; 96361; 96374; 96375; 99406; G0378; A6250; J1170; J1200; J1642; J1885; J2405; J2704; J7030; J7040; J7070; J7131; Q0169

== ENCOUNTER 2018-12-05 09:42 | Emergency (ER) | payer MEDICARE ==
[2018-12-05 09:47] VITALS: BP 128/77
[2018-12-05] MEDS ORDERED: D5NS 0.2% 1,000 ML IV SCH (11:00)
[2018-12-05] MEDS ORDERED: TORADOL IV ONE (11:01)
[2018-12-05] MEDS ORDERED: ZOFRAN IV ONE (11:01)
[2018-12-05] MEDS ORDERED: BENADRYL IV ONE (11:01)
[2018-12-05] MEDS ORDERED: DILAUDID IV ONE ×5 (11:01→14:12)
--- NOTE | 2018-12-05 11:33 | Emergency Department Report ---
ED General Adult HPI - General Chief complaint: Sickle Cell Crisis Stated complaint: SICKLE CELL CRISIS Time Seen by Provider: 12/05/18 10:57 Source: patient, old records reviewed Mode of arrival: Ambulatory Limitations: No Limitations - History of Present Illness Initial comments: 33-year-old female with a past history of sickle cell (SC) disease presents complaining of crisis 1 week. She complains of pain to bilateral arms, back, sharp pain to the abdomen. She denies fever, nausea, vomiting, dysuria, chest pain, or shortness of breath. Pain is overall rated 8/10 intensity. She is taking Percocet 10 mg without improvement. She has a port. Pt is now out of Percocet Arc Furnace Operator is Dr. Sutherland Severity scale (0 -10): 8 - Related Data Previous Rx's Medication Instructions Recorded Last Taken Type Nicotine [Habitrol] 21 mg TD DAILY #30 patch 06/14/18 Unknown Rx Folic Acid [Folvite] 1 mg PO QDAY #30 tablet 09/15/18 Unknown Rx Hydroxyurea [Hydrea] 500 mg PO BID #30 capsule 09/15/18 Unknown Rx Pregabalin [Lyrica] 75 mg PO QDAY #20 capsule 09/15/18 Unknown Rx Promethazine [Phenergan TAB] 25 mg PO Q6HR PRN #10 tablet 09/15/18 Unknown Rx Sertraline [Zoloft] 25 mg PO QDAY #30 tablet 09/15/18 Unknown Rx Zolpidem Tartrate [Ambien] 5 mg PO QHS PRN #10 tablet 09/15/18 Unknown Rx oxyCODONE /ACETAMINOPHEN [Percocet 1 tab PO BID PRN #10 tablet 09/15/18 Unknown Rx 5/325 mg] Allergies Allergy/AdvReac Type Severity Reaction Status Date / Time cefotetan disodium Allergy Hives Verified 05/25/16 17:25 [From Cefotan] morphine Allergy Vomiting Verified 07/13/16 20:40 ED Review of Systems ROS: Stated complaint: SICKLE CELL CRISIS Other details as noted in HPI Comment: All other systems reviewed and negative ED Past Medical Hx - Past Medical History Previous Medical History?: Yes Hx Hypertension: No Hx Heart Attack/AMI: No Hx Congestive Heart Failure: No Hx Diabetes: No Hx Deep Vein Thrombosis: No Hx Pulmonary Embolism: No Hx Liver Disease: No Hx Renal Disease: No Hx Sickle Cell Disease: Yes Hx Arthritis: No Hx Seizures: Yes (10 + years ago) Hx Kidney Stones: No Hx Asthma: Yes Hx COPD: No Hx Tuberculosis: No Hx Dementia: No Hx HIV: No Additional medical history: fibromyalgia - Surgical History Past Surgical History?: Yes Hx Coronary Stent: No Hx Open Heart Surgery: No Hx Pacemaker: No Hx Internal Defibrillator: No Hx Cholecystectomy: Yes Hx Appendectomy: No Hx Breast Surgery: No Additional Surgical History: ports x 2 / tubal ligation/ t&a , splenectomy ? - Social History Smoking Status: Current Every Day Smoker Substance Use Type: None - Medications Home Medications: Home Medications Medication Instructions Recorded Confirmed Last Taken Type Nicotine [Habitrol] 21 mg TD DAILY #30 patch 06/14/18 09/08/18 Unknown Rx Folic Acid [Folvite] 1 mg PO QDAY #30 tablet 09/15/18 Unknown Rx Hydroxyurea [Hydrea] 500 mg PO BID #30 capsule 09/15/18 Unknown Rx Pregabalin [Lyrica] 75 mg PO QDAY #20 capsule 09/15/18 Unknown Rx Promethazine [Phenergan TAB] 25 mg PO Q6HR PRN #10 tablet 09/15/18 Unknown Rx Sertraline [Zoloft] 25 mg PO QDAY #30 tablet 09/15/18 Unknown Rx Zolpidem Tartrate [Ambien] 5 mg PO QHS PRN #10 tablet 09/15/18 Unknown Rx oxyCODONE /ACETAMINOPHEN [Percocet 1 tab PO BID PRN #10 tablet 09/15/18 Unknown Rx 5/325 mg] ED Physical Exam - General Limitations: No Limitations - Other Other exam information: General: No limitations, patient is alert in no acute distress Head exam: Atraumatic, normocephalic Eyes exam: Normal appearance ENT: Moist mucous membrane, normal oropharynx Neck exam: Normal inspection, full range of motion, no meningismus nontender Respiratory exam: Clear to auscultation bilateral, no wheezes, rales, crackles Cardiovascular: Normal rate and rhythm, normal heart sounds Abdomen: Soft, nondistended, and nontender, with normal bowel sounds, no rebound, or guarding : no external lesions, white vag d/c, no cmt Extremity: Full range of motion normal inspection no deformity Back: Normal Inspection, full range of motion, generalized back tenderness Neurologic: Alert, oriented x3, cranial nerves intact, no motor or sensory deficit Psychiatric: normal affect, normal mood Skin: Warm, dry, intact ED Course Vital Signs 12/05/18 09:46 Temperature 99.2 F Pulse Rate 98 H Respiratory 18 Rate Blood Pressure 128/77 O2 Sat by Pulse 99 Oximetry - Consultations Consultation #1: 12/05/18 14:41 case d/w PA with dr Sutherland, informed of results, states if pain controlled by f/u as scheduled for med refill ED Medical Decision Making - Lab Data Result diagrams: 12/05/18 11:23 12/05/18 11:23 Lab Results 12/05/18 12/05/18 12/05/18 Range/Units 11:23 11:23 11:23 WBC 11.9 H (4.5-11.0) K/mm3 RBC 4.99 (3.65-5.03) M/mm3 Hgb 8.7 L (10.1-14.3) gm/dl Hct 27.4 L (30.3-42.9) % MCV 55 L (79-97) fl MCH 17 L (28-32) pg MCHC 32 (30-34) % RDW 25.0 H (13.2-15.2) % Plt Count 163 (140-440) K/mm3 Add Manual Diff Complete Total Counted 100 Seg Neuts % (Manual) 69.0 (40.0-70.0) % Band Neutrophils % 0 % Lymphocytes % (Manual) 28.0 (13.4-35.0) % Reactive Lymphs % (Man) 0 % Monocytes % (Manual) 2.0 (0.0-7.3) % Eosinophils % (Manual) 0 (0.0-4.3) % Basophils % (Manual) 1.0 (0.0-1.8) % Metamyelocytes % 0 % Myelocytes % 0 % Promyelocytes % 0 % Blast Cells % 0 % Nucleated RBC % Not Reportable Seg Neutrophils # Man 8.2 H (1.8-7.7) K/mm3 Band Neutrophils # 0.0 K/mm3 Lymphocytes # (Manual) 3.3 (1.2-5.4) K/mm3 Abs React Lymphs (Man) 0.0 K/mm3 Monocytes # (Manual) 0.2 (0.0-0.8) K/mm3 Eosinophils # (Manual) 0.0 (0.0-0.4) K/mm3 Basophils # (Manual) 0.1 (0.0-0.1) K/mm3 Metamyelocytes # 0.0 K/mm3 Myelocytes # 0.0 K/mm3 Promyelocytes # 0.0 K/mm3 Blast Cells # 0.0 K/mm3 WBC Morphology Not Reportable Hypersegmented Neuts Not Reportable Hyposegmented Neuts Not Reportable Hypogranular Neuts Not Reportable Smudge Cells Not Reportable Toxic Granulation Not Reportable Toxic Vacuolation Not Reportable Dohle Bodies Not Reportable Pelger-Huet Anomaly Not Reportable Delmi Rods Not Reportable Platelet Estimate Consistent w auto Clumped Platelets Not Reportable Plt Clumps, EDTA Not Reportable Large Platelets Few Giant Platelets Not Reportable Platelet Satelliting Not Reportable Plt Morphology Comment Not Reportable RBC Morphology Not Reportable Dimorphic RBCs Not Reportable Polychromasia Not Reportable Hypochromasia 3+ Poikilocytosis 2+ Anisocytosis 2+ Microcytosis 2+ Macrocytosis Not Reportable Spherocytes Not Reportable Pappenheimer Bodies Not Reportable Sickle Cells Not Reportable Target Cells 2+ Tear Drop Cells Not Reportable Ovalocytes Not Reportable Stomatocytes 1+ Helmet Cells Not Reportable Bernard-Nikolaevsk Bodies Not Reportable [place] Rings Not Reportable Tiffanie Cells Not Reportable Bite Cells Not Reportable Crenated Cell Not Reportable Elliptocytes Not Reportable Acanthocytes (Spur) Not Reportable Rouleaux Not Reportable Hemoglobin C Crystals Not Reportable Schistocytes Not Reportable Malaria parasites Not Reportable Percent Retic 2.15 (0.78-2.58) % Jaziel Bodies Not Reportable Hem Pathologist Commnt No Sodium 139 (137-145) mmol/L Potassium 4.1 (3.6-5.0) mmol/L Chloride 105.8 (98-107) mmol/L Carbon Dioxide 20 L (22-30) mmol/L Anion Gap 17 mmol/L BUN 8 (7-17) mg/dL Creatinine 0.4 L (0.7-1.2) mg/dL Estimated GFR > 60 ml/min BUN/Creatinine Ratio 20 % Glucose 105 H (65-100) mg/dL Calcium 8.5 (8.4-10.2) mg/dL Total Bilirubin 0.30 (0.1-1.2) mg/dL AST 11 (5-40) units/L ALT < 5 L (7-56) units/L Alkaline Phosphatase 58 (35-129) units/L Total Protein 7.0 (6.3-8.2) g/dL Albumin 3.8 L (3.9-5) g/dL Albumin/Globulin Ratio 1.2 % HCG, Qual Negative (Negative) Urine Color (Yellow) Urine Turbidity (Clear) Urine pH (5.0-7.0) Ur Specific [place] (1.003-1.030) Urine Protein (Negative) mg/dL Urine Glucose (UA) (Negative) mg/dL Urine Ketones (Negative) mg/dL Urine Blood (Negative) Urine Nitrite (Negative) Urine Bilirubin (Negative) Urine Urobilinogen (<2.0) mg/dL Ur Leukocyte Esterase (Negative) Urine WBC (Auto) (0.0-6.0) /HPF Urine RBC (Auto) (0.0-6.0) /HPF U Epithel Cells (Auto) (0-13.0) /HPF Urine Bacteria (Auto) (Negative) /HPF Hyaline Casts /LPF Urine Mucus /HPF 04// Range/Units 13:07 WBC (4.5-11.0) K/mm3 RBC (3.65-5.03) M/mm3 Hgb (10.1-14.3) gm/dl Hct (30.3-42.9) % MCV (79-97) fl MCH (28-32) pg MCHC (30-34) % RDW (13.2-15.2) % Plt Count (140-440) K/mm3 Add Manual Diff Total Counted Seg Neuts % (Manual) (40.0-70.0) % Band Neutrophils % % Lymphocytes % (Manual) (13.4-35.0) % Reactive Lymphs % (Man) % Monocytes % (Manual) (0.0-7.3) % Eosinophils % (Manual) (0.0-4.3) % Basophils % (Manual) (0.0-1.8) % Metamyelocytes % % Myelocytes % % Promyelocytes % % Blast Cells % % Nucleated RBC % Seg Neutrophils # Man (1.8-7.7) K/mm3 Band Neutrophils # K/mm3 Lymphocytes # (Manual) (1.2-5.4) K/mm3 Abs React Lymphs (Man) K/mm3 Monocytes # (Manual) (0.0-0.8) K/mm3 Eosinophils # (Manual) (0.0-0.4) K/mm3 Basophils # (Manual) (0.0-0.1) K/mm3 Metamyelocytes # K/mm3 Myelocytes # K/mm3 Promyelocytes # K/mm3 Blast Cells # K/mm3 WBC Morphology Hypersegmented Neuts Hyposegmented Neuts Hypogranular Neuts Smudge Cells Toxic Granulation Toxic Vacuolation Dohle Bodies Pelger-Huet Anomaly Delmi Rods Platelet Estimate Clumped Platelets Plt Clumps, EDTA Large Platelets Giant Platelets Platelet Satelliting Plt Morphology Comment RBC Morphology Dimorphic RBCs Polychromasia Hypochromasia Poikilocytosis Anisocytosis Microcytosis Macrocytosis Spherocytes Pappenheimer Bodies Sickle Cells Target Cells Tear Drop Cells Ovalocytes Stomatocytes Helmet Cells Bernard-Nikolaevsk Bodies [place] Rings Tiffanie Cells Bite Cells Crenated Cell Elliptocytes Acanthocytes (Spur) Rouleaux Hemoglobin C Crystals Schistocytes Malaria parasites Percent Retic (0.78-2.58) % Jaziel Bodies Hem Pathologist Commnt Sodium (137-145) mmol/L Potassium (3.6-5.0) mmol/L Chloride (98-107) mmol/L Carbon Dioxide (22-30) mmol/L Anion Gap mmol/L BUN (7-17) mg/dL Creatinine (0.7-1.2) mg/dL Estimated GFR ml/min BUN/Creatinine Ratio % Glucose (65-100) mg/dL Calcium (8.4-10.2) mg/dL Total Bilirubin (0.1-1.2) mg/dL AST (5-40) units/L ALT (7-56) units/L Alkaline Phosphatase (35-129) units/L Total Protein (6.3-8.2) g/dL Albumin (3.9-5) g/dL Albumin/Globulin Ratio % HCG, Qual (Negative) Urine Color Yellow (Yellow) Urine Turbidity Clear (Clear) Urine pH 6.0 (5.0-7.0) Ur Specific [place] 1.009 (1.003-1.030) Urine Protein <15 mg/dl (Negative) mg/dL Urine Glucose (UA) Neg (Negative) mg/dL Urine Ketones Neg (Negative) mg/dL Urine Blood Neg (Negative) Urine Nitrite Neg (Negative) Urine Bilirubin Neg (Negative) Urine Urobilinogen < 2.0 (<2.0) mg/dL Ur Leukocyte Esterase Tr (Negative) Urine WBC (Auto) 1.0 (0.0-6.0) /HPF Urine RBC (Auto) 2.0 (0.0-6.0) /HPF U Epithel Cells (Auto) 1.0 (0-13.0) /HPF Urine Bacteria (Auto) 1+ (Negative) /HPF Hyaline Casts 1 /LPF Urine Mucus Few /HPF - Medical Decision Making sickle cell crises will be d/danial to go to her heme apt at 3pm gc/chl pending - Differential Diagnosis sickle cell crisis, aplastic crisis, UTI Critical Care Time: No Critical care attestation.: If time is entered above; I have spent that time in minutes in the direct care of this critically ill patient, excluding procedure time. ED Disposition Clinical Impression: Sickle cell crisis, Anemia, Intermittent abdominal pain Disposition: DC- TO HOME OR SELFCARE Is pt being admited?: No Does the pt Need Aspirin: No Condition: Stable Instructions: Abdominal Pain (ED), Sickle Cell Crisis (ED) Additional Instructions: Go Directly to your senior software quality engineer's office upon discharge. Return if symptoms w orsen as indicated by your discharge instructions. Take copy of labs provided to your doctor for follow up. Your gonorrhea and chlamydia tests are pending and take approximately 3-4 days result. You may obtain results in medical records with a photo ID. You may also obtain results through the follow-up doctor office via medical record request. Referrals: KIM SUTHERLAND MD [Staff Physician] - 12/05/18 3:00 pm Time of Disposition: 14:44
[2018-12-05 11:36] LABS: Hematocrit 27.4 % (30.3-42.9); Hemoglobin 8.7 gm/dl (10.1-14.3); Mean Corpuscular HGB Conc 32 % (30-34); Red Blood Count 4.99 M/mm3 (3.65-5.03)
[2018-12-05 11:39] LABS: Mean Corpuscular Volume 55 fl (79-97)
[2018-12-05 11:57] LABS: Albumin 3.8 g/dL (3.9-5); BUN/Creatinine Ratio 20; Blood Urea Nitrogen 8 mg/dL (7-17); Calcium 8.5 mg/dL (8.4-10.2); Hemolysis Index 22
[2018-12-05 12:02] LABS: Alanine Aminotransferase < 5 units/L (7-56)
[2018-12-05 13:35] LABS: Bacteria,Urine 1+ /HPF (Negative); Bilirubin,Urine NEG (Negative); Blood,Urine NEG (Negative); Color,Urine Yellow (Yellow); Hyaline Casts,Urine 1 /LPF; Mucus,Urine FEW /HPF; Protein,Urine <15 mg/dL mg/dL (Negative); Urobilinogen,Urine < 2.0 mg/dL (<2.0)
[2018-12-05 13:43] LABS: Anisocytosis 2+; Eosinophils % (Manual) 0 % (0.0-4.3); Hypochromasia 3+; Poikilocytosis 2+; Total Cells Counted 100
[2018-12-05 13:44] LABS: Stomatocytes 1+; Target Cells 2+
[2018-12-05 13:45] LABS: Large Platelets Few; Platelet Count 163 K/mm3 (140-440); Platelet Estimate Consistent w Auto
[2018-12-05] MEDS ORDERED: FLUSH HEPARIN IV ONE (14:46)
== END 2018-12-05 14:55 | disposition home or self-care (01) ==
LOC: ED 09:42
DX: D57.00 Hb-SS disease with crisis, unspecified (principal); J45.909 Unspecified asthma, uncomplicated; F17.200 Nicotine dependence, unspecified, uncomplicated; R10.9 Unspecified abdominal pain; M79.7 Fibromyalgia; Z88.5 Allergy status to narcotic agent; Z90.49 Acquired absence of other specified parts of digestive tract; Z98.51 Tubal ligation status; Z90.81 Acquired absence of spleen
CPT/HCPCS: 36415; 80053; 81001; 84703; 85007; 85025; 85045; 87210; 87591; 96374; 96375; 96376; 99284; J1170; J1200; J1642; J1885; J2405

== ENCOUNTER 2018-12-31 06:02 | Emergency (ER) | payer MEDICARE ==
[2018-12-31] MEDS ORDERED: NACL 0.9% 1000 ML 1,000 ML IV ONE ×3 (06:59→09:35)
[2018-12-31] MEDS ORDERED: ZOFRAN IV ONE (06:59)
[2018-12-31] MEDS ORDERED: DILAUDID IV ONE (07:00)
--- NOTE | 2018-12-31 07:03 | Emergency Department Report ---
HPI - General Chief Complaint: Sickle Cell Crisis Time Seen by Provider: 12/31/18 06:46 - HPI HPI: 33-year-old -[place] female, with a history of sickle cell disease, presents to the emergency department with complaint of generalized body aches an d shortness of breath. While her pain is generalized, she says that it is worst in the legs and back. She is unable to give an exact time for her symptoms and she says "I hurt all the time." The shortness of breath has been going on for the past 3 days. She denies any fever, chest pain, cough but does complain of some nausea, vomiting and lower extremity swelling. She also has a past medical history of asthma, seizures, fibromyalgia. She has a chest port. She has been taking her Percocet, hydroxyurea and folic acid without any relief. Her inventory control planner is Dr. Sutherland. No recent travel or sick contacts at home. ED Past Medical Hx - Past Medical History Previous Medical History?: Yes Hx Hypertension: No Hx Heart Attack/AMI: No Hx Congestive Heart Failure: No Hx Diabetes: No Hx Deep Vein Thrombosis: No Hx Pulmonary Embolism: No Hx Liver Disease: No Hx Renal Disease: No Hx Sickle Cell Disease: Yes Hx Arthritis: No Hx Seizures: Yes (10 + years ago) Hx Kidney Stones: No Hx Asthma: Yes Hx COPD: No Hx Tuberculosis: No Hx Dementia: No Hx HIV: No Additional medical history: fibromyalgia - Surgical History Past Surgical History?: Yes Hx Coronary Stent: No Hx Open Heart Surgery: No Hx Pacemaker: No Hx Internal Defibrillator: No Hx Cholecystectomy: Yes Hx Appendectomy: No Hx Breast Surgery: No Additional Surgical History: ports x 2 / tubal ligation/ t&a , splenectomy ? - Social History Smoking Status: Current Some Day Smoker - Medications Home Medications: Home Medications Medication Instructions Recorded Confirmed Last Taken Type Nicotine [Habitrol] 21 mg TD DAILY #30 patch 06/14/18 09/08/18 Unknown Rx Folic Acid [Folvite] 1 mg PO QDAY #30 tablet 09/15/18 Unknown Rx Hydroxyurea [Hydrea] 500 mg PO BID #30 capsule 09/15/18 Unknown Rx Pregabalin [Lyrica] 75 mg PO QDAY #20 capsule 09/15/18 Unknown Rx Promethazine [Phenergan] 25 mg PO Q6HR PRN #10 tablet 09/15/18 Unknown Rx Sertraline [Zoloft] 25 mg PO QDAY #30 tablet 09/15/18 Unknown Rx Zolpidem Tartrate [Ambien] 5 mg PO QHS PRN #10 tablet 09/15/18 Unknown Rx oxyCODONE /ACETAMINOPHEN [Percocet 1 tab PO BID PRN #10 tablet 09/15/18 Unknown Rx 5/325 mg] ED Review of Systems ROS: Stated complaint: SICKLE CELL CRISIS/NAUSEA/SOB Other details as noted in HPI Comment: All other systems reviewed and negative Constitutional: denies: chills, fever Eyes: denies: eye pain, vision change ENT: denies: ear pain, throat pain Respiratory: shortness of breath. denies: cough Cardiovascular: edema. denies: chest pain Gastrointestinal: denies: abdominal pain, vomiting Genitourinary: denies: dysuria, discharge Musculoskeletal: back pain, arthralgia, myalgia. denies: joint swelling Skin: denies: rash, lesions Neurological: denies: headache, weakness Physical Exam - Physical Exam Vital Signs: Vital Signs 12/31/18 12/31/18 06:06 06:20 Temperature 99.6 F 99.6 F Pulse Rate 109 H 107 H Respiratory 18 18 Rate Blood Pressure 109/36 109/36 O2 Sat by Pulse 98 98 Oximetry Physical Exam: GENERAL: The patient is well-developed well-nourished. HENT: Normocephalic. Atraumatic. Patient has moist mucous membranes. EYES: Extraocular motions are intact. Pupils equal reactive to light bilatera lly. NECK: Supple. Trachea is midline. CHEST/LUNGS: Clear to auscultation. There is no respiratory distress noted. Chest port in place. HEART/CARDIOVASCULAR: Regular. There is no tachycardia. There is no murmur. ABDOMEN: Abdomen is soft, nontender. Patient has normal bowel sounds. There is no abdominal distention. SKIN: Skin is warm and dry. NEURO: The patient is awake, alert, and oriented. The patient is cooperative. The patient has no focal neurologic deficits. The patient has normal speech. MUSCULOSKELETAL: There is no obvious deformity. There is no evidence of acute injury. ED Course Vital Signs 12/31/18 12/31/18 06:06 06:20 Temperature 99.6 F 99.6 F Pulse Rate 109 H 107 H Respiratory 18 18 Rate Blood Pressure 109/36 109/36 O2 Sat by Pulse 98 98 Oximetry ED Medical Decision Making - Lab Data Result diagrams: 12/31/18 07:45 12/31/18 07:45 - EKG Data -: EKG Interpreted by Me EKG shows normal: sinus rhythm, axis, intervals, QRS complexes, ST-T waves Rate: normal - EKG Data When compared to previous EKG there are: previous EKG unavailable Interpretation: normal EKG - Radiology Data Radiology results: image reviewed interpreted by me: Chest x-ray does not show any acute process. There are no pleural effusions, obvious pneumonia and there is no pneumothorax. - Medical Decision Making This patient presents to the emergency department with complaint of generalized body pains including back and legs, as well as some shortness of breath. On exa mination, the patient has normal sounding heart and lungs and does not appear in any respiratory distress. Chest x-ray does not show any focal consolidation, pneumothorax, pneumonia, pleural effusions, or any other acute process. The patient has a mild leukocytosis of about 17,000. She has a hemoglobin of 8.3 which is consistent with previous visits. Patient was given some pain medication with some improvement of her discomfort. EKG did not show any signs of ST elevation [place] or dysrhythmia. Patient had a little bit of transient low blood pressure after the initial dose of Dilaudid was given but she was given some IV resuscitation with improvement in her blood pressure went back to gaby l. It remained within the normal range when the IV fluid was finished as well. The patient has good follow-up with her inventory control planner and has been instructed to follow-up with them tomorrow, Tuesday. Otherwise she will return to the ER with any worsening of her symptoms or any acute distress. - Differential Diagnosis sickle cell pain crisis, pneumonia, Asthma, Dysrythmia Critical Care Time: No Critical care attestation.: If time is entered above; I have spent that time in minutes in the direct care of this critically ill patient, excluding procedure time. ED Disposition Clinical Impression: Sickle cell pain crisis Dyspnea Qualifiers: Dyspnea type: shortness of breath Qualified Code(s): R06.02 - Shortness of breath; R06.00 - Dyspnea, unspecified; R06.01 - Orthopnea Disposition: - TO HOME OR SELFCARE Is pt being admited?: No Condition: Stable Instructions: Sickle Cell Crisis (ED), Dyspnea (ED) Additional Instructions: Please follow up with Dr. Sutherland on Tuesday. Return to the emergency department with any return or worsening of your symptoms, or with any acute distress. Referrals: KIM SUTHERLAND MD [Staff Physician] - [facility] Time of Disposition: 12:50
[2018-12-31] MEDS ORDERED: REGLAN IV ONE (07:35)
[2018-12-31 08:33] LABS: BUN/Creatinine Ratio 15; Blood Urea Nitrogen 6 mg/dL (7-17); Hemolysis Index 2
[2018-12-31 09:03] LABS: Hematocrit 27.1 % (30.3-42.9); Hemoglobin 8.3 gm/dl (10.1-14.3); Mean Corpuscular HGB Conc 31 % (30-34); Mean Corpuscular Volume 54 fl (79-97); Red Blood Count 5.02 M/mm3 (3.65-5.03); Red Cell Distribution Width 25.9 % (13.2-15.2)
[2018-12-31 09:04] LABS: Platelet Count 181 K/mm3 (140-440)
--- NOTE | 2018-12-31 09:33 | XRay Report ---
PROCEDURE: XR CHEST 1V AP TECHNIQUE: Chest radiograph single view. HISTORY: SOB COMPARISONS: 09/08/2018 . FINDINGS: Satisfactory left chest port. No mediastinal shift. Cardiac silhouette is not enlarged. No pneumothor ax, effusion, or focal pulmonary opacity identified. No acute skeletal findings. IMPRESSION: No acute pulmonary finding identified. Consider additional imaging for worsening/persistent symptoms. This document is electronically signed by Kiet Knight MD., Dec 31 2018 09:31:27 AM ET
[2018-12-31] MEDS ORDERED: SUBLIMAZE IV ONE ×2 (11:00→11:25)
[2018-12-31] MEDS ORDERED: TORADOL IV ONE (11:26)
[2018-12-31 12:18] LABS: Basophils % (Manual) 0 % (0.0-1.8); Eosinophils % (Manual) 0 % (0.0-4.3); Hypochromasia 3+; Target Cells 3+; Total Cells Counted 100
[2018-12-31 12:19] LABS: Platelet Estimate Consistent w Auto; Tear Drop Cells Few
[2018-12-31] MEDS ORDERED: FLUSH HEPARIN IV ONE (13:33)
[2018-12-31 13:46] VITALS: BP 103/63
== END 2018-12-31 13:43 | disposition home or self-care (01) ==
LOC: ED 06:02
DX: D57.00 Hb-SS disease with crisis, unspecified (principal); R11.2 Nausea with vomiting, unspecified; R06.00 Dyspnea, unspecified; J45.909 Unspecified asthma, uncomplicated; M79.7 Fibromyalgia; F17.200 Nicotine dependence, unspecified, uncomplicated; Z98.51 Tubal ligation status; Z90.49 Acquired absence of other specified parts of digestive tract; Z90.81 Acquired absence of spleen; Z88.5 Allergy status to narcotic agent; Z88.8 Allergy status to other drugs, medicaments and biological substances
CPT/HCPCS: 36415; 71045; 80048; 83880; 84484; 85007; 85025; 85045; 85379; 93005; 93010; 96361; 96374; 96375; 96376; 99284; J1170; J1642; J2405; J2765; J3010; J7030

== ENCOUNTER 2019-03-25 04:59 | Emergency (ER) | payer MEDICARE ==
[2019-03-25 05:06] VITALS: BP 109/69
[2019-03-25 05:51] LABS: Hematocrit 27.7 % (30.3-42.9); Hemoglobin 8.8 gm/dl (10.1-14.3); Mean Corpuscular HGB Conc 32 % (30-34); Platelet Count 210 K/mm3 (140-440); Red Blood Count 4.69 M/mm3 (3.65-5.03)
[2019-03-25 05:53] LABS: Mean Corpuscular Volume 59 fl (79-97)
[2019-03-25 05:54] LABS: Red Cell Distribution Width 29.6 % (13.2-15.2)
[2019-03-25 06:05] LABS: BUN/Creatinine Ratio 18; Blood Urea Nitrogen 9 mg/dL (7-17); Calcium 8.2 mg/dL (8.4-10.2); Hemolysis Index 0
[2019-03-25] MEDS ORDERED: ZOFRAN IV ONE (06:28)
[2019-03-25] MEDS ORDERED: NACL 0.9% 1000 ML 1,000 ML IV ONE (06:28)
[2019-03-25] MEDS ORDERED: BENADRYL IV ONE (06:28)
[2019-03-25] MEDS ORDERED: DILAUDID IV ONE (06:28)
--- NOTE | 2019-03-25 06:33 | Emergency Department Report ---
ED General Adult HPI - General Chief complaint: Sickle Cell Crisis Stated complaint: SICKLE CELL PAIN CRISIS Time Seen by Provider: 03/25/19 06:10 Source: patient Mode of arrival: Ambulatory Limitations: No Limitations - History of Present Illness Initial comments: This is a 34 y/o SSD pt with and indwelling port. Despite this she denies chronic opioid use. She states that she has been trying to "go drug-free". She denies chronic pain management. She states that she sees Dr. Osman the maintenance plumber's, her only physician. For the last 4 days she essentially has been having allodynia. He came to the emergency department on that basis. She has not referring any other symptoms. She is however reticulocyte count of 1.5. Further, she has populated history of fibromyalgia. However she denies chronic pain. -: Gradual, days(s) Location: upper extremity, lower extremity Radiation: non-radiation Quality: aching Consistency: intermittent Improves with: none Worsens with: none Associated Symptoms: denies other symptoms - Related Data Previous Rx's Medication Instructions Recorded Last Taken Type Nicotine [Habitrol] 21 mg TD DAILY #30 patch 06/14/18 Unknown Rx Folic Acid [Folvite] 1 mg PO QDAY #30 tablet 09/15/18 Unknown Rx Hydroxyurea [Hydrea] 500 mg PO BID #30 capsule 09/15/18 Unknown Rx Pregabalin [Lyrica] 75 mg PO QDAY #20 capsule 09/15/18 Unknown Rx Promethazine [Phenergan] 25 mg PO Q6HR PRN #10 tablet 09/15/18 Unknown Rx Sertraline [Zoloft] 25 mg PO QDAY #30 tablet 09/15/18 Unknown Rx Zolpidem Tartrate [Ambien] 5 mg PO QHS PRN #10 tablet 09/15/18 Unknown Rx oxyCODONE /ACETAMINOPHEN [Percocet 1 tab PO BID PRN #10 tablet 09/15/18 Unknown Rx 5/325 mg] HYDROcodone/APAP 5-325 [[place] 1 each PO Q6HR PRN #7 tablet 03/25/19 Unknown Rx 5/325] Allergies Allergy/AdvReac Type Severity Reaction Status Date / Time cefotetan disodium Allergy Hives Verified 05/25/16 17:25 [From Cefotan] morphine Allergy Vomiting Verified 07/13/16 20:40 ED Review of Systems ROS: Stated complaint: SICKLE CELL PAIN CRISIS Other details as noted in HPI Constitutional: denies: chills, fever Eyes: denies: eye pain, eye discharge, vision change ENT: denies: ear pain, throat pain Respiratory: denies: cough, shortness of breath, wheezing Cardiovascular: denies: chest pain, palpitations Endocrine: no symptoms reported Gastrointestinal: denies: abdominal pain, nausea, diarrhea Genitourinary: denies: urgency, dysuria, discharge Musculoskeletal: as per HPI (hurting all over), joint swelling Skin: denies: rash, lesions Neurological: denies: headache, weakness, paresthesias Psychiatric: denies: anxiety, depression Hematological/Lymphatic: denies: easy bleeding, easy bruising ED Past Medical Hx - Past Medical History Previous Medical History?: Yes Hx Hypertension: No Hx Heart Attack/AMI: No Hx Congestive Heart Failure: No Hx Diabetes: No Hx Deep Vein Thrombosis: No Hx Pulmonary Embolism: No Hx Liver Disease: No Hx Renal Disease: No Hx Sickle Cell Disease: Yes Hx Arthritis: No Hx Seizures: Yes (10 + years ago) Hx Kidney Stones: No Hx Asthma: Yes Hx COPD: No Hx Tuberculosis: No Hx Dementia: No Hx HIV: No Additional medical history: fibromyalgia - Surgical History Past Surgical History?: Yes Hx Coronary Stent: No Hx Open Heart Surgery: No Hx Pacemaker: No Hx Internal Defibrillator: No Hx Cholecystectomy: Yes Hx Appendectomy: No Hx Breast Surgery: No Additional Surgical History: ports x 2 / tubal ligation/ t&a , splenectomy ? - Social History Smoking Status: Current Every Day Smoker Substance Use Type: Alcohol - Medications Home Medications: Home Medications Medication Instructions Recorded Confirmed Last Taken Type Nicotine [Habitrol] 21 mg TD DAILY #30 patch 06/14/18 09/08/18 Unknown Rx Folic Acid [Folvite] 1 mg PO QDAY #30 tablet 09/15/18 Unknown Rx Hydroxyurea [Hydrea] 500 mg PO BID #30 capsule 09/15/18 Unknown Rx Pregabalin [Lyrica] 75 mg PO QDAY #20 capsule 09/15/18 Unknown Rx Promethazine [Phenergan] 25 mg PO Q6HR PRN #10 tablet 09/15/18 Unknown Rx Sertraline [Zoloft] 25 mg PO QDAY #30 tablet 09/15/18 Unknown Rx Zolpidem Tartrate [Ambien] 5 mg PO QHS PRN #10 tablet 09/15/18 Unknown Rx oxyCODONE /ACETAMINOPHEN [Percocet 1 tab PO BID PRN #10 tablet 09/15/18 Unknown Rx 5/325 mg] HYDROcodone/APAP 5-325 [[place] 1 each PO Q6HR PRN #7 tablet 03/25/19 Unknown Rx 5/325] ED Physical Exam - General Limitations: No Limitations General appearance: alert, in no apparent distress - Head Head exam: Present: atraumatic, normocephalic - Eye Eye exam: Present: normal appearance. Absent: scleral icterus - ENT ENT exam: Present: mucous membranes moist - Neck Neck exam: Present: normal inspection - Respiratory Respiratory exam: Present: normal lung sounds bilaterally. Absent: respiratory distress - Cardiovascular Cardiovascular Exam: Present: regular rate, normal rhythm. Absent: systolic murmur, diastolic murmur, rubs, gallop - GI/Abdominal GI/Abdominal exam: Present: soft, normal bowel sounds. Absent: distended, tenderness, guarding, rebound, rigid - Extremities Exam Extremities exam: Present: normal inspection. Absent: joint swelling (normal joint exam), calf tenderness - Back Exam Back exam: Present: normal inspection - Neurological Exam Neurological exam: Present: alert, oriented X3 - Psychiatric Psychiatric exam: Present: normal affect, normal mood - Skin Skin exam: Present: warm, dry, intact, normal color. Absent: rash ED Course Vital Signs 03/25/19 03/25/19 05:04 05:05 Temperature 99.1 F Pulse Rate 102 H Respiratory 18 Rate Blood Pressure 109/69 [Right] O2 Sat by Pulse 99 Oximetry - Reevaluation(s) Reevaluation #1: Patient will be given analgesia and discharged to follow-up with her maintenance plumber. 03/25/19 06:33 ED Medical Decision Making - Lab Data Result diagrams: 03/25/19 05:34 03/25/19 05:34 Laboratory Results - last 24 hr 03/25/19 03/25/19 03/25/19 05:34 05:34 05:34 WBC 11.6 H RBC 4.69 Hgb 8.8 L Hct 27.7 L MCV 59 L MCH 19 L MCHC 32 RDW 29.6 H Plt Count 210 Percent Retic 1.45 Sodium 140 Potassium 3.6 Chloride 107.0 Carbon Dioxide 22 Anion Gap 15 BUN 9 Creatinine 0.5 L Estimated GFR > 60 BUN/Creatinine Ratio 18 Glucose 116 H Calcium 8.2 L HCG, Qual Negative Critical care attestation.: If time is entered above; I have spent that time in minutes in the direct care of this critically ill patient, excluding procedure time. ED Disposition Clinical Impression: Sickle cell anemia with pain Disposition: DC- TO HOME OR SELFCARE Is pt being admited?: No Does the pt Need Aspirin: No Condition: Stable Instructions: Sickle Cell Crisis (ED) Additional Instructions: Follow-up U maintenance plumber. Emergency Department any acute change or problem. Prescriptions: HYDROcodone/APAP 5-325 [Frederic 5/325] 1 each PO Q6HR PRN #7 tablet PRN Reason: Pain Time of Disposition: 06:34
[2019-03-25 06:50] LABS: Basophils % (Manual) 0 % (0.0-1.8); Total Cells Counted 100
[2019-03-25 06:51] LABS: Anisocytosis 3+; Hypochromasia 2+; Poikilocytosis 2+; Target Cells 2+
[2019-03-25 06:52] LABS: Platelet Estimate Consistent w Auto; Stomatocytes 1+
[2019-03-25] MEDS ORDERED: PERCOCET 5/325 PO ONE (08:30)
[2019-03-25] MEDS ORDERED: PERCOCET 5/325 ONE (08:32)
== END 2019-03-25 08:56 | disposition home or self-care (01) ==
LOC: ED 04:59
DX: D57.00 Hb-SS disease with crisis, unspecified (principal); J45.909 Unspecified asthma, uncomplicated; F17.200 Nicotine dependence, unspecified, uncomplicated; Z90.49 Acquired absence of other specified parts of digestive tract; Z98.51 Tubal ligation status; Z79.899 Other long term (current) drug therapy; Z88.6 Allergy status to analgesic agent; Z88.8 Allergy status to other drugs, medicaments and biological substances
CPT/HCPCS: 36415; 80048; 84703; 85007; 85025; 85045; 96374; 96375; 99283; J1170; J1200; J2405; J7030; 96361

== ENCOUNTER 2019-04-06 12:15 | Emergency (ER) | payer MEDICARE ==
--- NOTE | 2019-04-06 12:40 | Event Note ---
ED Screening Note ED Screening Note: GEN PAIN INCLUDING CHEST SSD HAS PORT ON HER FOLIC ACID AND HYDROXYUREA This initial assessment/diagnostic orders/clinical plan/treatment(s) is/are subject to change based on patients health status, clinical progression and re- assessment by fellow clinical providers in the ED. Further treatment and workup at subsequent clinical providers discretion. Patient/guardian urged not to elope from the ED as their condition may be serious if not clinically assessed and managed. Initial orders include: EKG LABS/RETIC/TROP
--- NOTE | 2019-04-06 15:07 | Emergency Department Report ---
HPI - General Chief Complaint: Pain General Time Seen by Provider: 04/06/19 12:38 - HPI HPI: 34-year-old female presents to the emergency department with the complaint of generalized body pain for the patient feels is a sickle cell pain crisis. This is been going on for the past 5 days and the patient says it has caused her to be sent home from work today. She does have a history of sickle cell anemia, as well as history of seizures, fibromyalgia. The patient has a chest port in place. 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 She is taking Antonio acid and hydroxyurea. No recent travel or sick contacts at home. ED Past Medical Hx - Past Medical History Previous Medical History?: Yes Hx Hypertension: No Hx Heart Attack/AMI: No Hx Congestive Heart Failure: No Hx Diabetes: No Hx Deep Vein Thrombosis: No Hx Pulmonary Embolism: No Hx Liver Disease: No Hx Renal Disease: No Hx Sickle Cell Disease: Yes Hx Arthritis: No Hx Seizures: Yes (10 + years ago) Hx Kidney Stones: No Hx Asthma: Yes Hx COPD: No Hx Tuberculosis: No Hx Dementia: No Hx HIV: No Additional medical history: fibromyalgia - Surgical History Past Surgical History?: Yes Hx Coronary Stent: No Hx Open Heart Surgery: No Hx Pacemaker: No Hx Internal Defibrillator: No Hx Cholecystectomy: Yes Hx Appendectomy: No Hx Breast Surgery: No Additional Surgical History: ports x 2 / tubal ligation/ t&a , splenectomy ? - Social History Smoking Status: Current Every Day Smoker Substance Use Type: None - Medications Home Medications: Home Medications Medication Instructions Recorded Confirmed Last Taken Type Nicotine [Habitrol] 21 mg TD DAILY #30 patch 06/14/18 09/08/18 Unknown Rx Folic Acid [Folvite] 1 mg PO QDAY #30 tablet 09/15/18 Unknown Rx Hydroxyurea [Hydrea] 500 mg PO BID #30 capsule 09/15/18 Unknown Rx Pregabalin [Lyrica] 75 mg PO QDAY #20 capsule 09/15/18 Unknown Rx Promethazine [Phenergan] 25 mg PO Q6HR PRN #10 tablet 09/15/18 Unknown Rx Sertraline [Zoloft] 25 mg PO QDAY #30 tablet 09/15/18 Unknown Rx Zolpidem Tartrate [Ambien] 5 mg PO QHS PRN #10 tablet 09/15/18 Unknown Rx oxyCODONE /ACETAMINOPHEN [Percocet 1 tab PO BID PRN #10 tablet 09/15/18 Unknown Rx 5/325 mg] HYDROcodone/APAP 5-325 [[place] 1 each PO Q6HR PRN #12 tablet 04/06/19 Unknown Rx 5-325 mg TAB] ED Review of Systems ROS: Stated complaint: SICKLE CELL CRISIS Other details as noted in HPI Comment: All other systems reviewed and negative Constitutional: denies: chills, fever Eyes: denies: eye pain, vision change ENT: denies: ear pain, throat pain Respiratory: denies: cough, shortness of breath Cardiovascular: denies: palpitations, edema Gastrointestinal: denies: abdominal pain, nausea, vomiting Genitourinary: denies: dysuria, discharge Musculoskeletal: arthralgia, myalgia. denies: joint swelling Skin: denies: rash, lesions Neurological: denies: headache, weakness Physical Exam - Physical Exam Vital Signs: Vital Signs 04/06/19 04/06/19 12:35 14:17 Temperature 98.6 F Pulse Rate 90 78 Respiratory 16 20 Rate Blood Pressure 119/74 Blood Pressure 103/61 [Right] O2 Sat by Pulse 99 96 Oximetry Physical Exam: GENERAL: Well developed. Well Nourished. HENT: Normocephalic. Atraumatic. Patient has moist mucous membranes. EYES: Extraocular motions are intact. NECK: Supple. Trachea is midline. CHEST/LUNGS: Clear to auscultation. There is no respiratory distress noted. HEART/CARDIOVASCULAR: Regular. There is no tachycardia. There is no murmur. ABDOMEN: Abdomen is soft. No tenderness to palpation. No guarding. Patient has normal bowel sounds. There is no abdominal distention. SKIN: Skin is warm and dry. NEURO: The patient is awake, alert. The patient has no focal neurologic deficits. Normal speech. MUSCULOSKELETAL: No tenderness to palpation of the extremities or any deformity. Full ROM. ED Course Vital Signs 04/06/19 04/06/19 12:35 14:17 Temperature 98.6 F Pulse Rate 90 78 Respiratory 16 20 Rate Blood Pressure 119/74 Blood Pressure 103/61 [Right] O2 Sat by Pulse 99 96 Oximetry ED Medical Decision Making - Lab Data Result diagrams: 04/06/19 16:47 04/06/19 16:47 - EKG Data -: EKG Interpreted by Me EKG shows normal: sinus rhythm, axis, intervals, QRS complexes (Q waves to the septal leads), ST-T waves Rate: normal - EKG Data When compared to previous EKG there are: no significant change Interpretation: unchanged when compared t (01/01/19) - Radiology Data Radiology results: image reviewed interpreted by me: Chest x-ray does not show any pneumonia, pleural effusions, pneumothorax or any acute process. - Medical Decision Making Patient with hx of SS Anemia presents with generalized body pains. Triage note included complaint of CP but she denies any specific CP or SOB at the time of my examination. She had an EKG that does not show any STEMI. CXR did not show any acute process. She has a Hb of about 8.5 consistent with previous visits and hx of SS anemia. Reticulocyte count of about 2. She does not appear to have any chest crisis. Given a few doses of pain medication with improvement. 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 She will return with any worsening of her symptoms or any acute distress. - Differential Diagnosis SS pain crisis, fibromyalgia, MD, Costochondritis Critical Care Time: No Critical care attestation.: If time is entered above; I have spent that time in minutes in the direct care of this critically ill patient, excluding procedure time. ED Disposition Clinical Impression: Sickle cell crisis Anemia Qualifiers: Anemia type: unspecified type Qualified Code(s): D64.9 - Anemia, unspecified Disposition: DC-01 TO HOME OR SELFCARE Is pt being admited?: No Condition: Stable Instructions: Sickle Cell Crisis (ED), Anemia (ED) Additional Instructions: Please follow-up with your primary care physician and supervisor ski production in the next few days. Return to the emergency Department with any worsening of your symptoms with any acute distress. Prescriptions: HYDROcodone/APAP 5-325 [[place] 5-325 mg TAB] 1 each PO Q6HR PRN #12 tablet PRN Reason: Pain Referrals: KIM SUTHERLAND MD [Staff Physician] - 2-3 Days PRIMARY CARE, [Primary Care Provider] - 2-3 Days
[2019-04-06] MEDS ORDERED: DILAUDID IV ONE ×3 (16:14→18:30)
[2019-04-06] MEDS ORDERED: BENADRYL ONE (16:30)
[2019-04-06] MEDS ORDERED: BENADRYL IV ONE (16:32)
[2019-04-06 17:59] LABS: BUN/Creatinine Ratio 25; Blood Urea Nitrogen 10 mg/dL (7-17); Calcium 8.4 mg/dL (8.4-10.2); Hemolysis Index 0
[2019-04-06 18:05] LABS: Hematocrit 27.2 % (30.3-42.9); Hemoglobin 8.5 gm/dl (10.1-14.3); Mean Corpuscular HGB Conc 31 % (30-34); Platelet Count 297 K/mm3 (140-440); Red Blood Count 4.58 M/mm3 (3.65-5.03)
[2019-04-06 18:10] LABS: Mean Corpuscular Volume 59 fl (79-97); Red Cell Distribution Width 27.7 % (13.2-15.2)
--- NOTE | 2019-04-06 18:28 | XRay Report ---
. CHEST 1 VIEW INDICATION: CP. COMPARISON: 12/31/2018. FINDINGS: Support devices: Left IJ chest port in satisfactory position. Heart: Within normal limits. Lungs/Pleura: No acute air space or interstitial disease. Additional findings: None. IMPRESSION: No acute abnormality. Signer Name: Mk Lopez MD Signed: 04/06/2019 6:23 PM Workstation Name: [id number]
[2019-04-06 18:50] LABS: Basophils % (Manual) 0 % (0.0-1.8); Total Cells Counted 100
[2019-04-06 18:53] LABS: Target Cells 3+
[2019-04-06 18:54] LABS: Hypochromasia 2+; Spherocytes Few
[2019-04-06 18:55] LABS: Platelet Estimate Consistent w Auto
[2019-04-06] MEDS ORDERED: FLUSH HEPARIN IV ONE (19:36)
[2019-04-06 19:43] VITALS: BP 123/72
== END 2019-04-06 19:53 | disposition home or self-care (01) ==
LOC: ED 12:15
DX: D57.00 Hb-SS disease with crisis, unspecified (principal); D64.9 Anemia, unspecified; F17.200 Nicotine dependence, unspecified, uncomplicated; J45.909 Unspecified asthma, uncomplicated; Z98.51 Tubal ligation status; Z90.89 Acquired absence of other organs; Z79.899 Other long term (current) drug therapy; Z90.49 Acquired absence of other specified parts of digestive tract; Z88.6 Allergy status to analgesic agent; Z88.8 Allergy status to other drugs, medicaments and biological substances
CPT/HCPCS: 36415; 71045; 80048; 84484; 84703; 85007; 85025; 85045; 93005; 93010; 96374; 96375; 96376; 99284; J1170; J1200; J1642

== ENCOUNTER 2019-05-13 09:47 | Emergency (ER) | payer MEDICARE ==
[2019-05-13] MEDS ORDERED: ASPIRIN 325 MG TAB PO ONE (09:53)
--- NOTE | 2019-05-13 10:18 | XRay Report ---
CHEST 2 VIEWS INDICATION / CLINICAL INFORMATION: Chest pain and shortness of breath for one week. COMPARISON: One view of the chest from 04/06/2019. FINDINGS: SUPPORT DEVICES: Stable left internal jugular vein Port-A-Cath. HEART / MEDIASTINUM: No significant abnormality. LUNGS / PLEURA: No significant pulmonary or pleural abnormality. No pneumothorax. ADDITIONAL FINDINGS: No significant additional findings. IMPRESSION: No acute abnormality of the chest. Signer Name: Fernando Villasenor MD Signed: 05/13/2019 10:14 AM Workstation Name: [id number]
[2019-05-13] MEDS ORDERED: SODIUM CHLORIDE 0.9% 1000 ML 1,000 ML IV ONE (10:39)
[2019-05-13] MEDS ORDERED: ALBUTEROL 2.5 MG/3 ML NEBU IH ONE (10:39)
[2019-05-13] MEDS ORDERED: IPRATROPIUM 0.02% NEBU 2.5 ML IH ONE (10:39)
[2019-05-13] MEDS ORDERED: KETOROLAC 30 MG/1 ML INJ IV ONE (10:40)
[2019-05-13] MEDS ORDERED: METOCLOPRAMIDE 10 MG/2 ML INJ IV ONE (10:40)
[2019-05-13] MEDS ORDERED: HYDROmorphone 2 MG/1 ML INJ IV ONE ×2 (10:40→12:18)
--- NOTE | 2019-05-13 10:47 | Emergency Department Report ---
ED General Adult HPI - General Chief complaint: Sickle Cell Crisis Stated complaint: SICKLE CELL CRISIS/CHEST PAIN Time Seen by Provider: 05/13/19 10:29 Source: patient Mode of arrival: Ambulatory Limitations: No Limitations - History of Present Illness Initial comments: 34-year-old female with history of sickle cell disease (HbSC), asthma presents to ED with generalized pain 1 week. Patient reports onset of chest tightness and shortness of breath for the last 3 days. Patient states the generalized pain is typical of her sickle cell pain. Patient reports reports she sometimes has chest pain associated with her sickle cell. Denies any history of PE in the past. Patient reports cough and subjective fever. -: week(s) (1) Location: chest, back, left, right, upper extremity, lower extremity Quality: aching Consistency: constant Improves with: none Worsens with: none Associated Symptoms: chest pain, cough, fever/chills, nausea/vomiting, shortness of breath - Related Data Previous Rx's Medication Instructions Recorded Last Taken Type Nicotine [Habitrol] 21 mg TD DAILY #30 patch 06/14/18 Unknown Rx Folic Acid [Folvite] 1 mg PO QDAY #30 tablet 09/15/18 Unknown Rx Hydroxyurea [Hydrea] 500 mg PO BID #30 capsule 09/15/18 Unknown Rx Pregabalin 75 mg PO QDAY #20 capsule 09/15/18 Unknown Rx Promethazine [Phenergan] 25 mg PO Q6HR PRN #10 tablet 09/15/18 Unknown Rx Sertraline [Zoloft] 25 mg PO QDAY #30 tablet 09/15/18 Unknown Rx Zolpidem Tartrate [Ambien] 5 mg PO QHS PRN #10 tablet 09/15/18 Unknown Rx oxyCODONE /ACETAMINOPHEN [Percocet 1 tab PO BID PRN #10 tablet 09/15/18 Unknown Rx 5/325 mg] HYDROcodone/APAP 5-325 [Morrison 1 each PO Q6HR PRN #7 tablet 05/13/19 Unknown Rx 5-325 mg TAB] Allergies Allergy/AdvReac Type Severity Reaction Status Date / Time cefotetan disodium Allergy Hives Verified 05/25/16 17:25 [From Cefotan] morphine Allergy Vomiting Verified 07/13/16 20:40 ED Review of Systems ROS: Stated complaint: SICKLE CELL CRISIS/CHEST PAIN Other details as noted in HPI Comment: All other systems reviewed and negative Constitutional: fever Respiratory: cough, shortness of breath Cardiovascular: chest pain Gastrointestinal: nausea ED Past Medical Hx - Past Medical History Previous Medical History?: Yes Hx Hypertension: No Hx Heart Attack/AMI: No Hx Congestive Heart Failure: No Hx Diabetes: No Hx Deep Vein Thrombosis: No Hx Pulmonary Embolism: No Hx Liver Disease: No Hx Renal Disease: No Hx Sickle Cell Disease: Yes Hx Arthritis: No Hx Seizures: Yes (10 + years ago) Hx Kidney Stones: No Hx Asthma: Yes Hx COPD: No Hx Tuberculosis: No Hx Dementia: No Hx HIV: No Additional medical history: fibromyalgia - Surgical History Past Surgical History?: Yes Hx Coronary Stent: No Hx Open Heart Surgery: No Hx Pacemaker: No Hx Internal Defibrillator: No Hx Cholecystectomy: Yes Hx Appendectomy: No Hx Breast Surgery: No Additional Surgical History: ports x 2 / tubal ligation/ t&a , splenectomy ? - Social History Smoking Status: Current Some Day Smoker Substance Use Type: Alcohol - Medications Home Medications: Home Medications Medication Instructions Recorded Confirmed Last Taken Type Nicotine [Habitrol] 21 mg TD DAILY #30 patch 06/14/18 09/08/18 Unknown Rx Folic Acid [Folvite] 1 mg PO QDAY #30 tablet 09/15/18 Unknown Rx Hydroxyurea [Hydrea] 500 mg PO BID #30 capsule 09/15/18 Unknown Rx Pregabalin 75 mg PO QDAY #20 capsule 09/15/18 Unknown Rx Promethazine [Phenergan] 25 mg PO Q6HR PRN #10 tablet 09/15/18 Unknown Rx Sertraline [Zoloft] 25 mg PO QDAY #30 tablet 09/15/18 Unknown Rx Zolpidem Tartrate [Ambien] 5 mg PO QHS PRN #10 tablet 09/15/18 Unknown Rx oxyCODONE /ACETAMINOPHEN [Percocet 1 tab PO BID PRN #10 tablet 09/15/18 Unknown Rx 5/325 mg] HYDROcodone/APAP 5-325 [Morrison 1 each PO Q6HR PRN #7 tablet 05/13/19 Unknown Rx 5-325 mg TAB] ED Physical Exam - General Limitations: No Limitations General appearance: alert, in no apparent distress - Head Head exam: Present: atraumatic, normocephalic - Eye Eye exam: Present: normal appearance, PERRL, EOMI - ENT ENT exam: Present: mucous membranes moist - Neck Neck exam: Present: normal inspection - Respiratory Respiratory exam: Present: wheezes. Absent: respiratory distress - Cardiovascular Cardiovascular Exam: Present: regular rate, normal rhythm - GI/Abdominal GI/Abdominal exam: Present: soft. Absent: distended, tenderness - Extremities Exam Extremities exam: Present: normal inspection. Absent: pedal edema, calf tenderness - Neurological Exam Neurological exam: Present: alert, oriented X3 - Psychiatric Psychiatric exam: Present: normal affect, normal mood - Skin Skin exam: Present: warm, dry, intact, normal color ED Course Vital Signs 05/13/19 05/13/19 05/13/19 09:49 11:27 11:49 Temperature 98.6 F Pulse Rate 66 Pulse Rate [ 84 Anterior Bilateral] Respiratory 18 16 Rate Respiratory 14 Rate [Anterior Bilateral] Blood Pressure 119/77 Blood Pressure [Right] O2 Sat by Pulse 94 Oximetry 05/13/19 05/13/19 05/13/19 11:50 12:00 13:00 Temperature 97.9 F Pulse Rate 82 85 85 Pulse Rate [ Anterior Bilateral] Respiratory 16 16 18 Rate Respiratory Rate [Anterior Bilateral] Blood Pressure Blood Pressure 106/68 106/67 98/61 [Right] O2 Sat by Pulse 97 98 98 Oximetry ED Medical Decision Making - Lab Data Result diagrams: 05/13/19 Unknown 05/13/19 Unknown - EKG Data -: EKG Interpreted by [place] EKG shows normal: sinus rhythm, axis, intervals, QRS complexes, ST-T waves Rate: normal - EKG Data Interpretation: no acute changes - Radiology Data Radiology results: report reviewed, image reviewed - Medical Decision Making 54-year-old female with history of HbSC sickle cell. With generalized pain and also chest pain. EKG, troponin, d-dimer are all normal. Patient is afebrile. Chest x-ray is normal, no evidence of any infiltrates. Hemoglobin is 10.3 with a retic count of 2. Patient given 2 doses of Dilaudid 2 mg with improvement of pain. Patient advised to follow-up with her still runner. Return precautions given. - Differential Diagnosis acute chest, asthma, PE, ACS Critical care attestation.: If time is entered above; I have spent that time in minutes in the direct care of this critically ill patient, excluding procedure time. ED Disposition Clinical Impression: Sickle cell pain crisis, Asthma with acute exacerbation Disposition: TO HOME OR SELFCARE Is pt being admited?: No Condition: Stable Instructions: Asthma (ED), Sickle Cell Crisis (ED) Prescriptions: HYDROcodone/APAP 5-325 [Morrison 5-325 mg TAB] 1 each PO Q6HR PRN #7 tablet PRN Reason: Pain Referrals: PRIMARY CARE, [Primary Care Provider] - 3-5 Days Time of Disposition: 12:46
[2019-05-13] MEDS ORDERED: diphenhydrAMINE 50 MG/ML VIAL IV ONE ×2 (11:29→12:42)
[2019-05-13 11:43] LABS: Hematocrit 30.9 % (30.3-42.9); Hemoglobin 10.3 gm/dl (10.1-14.3); Mean Corpuscular HGB Conc 33 % (30-34); Platelet Count 143 K/mm3 (140-440); Red Blood Count 4.78 M/mm3 (3.65-5.03)
[2019-05-13 11:46] LABS: BUN/Creatinine Ratio 20; Blood Urea Nitrogen 8 mg/dL (7-17); Calcium 8.1 mg/dL (8.4-10.2); Hemolysis Index 7; INR 1.07 (0.87-1.13)
[2019-05-13 11:47] LABS: Partial Thromboplastin Time 31.9 Sec. (24.2-36.6)
[2019-05-13 12:01] LABS: Mean Corpuscular Volume 65 fl (79-97); Red Cell Distribution Width 31.2 % (13.2-15.2)
[2019-05-13 12:33] LABS: Eosinophils % (Manual) 0 % (0.0-4.3); Total Cells Counted 100
[2019-05-13 12:35] LABS: Hypochromasia 2+; Target Cells 3+
[2019-05-13 12:36] LABS: Platelet Estimate Consistent w Auto
[2019-05-13] MEDS ORDERED: HYDROmorphone 1 MG/1 ML INJ IV ONE (12:42)
[2019-05-13 13:54] VITALS: BP 98/61
== END 2019-05-13 13:20 | disposition home or self-care (01) ==
LOC: ED 09:47
DX: D57.00 Hb-SS disease with crisis, unspecified (principal); J45.901 Unspecified asthma with (acute) exacerbation; M79.7 Fibromyalgia; F17.200 Nicotine dependence, unspecified, uncomplicated; R11.2 Nausea with vomiting, unspecified; Z90.49 Acquired absence of other specified parts of digestive tract; Z98.51 Tubal ligation status; Z90.81 Acquired absence of spleen; Z88.5 Allergy status to narcotic agent; Z79.899 Other long term (current) drug therapy
CPT/HCPCS: 36415; 71046; 80048; 84484; 85007; 85025; 85045; 85379; 85610; 85730; 93005; 93010; 94640; 96361; 96374; 96375; 96376; 99285; J1170; J1200; J1642; J1885; J2765; J7030; 94644

== ENCOUNTER 2019-05-21 08:58 | Emergency (ER) | payer MEDICARE ==
--- NOTE | 2019-05-21 10:27 | Emergency Department Report ---
ED General Adult HPI - General Chief complaint: Pain General Stated complaint: SICKLE CELL CRISIS Time Seen by Provider: 05/21/19 10:24 Source: patient, RN notes reviewed, old records reviewed Mode of arrival: Ambulatory Limitations: No Limitations - History of Present Illness Initial comments: This is a 34-year-old female. I have evaluated this patient in the past. She currently does not have a primary care doctor, hematology production control specialist. Past medical history includes sickle cell disease, obesity, opioid dependence, seizure disorder, fibromyalgia, and nicotine dependence. The patient presents to the ER today with a complaint of sickle cell pain. She's been having this pain since last week. The patient was seen here in this ER, and evaluated, was not found to have an emergent condition, and was subsequently discharged. The patient complains of bilateral lower extremity pain, subjective bilateral lower extremity swelling, nausea vomiting, flank pain, malaise and fatigue. Symptoms typically improve with hydromorphone. Denies fevers and chills. Also admits to mild headache. Denies urinary symptoms. -: Gradual Location: back, abdomen, left, right, upper extremity Radiation: non-radiation, distal Quality: aching Consistency: constant Improves with: medication, rest Worsens with: movement - Related Data Previous Rx's Medication Instructions Recorded Last Taken Type Nicotine [Habitrol] 21 mg TD DAILY #30 patch 06/14/18 Unknown Rx Folic Acid [Folvite] 1 mg PO QDAY #30 tablet 09/15/18 Unknown Rx Hydroxyurea [Hydrea] 500 mg PO BID #30 capsule 09/15/18 Unknown Rx Pregabalin 75 mg PO QDAY #20 capsule 09/15/18 Unknown Rx Promethazine [Phenergan] 25 mg PO Q6HR PRN #10 tablet 09/15/18 Unknown Rx Sertraline [Zoloft] 25 mg PO QDAY #30 tablet 09/15/18 Unknown Rx oxyCODONE /ACETAMINOPHEN [Percocet 1 tab PO BID PRN #10 tablet 09/15/18 Unknown Rx 5/325 mg] HYDROcodone/APAP 5-325 [[place] 1 each PO Q6HR PRN #7 tablet 05/13/19 Unknown Rx 5-325 mg TAB] Acetaminophen [Non-Aspirin Extra 500 mg PO Q6HR PRN #30 tablet 05/21/19 Unknown Rx Strength] Ibuprofen [Motrin] 600 mg PO Q8H PRN #30 tablet 05/21/19 Unknown Rx Metoclopramide [Reglan] 10 mg PO QID PRN #30 tablet 05/21/19 Unknown Rx Promethazine [Phenergan SUPPOS] 50 mg [place] Q6H PRN #15 supp.rect 05/21/19 Unknown Rx Allergies Allergy/AdvReac Type Severity Reaction Status Date / Time cefotetan disodium Allergy Hives Verified 05/25/16 17:25 [From Cefotan] morphine Allergy Vomiting Verified 07/13/16 20:40 ED Review of Systems ROS: Stated complaint: SICKLE CELL CRISIS Other details as noted in HPI Constitutional: malaise Eyes: denies: eye discharge ENT: denies: epistaxis Respiratory: denies: wheezing Cardiovascular: denies: syncope Gastrointestinal: abdominal pain, nausea, vomiting. denies: diarrhea Genitourinary: other. denies: dysuria Musculoskeletal: back pain, joint swelling, arthralgia Skin: denies: lesions Neurological: weakness Psychiatric: anxiety ED Past Medical Hx - Past Medical History Previous Medical History?: Yes Hx Hypertension: No Hx Heart Attack/AMI: No Hx Congestive Heart Failure: No Hx Diabetes: No Hx Deep Vein Thrombosis: No Hx Pulmonary Embolism: No Hx Liver Disease: No Hx Renal Disease: No Hx Sickle Cell Disease: Yes Hx Arthritis: No Hx Seizures: Yes (10 + years ago) Hx Kidney Stones: No Hx Asthma: Yes Hx COPD: No Hx Tuberculosis: No Hx Dementia: No Hx HIV: No Additional medical history: fibromyalgia - Surgical History Past Surgical History?: Yes Hx Coronary Stent: No Hx Open Heart Surgery: No Hx Pacemaker: No Hx Internal Defibrillator: No Hx Cholecystectomy: Yes Hx Appendectomy: No Hx Breast Surgery: No Additional Surgical History: ports x 2 / tubal ligation/ t&a , splenectomy ? - Social History Smoking Status: Current Some Day Smoker Substance Use Type: Alcohol - Medications Home Medications: Home Medications Medication Instructions Recorded Confirmed Last Taken Type Nicotine [Habitrol] 21 mg TD DAILY #30 patch 06/14/18 09/08/18 Unknown Rx Folic Acid [Folvite] 1 mg PO QDAY #30 tablet 09/15/18 Unknown Rx Hydroxyurea [Hydrea] 500 mg PO BID #30 capsule 09/15/18 Unknown Rx Pregabalin 75 mg PO QDAY #20 capsule 09/15/18 Unknown Rx Promethazine [Phenergan] 25 mg PO Q6HR PRN #10 tablet 09/15/18 Unknown Rx Sertraline [Zoloft] 25 mg PO QDAY #30 tablet 09/15/18 Unknown Rx oxyCODONE /ACETAMINOPHEN [Percocet 1 tab PO BID PRN #10 tablet 09/15/18 Unknown Rx 5/325 mg] HYDROcodone/APAP 5-325 [[place] 1 each PO Q6HR PRN #7 tablet 05/13/19 Unknown Rx 5-325 mg TAB] Acetaminophen [Non-Aspirin Extra 500 mg PO Q6HR PRN #30 tablet 05/21/19 Unknown Rx Strength] Ibuprofen [Motrin] 600 mg PO Q8H PRN #30 tablet 05/21/19 Unknown Rx Metoclopramide [Reglan] 10 mg PO QID PRN #30 tablet 05/21/19 Unknown Rx Promethazine [Phenergan SUPPOS] 50 mg WA Q6H PRN #15 supp.rect 05/21/19 Unknown Rx ED Physical Exam - General Limitations: No Limitations, Other (during the history and physical examination, chaperoned by nurse Joan Galeas) General appearance: alert, in no apparent distress - Head Head exam: Present: atraumatic, normocephalic - Eye Eye exam: Present: normal appearance, EOMI. Absent: nystagmus - ENT ENT exam: Present: normal exam, normal orophraynx, mucous membranes moist, normal external ear exam - Neck Neck exam: Present: normal inspection, full ROM. Absent: tenderness, meningismus - Respiratory Respiratory exam: Present: normal lung sounds bilaterally. Absent: respiratory distress - Cardiovascular Cardiovascular Exam: Present: normal rhythm, tachycardia, normal heart sounds. Absent: systolic murmur, diastolic murmur, rubs, gallop - GI/Abdominal GI/Abdominal exam: Present: soft, tenderness, other (there is right flank tenderness. There is no rebound, guarding or peritoneal signs. There is no right lower quadrant tenderness.). Absent: distended, guarding, rebound, rigid, pulsatile mass - Extremities Exam Extremities exam: Present: normal inspection, full ROM, tenderness (there is bilateral anterior tibial, anterior femur along bone tenderness. There is no redness, pus or streaking. The compartments are soft. The pelvis is stable. 2+ pulses noted in the bilateral upper, lower extremities), pedal edema. Absent: calf tenderness - Back Exam Back exam: Present: normal inspection, tenderness, paraspinal tenderness. Absent: CVA tenderness (R), CVA tenderness (L) - Neurological Exam Neurological exam: Present: alert, normal gait, other (Extraocular movements int act. Tongue midline. No facial droop. Facial sensation intact to light touch in the V1, V2, V3 distribution bilaterally. 5 and 5 strength in 4 extremities.. Sensation is intact to light touch in 4 extremities.) - Psychiatric Psychiatric exam: Present: anxious - Skin Skin exam: Present: warm, dry, intact, normal color. 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 aware 05/13/2019 2 05/13/2019 HYDROCODONE-ACETAMIN 5-325 MG 7.0 1 TH GUN [id number] [facility] ([id number]) 0 35.0 MME Comm Ins [place] 04/23/2019 2 04/19/2019 PREGABALIN 75 MG CAPSULE 60.0 30 AJ TRICIA [id number] MARY ELLEN ([id number]) 0 [place] 04/21/2019 2 04/19/2019 OXYCODONE-ACETAMINOPHEN 5-325 12.0 3 AJ TRICIA [id number] MARY ELLEN ([id number]) 0 30.0 [place] 04/07/2019 2 04/06/2019 HYDROCODONE-ACETAMIN 5-325 MG 12.0 3 RY SHE [id number] [facility] ([id number]) 0 20.0 [place] 03/05/2019 2 03/05/2019 OXYCODONE-ACETAMINOPHEN 10-325 18.0 6 SA PAT [id number] MARY ELLEN ([id number]) 0 45.0 [place] 12/06/2018 2 12/05/2018 OXYCODONE-ACETAMINOPHEN 10-325 60.0 20 LI SIM [id number] [facility] ([id number]) 0 45.0 [place] 12/06/2018 2 12/05/2018 ZOLPIDEM TARTRATE 10 MG TABLET 30.0 30 KE MIL [id number] [facility] ([id number]) 0 [place] 12/06/2018 2 12/05/2018 LYRICA 75 MG CAPSULE 60.0 30 KE MIL [id number] [facility] ([id number]) 0 [place] 11/07/2018 2 11/07/2018 OXYCODONE-ACETAMINOPHEN 10-325 60.0 20 LI SIM [id number] [facility] ([id number]) 0 45.0 [place] 11/07/2018 2 11/07/2018 ZOLPIDEM TARTRATE 10 MG TABLET 30.0 30 LI SIM [id number] [facility] ([id number]) 0 [place] 11/07/2018 2 11/07/2018 LYRICA 75 MG CAPSULE 60.0 30 LI SIM [id number] [facility] ([id number]) 0 [place] 10/01/2018 2 09/15/2018 OXYCODONE-ACETAMINOPHEN 5-325 10.0 5 AN GIZ [id number] MARY ELLEN ([id number]) 0 15.0 [place] 10/01/2018 2 09/15/2018 ZOLPIDEM TARTRATE 5 MG TABLET 10.0 10 AN GIZ [id number] MARY ELLEN ([id number]) 0 [place] 10/01/2018 2 09/15/2018 LYRICA 75 MG CAPSULE 20.0 20 AN GIZ [id number] MARY ELLEN ([id number]) 0 [place] 07/17/2018 2 07/17/2018 HYDROCODONE-ACETAMIN 7.5-325 30.0 5 E CUD [id number] MARY ELLEN ([id number]) 0 45.0 [place] 06/23/2018 1 06/19/2018 OXYCODONE-ACETAMINOPHEN 10-325 60.0 20 LI SIM [id number] MARY ELLEN ([id number]) 0 45.0 [place] 06/23/2018 1 06/19/2018 LYRICA 75 MG CAPSULE 60.0 30 LI SIM [id number] MARY ELLEN ([id number]) 0 [place] Reevaluation #2: 05/21/19 12:29 Differential diagnosis, including not limited to: Narcotic dependence, cyclic vomiting syndrome, narcotic bowel syndrome, cannabinoid hyperemesis syndrome, obstruction, urinary tract infection, appendicitis, renal colic, sickle cell crisis, lower extremity DVT Assessment and plan: 34-year-old female, complaining of recurrent flank pain, nausea vomiting, sickle cell pain. She is retching, but not actively vomiting. We will treat her symptoms aggressively. Laboratory studies today appeared to be a baseline when compared to prior. I doubt pulmonary embolism, she did endorse lower extremity swelling, appears to be dependent edema, however, lower extremity DVT study will be obtained given elevated d-dimer. Reevaluation #3: 05/21/19 14:07 Vital signs improved. Nursing team reports that patient is tolerating feeds. Tachycardia resolved. CT abdomen and pelvis negative for acute disease. Urinalysis negative for acute disease. Lower extremity DVT study pending at this time. Reevaluation #4: 05/21/19 14:35 dvt study negative ED Medical Decision Making - Lab Data Result diagrams: 05/21/19 10:47 05/21/19 10:47 Vital Signs 05/21/19 09:01 Temperature 99.9 F H Pulse Rate 102 H Respiratory 16 Rate Blood Pressure 112/77 O2 Sat by Pulse 98 Oximetry - Radiology Data Radiology results: pending Critical care attestation.: If time is entered above; I have spent that time in minutes in the direct care of this critically ill patient, excluding procedure time. ED Disposition Clinical Impression: Sickle cell pain crisis, Generalized abdominal pain of unknown etiology Disposition: DC-01 TO HOME OR SELFCARE Is pt being admited?: No Does the pt Need Aspirin: No Condition: Stable Additional Instructions: Cultures were sent today, and results will be available in the next 3-5 days. Have a primary care doctor contact the medical records department to obtain culture results. Take the pain medication, nausea medication as needed and directed. Follow up with her primary care doctor or hematology oncology doctor within the next 10 days. Return to the emergency room right away with new, worsening or different symptoms not present on the initial emergency room evaluation. Referrals: KIM SUTHERLAND MD [Staff Physician] - 3-5 Days OSMAN ALATORRE MD [Staff Physician] - 3-5 Days KATY COPELAND DO [Primary Care Provider] - 3-5 Days
[2019-05-21] MEDS ORDERED: DILAUDID IV ONE ×2 (10:36→12:24)
[2019-05-21] MEDS ORDERED: ZOFRAN IV ONE ×2 (10:36→12:24)
[2019-05-21 11:00] LABS: Hematocrit 29.6 % (30.3-42.9); Mean Corpuscular HGB Conc 34 % (30-34); Platelet Count 172 K/mm3 (140-440); Red Blood Count 4.64 M/mm3 (3.65-5.03)
[2019-05-21] MEDS ORDERED: D5/0.45NS 1,000 ML IV SCH (11:00)
[2019-05-21] MEDS ORDERED: BENADRYL PO ONE (11:02)
[2019-05-21] MEDS ORDERED: REGLAN ONE (11:03)
[2019-05-21] MEDS ORDERED: REGLAN IV ONE (11:06)
[2019-05-21] MEDS ORDERED: BENADRYL IV ONE (11:06)
[2019-05-21 11:09] LABS: INR 1.1 (0.87-1.13)
[2019-05-21 11:11] LABS: Partial Thromboplastin Time 41.5 Sec. (24.2-36.6)
[2019-05-21 11:38] LABS: Alanine Aminotransferase 5 units/L (7-56); Albumin 3.5 g/dL (3.9-5); BUN/Creatinine Ratio 28; Blood Urea Nitrogen 17 mg/dL (7-17); Hemolysis Index 1
[2019-05-21 11:57] LABS: Mean Corpuscular Volume 64 fl (79-97); Red Cell Distribution Width 29.3 % (13.2-15.2)
[2019-05-21 12:36] LABS: Bilirubin,Urine NEG (Negative); Blood,Urine NEG (Negative); Color,Urine Yellow (Yellow); Mucus,Urine FEW /HPF; Protein,Urine <15 mg/dL mg/dL (Negative); Urobilinogen,Urine < 2.0 mg/dL (<2.0)
[2019-05-21 12:37] LABS: Amphetamine Screen,Urine PRESUMPTIVE NEGATIVE; Benzodiazepines Screen,Urine PRESUMPTIVE NEGATIVE; Cocaine Screen,Urine PRESUMPTIVE NEGATIVE; Methadone Screen,Urine PRESUMPTIVE NEGATIVE; Opiate Screen,Urine PRESUMPTIVE NEGATIVE
[2019-05-21 12:57] LABS: Cannabinoid Screen,Urine PRESUMPTIVE POSITIVE
--- NOTE | 2019-05-21 13:11 | Cat Scan Report ---
CT ABDOMEN AND PELVIS WITHOUT CONTRAST INDICATION / CLINICAL INFORMATION: flank pain n/v. Abdominal pain for one week. Patient states that she is in sickle cell crisis. TECHNIQUE: Axial CT images were obtained through the abdomen and pelvis without IV contrast. All CT scans at [facility] location are performed using CT dose reduction for ALARA by means of automated exposure control. COMPARISON: CT dated 02/11/18 FINDINGS: LOWER CHEST: No significant abnormality. LIVER: No significant abnormality. GALLBLADDER: Surgically absent. BILE DUCTS: No significant abnormality. PANCREAS: No significant abnormality. SPLEEN: Spleen is upper normal size measuring 12.8 cm in AP dimension. No change. ADRENALS: No significant abnormality. RIGHT KIDNEY and URETER: No significant abnormality. LEFT KIDNEY and URETER: No significant abnormality. STOMACH and SMALL BOWEL: No significant abnormality. COLON: No significant abnormality. APPENDIX: No significant abnormality. PERITONEUM: No free fluid. No free air. No fluid collection. LYMPH NODES: No significant adenopathy. AORTA and ARTERIES: No significant abnormality. IVC and VEINS: No significant abnormality. URINARY BLADDER: No significant abnormality. REPRODUCTIVE ORGANS: No significant abnormality. ADDITIONAL FINDINGS: None. SKELETAL SYSTEM: No significant abnormality. IMPRESSION: 1. No inflammatory process or bowel obstruction. No acute abnormality. No significant change. 2. Borderline splenomegaly, unchanged. Signer Name: Dom Reid MD Signed: 05/21/2019 1:06 PM Workstation Name: [id number]
[2019-05-21 13:28] LABS: Anisocytosis 3+; Basophils % (Manual) 0 % (0.0-1.8); Dimorphic RBC Yes; Hypochromasia 2+; Total Cells Counted 100
[2019-05-21 13:29] LABS: Platelet Estimate Consistent w Auto; Target Cells 1+
[2019-05-21 13:50] VITALS: BP 122/78
--- NOTE | 2019-05-21 14:07 | Vascular Lab Report ---
DUPLEX DOPPLER LOWER EXTREMITY VEINS, BILATERAL INDICATION / CLINICAL INFORMATION: subj b/l lower swelling pain. History of sickle cell disease. TECHNIQUE: Duplex doppler imaging was performed through the veins of both lower extremities using venous judy lina and other maneuvers. COMPARISON: None available. FINDINGS: RIGHT COMMON FEMORAL VEIN: Negative. RIGHT FEMORAL VEIN: Negative. RIGHT POPLITEAL VEIN: Negative. RIGHT CALF VEINS: Negative. LEFT COMMON FEMORAL VEIN: Negative. LEFT FEMORAL VEIN: Negative. LEFT POPLITEAL VEIN: Negative. LEFT CALF VEINS: Negative. ADDITIONAL FINDINGS: Triphasic flow is seen bilaterally in the distal posterior tibial arteries. IMPRESSION: 1. No sonographic evidence for DVT in either lower extremity. Signer Name: Dom Reid MD Signed: 05/21/2019 2:03 PM Workstation Name: [id number]
[2019-05-21] MEDS ORDERED: FLUSH HEPARIN IV ONE (14:54)
== END 2019-05-21 15:13 | disposition home or self-care (01) ==
LOC: ED 08:58
DX: D57.00 Hb-SS disease with crisis, unspecified (principal); J45.909 Unspecified asthma, uncomplicated; F17.200 Nicotine dependence, unspecified, uncomplicated; Z98.890 Other specified postprocedural states; Z90.49 Acquired absence of other specified parts of digestive tract; Z98.51 Tubal ligation status; Z79.899 Other long term (current) drug therapy; Z88.6 Allergy status to analgesic agent; Z88.8 Allergy status to other drugs, medicaments and biological substances
CPT/HCPCS: 36415; 74176; 80053; 80307; 81001; 82550; 83615; 83735; 84702; 85007; 85025; 85045; 85379; 85610; 85730; 87086; 93970; 96374; 96375; 96376; 99284; J1170; J1642; J2405; J2765

== ENCOUNTER 2019-06-10 15:22 | Emergency (ER) | payer MEDICARE ==
[2019-06-10] MEDS ORDERED: diphenhydrAMINE 50 MG/ML VIAL IV ONE (15:48)
[2019-06-10] MEDS ORDERED: ONDANSETRON 4 MG/2 ML INJ IV ONE (15:48)
--- NOTE | 2019-06-10 15:50 | Emergency Department Report ---
ED General Adult HPI - General Chief complaint: Sickle Cell Crisis Stated complaint: SICKLE CELL CRISIS/CHEST PAIN/VOMITING Time Seen by Provider: 06/10/19 15:39 Source: patient Mode of arrival: Ambulatory Limitations: No Limitations - History of Present Illness Initial comments: This is a 34-year-old female with a Past medical history includes sickle cell disease, obesity, opioid dependence who presents to the ER today with a complaint of sickle cell pain and chest tightness. She states that she's been having this pain for a while now. Patient states she's been having intermittent and chest pain with chest tightening for the past week. The patient was seen here in this ER earlier this month, was evaluated dischargers follow-up instructions and referral. She denies fevers and chills, urinary symptoms, abdominal pain, nausea vomiting. - Related Data Previous Rx's Medication Instructions Recorded Last Taken Type Nicotine [Habitrol] 21 mg TD DAILY #30 patch 06/14/18 Unknown Rx Pregabalin 75 mg PO QDAY #20 capsule 09/15/18 Unknown Rx Sertraline [Zoloft] 25 mg PO QDAY #30 tablet 09/15/18 Unknown Rx oxyCODONE /ACETAMINOPHEN [Percocet 1 tab PO BID PRN #10 tablet 09/15/18 Unknown Rx 5/325 mg] HYDROcodone/APAP 5-325 [[place] 1 each PO Q6HR PRN #7 tablet 05/13/19 Unknown Rx 5-325 mg TAB] Acetaminophen [Non-Aspirin Extra 500 mg PO Q6HR PRN #30 tablet 05/21/19 Unknown Rx Strength] Metoclopramide [Reglan] 10 mg PO QID PRN #30 tablet 05/21/19 Unknown Rx Promethazine [Phenergan SUPPOS] 50 mg [place] Q6H PRN #15 supp.rect 05/21/19 Unknown Rx Folic Acid [Folvite] 1 mg PO QDAY #30 tablet 06/10/19 Unknown Rx Hydroxyurea 500 mg PO BID #30 capsule 06/10/19 Unknown Rx Ibuprofen [Motrin 600 MG tab] 600 mg PO Q8H PRN #30 tablet 06/10/19 Unknown Rx Promethazine [Phenergan] 25 mg PO Q6HR PRN #10 tablet 06/10/19 Unknown Rx Allergies Allergy/AdvReac Type Severity Reaction Status Date / Time cefotetan disodium Allergy Hives Verified 05/25/16 17:25 [From Cefotan] morphine Allergy Vomiting Verified 07/13/16 20:40 ED Review of Systems ROS: Stated complaint: SICKLE CELL CRISIS/CHEST PAIN/VOMITING Other details as noted in HPI Comment: All other systems reviewed and negative ED Past Medical Hx - Past Medical History Previous Medical History?: Yes Hx Hypertension: No Hx Heart Attack/AMI: No Hx Congestive Heart Failure: No Hx Diabetes: No Hx Deep Vein Thrombosis: No Hx Pulmonary Embolism: No Hx Liver Disease: No Hx Renal Disease: No Hx Sickle Cell Disease: Yes Hx Arthritis: No Hx Seizures: Yes (10 + years ago) Hx Kidney Stones: No Hx Asthma: Yes Hx COPD: No Hx Tuberculosis: No Hx Dementia: No Hx HIV: No Additional medical history: fibromyalgia - Surgical History Past Surgical History?: Yes Hx Coronary Stent: No Hx Open Heart Surgery: No Hx Pacemaker: No Hx Internal Defibrillator: No Hx Cholecystectomy: Yes Hx Appendectomy: No Hx Breast Surgery: No Additional Surgical History: ports x 2 / tubal ligation/ t&a , splenectomy ? - Social History Smoking Status: Current Every Day Smoker Substance Use Type: Alcohol, Prescribed - Medications Home Medications: Home Medications Medication Instructions Recorded Confirmed Last Taken Type Nicotine [Habitrol] 21 mg TD DAILY #30 patch 06/14/18 09/08/18 Unknown Rx Pregabalin 75 mg PO QDAY #20 capsule 09/15/18 Unknown Rx Sertraline [Zoloft] 25 mg PO QDAY #30 tablet 09/15/18 Unknown Rx oxyCODONE /ACETAMINOPHEN [Percocet 1 tab PO BID PRN #10 tablet 09/15/18 Unknown Rx 5/325 mg] HYDROcodone/APAP 5-325 [[place] 1 each PO Q6HR PRN #7 tablet 05/13/19 Unknown Rx 5-325 mg TAB] Acetaminophen [Non-Aspirin Extra 500 mg PO Q6HR PRN #30 tablet 05/21/19 Unknown Rx Strength] Metoclopramide [Reglan] 10 mg PO QID PRN #30 tablet 05/21/19 Unknown Rx Promethazine [Phenergan SUPPOS] 50 mg [place] Q6H PRN #15 supp.rect 05/21/19 Unknown Rx Folic Acid [Folvite] 1 mg PO QDAY #30 tablet 06/10/19 Unknown Rx Hydroxyurea 500 mg PO BID #30 capsule 06/10/19 Unknown Rx Ibuprofen [Motrin 600 MG tab] 600 mg PO Q8H PRN #30 tablet 06/10/19 Unknown Rx Promethazine [Phenergan] 25 mg PO Q6HR PRN #10 tablet 06/10/19 Unknown Rx ED Physical Exam - General Limitations: No Limitations General appearance: alert, in no apparent distress - Head Head exam: Present: atraumatic, normocephalic - Eye Eye exam: Present: normal appearance - ENT ENT exam: Present: mucous membranes moist - Neck Neck exam: Present: normal inspection - Respiratory Respiratory exam: Present: normal lung sounds bilaterally. Absent: respiratory distress - Cardiovascular Cardiovascular Exam: Present: regular rate, normal rhythm. Absent: systolic murmur, diastolic murmur, rubs, gallop - GI/Abdominal GI/Abdominal exam: Present: soft, normal bowel sounds - Extremities Exam Extremities exam: Present: normal inspection - Back Exam Back exam: Present: normal inspection - Neurological Exam Neurological exam: Present: alert, oriented X3 - Psychiatric Psychiatric exam: Present: normal affect, normal mood - Skin Skin exam: Present: warm, dry, intact, normal color. Absent: rash ED Course Vital Signs 06/10/19 06/10/19 15:27 15:40 Temperature 98.6 F Pulse Rate 89 85 Respiratory 20 18 Rate Blood Pressure 114/79 Blood Pressure 126/82 [Right] O2 Sat by Pulse 98 99 Oximetry ED Medical Decision Making - Lab Data Result diagrams: 06/10/19 16:41 Laboratory Last Values WBC 11.3 K/mm3 (4.5-11.0) H 06/10/19 16:41 RBC 4.66 M/mm3 (3.65-5.03) 06/10/19 16:41 Hgb 10.0 gm/dl (10.1-14.3) L 06/10/19 16:41 Hct 29.8 % (30.3-42.9) L 06/10/19 16:41 MCV 64 fl (79-97) L 06/10/19 16:41 MCH 22 pg (28-32) L 06/10/19 16:41 MCHC 34 % (30-34) 06/10/19 16:41 RDW 26.7 % (13.2-15.2) H 06/10/19 16:41 Plt Count 247 K/mm3 (140-440) 06/10/19 16:41 Lymph # [place] 06/10/19 16:41 Percent Retic 2.18 % (0.78-2.58) 06/10/19 16:41 - Radiology Data Radiology results: report reviewed, image reviewed Fluoro Time In Minutes: CHEST 2 VIEWS INDICATION: cp. Sickle cell patient with chest pain today COMPARISON: Chest x-ray from 05/13/2019 FINDINGS: Support devices: Stable satisfactory device positioning. Heart: Within normal limits. Lungs/pleura: No acute air space or interstitial disease. No pneumothorax. Additional findings: None. IMPRESSION: 1. No acute findings. Signer Name: Carmelo Kurtz MD Signed: 06/10/2019 4:16 PM Workstation Name: [id number] Transcribed By: PUNEET Dictated By: Carmelo Kurtz MD Electronically Authenticated By: Carmelo Kurtz MD Signed Date/Time: 06/10/19 1616 - Medical Decision Making 34-year-old female with a past medical history of sickle cell disease presents with acute onset of pain. Labs was conducted within normal limits. White count was negative Chest x-ray shows no acute findings. Patient received medication in the ED. Discussed with patient to keep her appointment with Dr. Sy hematology for June 26. Vital signs are normal patient is in no acute or respiratory distress Critical care attestation.: If time is entered above; I have spent that time in minutes in the direct care of this critically ill patient, excluding procedure time. ED Disposition Clinical Impression: Acute chest pain Disposition: DC-01 TO HOME OR SELFCARE Is pt being admited?: No Does the pt Need Aspirin: No Condition: Stable Instructions: Chest Pain (ED), Sickle Cell Crisis (ED) Additional Instructions: Make sure to follow up with the primary care physician as discussed. Take all your medications as you've been prescribed. Follow-up with Dr. Sy as discussed If you have any worsening symptoms or develop new symptoms please return to ED immediately. Prescriptions: Folic Acid [Folvite] 1 mg PO QDAY #30 tablet Hydroxyurea 500 mg PO BID #30 capsule Ibuprofen [Motrin 600 MG tab] 600 mg PO Q8H PRN #30 tablet PRN Reason: Pain Promethazine [Phenergan] 25 mg PO Q6HR PRN #10 tablet PRN Reason: Nausea Referrals: [facility] [Outside] - 3-5 Days [facility] [Outside] - 3-5 Days Forms: Accompanied Note, Work/School Release Form(ED) Time of Disposition: 17:14
[2019-06-10] MEDS ORDERED: dexAMETHasone 20 MG/5 ML VIAL IV ONE (15:52)
[2019-06-10 16:15] VITALS: BP 126/82
--- NOTE | 2019-06-10 16:20 | XRay Report ---
CHEST 2 VIEWS INDICATION: cp. Sickle cell patient with chest pain today COMPARISON: Chest x-ray from 05/13/2019 FINDINGS: Support devices: Stable satisfactory device positioning. Heart: Within normal limits. Lungs/pleura: No acute air space or interstitial disease. No pneumothorax. Additional findings: None. IMPRESSION: 1. No acute findings. Signer Name: Carmelo Kurtz MD Signed: 06/10/2019 4:16 PM Workstation Name: [id number]
[2019-06-10 17:01] LABS: Hematocrit 29.8 % (30.3-42.9); Mean Corpuscular HGB Conc 34 % (30-34); Platelet Count 247 K/mm3 (140-440); Red Blood Count 4.66 M/mm3 (3.65-5.03)
[2019-06-10 17:03] LABS: Mean Corpuscular Volume 64 fl (79-97); Red Cell Distribution Width 26.7 % (13.2-15.2)
[2019-06-10] MEDS ORDERED: HALOPERIDOL LACTATE 5 MG/1 ML INJ IM ONE (17:15)
[2019-06-10 18:04] LABS: Anisocytosis 2+; Basophils % (Manual) 0 % (0.0-1.8); Giant Platelets Rare; Hypochromasia 1+; Platelet Estimate Consistent w Auto; Target Cells 2+; Total Cells Counted 100
== END 2019-06-10 17:47 | disposition home or self-care (01) ==
LOC: ED 15:22
DX: D57.00 Hb-SS disease with crisis, unspecified (principal); E66.9 Obesity, unspecified; Z68.33 Body mass index [BMI] 33.0-33.9, adult; F11.20 Opioid dependence, uncomplicated; J45.909 Unspecified asthma, uncomplicated; F17.200 Nicotine dependence, unspecified, uncomplicated; M79.7 Fibromyalgia; Z90.49 Acquired absence of other specified parts of digestive tract; Z79.899 Other long term (current) drug therapy; Z88.5 Allergy status to narcotic agent; Z98.51 Tubal ligation status; Z90.81 Acquired absence of spleen
CPT/HCPCS: 36415; 71046; 85007; 85025; 85045; 96372; 96374; 96375; 99283; J1100; J1200; J1630; J1642; J2405

== ENCOUNTER 2019-07-13 12:41 | Emergency (ER) | payer MEDICARE ==
--- NOTE | 2019-07-13 12:50 | Event Note ---
ED Screening Note ED Screening Note: This initial assessment/diagnostic orders/clinical plan/treatment(s) is/are subject to change based on patients health status, clinical progression and re- assessment by fellow clinical providers in the ED. Further treatment and workup at subsequent clinical providers discretion. Patient/guardian urged not to elope from the ED as their condition may be serious if not clinically assessed and managed. Initial orders include: 34yo BF states that she has been having diffuse joint pain, vomiting and blurred vision. Pt states that her symptoms today are what normally accompanies her sickle cell crisis. Her symptoms have been worsening over 2 weeks.
[2019-07-13] MEDS ORDERED: FAMOTIDINE 20 MG/2 ML INJ IV ONE (15:52)
[2019-07-13] MEDS ORDERED: KETOROLAC 30 MG/1 ML INJ IV ONE (15:52)
[2019-07-13] MEDS ORDERED: METOCLOPRAMIDE 10 MG/2 ML INJ IV ONE (15:52)
[2019-07-13] MEDS ORDERED: HYDROmorphone 1 MG/1 ML INJ IV ONE ×2 (15:52→17:12)
[2019-07-13] MEDS ORDERED: SODIUM CHLORIDE 0.9% 1000 ML 1,000 ML IV ONE ×2 (15:52)
[2019-07-13] MEDS ORDERED: diphenhydrAMINE 50 MG/ML VIAL IV ONE ×2 (16:26→18:41)
[2019-07-13 16:53] LABS: BUN/Creatinine Ratio 13; Blood Urea Nitrogen 5 mg/dL (7-17); Calcium 8.2 mg/dL (8.4-10.2); Hemolysis Index 4
[2019-07-13 17:01] LABS: Basophils # (Auto) 0.1 K/mm3 (0.0-0.1); Basophils % (Auto) 0.6 % (0.0-1.8); Eosinophils # (Auto) 0.1 K/mm3 (0.0-0.4); Eosinophils % (Auto) 0.9 % (0.0-4.3); Hematocrit 30.8 % (30.3-42.9); Hemoglobin 10.5 gm/dl (10.1-14.3); Lymphocytes # (Auto) 2.2 K/mm3 (1.2-5.4); Lymphocytes % (Auto) 21.8 % (13.4-35.0); Mean Corpuscular HGB Conc 34 % (30-34); Monocytes # (Auto) 0.7 K/mm3 (0.0-0.8); Platelet Count 228 K/mm3 (140-440); Red Blood Count 4.76 M/mm3 (3.65-5.03)
[2019-07-13 17:12] LABS: Mean Corpuscular Volume 65 fl (79-97); Red Cell Distribution Width 22.4 % (13.2-15.2)
[2019-07-13 17:23] LABS: Bilirubin,Urine NEG (Negative); Blood,Urine NEG (Negative); Color,Urine Yellow (Yellow); Mucus,Urine FEW /HPF; Protein,Urine <15 mg/dL mg/dL (Negative); Urobilinogen,Urine < 2.0 mg/dL (<2.0)
[2019-07-13] MEDS ORDERED: HYDROmorphone 2 MG/1 ML INJ IV ONE (18:41)
--- NOTE | 2019-07-13 19:42 | Emergency Department Report ---
ED General Adult HPI - General Chief complaint: Sickle Cell Crisis Stated complaint: SICKLE CELL CRISIS Time Seen by Provider: 07/13/19 15:51 Source: patient Mode of arrival: Ambulatory Limitations: No Limitations - History of Present Illness Initial comments: Vision is a 34-year-old female with a past medical history of sickle cell disease. Patient has SC. Patient states that she's been having generalized pain in her legs and lower back for the past 2 weeks. She's had some occasional nonbilious vomiting for the past 2-3 days. Patient states with the vomiting she has some chest tightness. Patient also states her urine is dark but she denies any dysuria. Patient denies fevers chills cough cold or congestion. Patient states that she's been using Motrin for pain control. Patient has no current primary care provider. Patient states she hasn't no other medications for her sickle cell. Severity scale (0 -10): 8 - Related Data Previous Rx's Medication Instructions Recorded Last Taken Type Nicotine [Habitrol] 21 mg TD DAILY #30 patch 06/14/18 Unknown Rx Pregabalin 75 mg PO QDAY #20 capsule 09/15/18 Unknown Rx Sertraline [Zoloft] 25 mg PO QDAY #30 tablet 09/15/18 Unknown Rx Acetaminophen [Non-Aspirin Extra 500 mg PO Q6HR PRN #30 tablet 05/21/19 Unknown Rx Strength] Promethazine [Phenergan SUPPOS] 50 mg [place] Q6H PRN #15 supp.rect 05/21/19 Unknown Rx Promethazine [Phenergan] 25 mg PO Q6HR PRN #10 tablet 06/10/19 Unknown Rx Folic Acid [Folvite] 1 mg PO QDAY #30 tablet 07/13/19 Unknown Rx Hydroxyurea 500 mg PO BID #30 capsule 07/13/19 Unknown Rx Ibuprofen [Motrin 600 MG tab] 600 mg PO Q8H PRN #30 tablet 07/13/19 Unknown Rx Metoclopramide [Reglan TAB] 10 mg PO QID PRN #10 tablet 07/13/19 Unknown Rx oxyCODONE /ACETAMINOPHEN [Percocet 1 tab PO BID PRN #14 tablet 07/13/19 Unknown Rx 5/325 mg] Allergies Allergy/AdvReac Type Severity Reaction Status Date / Time cefotetan disodium Allergy Hives Verified 05/25/16 17:25 [From Cefotan] morphine Allergy Vomiting Verified 07/13/16 20:40 ED Review of Systems ROS: Stated complaint: SICKLE CELL CRISIS Other details as noted in HPI Comment: All other systems reviewed and negative ED Past Medical Hx - Past Medical History Previous Medical History?: Yes Hx Hypertension: No Hx Heart Attack/AMI: No Hx Congestive Heart Failure: No Hx Diabetes: No Hx Deep Vein Thrombosis: No Hx Pulmonary Embolism: No Hx Liver Disease: No Hx Renal Disease: No Hx Sickle Cell Disease: Yes Hx Arthritis: No Hx Seizures: Yes (10 + years ago) Hx Kidney Stones: No Hx Asthma: Yes Hx COPD: No Hx Tuberculosis: No Hx Dementia: No Hx HIV: No Additional medical history: fibromyalgia - Surgical History Past Surgical History?: Yes Hx Coronary Stent: No Hx Open Heart Surgery: No Hx Pacemaker: No Hx Internal Defibrillator: No Hx Cholecystectomy: Yes Hx Appendectomy: No Hx Breast Surgery: No Additional Surgical History: ports x 2 / tubal ligation/ t&a , splenectomy ? - Social History Smoking Status: Former Smoker - Medications Home Medications: Home Medications Medication Instructions Recorded Confirmed Last Taken Type Nicotine [Habitrol] 21 mg TD DAILY #30 patch 06/14/18 09/08/18 Unknown Rx Pregabalin 75 mg PO QDAY #20 capsule 09/15/18 Unknown Rx Sertraline [Zoloft] 25 mg PO QDAY #30 tablet 09/15/18 Unknown Rx Acetaminophen [Non-Aspirin Extra 500 mg PO Q6HR PRN #30 tablet 05/21/19 Unknown Rx Strength] Promethazine [Phenergan SUPPOS] 50 mg [place] Q6H PRN #15 supp.rect 05/21/19 Unknown Rx Promethazine [Phenergan] 25 mg PO Q6HR PRN #10 tablet 06/10/19 Unknown Rx Folic Acid [Folvite] 1 mg PO QDAY #30 tablet 07/13/19 Unknown Rx Hydroxyurea 500 mg PO BID #30 capsule 07/13/19 Unknown Rx Ibuprofen [Motrin 600 MG tab] 600 mg PO Q8H PRN #30 tablet 07/13/19 Unknown Rx Metoclopramide [Reglan TAB] 10 mg PO QID PRN #10 tablet 07/13/19 Unknown Rx oxyCODONE /ACETAMINOPHEN [Percocet 1 tab PO BID PRN #14 tablet 07/13/19 Unknown Rx 5/325 mg] ED Physical Exam - General Limitations: No Limitations General appearance: alert, in no apparent distress - Head Head exam: Present: atraumatic, normocephalic - Eye Eye exam: Present: normal appearance - ENT ENT exam: Present: mucous membranes moist - Neck Neck exam: Present: normal inspection - Respiratory Respiratory exam: Present: normal lung sounds bilaterally. Absent: respiratory distress, wheezes, rales, rhonchi - Cardiovascular Cardiovascular Exam: Present: regular rate, normal rhythm. Absent: systolic murmur, diastolic murmur, rubs, gallop - GI/Abdominal GI/Abdominal exam: Present: soft, normal bowel sounds. Absent: distended, tenderness, guarding, rebound - Extremities Exam Extremities exam: Present: normal inspection - Back Exam Back exam: Present: normal inspection - Neurological Exam Neurological exam: Present: alert, oriented X3 - Psychiatric Psychiatric exam: Present: normal affect, normal mood - Skin Skin exam: Present: warm, dry, intact, normal color. Absent: rash ED Course Vital Signs 07/13/19 07/13/19 12:45 17:26 Temperature 98.9 F Pulse Rate 102 H Respiratory 24 18 Rate Blood Pressure 111/73 O2 Sat by Pulse 97 100 Oximetry ED Medical Decision Making - Lab Data Result diagrams: 07/13/19 16:20 07/13/19 16:20 Lab Results 07/13/19 07/13/19 07/13/19 Range/Units 16:20 16:20 16:20 WBC 10.0 (4.5-11.0) K/mm3 RBC 4.76 (3.65-5.03) M/mm3 Hgb 10.5 (10.1-14.3) gm/dl Hct 30.8 (30.3-42.9) % MCV 65 L (79-97) fl MCH 22 L (28-32) pg MCHC 34 (30-34) % RDW 22.4 H (13.2-15.2) % Plt Count 228 (140-440) K/mm3 Lymph % (Auto) 21.8 (13.4-35.0) % [place] % (Auto) 7.0 (0.0-7.3) % Eos % (Auto) 0.9 (0.0-4.3) % Baso % (Auto) 0.6 (0.0-1.8) % Lymph # 2.2 (1.2-5.4) K/mm3 [place] # 0.7 (0.0-0.8) K/mm3 Eos # 0.1 (0.0-0.4) K/mm3 Baso # 0.1 (0.0-0.1) K/mm3 Seg Neutrophils % 69.7 (40.0-70.0) % Seg Neutrophils # 7.0 (1.8-7.7) K/mm3 Percent Retic (0.78-2.58) % Sodium 138 (137-145) mmol/L Potassium 3.6 (3.6-5.0) mmol/L Chloride 104.0 (98-107) mmol/L Carbon Dioxide 20 L (22-30) mmol/L Anion Gap 18 mmol/L BUN 5 L (7-17) mg/dL Creatinine 0.4 L (0.7-1.2) mg/dL Estimated GFR > 60 ml/min BUN/Creatinine Ratio 13 % Glucose 114 H (65-100) mg/dL Calcium 8.2 L (8.4-10.2) mg/dL HCG, Qual Negative (Negative) Urine Color (Yellow) Urine Turbidity (Clear) Urine pH (5.0-7.0) Ur Specific [place] (1.003-1.030) Urine Protein (Negative) mg/dL Urine Glucose (UA) (Negative) mg/dL Urine Ketones (Negative) mg/dL Urine Blood (Negative) Urine Nitrite (Negative) Urine Bilirubin (Negative) Urine Urobilinogen (<2.0) mg/dL Ur Leukocyte Esterase (Negative) Urine WBC (Auto) (0.0-6.0) /HPF Urine RBC (Auto) (0.0-6.0) /HPF U Epithel Cells (Auto) (0-13.0) /HPF Urine Mucus /HPF 07/13/19 07/13/19 Range/Units 16:40 17:13 WBC (4.5-11.0) K/mm3 RBC (3.65-5.03) M/mm3 Hgb (10.1-14.3) gm/dl Hct (30.3-42.9) % MCV (79-97) fl MCH (28-32) pg MCHC (30-34) % RDW (13.2-15.2) % Plt Count (140-440) K/mm3 Lymph % (Auto) (13.4-35.0) % [place] % (Auto) (0.0-7.3) % Eos % (Auto) (0.0-4.3) % Baso % (Auto) (0.0-1.8) % Lymph # (1.2-5.4) K/mm3 [place] # (0.0-0.8) K/mm3 Eos # (0.0-0.4) K/mm3 Baso # (0.0-0.1) K/mm3 Seg Neutrophils % (40.0-70.0) % Seg Neutrophils # (1.8-7.7) K/mm3 Percent Retic 2.55 (0.78-2.58) % Sodium (137-145) mmol/L Potassium (3.6-5.0) mmol/L Chloride (98-107) mmol/L Carbon Dioxide (22-30) mmol/L Anion Gap mmol/L BUN (7-17) mg/dL Creatinine (0.7-1.2) mg/dL Estimated GFR ml/min BUN/Creatinine Ratio % Glucose (65-100) mg/dL Calcium (8.4-10.2) mg/dL HCG, Qual (Negative) Urine Color Yellow (Yellow) Urine Turbidity Clear (Clear) Urine pH 6.0 (5.0-7.0) Ur Specific [place] 1.011 (1.003-1.030) Urine Protein <15 mg/dl (Negative) mg/dL Urine Glucose (UA) Neg (Negative) mg/dL Urine Ketones Neg (Negative) mg/dL Urine Blood Neg (Negative) Urine Nitrite Neg (Negative) Urine Bilirubin Neg (Negative) Urine Urobilinogen < 2.0 (<2.0) mg/dL Ur Leukocyte Esterase Tr (Negative) Urine WBC (Auto) 1.0 (0.0-6.0) /HPF Urine RBC (Auto) 1.0 (0.0-6.0) /HPF U Epithel Cells (Auto) 2.0 (0-13.0) /HPF Urine Mucus Few /HPF - Medical Decision Making He was given multiple doses of Dilaudid with Benadryl and Toradol. Patient was also hydrated with normal saline. Patient states she is starting to have some improvement of her pain. Patient be given a primary care physician for follow- up. Patient will have refill of her pain medications. Patient be discharged home. Critical care attestation.: If time is entered above; I have spent that time in minutes in the direct care of this critically ill patient, excluding procedure time. ED Disposition Clinical Impression: Sickle cell crisis, Mild dehydration Disposition: - TO HOME OR SELFCARE Is pt being admited?: No Does the pt Need Aspirin: No Condition: Stable Instructions: Sickle Cell Crisis (ED) Prescriptions: Folic Acid [Folvite] 1 mg PO QDAY #30 tablet Hydroxyurea 500 mg PO BID #30 capsule Ibuprofen [Motrin 600 MG tab] 600 mg PO Q8H PRN #30 tablet PRN Reason: Pain oxyCODONE /ACETAMINOPHEN [Percocet 5/325 mg] 1 tab PO BID PRN #14 tablet PRN Reason: Pain Metoclopramide [Reglan TAB] 10 mg PO QID PRN #10 tablet PRN Reason: Nausea Referrals: ALEXA OLIVER MD [Staff Physician] - 3-5 Days Time of Disposition: 19:43
[2019-07-13 20:18] VITALS: BP 126/82
== END 2019-07-13 20:17 | disposition home or self-care (01) ==
LOC: ED 12:41
DX: D57.00 Hb-SS disease with crisis, unspecified (principal); E86.0 Dehydration; J45.909 Unspecified asthma, uncomplicated
CPT/HCPCS: 36415; 80048; 81001; 84703; 85025; 85045; 96361; 96374; 96375; 96376; 99283; J1170; J1200; J1642; J1885; J2765; J7030

== ENCOUNTER 2019-07-15 08:08 | Inpatient (IN) | payer MEDICARE ==
[2019-07-15 13:57] LABS: Basophils # (Auto) 0.1 K/mm3 (0.0-0.1); Basophils % (Auto) 0.5 % (0.0-1.8); Eosinophils # (Auto) 0.1 K/mm3 (0.0-0.4); Eosinophils % (Auto) 1.2 % (0.0-4.3); Hematocrit 30.4 % (30.3-42.9); Hemoglobin 10.3 gm/dl (10.1-14.3); Lymphocytes # (Auto) 2.1 K/mm3 (1.2-5.4); Lymphocytes % (Auto) 19.3 % (13.4-35.0); Mean Corpuscular HGB Conc 34 % (30-34); Monocytes # (Auto) 0.8 K/mm3 (0.0-0.8); Monocytes % (Auto) 7.2 % (0.0-7.3); Platelet Count 225 K/mm3 (140-440); Red Blood Count 4.66 M/mm3 (3.65-5.03)
[2019-07-15 14:04] LABS: Mean Corpuscular Volume 65 fl (79-97); Red Cell Distribution Width 22.2 % (13.2-15.2)
[2019-07-15] MEDS ORDERED: KETOROLAC 30 MG/1 ML INJ IV ONE (14:13)
[2019-07-15] MEDS ORDERED: diphenhydrAMINE 50 MG/ML VIAL IV ONE ×2 (14:13→16:30)
[2019-07-15] MEDS ORDERED: HYDROmorphone 1 MG/1 ML INJ IV ONE ×3 (14:13→16:30)
[2019-07-15] MEDS ORDERED: METOCLOPRAMIDE 10 MG/2 ML INJ IV ONE (14:13)
[2019-07-15 14:18] LABS: Alanine Aminotransferase 6 units/L (7-56); Albumin 3.8 g/dL (3.9-5); BUN/Creatinine Ratio 12; Blood Urea Nitrogen 6 mg/dL (7-17); Calcium 8.1 mg/dL (8.4-10.2); Hemolysis Index 1
--- NOTE | 2019-07-15 14:24 | Emergency Department Report ---
ED General Adult HPI - General Chief complaint: Sickle Cell Crisis Stated complaint: SSC/N/V Time Seen by Provider: 07/15/19 13:10 Source: patient Mode of arrival: Ambulatory Limitations: No Limitations - History of Present Illness Initial comments: 34-year-old female the past medical history of sickle cell SC, fibromyalgia, asthma, previous cholecystectomy and tubal ligation presents to the hospital complaining of continued body pain, nausea, and vomiting. Patient was seen here on 1129 with the same symptoms. She states she has had difficulty tolerating by mouth intake. She continues to have pain and vomiting despite being prescribed Reglan and Percocet 5/325 mg. Patient complains of chest tightness. She has had a MAXIMUM TEMPERATURE of 100.6 at home. No dysuria, hematochezia, melena, or diarrhea reported. - Related Data Previous Rx's Medication Instructions Recorded Last Taken Type Nicotine [Habitrol] 21 mg TD DAILY #30 patch 06/14/18 Unknown Rx Pregabalin 75 mg PO QDAY #20 capsule 09/15/18 Unknown Rx Sertraline [Zoloft] 25 mg PO QDAY #30 tablet 09/15/18 Unknown Rx Acetaminophen [Non-Aspirin Extra 500 mg PO Q6HR PRN #30 tablet 05/21/19 Unknown Rx Strength] Promethazine [Phenergan SUPPOS] 50 mg [place] Q6H PRN #15 supp.rect 05/21/19 Unknown Rx Promethazine [Phenergan] 25 mg PO Q6HR PRN #10 tablet 06/10/19 Unknown Rx Folic Acid [Folvite] 1 mg PO QDAY #30 tablet 07/13/19 Unknown Rx Hydroxyurea 500 mg PO BID #30 capsule 07/13/19 Unknown Rx Ibuprofen [Motrin 600 MG tab] 600 mg PO Q8H PRN #30 tablet 07/13/19 Unknown Rx Metoclopramide [Reglan TAB] 10 mg PO QID PRN #10 tablet 07/13/19 Unknown Rx oxyCODONE /ACETAMINOPHEN [Percocet 1 tab PO BID PRN #14 tablet 07/13/19 Unknown Rx 5/325 mg] Allergies Allergy/AdvReac Type Severity Reaction Status Date / Time cefotetan disodium Allergy Hives Verified 05/25/16 17:25 [From Cefotan] morphine Allergy Vomiting Verified 07/13/16 20:40 ED Review of Systems ROS: Stated complaint: SSC/N/V Other details as noted in HPI Comment: All other systems reviewed and negative ED Past Medical Hx - Past Medical History Previous Medical History?: Yes Hx Hypertension: No Hx Heart Attack/AMI: No Hx Congestive Heart Failure: No Hx Diabetes: No Hx Deep Vein Thrombosis: No Hx Pulmonary Embolism: No Hx Liver Disease: No Hx Renal Disease: No Hx Sickle Cell Disease: Yes Hx Arthritis: No Hx Seizures: Yes (10 + years ago) Hx Kidney Stones: No Hx Asthma: Yes Hx COPD: No Hx Tuberculosis: No Hx Dementia: No Hx HIV: No Additional medical history: fibromyalgia - Surgical History Past Surgical History?: Yes Hx Coronary Stent: No Hx Open Heart Surgery: No Hx Pacemaker: No Hx Internal Defibrillator: No Hx Cholecystectomy: Yes Hx Appendectomy: No Hx Breast Surgery: No Additional Surgical History: ports x 2 / tubal ligation/ t&a , splenectomy ? - Social History Smoking Status: Current Some Day Smoker Substance Use Type: None - Medications Home Medications: Home Medications Medication Instructions Recorded Confirmed Last Taken Type Nicotine [Habitrol] 21 mg TD DAILY #30 patch 06/14/18 09/08/18 Unknown Rx Pregabalin 75 mg PO QDAY #20 capsule 09/15/18 Unknown Rx Sertraline [Zoloft] 25 mg PO QDAY #30 tablet 09/15/18 Unknown Rx Acetaminophen [Non-Aspirin Extra 500 mg PO Q6HR PRN #30 tablet 05/21/19 Unknown Rx Strength] Promethazine [Phenergan SUPPOS] 50 mg [place] Q6H PRN #15 supp.rect 05/21/19 Unknown Rx Promethazine [Phenergan] 25 mg PO Q6HR PRN #10 tablet 06/10/19 Unknown Rx Folic Acid [Folvite] 1 mg PO QDAY #30 tablet 07/13/19 Unknown Rx Hydroxyurea 500 mg PO BID #30 capsule 07/13/19 Unknown Rx Ibuprofen [Motrin 600 MG tab] 600 mg PO Q8H PRN #30 tablet 07/13/19 Unknown Rx Metoclopramide [Reglan TAB] 10 mg PO QID PRN #10 tablet 07/13/19 Unknown Rx oxyCODONE /ACETAMINOPHEN [Percocet 1 tab PO BID PRN #14 tablet 07/13/19 Unknown Rx 5/325 mg] ED Physical Exam - General Limitations: No Limitations - Other Other exam information: General: No acute distress Head: Atraumatic Eyes: normal appearance ENT: Moist mucous membranes Neck: Normal appearance, no midline tenderness Chest: Clear to auscultation bilaterally, left chest port CV: Regular rate and rhythm Abdomen: Soft, normal bowel sounds, generalized abdominal tenderness greatest in the lower abdomen, nondistended, no rebound or guarding. actively vomiting Back: Normal inspection Extremity: Normal inspection infection, full range of motion Neuro: Alert O x 3, no facial asymmetry, speech clear, no gross motor sensory deficit Psych: Appropriate behavior Skin: No rash ED Course Vital Signs 07/15/19 08:27 Temperature 99.8 F H Pulse Rate 96 H Blood Pressure 125/77 O2 Sat by Pulse 98 Oximetry ED Medical Decision Making - Lab Data Result diagrams: 07/15/19 13:45 07/15/19 13:45 Lab Results 07/15/19 07/15/19 07/15/19 Range/Units 13:45 13:45 13:45 WBC 11.1 H (4.5-11.0) K/mm3 RBC 4.66 (3.65-5.03) M/mm3 Hgb 10.3 (10.1-14.3) gm/dl Hct 30.4 (30.3-42.9) % MCV 65 L (79-97) fl MCH 22 L (28-32) pg MCHC 34 (30-34) % RDW 22.2 H (13.2-15.2) % Plt Count 225 (140-440) K/mm3 Lymph % (Auto) 19.3 (13.4-35.0) % [place] % (Auto) 7.2 (0.0-7.3) % Eos % (Auto) 1.2 (0.0-4.3) % Baso % (Auto) 0.5 (0.0-1.8) % Lymph # 2.1 (1.2-5.4) K/mm3 [place] # 0.8 (0.0-0.8) K/mm3 Eos # 0.1 (0.0-0.4) K/mm3 Baso # 0.1 (0.0-0.1) K/mm3 Seg Neutrophils % 71.8 H (40.0-70.0) % Seg Neutrophils # 7.9 H (1.8-7.7) K/mm3 Percent Retic 3.22 H (0.78-2.58) % Sodium 139 (137-145) mmol/L Potassium 3.7 (3.6-5.0) mmol/L Chloride 107.4 H (98-107) mmol/L Carbon Dioxide 22 (22-30) mmol/L Anion Gap 13 mmol/L BUN 6 L (7-17) mg/dL Creatinine 0.5 L (0.7-1.2) mg/dL Estimated GFR > 60 ml/min BUN/Creatinine Ratio 12 % Glucose 99 (65-100) mg/dL Calcium 8.1 L (8.4-10.2) mg/dL Total Bilirubin 0.30 (0.1-1.2) mg/dL AST 11 (5-40) units/L ALT 6 L (7-56) units/L Alkaline Phosphatase 81 (35-129) units/L Total Protein 6.9 (6.3-8.2) g/dL Albumin 3.8 L (3.9-5) g/dL Albumin/Globulin Ratio 1.2 % Lipase 22 (13-60) units/L HCG, Qual Negative (Negative) - EKG Data -: EKG Interpreted by [place] EKG shows normal: sinus rhythm, ST-T waves (no stemi) Rate: normal - Radiology Data Radiology results: report reviewed CHEST 2 VIEWS INDICATION: cp. COMPARISON: 06/10/2019 FINDINGS: Support devices: Stable satisfactory device positioning. Heart: Within normal limits. Lungs/pleura: No acute air space or interstitial disease. No pneumothorax. Additional findings: None. IMPRESSION: 1. No acute findings. CT ABDOMEN AND PELVIS WITH CONTRAST HISTORY: MAIN: abd pain, n,v sickle cell OMNIPAQUE 240 100ML . COMPARISON: CT abdomen/pelvis from 05/21/2019 TECHNIQUE: CT images of the abdomen and pelvis were obtained following administration of intravenous contrast. All CT scans at this location are performed using CT dose reduction for ALARA by means of automated exposure control. CONTRAST: 100 ml of intravenous contrast administered. FINDINGS: Lungs/bones: Mild bibasilar atelectasis. No acute osseous abnormality identified. Abdomen/pelvis: The gallbl adder is surgically absent. The liver is enlarged with no discrete mass. There is a small cyst near the gallbladder fossa region. The spleen is mildly enlarged. The pancreas, adrenals, kidneys, and proximal GI tract appear unremarkable. Urinary bladder is unremarkable. There is a 2.3 cm simple left ovarian cyst. Otherwise unremarkable appearance of the reproductive organs. There are abnormal dilated fluid-filled distal small bowel loops with mild mucosal enhancement as may be seen with enteritis. No bowel obstruction identified. Terminal ileum is normal. The appendix is also normal and there is no acute colonic abnormality. No pelvic free fluid. IMPRESSION: 1. Abnormal appearance of the distal small bowel is nonspecific but can be seen with enteritis. 2. Additional incidental findings as above. - Medical Decision Making She continues to have pain despite fluids and pain medication in the ED. Awaiting urine production. No anemia or leukocytosis. C7 pelvis unremarkable. Patient will be admitted for treatment for sickle cell pain crisis. - Differential Diagnosis sickle cell crisis, acute chest, appendicitis, pancreatitis, gastrits Critical Care Time: No Critical care attestation.: If time is entered above; I have spent that time in minutes in the direct care of this critically ill patient, excluding procedure time. ED Disposition Clinical Impression: Sickle cell crisis, Vomiting, Failure of outpatient treatment Disposition: DC-09 OP ADMIT IP TO THIS HOSP Is pt being admited?: Yes Condition: Stable Time of Disposition: 16:31 (Dr Morrison/hosp)
--- NOTE | 2019-07-15 15:28 | Cat Scan Report ---
CT ABDOMEN AND PELVIS WITH CONTRAST HISTORY: MAIN: abd pain, n,v sickle cell OMNIPAQUE 240 100ML . COMPARISON: CT abdomen/pelvis from 05/21/2019 TECHNIQUE: CT images of the abdomen and pelvis were obtained following administration of intravenous contrast. All CT scans at this location are performed using CT dose reduction for ALARA by means of automated exposure control. CONTRAST: 100 ml of intravenous contrast administered. FINDINGS: Lungs/bones: Mild bibasilar atelectasis. No acute osseous abnormality identified. Abdomen/pelvis: The gallbladder is surgically absent. The liver is enlarged with no discrete mass. T here is a small cyst near the gallbladder fossa region. The spleen is mildly enlarged. The pancreas, adrenals, kidneys, and proximal GI tract appear unremarkable. Urinary bladder is unremarkable. There is a 2.3 cm simple left ovarian cyst. Otherwise unremarkable a ppearance of the reproductive organs. There are abnormal dilated fluid-filled distal small bowel loops with mild mucosal enhancement as may be seen with enteritis. No bowel obstruction identified. Terminal ileum is normal. The appendix is a lso normal and there is no acute colonic abnormality. No pelvic free fluid. IMPRESSION: 1. Abnormal appearance of the distal small bowel is nonspecific but can be seen with enteritis. 2. Additional incidental findings as above. Signer Name: Carmelo Kurtz MD Signed: 07/15/2019 3:23 PM Workstation Name: [id number]
[2019-07-15] MEDS: D5W/0.2% NACL 1,000 ML IV SCH ×2 (15:35→23:50)
--- NOTE | 2019-07-15 15:54 | XRay Report ---
CHEST 2 VIEWS INDICATION: cp. COMPARISON: 06/10/2019 FINDINGS: Support devices: Stable satisfactory device positioning. Heart: Within normal limits. Lungs/pleura: No acute air space or interstitial disease. No pneumothorax. Additional findings: None. IMPRESSION: 1. No acute findings. Signer Name: Carmelo Kurtz MD Signed: 07/15/2019 3:50 PM Workstation Name: [id number]
[2019-07-15] MEDS ORDERED: SODIUM CHLORIDE 0.9% 1000 ML 1,000 ML IV SCH (16:32)
[2019-07-15] MEDS ORDERED: ACETAMINOPHEN 325 MG TAB PO PRN (16:33)
[2019-07-15] MEDS ORDERED: HYDROmorphone 1 MG/1 ML INJ IV PRN (16:33)
--- NOTE | 2019-07-15 16:33 | History and Physical Report ---
History of Present Illness Chief complaint: Im just hurting History of present illness: 34 YO Female with SCD, Obesity, FM, Opioid Dependence, Seizure Disorder, Fibromyalgia, Asthma, Nicotine Dependence presents to ED for evaluation. Pt states that she has experienced pain all over her body for the past 3 days with worsening symptoms over the same time frame. Pt states that current pain medication is ineffective. Pain is currently 10 out of 10 in intensity, generalized, throbbing. Pt transported to [facility] via private vehicle. Pt seen and evaluated in ED and found to have SCD Crisis. Pt placed in Observation status and admitted to medical floor. Pt denies fever, chills, CP, Palpitations, Syncope, NVD, Productive cough, BRBPR, unilateral leg swelling, calf pain, indivdual/family history of DVT/PE, skin rash, or recent ill contacts Past History Past Medical History: other (see HPI) Past Surgical History: cholecystectomy, Other (Tubal ligation, Splenectomy, Port Placement) Social history: single, smoking. denies: alcohol abuse, prescription drug abuse Family history: hypertension, other (SCD) Medications and Allergies Allergies Allergy/AdvReac Type Severity Reaction Status Date / Time cefotetan disodium Allergy Hives Verified 05/25/16 17:25 [From Cefotan] morphine Allergy Vomiting Verified 07/13/16 20:40 Home Medications Medication Instructions Recorded Confirmed Last Taken Type No Known Home Medications [No 07/15/19 07/15/19 Unknown History Reported Home Medications] Active Meds: Active Medications Dextrose/Sodium Chloride (D5ns 0.2%) 1,000 mls @ 250 mls/hr IV DIRECT JUSTUS Last Admin: 07/15/19 15:35 Dose: 250 mls/hr Documented by: Sodium Chloride (Nacl 0.9% 1000 Ml) 1,000 mls @ 0 mls/hr IV ONCE JUSTUS Stop: 07/16/19 16:33 Review of Systems Constitutional: chronic pain, no weight loss, no weight gain, no fever, no chills Ears, nose, mouth and throat: no ear pain, no ear discharge, no decreased hearing, no nose pain, no nasal congestion Breasts: no change in shape, no swelling, no mass Cardiovascular: no orthopnea, no palpitations, no rapid/irregular heart beat Respiratory: no cough, no excessive sputum, no hemoptysis, no shortness of breath Gastrointestinal: no nausea, no vomiting, no diarrhea, no constipation, no change in bowel habits Genitourinary Female: no menorrhagia, no dysuria, no urinary frequency, no urgency Rectal: no pain, no incontinence, no bleeding Musculoskeletal: no neck stiffness, no arm numbness/tingling, no redness of joints, no hot joints, no morning stiffness, no muscle weakness Integumentary: no rash, no pruritis, no redness, no sores, no wounds Neurological: no paralysis, no weakness, no parathesias, no numbness, no tingling, no seizures Psychiatric: no anxiety, no memory loss, no change in sleep habits, no sleep disturbances, no insomnia, no change in appetite Endocrine: no cold intolerance, no heat intolerance, no polyphagia, no excessive thirst, no polydipsia, no polyuria, no excessive sweating Hematologic/Lymphatic: no easy bruising, no easy bleeding, no lymphadenopathy, no lymphedema Allergic/Immunologic: no urticaria, no allergic rhinitis, no persistent infections, no anaphylaxis Exam - Constitutional Vitals: Temp Pulse Resp BP Pulse Ox 99.8 F H 96 H 125/77 98 07/15/19 08:27 07/15/19 08:27 07/15/19 08:27 07/15/19 08:27 General appearance: Present: mild distress, obese - EENT Eyes: Present: PERRL ENT: hearing intact, clear oral mucosa - Neck Neck: Present: supple, normal ROM - Respiratory Respiratory effort: normal Respiratory: bilateral: CTA - Cardiovascular Heart Sounds: Present: S1 & S2. Absent: rub, click - Extremities Extremities: pulses symmetrical, No edema Peripheral Pulses: within normal limits - Abdominal General gastrointestinal: Present: soft, non-tender, non-distended, normal bowel sounds Female genitourinary: Present: normal - Integumentary Integumentary: Present: clear, warm, dry - Musculoskeletal Musculoskeletal: gait normal, strength equal bilaterally - Psychiatric Psychiatric: appropriate mood/affect, intact judgment & insight - Neurologic Neurologic: CNII-XII intact, moves all extremities Results - Labs CBC & Chem 7: 07/15/19 13:45 07/15/19 13:45 Labs: Abnormal lab results 07/15/19 07/15/19 Range/Units 13:45 13:45 WBC 11.1 H (4.5-11.0) K/mm3 MCV 65 L (79-97) fl MCH 22 L (28-32) pg RDW 22.2 H (13.2-15.2) % Seg Neutrophils % 71.8 H (40.0-70.0) % Seg Neutrophils # 7.9 H (1.8-7.7) K/mm3 Percent Retic 3.22 H (0.78-2.58) % Chloride 107.4 H (98-107) mmol/L BUN 6 L (7-17) mg/dL Creatinine 0.5 L (0.7-1.2) mg/dL Calcium 8.1 L (8.4-10.2) mg/dL ALT 6 L (7-56) units/L Albumin 3.8 L (3.9-5) g/dL Assessment and Plan - Patient Problems (1) Sickle cell crisis Current Visit: Yes Status: Acute Plan to address problem: IVF resuscitation therapy, Folic acid, Hydroxyurea, Pain control, supportive care (2) Fibromyalgia Current Visit: No Status: Chronic Plan to address problem: Pain control, outpatient urology F/U care. (3) Nicotine dependence Current Visit: Yes Status: Acute Qualifiers: Substance use status: in withdrawal Plan to address problem: smoking cessation counseling, supportive care. (4) DVT prophylaxis Current Visit: No Status: Acute Plan to address problem: SCD to BLE while in bed, Pt ambulatory
[2019-07-15] MEDS ORDERED: IBUPROFEN 600 MG TAB PO PRN (16:42)
[2019-07-15] MEDS: NICOTINE 21 MG/24 HR PATCH TD SCH (19:26)
[2019-07-15] MEDS ORDERED: HYDROmorphone 2 MG/1 ML INJ IV ONE (19:28)
[2019-07-15] MEDS ORDERED: HYDROmorphone 1 MG/1 ML INJ ONE (19:40)
[2019-07-15] MEDS: ONDANSETRON 4 MG/2 ML INJ IV PRN (22:43)
[2019-07-15] MEDS: HYDROmorphone 1 MG/1 ML INJ IV PRN (22:43)
[2019-07-15] MEDS: LORazepam 2 MG/ML VIAL IV PRN (22:43)
[2019-07-15] MEDS: PROMETHAZINE 25 MG TAB PO PRN (22:44)
[2019-07-15] MEDS: HYDROXYUREA 500 MG CAP PO SCH (23:16)
[2019-07-16 01:34] LABS: Bacteria,Urine 1+ /HPF (Negative); Bilirubin,Urine NEG (Negative); Blood,Urine MOD (Negative); Color,Urine Yellow (Yellow); Hyaline Casts,Urine 2 /LPF; Protein,Urine <15 mg/dL mg/dL (Negative); Urobilinogen,Urine < 2.0 mg/dL (<2.0)
[2019-07-16] MEDS: oxyCODONE /ACETAMINOPHEN 5-325MG TAB PO PRN (02:28)
[2019-07-16] MEDS: HYDROmorphone 1 MG/1 ML INJ IV PRN ×7 (03:29→22:19)
[2019-07-16] MEDS: diphenhydrAMINE 50 MG/ML VIAL IV PRN ×7 (03:33→22:18)
[2019-07-16] MEDS: D5W/0.2% NACL 1,000 ML IV SCH ×3 (06:08→13:15)
[2019-07-16] MEDS: LORazepam 2 MG/ML VIAL IV PRN ×2 (06:15→15:48)
[2019-07-16] MEDS: PROMETHAZINE 25 MG TAB PO PRN ×3 (06:16→19:01)
[2019-07-16] MEDS: ONDANSETRON 4 MG/2 ML INJ IV PRN ×2 (06:28→15:48)
[2019-07-16] MEDS: FOLIC ACID 1 MG TAB PO SCH (09:33)
[2019-07-16] MEDS: PREGABALIN 75 MG CAP PO SCH (09:33)
[2019-07-16] MEDS: SERTRALINE 25 MG TAB PO SCH (09:33)
[2019-07-16] MEDS: METOCLOPRAMIDE 10 MG TAB PO PRN ×2 (09:42→19:01)
[2019-07-16] MEDS: NICOTINE 21 MG/24 HR PATCH TD SCH (09:45)
[2019-07-16] MEDS: HYDROXYUREA 500 MG CAP PO SCH ×2 (10:00→21:39)
[2019-07-16 10:45] LABS: BUN/Creatinine Ratio 10; Blood Urea Nitrogen 4 mg/dL (7-17); Hemolysis Index 1
--- NOTE | 2019-07-16 13:36 | Progress Note ---
Assessment and Plan Assessment and plan: Sickle cell crisis IVF resuscitation therapy, Folic acid, Hydroxyurea, Pain control, supportive care Fibromyalgia Pain control, outpatient urology F/U care. Nicotine dependence smoking cessation counseling, supportive care. DVT prophylaxis SCD to BLE while in bed, Pt ambulatory Dysuria/UTi Start Levaquin daily History Interval history: Pt still c/o sickle cell pain Hospitalist Physical - Constitutional Vitals: Temp Pulse Resp BP Pulse Ox 98.4 F 110 H 20 132/85 93 07/16/19 11:54 07/16/19 11:54 07/16/19 11:54 07/16/19 11:54 07/16/19 11:54 General appearance: Present: mild distress, obese - EENT Eyes: Present: PERRL, EOM intact ENT: hearing intact, clear oral mucosa, dentition normal - Neck Neck: Present: supple, normal ROM - Respiratory Respiratory effort: normal Respiratory: bilateral: CTA - Cardiovascular Rhythm: regular Heart Sounds: Present: S1 & S2. Absent: gallop, rub - Extremities Extremities: no ischemia, No edema, Full ROM - Abdominal General gastrointestinal: soft, non-tender, non-distended, normal bowel sounds - Integumentary Integumentary: Present: clear, warm, dry - Neurologic Neurologic: CNII-XII intact, moves all extremities Results - Labs CBC & Chem 7: 07/15/19 13:45 07/16/19 10:01 Labs: Laboratory Last Values WBC 11.1 K/mm3 (4.5-11.0) H 07/15/19 13:45 RBC 4.66 M/mm3 (3.65-5.03) 07/15/19 13:45 Hgb 10.3 gm/dl (10.1-14.3) 07/15/19 13:45 Hct 30.4 % (30.3-42.9) 07/15/19 13:45 MCV 65 fl (79-97) L 07/15/19 13:45 MCH 22 pg (28-32) L 07/15/19 13:45 MCHC 34 % (30-34) 07/15/19 13:45 RDW 22.2 % (13.2-15.2) H 07/15/19 13:45 Plt Count 225 K/mm3 (140-440) 07/15/19 13:45 Lymph % (Auto) 19.3 % (13.4-35.0) 07/15/19 13:45 [place] % (Auto) 7.2 % (0.0-7.3) 07/15/19 13:45 Eos % (Auto) 1.2 % (0.0-4.3) 07/15/19 13:45 Baso % (Auto) 0.5 % (0.0-1.8) 07/15/19 13:45 Lymph # 2.1 K/mm3 (1.2-5.4) 07/15/19 13:45 [place] # 0.8 K/mm3 (0.0-0.8) 07/15/19 13:45 Eos # 0.1 K/mm3 (0.0-0.4) 07/15/19 13:45 Baso # 0.1 K/mm3 (0.0-0.1) 07/15/19 13:45 Seg Neutrophils % 71.8 % (40.0-70.0) H 07/15/19 13:45 Seg Neutrophils # 7.9 K/mm3 (1.8-7.7) H 07/15/19 13:45 Percent Retic 3.22 % (0.78-2.58) H 07/15/19 13:45 Sodium 136 mmol/L (137-145) L 07/16/19 10:01 Potassium 3.6 mmol/L (3.6-5.0) 07/16/19 10:01 Chloride 99.5 mmol/L (98-107) 07/16/19 10:01 Carbon Dioxide 20 mmol/L (22-30) L 07/16/19 10:01 Anion Gap 20 mmol/L 07/16/19 10:01 BUN 4 mg/dL (7-17) L 07/16/19 10:01 Creatinine 0.4 mg/dL (0.7-1.2) L 07/16/19 10:01 Estimated GFR > 60 ml/min 07/16/19 10:01 BUN/Creatinine Ratio 10 % 07/16/19 10:01 Glucose 142 mg/dL (65-100) H 07/16/19 10:01 Calcium 8.0 mg/dL (8.4-10.2) L 07/16/19 10:01 Total Bilirubin 0.30 mg/dL (0.1-1.2) 07/15/19 13:45 AST 11 units/L (5-40) 07/15/19 13:45 ALT 6 units/L (7-56) L 07/15/19 13:45 Alkaline Phosphatase 81 units/L (35-129) 07/15/19 13:45 Total Protein 6.9 g/dL (6.3-8.2) 07/15/19 13:45 Albumin 3.8 g/dL (3.9-5) L 07/15/19 13:45 Albumin/Globulin Ratio 1.2 % 07/15/19 13:45 Lipase 22 units/L (13-60) 07/15/19 13:45 HCG, Qual Negative (Negative) 07/15/19 13:45 Urine Color Yellow (Yellow) 07/16/19 01:10 Urine Turbidity Slightly-cloudy (Clear) 07/16/19 01:10 Urine pH 6.0 (5.0-7.0) 07/16/19 01:10 Ur Specific [place] 1.014 (1.003-1.030) 07/16/19 01:10 Urine Protein <15 mg/dl mg/dL (Negative) 07/16/19 01:10 Urine Glucose (UA) Neg mg/dL (Negative) 07/16/19 01:10 Urine Ketones Neg mg/dL (Negative) 07/16/19 01:10 Urine Blood Mod (Negative) 07/16/19 01:10 Urine Nitrite Neg (Negative) 07/16/19 01:10 Urine Bilirubin Neg (Negative) 07/16/19 01:10 Urine Urobilinogen < 2.0 mg/dL (<2.0) 07/16/19 01:10 Ur Leukocyte Esterase Lg (Negative) 07/16/19 01:10 Urine WBC (Auto) 12.0 /HPF (0.0-6.0) H 07/16/19 01:10 Urine RBC (Auto) 9.0 /HPF (0.0-6.0) 07/16/19 01:10 U Epithel Cells (Auto) 3.0 /HPF (0-13.0) 07/16/19 01:10 Urine Bacteria (Auto) 1+ /HPF (Negative) 07/16/19 01:10 Hyaline Casts 2 /LPF 07/16/19 01:10 Urine Yeast (Budding) Few /HPF 07/16/19 01:10 Active Medications - Current Medications Current Medications: Generic Name Dose Route Start Last Admin Trade Name Freq PRN Reason Stop Dose Admin Acetaminophen 650 mg 07/15/19 16:33 Tylenol PO Q4H PRN Pain MILD(1-3)/Fever >100.5/TALAMANTES Diphenhydramine HCl 25 mg 07/15/19 22:54 07/16/19 12:56 Benadryl IV 25 mg Q3H PRN Administration Itching Folic Acid 1 mg 07/16/19 10:00 07/16/19 09:33 Folvite PO 1 mg QDAY JUSTUS Administration Hydromorphone HCl 1 mg 07/15/19 22:18 07/16/19 12:56 Dilaudid IV 1 mg Q3H PRN Administration Pain, Moderate (4-6) Hydroxyurea 500 mg 07/15/19 22:00 07/15/19 23:16 Hydroxyurea PO 500 mg BID JUSTUS Administration Dextrose/Sodium Chloride 1,000 mls @ 250 mls/hr 07/15/19 15:00 07/16/19 09:42 D5ns 0.2% IV 250 mls/hr DIRECT JUSTUS Administration Sodium Chloride 1,000 mls @ 0 mls/hr 07/15/19 16:32 Nacl 0.9% 1000 Ml IV 07/16/19 16:33 ONCE JUSTUS As Directed Ibuprofen 600 mg 07/15/19 16:42 Ibuprofen PO Q8H PRN PAIN, MILD Lorazepam 1 mg 07/15/19 21:20 07/16/19 06:15 Ativan IV 1 mg Q8H PRN Administration Anxiety Metoclopramide HCl 10 mg 07/15/19 16:42 07/16/19 09:42 Reglan PO 10 mg QID PRN Administration Nausea Nicotine 21 mg 07/15/19 18:00 07/16/19 09:45 Habitrol TD Not Given DAILY JUSTUS Ondansetron HCl 4 mg 07/15/19 16:33 07/16/19 06:28 Zofran IV 4 mg Q8H PRN Administration Nausea And Vomiting Oxycodone/Acetaminophen 1 tab 07/15/19 16:42 07/16/19 02:28 Percocet 5/325 PO 1 tab BID PRN Administration PAIN, MODERATE (4-6) Pregabalin 75 mg 07/16/19 10:00 07/16/19 09:33 Pregabalin PO 75 mg QDAY JUSTUS Administration Promethazine HCl 25 mg 07/15/19 16:42 07/16/19 12:57 Phenergan PO 25 mg Q6H PRN Administration Nausea Sertraline HCl 25 mg 07/16/19 10:00 07/16/19 09:33 Zoloft PO 25 mg QDAY JUSTUS Administration Sodium Chloride 10 ml 07/15/19 22:00 07/16/19 10:00 Sodium Chloride Flush Syringe 10 Ml IV 10 ml BID JUSTUS Administration Sodium Chloride 10 ml 07/15/19 16:33 Sodium Chloride Flush Syringe 10 Ml IV PRN PRN LINE FLUSH
[2019-07-17] MEDS: LORazepam 2 MG/ML VIAL IV PRN ×3 (00:24→21:11)
[2019-07-17] MEDS: oxyCODONE /ACETAMINOPHEN 5-325MG TAB PO PRN ×2 (00:26→21:11)
[2019-07-17] MEDS: D5W/0.2% NACL 1,000 ML IV SCH ×4 (00:32→21:31)
[2019-07-17] MEDS: HYDROmorphone 1 MG/1 ML INJ IV PRN ×4 (04:38→18:09)
[2019-07-17] MEDS: diphenhydrAMINE 50 MG/ML VIAL IV PRN ×4 (04:38→18:08)
[2019-07-17] MEDS: PROMETHAZINE 25 MG TAB PO PRN ×3 (04:39→21:12)
[2019-07-17] MEDS: ONDANSETRON 4 MG/2 ML INJ IV PRN (08:26)
[2019-07-17] MEDS: METOCLOPRAMIDE 10 MG TAB PO PRN ×2 (08:35→18:08)
[2019-07-17] MEDS: PREGABALIN 75 MG CAP PO SCH (09:27)
[2019-07-17] MEDS: SERTRALINE 25 MG TAB PO SCH (09:27)
[2019-07-17] MEDS: FOLIC ACID 1 MG TAB PO SCH (09:27)
[2019-07-17] MEDS: NICOTINE 21 MG/24 HR PATCH TD SCH (09:28)
[2019-07-17] MEDS: HYDROXYUREA 500 MG CAP PO SCH ×2 (09:28→21:13)
--- NOTE | 2019-07-17 15:19 | Progress Note ---
Assessment and Plan Assessment and plan: Sickle cell crisis IVF resuscitation therapy, Folic acid, Hydroxyurea, Pain control, supportive care Fibromyalgia Pain control, outpatient urology F/U care. Nicotine dependence smoking cessation counseling, supportive care. DVT prophylaxis SCD to BLE while in bed, Pt ambulatory Dysuria/UTi Cont. Levaquin daily History Interval history: Pt still c/o sickle cell pain Hospitalist Physical - Constitutional Vitals: Temp Pulse Resp BP Pulse Ox 98.4 F 100 H 16 133/98 94 07/17/19 12:10 07/17/19 12:10 07/17/19 12:10 07/17/19 12:10 07/17/19 12:10 General appearance: Present: mild distress, obese - EENT Eyes: Present: PERRL, EOM intact ENT: hearing intact, clear oral mucosa, dentition normal - Neck Neck: Present: supple, normal ROM - Respiratory Respiratory effort: normal Respiratory: bilateral: CTA - Cardiovascular Rhythm: regular Heart Sounds: Present: S1 & S2. Absent: gallop, rub - Extremities Extremities: no ischemia, No edema, Full ROM - Abdominal General gastrointestinal: soft, non-tender, non-distended, normal bowel sounds - Integumentary Integumentary: Present: clear, warm, dry - Neurologic Neurologic: CNII-XII intact, moves all extremities Results - Labs CBC & Chem 7: 07/15/19 13:45 07/16/19 10:01 Labs: Laboratory Last Values WBC 11.1 K/mm3 (4.5-11.0) H 07/15/19 13:45 RBC 4.66 M/mm3 (3.65-5.03) 07/15/19 13:45 Hgb 10.3 gm/dl (10.1-14.3) 07/15/19 13:45 Hct 30.4 % (30.3-42.9) 07/15/19 13:45 MCV 65 fl (79-97) L 07/15/19 13:45 MCH 22 pg (28-32) L 07/15/19 13:45 MCHC 34 % (30-34) 07/15/19 13:45 RDW 22.2 % (13.2-15.2) H 07/15/19 13:45 Plt Count 225 K/mm3 (140-440) 07/15/19 13:45 Lymph % (Auto) 19.3 % (13.4-35.0) 07/15/19 13:45 [place] % (Auto) 7.2 % (0.0-7.3) 07/15/19 13:45 Eos % (Auto) 1.2 % (0.0-4.3) 07/15/19 13:45 Baso % (Auto) 0.5 % (0.0-1.8) 07/15/19 13:45 Lymph # 2.1 K/mm3 (1.2-5.4) 07/15/19 13:45 [place] # 0.8 K/mm3 (0.0-0.8) 07/15/19 13:45 Eos # 0.1 K/mm3 (0.0-0.4) 07/15/19 13:45 Baso # 0.1 K/mm3 (0.0-0.1) 07/15/19 13:45 Seg Neutrophils % 71.8 % (40.0-70.0) H 07/15/19 13:45 Seg Neutrophils # 7.9 K/mm3 (1.8-7.7) H 07/15/19 13:45 Percent Retic 3.22 % (0.78-2.58) H 07/15/19 13:45 Sodium 136 mmol/L (137-145) L 07/16/19 10:01 Potassium 3.6 mmol/L (3.6-5.0) 07/16/19 10:01 Chloride 99.5 mmol/L (98-107) 07/16/19 10:01 Carbon Dioxide 20 mmol/L (22-30) L 07/16/19 10:01 Anion Gap 20 mmol/L 07/16/19 10:01 BUN 4 mg/dL (7-17) L 07/16/19 10:01 Creatinine 0.4 mg/dL (0.7-1.2) L 07/16/19 10:01 Estimated GFR > 60 ml/min 07/16/19 10:01 BUN/Creatinine Ratio 10 % 07/16/19 10:01 Glucose 142 mg/dL (65-100) H 07/16/19 10:01 Calcium 8.0 mg/dL (8.4-10.2) L 07/16/19 10:01 Total Bilirubin 0.30 mg/dL (0.1-1.2) 07/15/19 13:45 AST 11 units/L (5-40) 07/15/19 13:45 ALT 6 units/L (7-56) L 07/15/19 13:45 Alkaline Phosphatase 81 units/L (35-129) 07/15/19 13:45 Total Protein 6.9 g/dL (6.3-8.2) 07/15/19 13:45 Albumin 3.8 g/dL (3.9-5) L 07/15/19 13:45 Albumin/Globulin Ratio 1.2 % 07/15/19 13:45 Lipase 22 units/L (13-60) 07/15/19 13:45 HCG, Qual Negative (Negative) 07/15/19 13:45 Urine Color Yellow (Yellow) 07/16/19 01:10 Urine Turbidity Slightly-cloudy (Clear) 07/16/19 01:10 Urine pH 6.0 (5.0-7.0) 07/16/19 01:10 Ur Specific [place] 1.014 (1.003-1.030) 07/16/19 01:10 Urine Protein <15 mg/dl mg/dL (Negative) 07/16/19 01:10 Urine Glucose (UA) Neg mg/dL (Negative) 07/16/19 01:10 Urine Ketones Neg mg/dL (Negative) 07/16/19 01:10 Urine Blood Mod (Negative) 07/16/19 01:10 Urine Nitrite Neg (Negative) 07/16/19 01:10 Urine Bilirubin Neg (Negative) 07/16/19 01:10 Urine Urobilinogen < 2.0 mg/dL (<2.0) 07/16/19 01:10 Ur Leukocyte Esterase Lg (Negative) 07/16/19 01:10 Urine WBC (Auto) 12.0 /HPF (0.0-6.0) H 07/16/19 01:10 Urine RBC (Auto) 9.0 /HPF (0.0-6.0) 07/16/19 01:10 U Epithel Cells (Auto) 3.0 /HPF (0-13.0) 07/16/19 01:10 Urine Bacteria (Auto) 1+ /HPF (Negative) 07/16/19 01:10 Hyaline Casts 2 /LPF 07/16/19 01:10 Urine Yeast (Budding) Few /HPF 07/16/19 01:10 Active Medications - Current Medications Current Medications: Generic Name Dose Route Start Last Admin Trade Name Freq PRN Reason Stop Dose Admin Acetaminophen 650 mg 07/15/19 16:33 Tylenol PO Q4H PRN Pain MILD(1-3)/Fever >100.5/TALAMANTES Diphenhydramine HCl 25 mg 07/17/19 13:47 Benadryl IV Q6H PRN Itching Folic Acid 1 mg 07/16/19 10:00 07/17/19 09:27 Folvite PO 1 mg QDAY JUSTUS Administration Hydromorphone HCl 1 mg 07/17/19 13:50 Dilaudid IV Q6H PRN Pain , Severe (7-10) Hydroxyurea 500 mg 07/15/19 22:00 07/17/19 09:28 Hydroxyurea PO 500 mg BID JUSTUS Administration Dextrose/Sodium Chloride 1,000 mls @ 250 mls/hr 07/15/19 15:00 07/17/19 12:10 D5ns 0.2% IV 250 mls/hr DIRECT JUSTUS Administration Levofloxacin/Dextrose 500 mg in 100 mls @ 100 mls/hr 07/16/19 15:00 07/17/19 09:27 Levaquin 500mg/100ml IV 100 mls/hr Q24HR JUSTUS Administration Protocol Ibuprofen 600 mg 07/15/19 16:42 Ibuprofen PO Q8H PRN Pain, Mild (1-3) Lorazepam 1 mg 07/15/19 21:20 07/17/19 10:35 Ativan IV 1 mg Q8H PRN Administration Anxiety Metoclopramide HCl 10 mg 07/15/19 16:42 07/17/19 08:35 Reglan PO 10 mg QID PRN Administration Nausea Nicotine 21 mg 07/15/19 18:00 07/17/19 09:28 Habitrol TD Not Given DAILY JUSTUS Ondansetron HCl 4 mg 07/15/19 16:33 07/16/19 15:48 Zofran IV 4 mg Q8H PRN Administration Nausea And Vomiting Oxycodone/Acetaminophen 1 tab 07/15/19 16:42 07/17/19 00:26 Percocet 5/325 PO 1 tab BID PRN Administration PAIN, MODERATE (4-6) Pregabalin 75 mg 07/16/19 10:00 07/17/19 09:27 Pregabalin PO 75 mg QDAY JUSTUS Administration Promethazine HCl 25 mg 07/15/19 16:42 07/17/19 11:57 Phenergan PO 25 mg Q6H PRN Administration Nausea Sertraline HCl 25 mg 07/16/19 10:00 07/17/19 09:27 Zoloft PO 25 mg QDAY JUSTUS Administration Sodium Chloride 10 ml 07/15/19 22:00 07/17/19 10:35 Sodium Chloride Flush Syringe 10 Ml IV 10 ml BID JUSTUS Administration Sodium Chloride 10 ml 07/15/19 16:33 Sodium Chloride Flush Syringe 10 Ml IV PRN PRN LINE FLUSH
[2019-07-18] MEDS: diphenhydrAMINE 50 MG/ML VIAL IV PRN ×3 (00:30→12:23)
[2019-07-18] MEDS: HYDROmorphone 1 MG/1 ML INJ IV PRN ×3 (00:31→12:24)
[2019-07-18] MEDS: METOCLOPRAMIDE 10 MG TAB PO PRN ×2 (00:31→09:23)
[2019-07-18] MEDS: D5W/0.2% NACL 1,000 ML IV SCH ×2 (03:19→07:05)
[2019-07-18] MEDS: PROMETHAZINE 25 MG TAB PO PRN ×2 (06:23→12:24)
[2019-07-18] MEDS: oxyCODONE /ACETAMINOPHEN 5-325MG TAB PO PRN (08:35)
--- NOTE | 2019-07-18 08:46 | Discharge Summary ---
Providers - Providers Date of Admission: 07/16/19 09:46 Date of discharge: 07/18/19 Attending physician: NEERAJ MORFIN Primary care physician: MAINTENANCE REPAIRMAN Hospitalization Reason for admission: ssc pain crisis Condition: Stable Hospital course: 34 YO Female with SCD, Obesity, FM, Opioid Dependence, Seizure Disorder, Fibromyalgia, Asthma, Nicotine Dependence presents to ED for evaluation. 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 Pt stated that current pain medication is ineffective. Pt seen and evaluated in ED and found to have SCD Crisis. The patient received supportive care with IV fluid hydration, pain medication and has slow but significant improvement throughout hospitalization. Patient returned to her baseline status. Other complications during hospital stay included UTI and enteritis which she was treated with Levaquin. Patient complained of some abdominal pain and suprapubic pain. Her symptoms resolved with the IV antibiotics. Patient is felt to receive maximal hospital benefit and will be discharged home. Dedicated discharge time 32 minutes. Disposition: DC-01 TO HOME OR SELFCARE Time spent for discharge: 32 - Discharge Diagnoses (1) Enteritis Status: Acute (2) Sickle cell crisis Status: Acute (3) Sickle cell pain crisis Status: Acute (4) UTI (urinary tract infection) Status: Acute (5) Fibromyalgia Status: Chronic Core Measure Documentation - Palliative Care Palliative Care/ Comfort Measures: Not Applicable - Core Measures Any of the following diagnoses?: none Exam - Constitutional Vitals: Temp Pulse Resp BP Pulse Ox 98.5 F 87 20 127/69 98 07/18/19 04:16 07/18/19 04:16 07/18/19 08:35 07/18/19 04:16 07/18/19 04:16 General appearance: Present: no acute distress, well-nourished - EENT Eyes: Present: PERRL ENT: hearing intact, clear oral mucosa - Neck Neck: Present: supple, normal ROM - Respiratory Respiratory effort: normal Respiratory: bilateral: CTA - Cardiovascular Heart Sounds: Present: S1 & S2. Absent: rub, click - Extremities Extremities: pulses symmetrical, No edema Peripheral Pulses: within normal limits - Abdominal General gastrointestinal: Present: soft, non-tender, non-distended, normal bowel sounds Female genitourinary: Present: normal - Integumentary Integumentary: Present: clear, warm, dry - Musculoskeletal Musculoskeletal: gait normal, strength equal bilaterally - Psychiatric Psychiatric: appropriate mood/affect, intact judgment & insight - Neurologic Neurologic: CNII-XII intact, moves all extremities Plan Activity: advance as tolerated Weight Bearing Status: Weight Bear as Tolerated Diet: regular Follow up with: PRIMARY CARE,MD [Primary Care Provider] - 3-5 Days Prescriptions: metroNIDAZOLE [Flagyl] 500 mg PO Q8HR #30 tablet Hydroxyurea 500 mg PO BID #60 capsule levoFLOXacin [Levaquin TAB] 500 mg PO QDAY #10 tablet oxyCODONE /ACETAMINOPHEN [Percocet 5/325 mg] 1 tab PO BID PRN #20 tablet PRN Reason: PAIN, MODERATE (4-6) Promethazine [Phenergan] 25 mg PO Q6H PRN #20 tablet PRN Reason: Nausea Pregabalin 75 mg PO QDAY #30 capsule Sertraline [Zoloft] 25 mg PO QDAY #30 tablet
[2019-07-18] MEDS: LORazepam 2 MG/ML VIAL IV PRN (09:22)
[2019-07-18] MEDS: PREGABALIN 75 MG CAP PO SCH (09:23)
[2019-07-18] MEDS: FOLIC ACID 1 MG TAB PO SCH (09:23)
[2019-07-18] MEDS: NICOTINE 21 MG/24 HR PATCH TD SCH (09:24)
[2019-07-18] MEDS: SERTRALINE 25 MG TAB PO SCH (09:24)
[2019-07-18] MEDS: HYDROXYUREA 500 MG CAP PO SCH (10:06)
[2019-07-18] MEDS ORDERED: NEOMY 3.5 MG/BACIT 400 UNITS/POLY B 5000 UNITS/GM OINT PACKET TP ONE (11:50)
[2019-07-18 13:12] VITALS: BP 123/75
== END 2019-07-18 15:55 | disposition home or self-care (01) | DRG 812 ==
LOC: ED 08:08 → 3A 16:33 → OBSVTOIN 07-16 09:46
PROVIDERS: ADMIT Internal Medicine; ATTEND Hospitalist
DX: D57.00 Hb-SS disease with crisis, unspecified (principal); A04.9 Bacterial intestinal infection, unspecified; N39.0 Urinary tract infection, site not specified; F11.20 Opioid dependence, uncomplicated; F17.213 Nicotine dependence, cigarettes, with withdrawal; M79.7 Fibromyalgia; E66.9 Obesity, unspecified; G40.909 Epilepsy, unspecified, not intractable, without status epilepticus; J45.909 Unspecified asthma, uncomplicated; Z68.35 Body mass index [BMI] 35.0-35.9, adult; Z90.49 Acquired absence of other specified parts of digestive tract; Z98.51 Tubal ligation status; Z79.899 Other long term (current) drug therapy; Z90.81 Acquired absence of spleen; Z88.8 Allergy status to other drugs, medicaments and biological substances; Z82.49 Family history of ischemic heart disease and other diseases of the circulatory system; Z71.6 Tobacco abuse counseling
CPT/HCPCS: 36415; 71046; 74177; 80048; 80053; 81001; 83690; 84703; 85025; 85045; 87086; 87116; 93005; 93010; 96365; G0378; A6250; J1170; J1200; J1642; J1885; J1956; J2060; J2405; J2765; Q0169; Q9966

== ENCOUNTER 2019-08-27 13:30 | Emergency (ER) | payer MEDICARE ==
--- NOTE | 2019-08-27 14:08 | Emergency Department Report ---
Blank Doc - Documentation Documentation: 34-year-old female that presents with sickle cell crisis. This initial assessment/diagnostic orders/clinical plan/treatment(s) is/are subject to change based on patient's health status, clinical progression and re- assessment by fellow clinical providers in the ED. Further treatment and workup at subsequent clinical providers discretion. Patient/guardians urged not to elope from the ED as their condition may be serious if not clinically assessed and managed. Initial orders include: 1- Patient sent to MAIN ED for further evaluation and treatment 2- labs 3- UA
[2019-08-27 21:01] LABS: Hematocrit 29.6 % (30.3-42.9); Hemoglobin 9.7 gm/dl (10.1-14.3); Mean Corpuscular HGB Conc 33 % (30-34); Mean Corpuscular Volume 64 fl (79-97); Platelet Count 270 K/mm3 (140-440); Red Blood Count 4.66 M/mm3 (3.65-5.03); Red Cell Distribution Width 19.5 % (13.2-15.2)
[2019-08-27 21:15] LABS: Albumin 3.8 g/dL (3.9-5); BUN/Creatinine Ratio 13; Blood Urea Nitrogen 5 mg/dL (7-17); Calcium 8.5 mg/dL (8.4-10.2); Hemolysis Index 42
[2019-08-27 21:18] LABS: Alanine Aminotransferase < 5 units/L (7-56)
[2019-08-27] MEDS ORDERED: SODIUM CHLORIDE 0.9% 1000 ML 1,000 ML IV ONE (21:19)
[2019-08-27] MEDS ORDERED: ONDANSETRON 4 MG/2 ML INJ IV ONE (21:19)
[2019-08-27] MEDS ORDERED: HYDROmorphone 1 MG/1 ML INJ IV ONE ×2 (21:19→22:33)
[2019-08-27] MEDS ORDERED: diphenhydrAMINE 50 MG/ML VIAL ONE (21:30)
[2019-08-27] MEDS ORDERED: diphenhydrAMINE 50 MG/ML VIAL IV ONE (21:35)
--- NOTE | 2019-08-27 21:37 | Emergency Department Report ---
ED General Adult HPI - General Chief complaint: Sickle Cell Crisis Stated complaint: CHEST PAIN/SSC/VOMIT Time Seen by Provider: 08/27/19 14:06 Source: patient Mode of arrival: Ambulatory Limitations: No Limitations - History of Present Illness Initial comments: The patient presents to the emergency department with a chief complaint of sickle cell crisis. Patient states she is having extremity pain which is consistent with her sickle cell pain which is also complaining of left upper quadrant abdominal pain as well. Patient states that normally she is able to control his sickle cell pain with [id number] Tylenol or Motrin but not this time. Patient denies chest pain or shortness breath. -: Sudden Location: abdomen, upper extremity Radiation: non-radiation Severity scale (0 -10): 8 Quality: stabbing, sharp Consistency: constant Improves with: none Worsens with: none Associated Symptoms: denies other symptoms Treatments Prior to Arrival: none - Related Data Previous Rx's Medication Instructions Recorded Last Taken Type Hydroxyurea 500 mg PO BID #60 capsule 07/18/19 Unknown Rx Pregabalin 75 mg PO QDAY #30 capsule 07/18/19 Unknown Rx Promethazine [Phenergan] 25 mg PO Q6H PRN #20 tablet 07/18/19 Unknown Rx Sertraline [Zoloft] 25 mg PO QDAY #30 tablet 07/18/19 Unknown Rx levoFLOXacin [Levaquin TAB] 500 mg PO QDAY #10 tablet 07/18/19 Unknown Rx metroNIDAZOLE [Flagyl] 500 mg PO Q8HR #30 tablet 07/18/19 Unknown Rx oxyCODONE /ACETAMINOPHEN [Percocet 1 tab PO BID PRN #20 tablet 07/18/19 Unknown Rx 5/325 mg] HYDROcodone/APAP 10-325 [[place] 1 each PO Q8HR PRN #12 tablet 08/27/19 Unknown Rx 10/325] Allergies Allergy/AdvReac Type Severity Reaction Status Date / Time cefotetan disodium Allergy Hives Verified 08/27/19 13:46 [From Cefotan] morphine Allergy Vomiting Verified 08/27/19 13:46 ED Review of Systems ROS: Stated complaint: CHEST PAIN/SSC/VOMIT Other details as noted in HPI Comment: All other systems reviewed and negative Constitutional: denies: chills, fever Eyes: denies: eye pain, eye discharge, vision change ENT: denies: ear pain, throat pain Respiratory: denies: cough, shortness of breath, wheezing Cardiovascular: denies: chest pain, palpitations Endocrine: no symptoms reported Gastrointestinal: abdominal pain. denies: nausea, diarrhea Genitourinary: denies: urgency, dysuria, discharge Musculoskeletal: denies: back pain, joint swelling, arthralgia Skin: denies: rash, lesions Neurological: denies: headache, weakness, paresthesias Psychiatric: denies: anxiety, depression Hematological/Lymphatic: denies: easy bleeding, easy bruising ED Past Medical Hx - Past Medical History Previous Medical History?: Yes Hx Hypertension: No Hx Heart Attack/AMI: No Hx Congestive Heart Failure: No Hx Diabetes: No Hx Deep Vein Thrombosis: No Hx Pulmonary Embolism: No Hx Liver Disease: No Hx Renal Disease: No Hx Sickle Cell Disease: Yes Hx Arthritis: No Hx Seizures: Yes (10 + years ago) Hx Kidney Stones: No Hx Asthma: Yes Hx COPD: No Hx Tuberculosis: No Hx Dementia: No Hx HIV: No Additional medical history: fibromyalgia - Surgical History Past Surgical History?: Yes Hx Coronary Stent: No Hx Open Heart Surgery: No Hx Pacemaker: No Hx Internal Defibrillator: No Hx Cholecystectomy: Yes Hx Appendectomy: No Hx Breast Surgery: No Additional Surgical History: ports x 2 / tubal ligation/ t&a , 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 - Social History Smoking Status: Current Every Day Smoker Substance Use Type: None - Medications Home Medications: Home Medications Medication Instructions Recorded Confirmed Last Taken Type Hydroxyurea 500 mg PO BID #60 capsule 07/18/19 Unknown Rx Pregabalin 75 mg PO QDAY #30 capsule 07/18/19 Unknown Rx Promethazine [Phenergan] 25 mg PO Q6H PRN #20 tablet 07/18/19 Unknown Rx Sertraline [Zoloft] 25 mg PO QDAY #30 tablet 07/18/19 Unknown Rx levoFLOXacin [Levaquin TAB] 500 mg PO QDAY #10 tablet 07/18/19 Unknown Rx metroNIDAZOLE [Flagyl] 500 mg PO Q8HR #30 tablet 07/18/19 Unknown Rx oxyCODONE /ACETAMINOPHEN [Percocet 1 tab PO BID PRN #20 tablet 07/18/19 Unknown Rx 5/325 mg] HYDROcodone/APAP 10-325 [[place] 1 each PO Q8HR PRN #12 tablet 08/27/19 Unknown Rx 10/325] ED Physical Exam - General Limitations: No Limitations General appearance: alert, in no apparent distress - Head Head exam: Present: atraumatic, normocephalic - Eye Eye exam: Present: normal appearance, PERRL, EOMI - ENT ENT exam: Present: mucous membranes dry - Neck Neck exam: Present: normal inspection - Respiratory Respiratory exam: Present: normal lung sounds bilaterally. Absent: respiratory distress - Cardiovascular Cardiovascular Exam: Present: regular rate, normal rhythm. Absent: systolic murmur, diastolic murmur, rubs, gallop - GI/Abdominal GI/Abdominal exam: Present: soft, tenderness (tender to palpation of left upper quadrant), normal bowel sounds. Absent: distended - Extremities Exam Extremities exam: Present: normal inspection - Back Exam Back exam: Present: normal inspection - Neurological Exam Neurological exam: Present: alert, oriented X3, CN II-XII intact. Absent: motor sensory deficit - Psychiatric Psychiatric exam: Present: normal affect, normal mood - Skin Skin exam: Present: warm, dry, intact, normal color. Absent: rash ED Course Vital Signs 08/27/19 08/27/19 08/27/19 14:07 18:19 20:18 Temperature 98.8 F 97.7 F 98.6 F Pulse Rate 88 82 93 H Respiratory 18 16 19 Rate Blood Pressure 123/82 112/79 Blood Pressure 106/65 [Right] O2 Sat by Pulse 98 99 99 Oximetry 08/27/19 08/27/19 08/27/19 21:00 21:30 22:00 Temperature Pulse Rate Respiratory 13 16 19 Rate Blood Pressure 106/65 Blood Pressure [Right] O2 Sat by Pulse 99 Oximetry 08/27/19 22:44 Temperature Pulse Rate Respiratory 19 Rate Blood Pressure Blood Pressure [Right] O2 Sat by Pulse Oximetry ED Medical Decision Making - Lab Data Result diagrams: 08/27/19 Unknown 08/27/19 Unknown Lab Results 08/27/19 08/27/19 08/27/19 Range/Units 22:32 Unknown Unknown WBC 12.5 H (4.5-11.0) K/mm3 RBC 4.66 (3.65-5.03) M/mm3 Hgb 9.7 L (10.1-14.3) gm/dl Hct 29.6 L (30.3-42.9) % MCV 64 L (79-97) fl MCH 21 L (28-32) pg MCHC 33 (30-34) % RDW 19.5 H (13.2-15.2) % Plt Count 270 (140-440) K/mm3 Lymph # Hair T[place] Add Manual Diff Complete Total Counted 100 Seg Neuts % (Manual) 65.0 (40.0-70.0) % Band Neutrophils % 0 % Lymphocytes % (Manual) 27.0 (13.4-35.0) % Reactive Lymphs % (Man) 0 % Monocytes % (Manual) 6.0 (0.0-7.3) % Eosinophils % (Manual) 1.0 (0.0-4.3) % Basophils % (Manual) 1.0 (0.0-1.8) % Metamyelocytes % 0 % Myelocytes % 0 % Promyelocytes % 0 % Blast Cells % 0 % Nucleated RBC % Not Reportable Seg Neutrophils # Man 8.1 H (1.8-7.7) K/mm3 Band Neutrophils # 0.0 K/mm3 Lymphocytes # (Manual) 3.4 (1.2-5.4) K/mm3 Abs React Lymphs (Man) 0.0 K/mm3 Monocytes # (Manual) 0.8 (0.0-0.8) K/mm3 Eosinophils # (Manual) 0.1 (0.0-0.4) K/mm3 Basophils # (Manual) 0.1 (0.0-0.1) K/mm3 Metamyelocytes # 0.0 K/mm3 Myelocytes # 0.0 K/mm3 Promyelocytes # 0.0 K/mm3 Blast Cells # 0.0 K/mm3 WBC Morphology Not Reportable Hypersegmented Neuts Not Reportable Hyposegmented Neuts Not Reportable Hypogranular Neuts Not Reportable Smudge Cells Not Reportable Toxic Granulation Not Reportable Toxic Vacuolation Not Reportable Dohle Bodies Not Reportable Pelger-Huet Anomaly Not Reportable Delmi Rods Not Reportable Platelet Estimate Not Reportable Clumped Platelets Not Reportable Plt Clumps, EDTA Not Reportable Large Platelets Not Reportable Giant Platelets Not Reportable Platelet Satelliting Not Reportable Plt Morphology Comment Not Reportable RBC Morphology Not Reportable Dimorphic RBCs Not Reportable Polychromasia Not Reportable Hypochromasia 1+ Poikilocytosis Not Reportable Anisocytosis 1+ Microcytosis Not Reportable Macrocytosis Not Reportable Spherocytes Not Reportable Pappenheimer Bodies Not Reportable Sickle Cells Not Reportable Target Cells Not Reportable Tear Drop Cells Not Reportable Ovalocytes Not Reportable Helmet Cells Not Reportable Bernard-Mcclave Bodies Not Reportable [place] Rings Not Reportable Tiffanie Cells Not Reportable Bite Cells Not Reportable Crenated Cell Not Reportable Elliptocytes Not Reportable Acanthocytes (Spur) Not Reportable Rouleaux Not Reportable Hemoglobin C Crystals Not Reportable Schistocytes Not Reportable Malaria parasites Not Reportable Percent Retic 2.15 (0.78-2.58) % Jaziel Bodies Not Reportable Hem Pathologist Commnt No Sodium 137 (137-145) mmol/L Potassium 3.8 (3.6-5.0) mmol/L Chloride 102.9 (98-107) mmol/L Carbon Dioxide 21 L (22-30) mmol/L Anion Gap 17 mmol/L BUN 5 L (7-17) mg/dL Creatinine 0.4 L (0.7-1.2) mg/dL Estimated GFR > 60 ml/min BUN/Creatinine Ratio 13 % Glucose 97 (65-100) mg/dL Calcium 8.5 (8.4-10.2) mg/dL Total Bilirubin 0.30 (0.1-1.2) mg/dL AST > 11 (5-40) units/L ALT < 5 L (7-56) units/L Alkaline Phosphatase 67 (35-129) units/L Lactate Dehydrogenase 182 H (91-180) units/L Total Protein 7.0 (6.3-8.2) g/dL Albumin 3.8 L (3.9-5) g/dL Albumin/Globulin Ratio 1.2 % HCG, Qual (Negative) Urine Color Yellow (Yellow) Urine Turbidity Clear (Clear) Urine pH 5.0 (5.0-7.0) Ur Specific [place] 1.026 (1.003-1.030) Urine Protein <15 mg/dl (Negative) mg/dL Urine Glucose (UA) Neg (Negative) mg/dL Urine Ketones Neg (Negative) mg/dL Urine Blood Neg (Negative) Urine Nitrite Neg (Negative) Urine Bilirubin Neg (Negative) Urine Urobilinogen < 2.0 (<2.0) mg/dL Ur Leukocyte Esterase Neg (Negative) Urine WBC (Auto) 2.0 (0.0-6.0) /HPF Urine RBC (Auto) 2.0 (0.0-6.0) /HPF U Epithel Cells (Auto) 1.0 (0-13.0) /HPF Urine Mucus 2+ /HPF 08/27/19 Range/Units Unknown WBC (4.5-11.0) K/mm3 RBC (3.65-5.03) M/mm3 Hgb (10.1-14.3) gm/dl Hct (30.3-42.9) % MCV (79-97) fl MCH (28-32) pg MCHC (30-34) % RDW (13.2-15.2) % Plt Count (140-440) K/mm3 Lymph # Add Manual Diff Total Counted Seg Neuts % (Manual) (40.0-70.0) % Band Neutrophils % % Lymphocytes % (Manual) (13.4-35.0) % Reactive Lymphs % (Man) % Monocytes % (Manual) (0.0-7.3) % Eosinophils % (Manual) (0.0-4.3) % Basophils % (Manual) (0.0-1.8) % Metamyelocytes % % Myelocytes % % Promyelocytes % % Blast Cells % % Nucleated RBC % Seg Neutrophils # Man (1.8-7.7) K/mm3 Band Neutrophils # K/mm3 Lymphocytes # (Manual) (1.2-5.4) K/mm3 Abs React Lymphs (Man) K/mm3 Monocytes # (Manual) (0.0-0.8) K/mm3 Eosinophils # (Manual) (0.0-0.4) K/mm3 Basophils # (Manual) (0.0-0.1) K/mm3 Metamyelocytes # K/mm3 Myelocytes # K/mm3 Promyelocytes # K/mm3 Blast Cells # K/mm3 WBC Morphology Hypersegmented Neuts Hyposegmented Neuts Hypogranular Neuts Smudge Cells Toxic Granulation Toxic Vacuolation Dohle Bodies Pelger-Huet Anomaly Delmi Rods Platelet Estimate Clumped Platelets Plt Clumps, EDTA Large Platelets Giant Platelets Platelet Satelliting Plt Morphology Comment RBC Morphology Dimorphic RBCs Polychromasia Hypochromasia Poikilocytosis Anisocytosis Microcytosis Macrocytosis Spherocytes Pappenheimer Bodies Sickle Cells Target Cells Tear Drop Cells Ovalocytes Helmet Cells Bernard-Mcclave Bodies [place] Rings Tiffanie Cells Bite Cells Crenated Cell Elliptocytes Acanthocytes (Spur) Rouleaux Hemoglobin C Crystals Schistocytes Malaria parasites Percent Retic (0.78-2.58) % Jaziel Bodies Hem Pathologist Commnt Sodium (137-145) mmol/L Potassium (3.6-5.0) mmol/L Chloride (98-107) mmol/L Carbon Dioxide (22-30) mmol/L Anion Gap mmol/L BUN (7-17) mg/dL Creatinine (0.7-1.2) mg/dL Estimated GFR ml/min BUN/Creatinine Ratio % Glucose (65-100) mg/dL Calcium (8.4-10.2) mg/dL Total Bilirubin (0.1-1.2) mg/dL AST (5-40) units/L ALT (7-56) units/L Alkaline Phosphatase (35-129) units/L Lactate Dehydrogenase (91-180) units/L Total Protein (6.3-8.2) g/dL Albumin (3.9-5) g/dL Albumin/Globulin Ratio % HCG, Qual Negative (Negative) Urine Color (Yellow) Urine Turbidity (Clear) Urine pH (5.0-7.0) Ur Specific [place] (1.003-1.030) Urine Protein (Negative) mg/dL Urine Glucose (UA) (Negative) mg/dL Urine Ketones (Negative) mg/dL Urine Blood (Negative) Urine Nitrite (Negative) Urine Bilirubin (Negative) Urine Urobilinogen (<2.0) mg/dL Ur Leukocyte Esterase (Negative) Urine WBC (Auto) (0.0-6.0) /HPF Urine RBC (Auto) (0.0-6.0) /HPF U Epithel Cells (Auto) (0-13.0) /HPF Urine Mucus /HPF - Radiology Data Radiology results: report reviewed - Medical Decision Making relief of pain with meds Critical care attestation.: If time is entered above; I have spent that time in minutes in the direct care of this critically ill patient, excluding procedure time. ED Disposition Clinical Impression: Sickle cell pain crisis, Abdominal pain Disposition: DC TO HOME OR SELFCARE Is pt being admited?: No Does the pt Need Aspirin: No Condition: Stable Instructions: Sickle Cell Crisis (ED), Acute Abdominal Pain (ED) Additional Instructions: return if worse Prescriptions: HYDROcodone/APAP 10-325 [[place] 10/325] 1 each PO Q8HR PRN #12 tablet PRN Reason: Pain Referrals: PRIMARY CARE,MD [Primary Care Provider] - 3-5 Days KATY COPELAND DO [Staff Physician] - 3-5 Days [facility] [Provider Group] - 3-5 Days [facility] [Provider Group] - 3-5 Days Time of Disposition: 23:55
[2019-08-27 21:49] LABS: Anisocytosis 1+; Hypochromasia 1+; Total Cells Counted 100
--- NOTE | 2019-08-27 23:05 | Cat Scan Report ---
CT abdomen pelvis w con INDICATION: Elbow pain. Sickle cell crisis. TECHNIQUE: All CT scans at this location are performed using the following dose modulation technique: Automated exposure control. CONTRAST: Omnipaque 300, 100 cc IV injection. COMPARISON: CT abdomen and pelvis 07/15/2019. CT ABDOMEN: The parenchymal organs are unchanged in appearance including a small benign-appearing hep atic cysts and mild splenomegaly. Negative for abdominal mass, fluid or inflammation. The bowel is no t dilated or thickened. Status post previous cholecystectomy. Negative for biliary dilatation. CT PELVIS: Negative for pelvic mass, fluid or inflammation. A physiologic cyst at the right ovary cooper sures 2.3 cm. IMPRESSION: 1. Negative for obstruction or localized inflammation. 2. Small physiologic cyst right ovary. Signer Name: Mk Lopez MD Signed: 08/27/2019 11:01 PM Workstation Name: [id number]
[2019-08-27 23:38] LABS: Bilirubin,Urine NEG (Negative); Blood,Urine NEG (Negative); Color,Urine Yellow (Yellow); Mucus,Urine 2+ /HPF; Protein,Urine <15 mg/dL mg/dL (Negative); Urobilinogen,Urine < 2.0 mg/dL (<2.0)
[2019-08-27] MEDS ORDERED: HYDROcodone/ACETAMINOPHEN 10-325MG TAB PO ONE (23:52)
[2019-08-28 01:08] VITALS: BP 122/68
== END 2019-08-28 00:56 | disposition home or self-care (01) ==
LOC: ED 13:30
DX: D57.00 Hb-SS disease with crisis, unspecified (principal); J45.909 Unspecified asthma, uncomplicated; F17.200 Nicotine dependence, unspecified, uncomplicated; Z90.49 Acquired absence of other specified parts of digestive tract; Z98.51 Tubal ligation status; Z98.890 Other specified postprocedural states; Z88.1 Allergy status to other antibiotic agents; Z88.5 Allergy status to narcotic agent; Z79.899 Other long term (current) drug therapy
CPT/HCPCS: 36415; 74177; 80053; 81001; 83615; 84703; 85007; 85025; 85045; 93005; 93010; 96374; 96375; 96376; 99284; J1170; J1200; J1642; J2405; J7030; Q9967

== ENCOUNTER 2019-09-13 08:37 | Inpatient (IN) | payer MEDICARE ==
[2019-09-13] MEDS ORDERED: HYDROmorphone 1 MG/1 ML INJ IV ONE ×2 (14:31→16:03)
[2019-09-13] MEDS ORDERED: ONDANSETRON 4 MG/2 ML INJ IV ONE (14:31)
[2019-09-13] MEDS ORDERED: diphenhydrAMINE 50 MG/ML VIAL IV ONE ×2 (14:32→16:03)
[2019-09-13 15:28] LABS: Hematocrit 30.1 % (30.3-42.9); Hemoglobin 10.2 gm/dl (10.1-14.3); Mean Corpuscular HGB Conc 34 % (30-34); Platelet Count 290 K/mm3 (140-440); Red Blood Count 4.88 M/mm3 (3.65-5.03); Red Cell Distribution Width 19.8 % (13.2-15.2)
[2019-09-13 15:44] LABS: Mean Corpuscular Volume 62 fl (79-97)
[2019-09-13 15:46] LABS: BUN/Creatinine Ratio 16; Blood Urea Nitrogen 8 mg/dL (7-17); Calcium 8.6 mg/dL (8.4-10.2); Hemolysis Index 1
[2019-09-13 15:50] LABS: Alanine Aminotransferase < 5 units/L (7-56); Bilirubin,Direct < 0.2 mg/dL (0-0.2)
[2019-09-13] MEDS ORDERED: HYDROmorphone 2 MG/1 ML INJ IV ONE (16:10)
--- NOTE | 2019-09-13 16:10 | Emergency Department Report ---
ED General Adult HPI - General Chief complaint: Sickle Cell Crisis Stated complaint: SSC/CHEST PAIN Time Seen by Provider: 09/13/19 14:31 Source: patient Mode of arrival: Wheelchair Limitations: No Limitations - History of Present Illness Initial comments: Ms. Luna is a 34 yo female with hx of sickle cell disease, fibromyalgia, seizure, asthma and opioid dependence who presents with "pain all over" and one month of abdominal pain. Diffuse body pain 10/10 for the past day. Has had one month of abdominal pain, crampy pain. Does not have a pool technician. August 27, 2019 CT A/P performed at this institution no acute inflammation or obstruction, physilogic right ovary -: Gradual, days(s) (1), month(s) (1) Location: abdomen Severity scale (0 -10): 9 Quality: aching Consistency: constant Improves with: none Worsens with: none Associated Symptoms: denies other symptoms - Related Data Previous Rx's Medication Instructions Recorded Last Taken Type Hydroxyurea 500 mg PO BID #60 capsule 07/18/19 Unknown Rx Pregabalin 75 mg PO QDAY #30 capsule 07/18/19 Unknown Rx Promethazine [Phenergan] 25 mg PO Q6H PRN #20 tablet 07/18/19 Unknown Rx Sertraline [Zoloft] 25 mg PO QDAY #30 tablet 07/18/19 Unknown Rx levoFLOXacin [Levaquin TAB] 500 mg PO QDAY #10 tablet 07/18/19 Unknown Rx metroNIDAZOLE [Flagyl] 500 mg PO Q8HR #30 tablet 07/18/19 Unknown Rx oxyCODONE /ACETAMINOPHEN [Percocet 1 tab PO BID PRN #20 tablet 07/18/19 Unknown Rx 5/325 mg] HYDROcodone/APAP 10-325 [[place] 1 each PO Q8HR PRN #12 tablet 08/27/19 Unknown Rx 10/325] Allergies Allergy/AdvReac Type Severity Reaction Status Date / Time cefotetan disodium Allergy Hives Verified 09/13/19 08:45 [From Cefotan] morphine Allergy Vomiting Verified 09/13/19 08:45 ED Review of Systems ROS: Stated complaint: SSC/CHEST PAIN Other details as noted in HPI Comment: All other systems reviewed and negative Constitutional: denies: fever, malaise Respiratory: shortness of breath. denies: cough Cardiovascular: denies: chest pain Gastrointestinal: abdominal pain. denies: nausea, vomiting Musculoskeletal: myalgia ED Past Medical Hx - Past Medical History Previous Medical History?: Yes Hx Hypertension: No Hx Heart Attack/AMI: No Hx Congestive Heart Failure: No Hx Diabetes: No Hx Deep Vein Thrombosis: No Hx Pulmonary Embolism: No Hx Liver Disease: No Hx Renal Disease: No Hx Sickle Cell Disease: Yes Hx Arthritis: No Hx Seizures: Yes (10 + years ago) Hx Kidney Stones: No Hx Asthma: Yes Hx COPD: No Hx Tuberculosis: No Hx Dementia: No Hx HIV: No Additional medical history: fibromyalgia - Surgical History Past Surgical History?: Yes Hx Coronary Stent: No Hx Open Heart Surgery: No Hx Pacemaker: No Hx Internal Defibrillator: No Hx Cholecystectomy: Yes Hx Appendectomy: No Hx Breast Surgery: No Additional Surgical History: ports x 2 / tubal ligation/ t&a , splenectomy ? - Social History Smoking Status: Current Every Day Smoker Substance Use Type: None - Medications Home Medications: Home Medications Medication Instructions Recorded Confirmed Last Taken Type Hydroxyurea 500 mg PO BID #60 capsule 07/18/19 Unknown Rx Pregabalin 75 mg PO QDAY #30 capsule 07/18/19 Unknown Rx Promethazine [Phenergan] 25 mg PO Q6H PRN #20 tablet 07/18/19 Unknown Rx Sertraline [Zoloft] 25 mg PO QDAY #30 tablet 07/18/19 Unknown Rx levoFLOXacin [Levaquin TAB] 500 mg PO QDAY #10 tablet 07/18/19 Unknown Rx metroNIDAZOLE [Flagyl] 500 mg PO Q8HR #30 tablet 07/18/19 Unknown Rx oxyCODONE /ACETAMINOPHEN [Percocet 1 tab PO BID PRN #20 tablet 07/18/19 Unknown Rx 5/325 mg] HYDROcodone/APAP 10-325 [[place] 1 each PO Q8HR PRN #12 tablet 08/27/19 Unknown Rx 10/325] ED Physical Exam - General Limitations: No Limitations General appearance: alert, in no apparent distress, other (appears in pain, speaking full words sentences) - Head Head exam: Present: atraumatic, normocephalic - Eye Eye exam: Present: normal appearance - ENT ENT exam: Present: mucous membranes moist - Neck Neck exam: Present: normal inspection, full ROM - Respiratory Respiratory exam: Present: normal lung sounds bilaterally, other (port site no edema no erythema ). Absent: respiratory distress, wheezes, rales, rhonchi, stridor - Cardiovascular Cardiovascular Exam: Present: regular rate, normal rhythm, normal heart sounds. Absent: systolic murmur, diastolic murmur, rubs, gallop - GI/Abdominal GI/Abdominal exam: Present: soft, normal bowel sounds. Absent: distended, tenderness, guarding, rebound - Extremities Exam Extremities exam: Present: normal inspection - Neurological Exam Neurological exam: Present: alert, oriented X3 - Psychiatric Psychiatric exam: Present: normal affect, normal mood - Skin Skin exam: Present: warm, dry, intact, normal color. Absent: rash ED Course Vital Signs 09/13/19 08:50 Temperature 98.8 F Pulse Rate 95 H Respiratory 24 Rate Blood Pressure 111/81 [Left] O2 Sat by Pulse 100 Oximetry ED Medical Decision Making - Lab Data Result diagrams: 09/13/19 14:56 09/13/19 14:56 Laboratory Results - last 24 hr 09/13/19 09/13/19 14:56 14:56 WBC 13.0 H RBC 4.88 Hgb 10.2 Hct 30.1 L MCV 62 L MCH 21 L MCHC 34 RDW 19.8 H Plt Count 290 Lymph # Medical Billing Assistant Percent Retic 1.83 Sodium 138 Potassium 3.7 Chloride 104.1 Carbon Dioxide 23 Anion Gap 15 BUN 8 Creatinine 0.5 L Estimated GFR > 60 BUN/Creatinine Ratio 16 Glucose 87 Calcium 8.6 Total Bilirubin 0.30 Direct Bilirubin < 0.2 Indirect Bilirubin 0.1 AST 9 ALT < 5 L Alkaline Phosphatase 76 Total Protein 7.3 Albumin 4.0 Albumin/Globulin Ratio 1.2 Lipase 13 - Medical Decision Making Ms. Luna presents with diffuse body pain and one month abdominal pain. Without access to a pool technician, concern for opioid withdrawal with previously documented opioid dependence. Labs remarkable for elevated Wbc. NO fever or dysuria. No PNA on CXR Admitted to the hospitalist service for further care and treatment Critical care attestation.: If time is entered above; I have spent that time in minutes in the direct care of this critically ill patient, excluding procedure time. ED Disposition Clinical Impression: Sickle cell pain crisis Disposition: OP ADMIT IP TO THIS HOSP Is pt being admited?: Yes Condition: Stable Referrals: PRIMARY CARE, [Primary Care Provider] - 3-5 Days
--- NOTE | 2019-09-13 16:45 | XRay Report ---
CHEST 1 VIEW INDICATION: dyspnea sickle cell disease. COMPARISON: 07/15/2019. FINDINGS: Support devices: Left IJ chest port in satisfactory position. Heart: Mild cardiomegaly. Lungs/Pleura: No acute air space or interstitial disease. Additional findings: None. IMPRESSION: Nothing acute. Signer Name: Mk Lopez MD Signed: 09/13/2019 4:40 PM Workstation Name: [id number]
[2019-09-13] MEDS ORDERED: HYDROmorphone 1 MG/1 ML INJ ONE (17:26)
[2019-09-13] MEDS ORDERED: diphenhydrAMINE 50 MG/ML VIAL ONE (17:27)
[2019-09-13 20:52] LABS: Basophils % (Manual) 0 % (0.0-1.8); Eosinophils % (Manual) 0 % (0.0-4.3); Hypochromasia 2+; Macrocytosis Few; Total Cells Counted 100
[2019-09-13 20:53] LABS: Target Cells Few
[2019-09-13 20:54] LABS: Large Platelets 1+; Platelet Estimate Consistent w Auto; Poikilocytosis Few
[2019-09-13] MEDS ORDERED: NALOXONE 0.4 MG/1 ML INJ IV PRN (21:38)
[2019-09-13] MEDS ORDERED: HYDROcodone/ACETAMINOPHEN 10-325MG TAB PO PRN (21:38)
[2019-09-13] MEDS ORDERED: ALPRAZolam 0.25 MG TAB PO PRN (21:38)
[2019-09-13] MEDS ORDERED: SENNOSIDES 8.6 MG TAB PO SCH (22:00)
[2019-09-13] MEDS: oxyCODONE ER 20 MG TAB PO SCH (22:37)
[2019-09-13] MEDS: diphenhydrAMINE 50 MG/ML VIAL IV PRN (22:38)
[2019-09-13] MEDS: HYDROmorphone 2 MG/1 ML INJ IV PRN (22:39)
[2019-09-13] MEDS: METOCLOPRAMIDE 10 MG/2 ML INJ IV PRN (22:50)
[2019-09-14] MEDS: HYDROmorphone 2 MG/1 ML INJ IV PRN ×6 (02:16→18:57)
[2019-09-14] MEDS: ONDANSETRON 4 MG/2 ML INJ IV PRN ×2 (02:18→15:30)
[2019-09-14] MEDS: IBUPROFEN 800 MG TAB PO SCH ×4 (02:19→19:26)
[2019-09-14] MEDS: diphenhydrAMINE 50 MG/ML VIAL IV PRN ×3 (04:33→19:02)
[2019-09-14] MEDS: METOCLOPRAMIDE 10 MG/2 ML INJ IV PRN ×2 (04:34→11:35)
[2019-09-14] MEDS: oxyCODONE ER 20 MG TAB PO SCH ×2 (05:18→14:30)
[2019-09-14] MEDS: D5W/0.2% NACL 1,000 ML IV SCH ×4 (06:39→21:30)
--- NOTE | 2019-09-14 06:49 | History and Physical Report ---
History of Present Illness Date of examination: 09/13/19 Date of admission: 09/13/19 16:03 Chief complaint: Severe pain 2 days History of present illness: 34 yo female with hx of sickle cell disease, fibromyalgia, seizure, asthma and opioid dependence who presents with "pain all over" for 2 days and one month of abdominal pain. Diffuse body pain 10/10 for the past day. Has had one month of abdominal pain, crampy pain. 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 Pain is 10/10 and all over.No N/v.No chills. Past Medical History Previous Medical History?: Yes Sickle Cell Disease: Yes Seizures: Yes (10 + years ago) Asthma: Yes Additional medical history: fibromyalgia Surgical History Past Surgical History?: Yes Hx Cholecystectomy: Yes Additional Surgical History: ports x 2 / tubal ligation/ t&a , splenectomy ? Social History Smoking Status: Current Every Day Smoker Substance Use Type: None Family history Htn - Medications Home Medications: Home Medications Medication Instructions Recorded Confirmed Last Taken Type Hydroxyurea 500 mg PO BID #60 capsule 07/18/19 Unknown Rx Pregabalin 75 mg PO QDAY #30 capsule 07/18/19 Unknown Rx Promethazine [Phenergan] 25 mg PO Q6H PRN #20 tablet 07/18/19 Unknown Rx Sertraline [Zoloft] 25 mg PO QDAY #30 tablet 07/18/19 Unknown Rx levoFLOXacin [Levaquin TAB] 500 mg PO QDAY #10 tablet 07/18/19 Unknown Rx metroNIDAZOLE [Flagyl] 500 mg PO Q8HR #30 tablet 07/18/19 Unknown Rx oxyCODONE /ACETAMINOPHEN [Percocet 1 tab PO BID PRN #20 tablet 07/18/19 Unknown Rx 5/325 mg] HYDROcodone/APAP 10-325 [[place] 1 each PO Q8HR PRN #12 tablet 08/27/19 Unknown Rx 10/325] Review of Systems ROS: Stated complaint: SSC/CHEST PAIN Other details as noted in HPI Comment: All other systems reviewed and negative Constitutional: denies: fever, malaise Respiratory: shortness of breath. denies: cough Cardiovascular: denies: chest pain Gastrointestinal: abdominal pain. denies: nausea, vomiting Musculoskeletal: myalgia Medications and Allergies Allergies Allergy/AdvReac Type Severity Reaction Status Date / Time cefotetan disodium Allergy Hives Verified 09/13/19 08:45 [From Cefotan] morphine Allergy Vomiting Verified 09/13/19 08:45 Home Medications Medication Instructions Recorded Confirmed Last Taken Type Ibuprofen mg PO Q4HR 09/13/19 09/12/19 01:00 History Active Meds: Active Medications Acetaminophen/Hydrocodone Bitart ([place] 10/325) 1 each PO Q4H PRN PRN Reason: Pain, Moderate (4-6) Alprazolam (Xanax) 0.25 mg PO Q8H PRN PRN Reason: Anxiety Last Admin: 09/13/19 23:01 Dose: 0.25 mg Documented by: Bisacodyl (Dulcolax) 10 mg IA QDAY PRN PRN Reason: Constipation unrelieved by MOM Diphenhydramine HCl (Benadryl) 25 mg IV Q6H PRN PRN Reason: Itching Last Admin: 09/14/19 04:33 Dose: 25 mg Documented by: Folic Acid (Folvite) 1 mg PO QDAY [facility] Hydromorphone HCl (Dilaudid) 2 mg IV Q2H PRN PRN Reason: Pain , Severe (7-10) Stop: 09/14/19 21:37 Last Admin: 09/14/19 05:16 Dose: 2 mg Documented by: Dextrose/Sodium Chloride (D5ns 0.2%) 1,000 mls @ 250 mls/hr IV DIRECT [facility] Last Admin: 09/14/19 06:39 Dose: 250 mls/hr Documented by: Ibuprofen (Ibuprofen) 800 mg PO Q6HR [facility] Last Admin: 09/14/19 05:17 Dose: 800 mg Documented by: Metoclopramide HCl (Reglan) 10 mg IV Q6H PRN PRN Reason: Nausea And Vomiting Last Admin: 09/14/19 04:34 Dose: 10 mg Documented by: Multivitamins (Theragran Tab) 1 each PO QDAY [facility] Naloxone HCl (Naloxone) 0.1 mg IV Q2MIN PRN PRN Reason: Res Rate </= 8 or 02 SAT < 92% Ondansetron HCl (Zofran) 4 mg IV Q8H PRN PRN Reason: Nausea And Vomiting Last Admin: 09/14/19 02:18 Dose: 4 mg Documented by: Oxycodone HCl (Oxycontin) 20 mg PO Q8HR [facility] Last Admin: 09/14/19 05:18 Dose: 20 mg Documented by: Carrie (Senokot) 17.2 mg PO QHS [facility] Last Admin: 09/13/19 22:38 Dose: 17.2 mg Documented by: Exam - Constitutional Vitals: Temp Pulse Resp BP Pulse Ox 98.3 F 79 20 116/71 98 09/14/19 05:53 09/14/19 05:53 09/14/19 05:53 09/14/19 05:53 09/14/19 05:53 General appearance: Present: mild distress, well-nourished - EENT Eyes: Present: PERRL ENT: hearing intact, clear oral mucosa - Neck Neck: Present: supple, normal ROM - Respiratory Respiratory effort: normal Respiratory: bilateral: CTA - Cardiovascular Heart rate: 78 Rhythm: regular Heart Sounds: Present: S1 & S2. Absent: rub, click - Extremities Extremities: no ischemia, pulses intact, pulses symmetrical, No edema Peripheral Pulses: within normal limits - Abdominal General gastrointestinal: Present: soft, non-tender, non-distended, normal bowel sounds Female genitourinary: Present: normal - Integumentary Integumentary: Present: clear, warm, dry - Musculoskeletal Musculoskeletal: gait normal, strength equal bilaterally - Psychiatric Psychiatric: appropriate mood/affect, intact judgment & insight - Neurologic Neurologic: CNII-XII intact, moves all extremities - Allied Health Allied health notes reviewed: nursing, case management Results - Labs CBC & Chem 7: 09/13/19 14:56 09/13/19 14:56 Labs: Laboratory Last Values WBC 13.0 K/mm3 (4.5-11.0) H 09/13/19 14:56 RBC 4.88 M/mm3 (3.65-5.03) 09/13/19 14:56 Hgb 10.2 gm/dl (10.1-14.3) 09/13/19 14:56 Hct 30.1 % (30.3-42.9) L 09/13/19 14:56 MCV 62 fl (79-97) L 09/13/19 14:56 MCH 21 pg (28-32) L 09/13/19 14:56 MCHC 34 % (30-34) 09/13/19 14:56 RDW 19.8 % (13.2-15.2) H 09/13/19 14:56 Plt Count 290 K/mm3 (140-440) 09/13/19 14:56 Lymph # Plant Associate 09/13/19 14:56 Add Manual Diff Complete 09/13/19 14:56 Total Counted 100 09/13/19 14:56 Seg Neuts % (Manual) 81.0 % (40.0-70.0) H 09/13/19 14:56 Band Neutrophils % 0 % 09/13/19 14:56 Lymphocytes % (Manual) 17.0 % (13.4-35.0) 09/13/19 14:56 Reactive Lymphs % (Man) 0 % 09/13/19 14:56 Monocytes % (Manual) 2.0 % (0.0-7.3) 09/13/19 14:56 Eosinophils % (Manual) 0 % (0.0-4.3) 09/13/19 14:56 Basophils % (Manual) 0 % (0.0-1.8) 09/13/19 14:56 Metamyelocytes % 0 % 09/13/19 14:56 Myelocytes % 0 % 09/13/19 14:56 Promyelocytes % 0 % 09/13/19 14:56 Blast Cells % 0 % 09/13/19 14:56 Nucleated RBC % 1.0 % (0.0-0.9) H 09/13/19 14:56 Seg Neutrophils # Man 10.5 K/mm3 (1.8-7.7) H 09/13/19 14:56 Band Neutrophils # 0.0 K/mm3 09/13/19 14:56 Lymphocytes # (Manual) 2.2 K/mm3 (1.2-5.4) 09/13/19 14:56 Abs React Lymphs (Man) 0.0 K/mm3 09/13/19 14:56 Monocytes # (Manual) 0.3 K/mm3 (0.0-0.8) 09/13/19 14:56 Eosinophils # (Manual) 0.0 K/mm3 (0.0-0.4) 09/13/19 14:56 Basophils # (Manual) 0.0 K/mm3 (0.0-0.1) 09/13/19 14:56 Metamyelocytes # 0.0 K/mm3 09/13/19 14:56 Myelocytes # 0.0 K/mm3 09/13/19 14:56 Promyelocytes # 0.0 K/mm3 09/13/19 14:56 Blast Cells # 0.0 K/mm3 09/13/19 14:56 WBC Morphology Not Reportable 09/13/19 14:56 Hypersegmented Neuts Not Reportable 09/13/19 14:56 Hyposegmented Neuts Not Reportable 09/13/19 14:56 Hypogranular Neuts Not Reportable 09/13/19 14:56 Smudge Cells Not Reportable 09/13/19 14:56 Toxic Granulation Not Reportable 09/13/19 14:56 Toxic Vacuolation Not Reportable 09/13/19 14:56 Dohle Bodies Not Reportable 09/13/19 14:56 Pelger-Huet Anomaly Not Reportable 09/13/19 14:56 Delmi Rods Not Reportable 09/13/19 14:56 Platelet Estimate Consistent w auto 09/13/19 14:56 Clumped Platelets Not Reportable 09/13/19 14:56 Plt Clumps, EDTA Not Reportable 09/13/19 14:56 Large Platelets 1+ 09/13/19 14:56 Giant Platelets Not Reportable 09/13/19 14:56 Platelet Satelliting Not Reportable 09/13/19 14:56 Plt Morphology Comment Not Reportable 09/13/19 14:56 RBC Morphology Not Reportable 09/13/19 14:56 Dimorphic RBCs Not Reportable 09/13/19 14:56 Polychromasia Not Reportable 09/13/19 14:56 Hypochromasia 2+ 09/13/19 14:56 Poikilocytosis Few 09/13/19 14:56 Anisocytosis Not Reportable 09/13/19 14:56 Microcytosis 1+ 09/13/19 14:56 Macrocytosis Few 09/13/19 14:56 Spherocytes Not Reportable 09/13/19 14:56 Pappenheimer Bodies Not Reportable 09/13/19 14:56 Sickle Cells Not Reportable 09/13/19 14:56 Target Cells Few 09/13/19 14:56 Tear Drop Cells Not Reportable 09/13/19 14:56 Ovalocytes Not Reportable 09/13/19 14:56 Helmet Cells Not Reportable 09/13/19 14:56 Bernard-Hilda Bodies Not Reportable 09/13/19 14:56 [place] Rings Not Reportable 09/13/19 14:56 [place] Cells Not Reportable 09/13/19 14:56 Bite Cells Not Reportable 09/13/19 14:56 Crenated Cell Not Reportable 09/13/19 14:56 Elliptocytes Not Reportable 09/13/19 14:56 Acanthocytes (Spur) Not Reportable 09/13/19 14:56 Rouleaux Not Reportable 09/13/19 14:56 Hemoglobin C Crystals Not Reportable 09/13/19 14:56 Schistocytes Not Reportable 09/13/19 14:56 Malaria parasites Not Reportable 09/13/19 14:56 Percent Retic 1.83 % (0.78-2.58) 09/13/19 14:56 Jaziel Bodies Not Reportable 09/13/19 14:56 Hem Pathologist Commnt No 09/13/19 14:56 Sodium 138 mmol/L (137-145) 09/13/19 14:56 Potassium 3.7 mmol/L (3.6-5.0) 09/13/19 14:56 Chloride 104.1 mmol/L (98-107) 09/13/19 14:56 Carbon Dioxide 23 mmol/L (22-30) 09/13/19 14:56 Anion Gap 15 mmol/L 09/13/19 14:56 BUN 8 mg/dL (7-17) 09/13/19 14:56 Creatinine 0.5 mg/dL (0.7-1.2) L 09/13/19 14:56 Estimated GFR > 60 ml/min 09/13/19 14:56 BUN/Creatinine Ratio 16 % 09/13/19 14:56 Glucose 87 mg/dL (65-100) 09/13/19 14:56 Calcium 8.6 mg/dL (8.4-10.2) 09/13/19 14:56 Total Bilirubin 0.30 mg/dL (0.1-1.2) 09/13/19 14:56 Direct Bilirubin < 0.2 mg/dL (0-0.2) 09/13/19 14:56 Indirect Bilirubin 0.1 mg/dL 09/13/19 14:56 AST 9 units/L (5-40) 09/13/19 14:56 ALT < 5 units/L (7-56) L 09/13/19 14:56 Alkaline Phosphatase 76 units/L (35-129) 09/13/19 14:56 Total Protein 7.3 g/dL (6.3-8.2) 09/13/19 14:56 Albumin 4.0 g/dL (3.9-5) 09/13/19 14:56 Albumin/Globulin Ratio 1.2 % 09/13/19 14:56 Lipase 13 units/L (13-60) 09/13/19 14:56 Short CBC 09/13/19 Range/Units 14:56 WBC 13.0 H (4.5-11.0) K/mm3 Hgb 10.2 (10.1-14.3) gm/dl Hct 30.1 L (30.3-42.9) % Plt Count 290 (140-440) K/mm3 BMP 09/13/19 14:56 Sodium 138 Potassium 3.7 Chloride 104.1 Carbon Dioxide 23 BUN 8 Creatinine 0.5 L Glucose 87 Calcium 8.6 Liver Function 09/13/19 Range/Units 14:56 Total Bilirubin 0.30 (0.1-1.2) mg/dL Direct Bilirubin < 0.2 (0-0.2) mg/dL AST 9 (5-40) units/L ALT < 5 L (7-56) units/L Alkaline Phosphatase 76 (35-129) units/L Albumin 4.0 (3.9-5) g/dL - Imaging and Cardiology Chest x-ray: report reviewed (NAF) Assessment and Plan Advance Directives: Yes (FC) VTE prophylaxis?: Chemical Plan of care discussed with patient/family: Yes - Patient Problems (1) Sickle cell pain crisis Current Visit: Yes Status: Acute Plan to address problem: IV fluids and Pain controll Check retic count (2) Depression Current Visit: Yes Status: Chronic Plan to address problem: On Zoloft (3) Seizure disorder Current Visit: Yes Status: Chronic Plan to address problem: Last seizure 10 years ago Primary team to start antiseizure meds if deemed necessary (4) Fibromyalgia Current Visit: No Status: Chronic Plan to address problem: On Lyrica (5) DVT prophylaxis Current Visit: No Status: Acute Plan to address problem: On Heparin and GI prophylaxis
[2019-09-14 07:42] LABS: Hematocrit 29.5 % (30.3-42.9); Hemoglobin 9.7 gm/dl (10.1-14.3); Mean Corpuscular HGB Conc 33 % (30-34); Platelet Count 295 K/mm3 (140-440); Red Blood Count 4.72 M/mm3 (3.65-5.03); Red Cell Distribution Width 19.5 % (13.2-15.2)
[2019-09-14 07:44] LABS: Mean Corpuscular Volume 63 fl (79-97)
[2019-09-14 08:49] LABS: Anisocytosis 2+; Basophils % (Manual) 0 % (0.0-1.8); Eosinophils % (Manual) 0 % (0.0-4.3); Hypochromasia 2+; Total Cells Counted 100
[2019-09-14 08:50] LABS: Large Platelets Few; Platelet Estimate Consistent w Auto; Poikilocytosis 2+; Stomatocytes 1+; Target Cells 1+
[2019-09-14] MEDS ORDERED: MULTIVITAMINS ,THERAPEUTIC TAB PO SCH (10:00)
[2019-09-14] MEDS ORDERED: FOLIC ACID 1 MG TAB PO SCH (10:00)
--- NOTE | 2019-09-14 11:22 | Progress Note ---
Assessment and Plan Sickle cell crisis - Patient placed on IV fluids and IV narcotics -cont to monitor h/h, retic count, LDH Systemic inflammatory response syndrome Without organ dysfunction - no fever, presented with elevated white count, get blood cx/UA, monitor CBC - monitor off abx Fibromyalgia - Pain control, supportive care. Nicotine dependence - smoking cessation counseling, supportive care. DVt Px, SCD Brief History: Patient is a 33 YO Female with SCD, Obesity, FM, Opioid Dependence, Seizure Disorder, Fibromyalgia, Asthma, Nicotine Dependence presents to ED for evaluation for generalized pain and admitted for SCC. Subjective Date of service: 09/14/19 Interval history: Patient seen and examined states her pain is generalized but responding to pain meds denies fever, cough or abdominal pain tolerating diet Objective - Constitutional Vitals: Vital Signs - 12hr 09/13/19 09/14/19 09/14/19 23:50 02:16 02:19 Temperature 99.0 F Pulse Rate 77 Respiratory 18 20 20 Rate Blood Pressure 103/70 O2 Sat by Pulse 93 Oximetry 09/14/19 09/14/19 09/14/19 05:16 05:17 05:18 Temperature Pulse Rate Respiratory 18 18 18 Rate Blood Pressure O2 Sat by Pulse Oximetry 09/14/19 05:53 Temperature 98.3 F Pulse Rate 79 Respiratory 20 Rate Blood Pressure 116/71 O2 Sat by Pulse 98 Oximetry General appearance: Present: no acute distress, obese - EENT Eyes: PERRL, EOM intact ENT: hearing intact, clear oral mucosa Ears: bilateral: normal - Neck Neck: supple, normal ROM - Respiratory Respiratory effort: normal Respiratory: bilateral: CTA - Cardiovascular Rhythm: regular Heart Sounds: Present: S1 & S2. Absent: gallop, rub Extremities: pulses intact, No edema, normal color, Full ROM - Gastrointestinal General gastrointestinal: Present: soft, non-tender, non-distended, normal bowel sounds - Integumentary Integumentary: clear, warm, dry - Musculoskeletal Musculoskeletal: 1, strength equal bilaterally - Neurologic Neurologic: moves all extremities - Psychiatric Psychiatric: memory intact, appropriate mood/affect, intact judgment & insight - Labs CBC & Chem 7: 09/14/19 06:27 09/13/19 14:56 Labs: Abnormal lab results 09/13/19 09/13/19 09/14/19 Range/Units 14:56 14:56 06:27 WBC 13.0 H 14.1 H (4.5-11.0) K/mm3 Hgb 9.7 L (10.1-14.3) gm/dl Hct 30.1 L 29.5 L (30.3-42.9) % MCV 62 L 63 L (79-97) fl MCH 21 L 21 L (28-32) pg RDW 19.8 H 19.5 H (13.2-15.2) % Seg Neuts % (Manual) 81.0 H (40.0-70.0) % Nucleated RBC % 1.0 H (0.0-0.9) % Seg Neutrophils # Man 10.5 H 9.7 H (1.8-7.7) K/mm3 Creatinine 0.5 L (0.7-1.2) mg/dL ALT < 5 L (7-56) units/L - Imaging and cardiology Chest x-ray: report reviewed
[2019-09-14] MEDS ORDERED: HYDROcodone/ACETAMINOPHEN 10-325MG TAB PO PRN (22:25)
[2019-09-14] MEDS ORDERED: oxyCODONE ER 20 MG TAB PO ONE (22:28)
[2019-09-15] MEDS ORDERED: ALBUTEROL 2.5 MG/3 ML NEBU IH PRN (00:18)
[2019-09-15] MEDS: D5W/0.2% NACL 1,000 ML IV SCH ×4 (02:12→13:07)
[2019-09-15 02:14] LABS: Hematocrit 27.4 % (30.3-42.9); Hemoglobin 9.3 gm/dl (10.1-14.3); Mean Corpuscular HGB Conc 34 % (30-34); Platelet Count 282 K/mm3 (140-440); Red Cell Distribution Width 19.5 % (13.2-15.2)
[2019-09-15 02:24] LABS: Mean Corpuscular Volume 62 fl (79-97)
[2019-09-15 02:44] LABS: Bilirubin,Urine NEG (Negative); Blood,Urine LG (Negative); Color,Urine Colorless (Yellow); Protein,Urine <15 mg/dL mg/dL (Negative); Urobilinogen,Urine < 2.0 mg/dL (<2.0)
[2019-09-15] MEDS ORDERED: FAMOTIDINE 10 MG TAB PO SCH (10:00)
[2019-09-15] MEDS ORDERED: KETOROLAC 30 MG/1 ML INJ IV ONE (12:54)
--- NOTE | 2019-09-15 14:31 | Discharge Summary ---
Providers - Providers Date of Admission: 09/13/19 16:03 Date of discharge: 09/15/19 Attending physician: ALEM HUDSON Primary care physician: COOKER CASING Hospitalization Condition: Stable Disposition: DC-01 TO HOME OR SELFCARE Time spent for discharge: 32 min Core Measure Documentation - Palliative Care Palliative Care/ Comfort Measures: Not Applicable - Core Measures Any of the following diagnoses?: none Exam - Constitutional Vitals: Temp Pulse Resp BP Pulse Ox 98.8 F 82 16 121/62 78 L 09/15/19 05:41 09/15/19 05:41 09/15/19 05:41 09/15/19 05:41 09/15/19 05:41 General appearance: Present: no acute distress, well-nourished - EENT Eyes: Present: PERRL, EOM intact - Neck Neck: Present: supple, normal ROM - Respiratory Respiratory effort: normal Respiratory: bilateral: diminished, negative: rales, rhonchi, wheezing - Cardiovascular Rhythm: regular Heart Sounds: Present: S1 & S2 - Extremities Extremities: no ischemia, No edema - Abdominal General gastrointestinal: Present: soft, non-tender, non-distended, normal bowel sounds - Integumentary Integumentary: Present: clear, warm - Musculoskeletal Musculoskeletal: strength equal bilaterally - Psychiatric Psychiatric: appropriate mood/affect, cooperative - Neurologic Neurologic: moves all extremities Plan Activity: no restrictions Diet: regular Follow up with: PRIMARY CARE, [Primary Care Provider] - 3-5 Days Prescriptions: HYDROcodone/APAP 5-325 [[place] 5/325] 1 each PO BID PRN #6 tablet PRN Reason: Pain , Severe (7-10)
[2019-09-15] MEDS ORDERED: NEOMY 3.5 MG/BACIT 400 UNITS/POLY B 5000 UNITS/GM OINT PACKET TP ONE (15:00)
[2019-09-15 15:01] VITALS: BP 114/75
[2019-09-15] MEDS ORDERED: ENOXAPARIN 40 MG/0.4 ML INJ SUB-Q SCH (22:00)
== END 2019-09-15 17:00 | disposition home or self-care (01) | DRG 812 ==
LOC: ED 08:37 → 3A 16:03 → 4A 16:16 → UNDOADMIN 16:16 → 3A 18:57
PROVIDERS: ADMIT Internal Medicine; ATTEND Internal Medicine
DX: D57.00 Hb-SS disease with crisis, unspecified (principal); R65.10 Systemic inflammatory response syndrome (SIRS) of non-infectious origin without acute organ dysfunction; F11.20 Opioid dependence, uncomplicated; M79.7 Fibromyalgia; F32.9 Major depressive disorder, single episode, unspecified; F17.210 Nicotine dependence, cigarettes, uncomplicated; J45.909 Unspecified asthma, uncomplicated; G40.909 Epilepsy, unspecified, not intractable, without status epilepticus; Z71.6 Tobacco abuse counseling; Z88.6 Allergy status to analgesic agent; Z88.1 Allergy status to other antibiotic agents; Z98.51 Tubal ligation status; Z90.81 Acquired absence of spleen; Z82.49 Family history of ischemic heart disease and other diseases of the circulatory system
CPT/HCPCS: 36415; 71045; 80048; 80076; 81001; 83615; 83690; 85007; 85025; 85027; 85045; 87040; 87116; 96374; 99406; G0378; A6250; J1170; J1200; J1642; J1885; J2405; J2765